=== PATIENT | male | born 1960 | race Caucasian/White ===

== ENCOUNTER 2017-04-02 10:58 | Emergency (ER) | payer MEDICARE, OTHER ==
[~2017-04-02] VITALS: Ht 185.4 cm; Wt 79.4 kg
[~2017-04-02 10:58] MED LIST: ABAT250V; ACID REDUCER 1150 MG PO; ACYC800 PO; ALBU3IS INH; ALBU90OI6 INH; ALPR1; ALPRAZOLAM; ASPI81EC; ASPIRIN; Allergy Medicat25 MG PO; BENADRYL25 MG PO; BENICAR; Benadryl A12.5 MG/5 PO; CALACE667G PO; CALCA500CH PO; CANNABIS; CARV25 PO; CARV6.25 PO; CEPH500 PO; CHLO10 PO; CHLO5 PO; CHOL10002 PO; CIPR250 PO; CIPR500; CIPR500 PO; CLON.2 PO; CLON.3 PO; CLON.5 PO; CRANBERRY TAB PO; CYCL10; CYCL10 PO; Calcium Acetat667 MG PO; DEXL60CA3 PO; DIAZ10 PO; DIAZ5 PO; DIPH12.5EL PO; DIPH50 PO; DOC250 PO; DOCU100 PO; DOXE0.5 PO; Dilaudid 2 mg Ta2 MG PO; FAMO20 PO; FENT25TP TOP; FOLGARD TABLET1 EACH PO; FURO40 PO; GABA600 PO; HYDMOR2 PO; HYDMOR4 PO; IBUHYD PO; ISOMON30 PO; LAVAP17G PO; LIDO5TP TOP; LISI20 PO; LISINOPRIL; LOSA25 PO; LOSA50 PO; LOSARTAN POTASS25 MG PO; METO50ER PO; MIRT15 PO; MORP15ER; MORP15ER PO; MORP30 PO; MORP30ER PO; NITR.4SL SL; Neurontin 100100 MG PO; OLME20; OLME20 PO; OMEP10ER PO; OMEP20ER; OMEP20ER PO; OMEP40CA12 PO; ONDA4 PO; ONDA4ODT MM; OXYC10ER PO; OXYC10TA19 PO; OXYC15ER PO; OXYC1TAB11 PO; OXYC5; OXYC5 PO; OXYCODONE; PANT40; PARI1 PO; POTCHL10ER; POTCHL10ER PO; PROM25 PO; PROTONIX; Papaya Enzyme1 EAC1 PO; Papaya1 EACH PO; Prilosec Otc20 MG PO; RANI150 PO; RENAGEL PO; RENAL VITAMIN0.8 MG PO; ROXICODONE5 MG PO; RXHYDMOR2 PO; Rena-Vite Tabl0.8 MG PO; Renvela800 MG PO; SAW PALMETTO EXTRACT PO; SENN187 PO; SEVEC800; SEVEC800 PO; SULTRIDS PO; Saw Palmetto500 MG PO; Saw Palmetto80 MG PO; Stool Softener240 MG PO; TRAV.004OP BOTHEYES; Toprol Xl50 MG PO; Travatan Z5 ML OP; VALS80 PO; VELPHORO500 MG PO; VELTASSA8.4 GM PO; VITAMIN D 3 PO; [UNRECOGNIZED DRUG - OTHER] PO; [UNRECOGNIZED DRUG - OTHER] PO; [UNRECOGNIZED DRUG - REMARK]; [UNRECOGNIZED DRUG - REMARK]
[2017-04-02 11:34] LABS: BASOPHILS ABSOLUTE AUTO 0.02 K/mm3 (0.00-0.23); BASOPHILS PERCENT AUTO 0 % (0-2); EOSINOPHILS ABSOLUTE AUTO 0.23 K/mm3 (0.00-0.68); EOSINOPHILS PERCENT AUTO 4 % (0-6); Hematocrit 36.8 % (37.0-53.0); Hemoglobin 11.5 g/dL (13.5-17.5); IMMATURE GRAN ABSOLUTE AUTO 0.01 K/mm3 (0.00-0.10); IMMATURE GRAN PERCENT AUTO 0 % (0-1); LYMPHOCYTES ABSOLUTE AUTO 0.98 K/mm3 (0.84-5.20); LYMPHOCYTES PERCENT AUTO 19 % (21-46); MONOCYTES ABSOLUTE AUTO 0.51 K/mm3 (0.16-1.47); MONOCYTES PERCENT AUTO 10 % (4-13); Mean Corpuscular HGB 28.6 pg (26.0-34.0); Mean Corpuscular HGB Conc 31.3 g/dL (31.5-36.5); Mean Corpuscular Volume 92 fL (80-100); Mean Platelet Volume 9.8 fL (9.1-12.4); NEUTROPHILS ABSOLUTE AUTO 3.51 K/mm3 (1.96-9.15); NEUTROPHILS PERCENT AUTO 67 % (41-73); Platelet Count 113 K/mm3 (150-400); RDW Coefficient Variation 15.9 % (11.7-14.2); RDW Standard Deviation 54.6 fL (35.1-46.3); Red Blood Cell Count 4.02 M/mm3 (4.30-5.90); White Blood Cell Count 5.26 K/mm3 (4.00-11.30)
[2017-04-02 11:49] LABS: International Normalized Ratio 1.11; Prothrombin Time Results 11.6 Sec (9.7-11.5)
[2017-04-02 11:54] LABS: Troponin I <0.015 ng/mL (0.000-0.040)
[2017-04-02 12:18] LABS: Alanine Aminotransfer (ALT/SGP 12 U/L (12-78); Albumin, Blood 3.5 g/dL (3.4-5.0); Albumin/Globulin Ratio 0.9 (0.8-1.8); Alk Phos 86 U/L (50-136); Anion Gap 9 mmol/L (6-16); Aspartate Aminotrans (AST/SGOT <3 U/L (12-37); Bilirubin, Total 0.4 mg/dL (0.1-1.0); Blood Urea Nitrogen 75 mg/dL (8-24); Bun/Creatinine Ratio 6.9 (12.0-20.0); CO2, Blood 36 mmol/L (21-32); Calcium, Blood 8.8 mg/dL (8.5-10.1); Chloride, Blood 92 mmol/L (98-108); Globulin, Blood 3.9 g/dL (2.2-4.0); Glomerular Filtration Rate 5 (60-); Glucose, Blood 114 mg/dL (70-99); Potassium, Blood 4.5 mmol/L (3.5-5.5); Sodium, Blood 137 mmol/L (136-145); Total Protein, Blood 7.4 g/dL (6.4-8.2)
[2017-04-02] MEDS ORDERED: CLON.1 PO (15:00)
[2017-04-02] MEDS ORDERED: CORLANOR5 MG PO (15:01)
[2017-04-02] MEDS ORDERED: ENTRESTO 97 MG1 EACH PO (15:02)
[2017-04-02] MEDS ORDERED: KETO10 PO (16:29)
== END 2017-04-02 16:45 | disposition home or self-care (01) ==
LOC: ER 10:58
PROVIDERS: Emergency Medicine
DX: I31.9 Disease of pericardium, unspecified (principal); I50.9 Heart failure, unspecified; N18.9 Chronic kidney disease, unspecified; F03.90 Unspecified dementia, unspecified severity, without behavioral disturbance, psychotic disturbance, mood disturbance, and anxiety; Z99.2 Dependence on renal dialysis; Z88.0 Allergy status to penicillin; Z91.09 Other allergy status, other than to drugs and biological substances; Z88.8 Allergy status to other drugs, medicaments and biological substances; Z79.899 Other long term (current) drug therapy
CPT/HCPCS: 36415; 71250; 80053; 84484; 85025; 85610; 93005; 93010; 96374; 99284; J1885

== ENCOUNTER 2018-05-07 05:35 | Observation (INO) | payer MEDICARE, OTHER ==
[~2018-05-07] VITALS: Ht 182.9 cm; Wt 83.9 kg
[~2018-05-07 05:35] MED LIST changes: +CLON.1 PO; +CORLANOR5 MG PO; +ENTRESTO 97 MG1 EACH PO; +KETO10 PO
[2018-05-07 06:30] LABS: Calcium, Ionized (POC) 1.03 mmol/L (1.10-1.46); Chloride (POC) 97 mmol/L (98-108); Creatinine (POC) 12.2 mg/dL (0.8-1.3); Glucose (ISTAT POC) 93 mg/dL (70-99); Hemoglobin (POC) 9.2 g/dL (13.5-17.5); Potassium (POC) 5.8 mmol/L (3.5-5.5); Sodium (POC) 138 mmol/L (135-148); Total CO2 (POC) 31 mmol/L (21-32)
--- NOTE | 2018-05-07 09:34 | NUR ---
COMPUTER/NETWORK ISSUES LED TO [employer] WORKER BEING UNABLE TO DOCUMENT. I/O DIALYSIS AMOUNT ENTERED FOR FOOTWEAR FACTORY WORKERDIDI.
== END 2018-05-07 13:30 | disposition home or self-care (01) ==
LOC: ER 05:35 → MEDS 05:36
PROVIDERS: Emergency Medicine; ADMIT Internal Medicine
DX: I13.2 Hypertensive heart and chronic kidney disease with heart failure and with stage 5 chronic kidney disease, or end stage renal disease (principal); N18.6 End stage renal disease; D63.1 Anemia in chronic kidney disease; E87.5 Hyperkalemia; G89.29 Other chronic pain; Z79.899 Other long term (current) drug therapy; Z88.8 Allergy status to other drugs, medicaments and biological substances; Z99.2 Dependence on renal dialysis; Z87.891 Personal history of nicotine dependence; Z88.0 Allergy status to penicillin
CPT/HCPCS: 36415; 80047; 85014; 93005; 93010; 99284-25; G0257; J1644

== ENCOUNTER 2018-06-04 02:32 | Inpatient (IN) | payer MEDICARE, OTHER ==
[~2018-06-04] VITALS: Ht 154.9 cm; Wt 91.2 kg
[~2018-06-04 02:32] MED LIST changes: -CLON.1 PO; +CLONIDINE HCL0.1 MG PO; -DOC250 PO
[2018-06-04 04:47] LABS: BASOPHILS ABSOLUTE AUTO 0.01 K/mm3 (0.00-0.23); BASOPHILS PERCENT AUTO 0 % (0-2); EOSINOPHILS ABSOLUTE AUTO 0.17 K/mm3 (0.00-0.68); EOSINOPHILS PERCENT AUTO 4 % (0-6); Hematocrit 24.5 % (37.0-53.0); Hemoglobin 7.5 g/dL (13.5-17.5); IMMATURE GRAN ABSOLUTE AUTO 0.01 K/mm3 (0.00-0.10); IMMATURE GRAN PERCENT AUTO 0 % (0-1); LYMPHOCYTES ABSOLUTE AUTO 0.89 K/mm3 (0.84-5.20); LYMPHOCYTES PERCENT AUTO 18 % (21-46); MONOCYTES ABSOLUTE AUTO 0.26 K/mm3 (0.16-1.47); MONOCYTES PERCENT AUTO 5 % (4-13); Mean Corpuscular HGB 29.6 pg (26.0-34.0); Mean Corpuscular HGB Conc 30.6 g/dL (31.5-36.5); Mean Corpuscular Volume 97 fL (80-100); Mean Platelet Volume 9.7 fL (9.1-12.4); NEUTROPHILS ABSOLUTE AUTO 3.55 K/mm3 (1.96-9.15); NEUTROPHILS PERCENT AUTO 73 % (41-73); Platelet Count 102 K/mm3 (150-400); RDW Coefficient Variation 17.2 % (11.7-14.2); RDW Standard Deviation 60.5 fL (35.1-46.3); Red Blood Cell Count 2.53 M/mm3 (4.30-5.90); White Blood Cell Count 4.89 K/mm3 (4.00-11.30)
[2018-06-04 05:08] LABS: Troponin I <0.015 ng/mL (0.000-0.040)
[2018-06-04 05:10] LABS: Alanine Aminotransfer (ALT/SGP 14 U/L (12-78); Albumin, Blood 3.5 g/dL (3.4-5.0); Alk Phos 58 U/L (50-136); Anion Gap 9 mmol/L (6-16); Aspartate Aminotrans (AST/SGOT <3 U/L (12-37); Bilirubin, Total 0.7 mg/dL (0.1-1.0); Blood Urea Nitrogen 82 mg/dL (8-24); Bun/Creatinine Ratio 6.8 (12.0-20.0); CO2, Blood 33 mmol/L (21-32); Calcium, Blood 8.8 mg/dL (8.5-10.1); Chloride, Blood 94 mmol/L (98-108); Globulin, Blood 3.4 g/dL (2.2-4.0); Glomerular Filtration Rate 5 (60-); Glucose, Blood 89 mg/dL (70-99); Potassium, Blood 5.8 mmol/L (3.5-5.5); Sodium, Blood 136 mmol/L (136-145); Total Protein, Blood 6.9 g/dL (6.4-8.2)
[2018-06-04] MEDS ORDERED: PROM25 PO (06:08)
[2018-06-04] MEDS ORDERED: ISOSORBIDE DINI PO (06:09)
[2018-06-04] MEDS ORDERED: Ropinirole HCl0.5 MG PO (12:36)
[2018-06-04] MEDS ORDERED: SEVE800 PO (12:45)
[2018-06-04] MEDS ORDERED: Calcium Acetat667 MG PO (12:47)
[2018-06-04] MEDS ORDERED: HYDHCL25 PO (14:32)
[2018-06-04] MEDS ORDERED: DOC250 PO (14:35)
[2018-06-04] MEDS ORDERED: LOKELMA10 GM PO (14:35)
--- NOTE | 2018-06-04 18:46 | NUR ---
PT ADMITTED TO ROOM 305 FROM ED APPROX 1630- ORIENTED TO ROOM SET UP AND CALL LIGHT AND SAFETY. PT A/O, AMBULATED STEADY SBA FROM GOURNEY TO BED, NO SOB, ON 3L O2- RESP EVEN UNLABORED. DIM BREATH SOUNDS IN BASES. STATES SINCE 2 UNITS OF BLOOD WITH DIALYSIS, HIS SOB HAS RESOLVED. STATES HE HAS CHRONIC CHEST PRESURE, AND THAT IS THERE CURRENTLY LINGERING ENTIRE CHEST 2/10 PRESURE WHICH IS HIS NORM. STATES HE CAN TELL IF ITS "CARDIAC" AND KNOWS WHEN HE SHOULD TAKE NITRO. RN CALLED CARDIAC CONSULT CRUZITO ADAMS LAST REMODELER REPAIRER 06/05 TO COME EVAL PT. HISTORY COMPLETED AND DR SAVAGE NOTIFIED OF NEED FOR PAIN MED AND BINDERS NEEDED BEFORE MEALS.
[2018-06-04] MEDS ORDERED: BENADRYL25 MG PO (19:33)
--- NOTE | 2018-06-05 03:18 | NUR ---
PT REFUSED DOSE OF ARANESP TONIGHT. EDUCATED PT ON IMPORTANCE AND PURPOSE OF MEDICATION. AT BEDSIDE TRIES TO CONVINCE AND EDUCATE PT WELL. PT STATES, "I WILL BE TALKING TO DR CARMONA ABOUT THAT ONE."
[2018-06-05 05:13] LABS: Hematocrit 25.7 % (37.0-53.0)
[2018-06-05 05:40] LABS: Magnesium, Blood 2.8 mg/dL (1.6-2.4)
[2018-06-05 05:50] LABS: Albumin, Blood 3.1 g/dL (3.4-5.0); Anion Gap 8 mmol/L (6-16); Blood Urea Nitrogen 62 mg/dL (8-24); Bun/Creatinine Ratio 6.2 (12.0-20.0); CO2, Blood 33 mmol/L (21-32); Calcium, Blood 8.3 mg/dL (8.5-10.1); Chloride, Blood 93 mmol/L (98-108); Creatinine, Blood 9.99 mg/dL (0.60-1.20); Glomerular Filtration Rate 6 (60-); Glucose, Blood 72 mg/dL (70-99); Phosphorus, Blood 5.2 mg/dL (2.5-4.9); Potassium, Blood 4.9 mmol/L (3.5-5.5); Sodium, Blood 134 mmol/L (136-145); Vancomycin, Random 15.8 ug/mL
--- NOTE | 2018-06-05 06:31 | NUR ---
SHIFT SUMMARY: PT IS A&O, INDEPENDENT IN RM c AT BEDSIDE. ON 3L VIA NC; LS EXP WHEEZE. BOUNDING HS. SWELLING /DISTENTION TO ABD; PT REPORTS CYST TO LIVER; PAINFUL UPON PALPATION. PT C/O OF PRURITUS BUT REFUSES BENADRYL. VALIUM ADMINISTERED @ BEDTIME FOR ANXIETY. NO PAIN MEDS GIVEN TO PT THIS SHIFT, REPORTS SATISFACTION FROM DILAUDID RECIEVED ON PRIOR SHIFT. PT REFUSES DOSE OF ARANESP TONIGHT REGARDLESS OF EDUCATION, STATES, "I WILL BE SPEAKING TO DR CARMONA ABOUT THIS ONE." FISTULA TO EM. MRSA NOSE SWAB SENT TO LAB; AWAITING RESULTS. WILL CONT TO MONITOR AND PROVIDE CARE UNTIL PRESUMED BY ONCOMING RN.
--- NOTE | 2018-06-05 19:38 | NUR ---
SUMM- PT A/O X3, INDEPENDANT IN ROOM. DIALYSIS TODAY FROM [id number]. TOLERATED WELL, DENIES MANY ILL EFFECTS. NO ITCHING. MEDICATED FOR BACK PAIN X2 TODAY WITH REPORTED RELEIF. TOLERATING FOOD AND FLUIDS, FOLLOWS HIS RENAL DIET TO THE BEST HE CAN/COMPLIANT. DECLINED DINNER THIS MADISON. IN TO VISIT [facility] TODAY, WORKS IN THE HOSP. INVOLVED IN CARE. PT ABLE TO NAP A FEW TIMES TODAY FOR HOUR AT A TIME. VSS, BREATHING EVEN AND UNLABORED, STATED DYSPNEA WITH ACTIVITY WHEN O2 TAKEN OFF. REPORTED TO NOC RN.
[2018-06-06 05:07] LABS: Hematocrit 30.7 % (37.0-53.0); Hemoglobin 9.7 g/dL (13.5-17.5)
[2018-06-06 05:40] LABS: Magnesium, Blood 2.7 mg/dL (1.6-2.4)
[2018-06-06 06:11] LABS: Albumin, Blood 3.1 g/dL (3.4-5.0); Anion Gap 10 mmol/L (6-16); Blood Urea Nitrogen 60 mg/dL (8-24); Bun/Creatinine Ratio 6.5 (12.0-20.0); CO2, Blood 31 mmol/L (21-32); Calcium, Blood 8.7 mg/dL (8.5-10.1); Chloride, Blood 96 mmol/L (98-108); Creatinine, Blood 9.27 mg/dL (0.60-1.20); Glomerular Filtration Rate 6 (60-); Glucose, Blood 84 mg/dL (70-99); Phosphorus, Blood 5.6 mg/dL (2.5-4.9); Sodium, Blood 137 mmol/L (136-145)
--- NOTE | 2018-06-06 06:24 | NUR ---
SHIFT SUMMARY: NO ACUTE CHANGES TONIGHT. CRITICAL HIGH CREATININE OF 9.27 THIS AM; PT HAD DIALYSIS LAST 06/05. CREATININE TRENDING DOWN. CONT TO BE ON 3L VIA NC, LS EXP WHEEZE. VALIUM AND DILAUDID ADMINISTERED 1X TONIGHT AT BEDTIME PER PT REQUEST. PT C/O OF PRURITUS BUT DECLINES NEED FOR BENADRYL. AT BEDSIDE ASSISTING c CARE. WILL CONT TO MONITOR AND PROVIDE CARE UNTIL PRESUMED BY ONCOMING RN.
[2018-06-06 13:16] LABS: Vancomycin, Random 24.6 ug/mL
--- NOTE | 2018-06-06 19:31 | NUR ---
SHIFT SUMMARY AT BEDSIDE AT BEGINNING AND END OF SHIFT. PT UP AND INDEPENDENT IN ROOM ON AND OFF TODAY. ZITHROMAX GIVEN SLOWLY FOR ARM COMFORT THIS MORNING. REPORTED INCREASED NAUSEA MED INFUSED AND BECAME VERY DROWSY WITH APPROX 40ML LEFT TO INFUSE. STATED HE HAD A VERY VIVID AND DISTURBING DREAM AND FELT ALL THE SYMPTOMS WERE RELATED TO MED. REQUESTING IT TO BE STOPPED AT THAT POINT WITH THERE FOR SHORT TIME WELL. WITHIN AN HOUR PT REPORTED FEELING BETTER. ANN MARIE ORDERED AND DISCUSSED WITH IT PT. STATED HE WASN'T GOING TO GIVE A SAMPLE BECAUSE HE DIDN'T THINK HE HAD BLOOD IN HIS STOOL AND HE DIDN'T THINK HE HAS PNEUMONIA EITHER. HOPES TO GO HOME TOMORROW.
[2018-06-07 05:17] LABS: Hematocrit 28.4 % (37.0-53.0)
--- NOTE | 2018-06-07 06:27 | NUR ---
SHIFT SUMMARY PT A/O INDEPENDENT IN ROOM. IN ROOM T/O NOC. USING 3L O2 NC AT NOC AND PRN. TOOK A SHOWER AT ABOUT 2100. C/O PAIN X2 AND MEDICATED PER EMAR. HE SAID HE WAS ABLE TO GET A LITTLE BIT OF SLEEP. SAID HE WILL REFUSE TO GIVE A STOOL SAMPLE. CALL LIGHT IN REACH
[2018-06-07 06:37] LABS: Albumin, Blood 3.1 g/dL (3.4-5.0); Anion Gap 12 mmol/L (6-16); Blood Urea Nitrogen 87 mg/dL (8-24); Bun/Creatinine Ratio 7.2 (12.0-20.0); CO2, Blood 29 mmol/L (21-32); Calcium, Blood 8.8 mg/dL (8.5-10.1); Chloride, Blood 95 mmol/L (98-108); Glomerular Filtration Rate 5 (60-); Glucose, Blood 85 mg/dL (70-99); Phosphorus, Blood 5.7 mg/dL (2.5-4.9); Potassium, Blood 5.1 mmol/L (3.5-5.5); Sodium, Blood 136 mmol/L (136-145)
[2018-06-07 13:13] LABS: Stool Occult Blood Guaiac 1 Pos (Neg)
--- NOTE | 2018-06-07 18:15 | NUR ---
SHIFT SUMMARY INDEPENDENT IN ROOM TODAY. AT BEDSIDE THIS MORNING AND THIS EVENING. [facility] OBTAINED THIS MORNING AND SENT IN. REQUESTING PAIN MEDS AND THEN SOMETHING FOR ITCH AND FELL ASLEEP AFTER VISTERIL GIVEN. NO DIALYSIS TODAY BUT PLANS FOR TOMORROW.
[2018-06-08 04:26] LABS: Hematocrit 26.8 % (37.0-53.0); Hemoglobin 8.5 g/dL (13.5-17.5)
[2018-06-08 04:48] LABS: Magnesium, Blood 3.2 mg/dL (1.6-2.4)
[2018-06-08 05:07] LABS: Albumin, Blood 3.2 g/dL (3.4-5.0); Anion Gap 12 mmol/L (6-16); Blood Urea Nitrogen 109 mg/dL (8-24); Bun/Creatinine Ratio 7.4 (12.0-20.0); CO2, Blood 27 mmol/L (21-32); Calcium, Blood 8.4 mg/dL (8.5-10.1); Chloride, Blood 95 mmol/L (98-108); Glomerular Filtration Rate 4 (60-); Glucose, Blood 86 mg/dL (70-99); Phosphorus, Blood 6.5 mg/dL (2.5-4.9); Sodium, Blood 134 mmol/L (136-145)
--- NOTE | 2018-06-08 06:13 | NUR ---
SHIFT SUMMARY PT A/O. C/O NAUSEA X2 AND MEDICATED PER EMAR. INDEPENDENT TO BA. IN ROOM T/O NOC. HE SLEPT ON AND OFF T/O NOC. WORE 3L O2 NC. CALL LIGHT IN REACH.
--- NOTE | 2018-06-08 08:40 | NUR ---
PT REFUSING HIS AM MEDS THAT GO WITH FOOD, KULDEEP MATHEW, HE DID NOT EAT ANY BREAKFAST. AM BP MEDS HELD FOR DIALYSIS.
--- NOTE | 2018-06-08 17:12 | NUR ---
PT HAD DIALYSIS THIS MORNING AND TOLERATED WELL, STILL C/O OF ITCHING AND HE WAS MEDICATED PER EMAR. NO ACUTE CHANGES NOTED THIS SHIFT, WILL CONTINUE TO MONITOR AND REPORT TO ONCOMING WILL
[2018-06-09 05:29] LABS: Hematocrit 30.1 % (37.0-53.0); Hemoglobin 9.6 g/dL (13.5-17.5)
[2018-06-09 06:04] LABS: Magnesium, Blood 2.9 mg/dL (1.6-2.4)
[2018-06-09 06:21] LABS: Albumin, Blood 3.1 g/dL (3.4-5.0); Anion Gap 10 mmol/L (6-16); Blood Urea Nitrogen 81 mg/dL (8-24); Bun/Creatinine Ratio 6.9 (12.0-20.0); CO2, Blood 33 mmol/L (21-32); Calcium, Blood 8.6 mg/dL (8.5-10.1); Chloride, Blood 94 mmol/L (98-108); Glomerular Filtration Rate 5 (60-); Glucose, Blood 87 mg/dL (70-99); Potassium, Blood 5.2 mmol/L (3.5-5.5); Sodium, Blood 137 mmol/L (136-145)
--- NOTE | 2018-06-09 06:45 | NUR ---
SHIFT SUMMARY: PT IS ALERT AND ORIENTED. PT IS CALM AND COOPERATIVE WITH CARE. PT CALLS APPROPRIATELY. PT'S IN THE ROOM OVERNIGHT. PT REPORTS ABD PAIN, MEDICATING PER EMAR. PT IS INDEPENDENT. PT DENIES NAUSEA, VOMITING, AND SOB. PT SLEPT MUCH OF THE SHIFT. NO ACUTE CHANGES OR COMPLICATIONS OVERNIGHT. WILL REPORT TO DAY NURSE.
--- NOTE | 2018-06-09 14:59 | NUR ---
SUMMARY PT IS A/O X4, PLEASANT AFFECT. STATE CHR PAIN HOWEVER MINIMAL/TOLERABLE @ THIS TIME, HAS REQUESTED NO PRN'S FOR PAIN. HE HAD ABRUPT NAUSEA AFTER LUNCH TODAY, NO EMESIS, PRN ZOFRAN GIVEN FOR RELIEF. HX NEPHRECTOMY, DIALYSIS PT, FISTULA L ARM. GFR 5, DR CARMONA MANAGING, ORDER NO DIALYSIS TODAY. HE SPOKE WITH DR CARMONA R/T PREP FOR COLONOSCOPY. DR CARMONA STATE OK FOR PROCEDURE. DR JARQUIN NOTIFIED, PT WILL START CL DIET IN AM, SCOPE ON MONDAY/DR JARQUIN. PT IS IND TO BR, +BM THIS AM, STATE NO BLOOD IN STOOL "NORMAL" BM. H&H 9.4/30.1
--- NOTE | 2018-06-10 04:37 | NUR ---
SHIFT SUMMARY: PT IS ALERT AND ORIENTED. PT IS CALM AND COOPERATIVE WITH CARE. PT CALLS APPROPRIATELY. PT IS INDEPENDENT. PT'S IN THE ROOM OVERNIGHT. PT REPORTS ABD PAIN, MEDICATING PER EMAR. PT REPORTED NAUSEA, GAVE PRN ZOFRAN. PT DENIES VOMITING AND SOB. PT SLEPT MUCH OF THE NIGHT WHEN NOT DISTURBED. NO ACUTE CHANGES OR COMPLICATIONS THIS SHIFT. BED IN LOW POSITION, CALL LIGHT WITHIN REACH. WILL REPORT TO DAY NURSE.
--- NOTE | 2018-06-10 16:38 | NUR ---
SUMMARY PT IS A/O X4, PLEASANT/COOPERATIVE, SOMEWHAT FATIGUED TODAY. HGB LOW @ 8.8, DR CARMONA & EARLY INTERVENTION SPECIALIST DECIDE TO HOLD DIALYSIS W PRBC UNTIL TOMORROW MORNING AFTER DISCUSSION W PT/. CLEAR LIQUID DIET STARTED THIS AM IN PREP FOR COLONOSCOPY TUES/ORDER. PT HAS DECLINED PHOS BINDERS WHILE ON CL DIET. HE WENT OUTSIDE FOR A WALK WITH HIS TODAY. BP ELEVATED THIS AFTERNOON 191/101, PT/ STATE THIS IS NOT UNUSUAL FOR HIM, STATE WILL HAVE BP MEDS @ BEDTIME. WILL MX & RECHECK.
[2018-06-11 00:47] LABS: Albumin, Blood 3.1 g/dL (3.4-5.0); Anion Gap 10 mmol/L (6-16); Blood Urea Nitrogen 126 mg/dL (8-24); Bun/Creatinine Ratio 8.1 (12.0-20.0); CO2, Blood 30 mmol/L (21-32); Calcium, Blood 8.4 mg/dL (8.5-10.1); Chloride, Blood 95 mmol/L (98-108); Glomerular Filtration Rate 3 (60-); Glucose, Blood 94 mg/dL (70-99); Phosphorus, Blood 5.3 mg/dL (2.5-4.9); Potassium, Blood 5.6 mmol/L (3.5-5.5); Sodium, Blood 135 mmol/L (136-145)
[2018-06-11 04:42] LABS: Hematocrit 26.4 % (37.0-53.0); Hemoglobin 8.6 g/dL (13.5-17.5)
--- NOTE | 2018-06-11 04:56 | NUR ---
SHIFT SUMMARY: PT IS ALERT AND ORIENTED. PT IS CALM AND COOPERATIVE WITH CARE. PT CALLS APPROPRIATELY. PT IS INDEPENDENT IN THE ROOM. PT REPORTS JOINT PAIN AND HEADACHE, MEDICATING PER EMAR. PT REPORTS SOB, SATS REMAIN > 90% ON 3 L O2. PT REPORTS NAUSEA, GAVE PRN ZOFRAN AND REGLAN. PT DENIES VOMITING. PT TO HAVE DIALYSIS TODAY, CREATININE LEVEL REMAINS CRITICALLY HIGH. BED IN LOW POSITION, CALL LIGHT WITHIN REACH. WILL REPORT TO DAY NURSE.
[2018-06-11 06:03] LABS: Albumin, Blood 3.3 g/dL (3.4-5.0); Anion Gap 10 mmol/L (6-16); Blood Urea Nitrogen 125 mg/dL (8-24); Bun/Creatinine Ratio 7.8 (12.0-20.0); CO2, Blood 30 mmol/L (21-32); Calcium, Blood 8.4 mg/dL (8.5-10.1); Chloride, Blood 94 mmol/L (98-108); Glomerular Filtration Rate 3 (60-); Glucose, Blood 87 mg/dL (70-99); Phosphorus, Blood 5.3 mg/dL (2.5-4.9); Potassium, Blood 5.9 mmol/L (3.5-5.5); Sodium, Blood 134 mmol/L (136-145)
--- NOTE | 2018-06-11 14:30 | NUR ---
NOTIFIED DR. AVALOS PT REFUSED TO TAKE AM CARDIAC MEDS UNTIL AFTER DIALYSIS. NOTIFIED DR. AVALOS PT'S BP 170/88 AND PT RECIEVED HIS AM CARDIAC MEDS JUST OVER AN HOUR AGO. NOTIFIED DR. AVALOS PT DOES NOT HAVE ANY PRN MEDICATION ORDERED TO MANAGE HIGH BP. DR. AVALOS SAID TO RECHECK BP IN ONE HOUR. NO NEW ORDERS AT THIS TIME.
--- NOTE | 2018-06-11 17:36 | NUR ---
SHIFT SUMMARY- PT C/O HEADACHE AND NAUSEA THIS AM. MEDS GIVEN PER EMAR. PT HAD DIALYSIS THIS AM. PT C/O ALL OVER ITCHING. PT REPORTS HE GETS ITCHY WITH DIALYSIS. MEDS GIVEN PER EMAR. PT TO BE NPO AFTER MIDNIGHT FOR COLONOSCOPY TOMMORROW. PT TO START GOLYTELY THIS PM. PT REPORTS MILD SOB. RESP E/U. 91% ON 3L O2 NC. INDEPENDENT IN THE ROOM. NO OTHER SIGNIFICANT CHANGES THIS SHIFT.
--- NOTE | 2018-06-11 18:20 | NUR ---
DR. AVALOS NOTIFIED OF PT'S BP OF 176/98 THIS PM. NOTIFIED PT REPORTS HIS BP NORMALLY RUNS THIS HIGH. PT HAS CARDIAC PO MEDS THIS PM AT 2100. NO NEW ORDERS AT THIS TIME.
--- NOTE | 2018-06-12 00:23 | NUR ---
06/11/18 2100 PT STATES HE HAS CHRONIC HYPERTENSION EVEN WITH MEDS. CONFIRMS.
[2018-06-12 05:11] LABS: Hemoglobin 9.4 g/dL (13.5-17.5)
[2018-06-12 06:09] LABS: Magnesium, Blood 2.5 mg/dL (1.6-2.4)
[2018-06-12 06:38] LABS: Albumin, Blood 3.1 g/dL (3.4-5.0); Anion Gap 8 mmol/L (6-16); Blood Urea Nitrogen 75 mg/dL (8-24); Bun/Creatinine Ratio 6.6 (12.0-20.0); CO2, Blood 34 mmol/L (21-32); Calcium, Blood 8.3 mg/dL (8.5-10.1); Chloride, Blood 94 mmol/L (98-108); Glomerular Filtration Rate 5 (60-); Glucose, Blood 80 mg/dL (70-99); Phosphorus, Blood 5.3 mg/dL (2.5-4.9); Potassium, Blood 4.8 mmol/L (3.5-5.5); Sodium, Blood 136 mmol/L (136-145)
--- NOTE | 2018-06-12 07:30 | NUR ---
06/12/18 0630 AWAKE AND TAKING GOLYTLY AND C/O NAUSEA. SEE MAR FOR MED GIVEN. VITALS BETTER THIS AM. AT BEDSIDE AND STAYED WITH HIM ALL NIGHT. NPO OTHERWISE FOR PROCEDURE LATER TODAY.
--- NOTE | 2018-06-12 13:00 | NUR ---
PT TRANSPORTED VIA STRETCHER TO DAY SURGERY FOR COLONOSCOPY WITH SPOUSE AND RN AND IN NO DISTRESS.
--- NOTE | 2018-06-12 13:25 | NUR ---
History, Chart, Medications and Allergies reviewed before start of procedure. Patient confirms NPO status and agrees with scheduled surgery.
--- NOTE | 2018-06-12 13:59 | NUR ---
06/12/18 Bella9 Cordell Bronson Patient to ENDO 1History, Chart, Medications and Allergies reviewed before start of procedure.MONITOR INTACT WITH CONTINUOUS PULSE OXIMETRY AND INTERMITTENT BP.O2 VIA N/C INTACT THROUGHOUT SEDATION/PROCEDURE.See Anesthesia record
--- NOTE | 2018-06-12 15:40 | NUR ---
RECEIVED PATIENT FROM COLONOSCOPY. AWAKE ALERT AND IN NO ACUTE DISTRESS.
--- NOTE | 2018-06-12 18:19 | NUR ---
SHIFT SUMMARY OX3, COLONOSCOPY TODAY WITH CLIPS PLACED SEE PICTURES AND REPORT. RENAL DIET. INDEPENDENT IN ROOM. CHRONIC PAIN. LEFT ARM FISTULA. CALM, COOPERATIVE. PLAN FOR ANGIOGRAM EITHER IN HOSPITAL OR OUTPATIENT. POWERGLIDE PATENT.
[2018-06-13 07:03] LABS: Hematocrit 26.6 % (37.0-53.0); Hemoglobin 8.7 g/dL (13.5-17.5)
--- NOTE | 2018-06-13 07:15 | NUR ---
06/13/18 0650 AWAKENED FOR LAB DRAWS. STATES HE WAS ABLE TO SLEEP LATE THIS AM. HEART MONITOR STABLE AT SR IN THE 60'S. NO C/O CHEST PAIN AT THIS TIME. MEDICATED SEVERAL TIMES FOR ABDOMINAL PAIN AND NAUSEA. PT HAD BEEN TAKING NTG 0.4 MG SL FOR CHEST DISCOMFORT WITHOUT NOTIFYING RN. CALLED EARLIER ABOUT EPISODE OF CHEST DISCOMFORT AT LEVEL "4". HX OF CHRONIC CHEST PAIN.
[2018-06-13 07:30] LABS: Albumin, Blood 3.1 g/dL (3.4-5.0); Anion Gap 11 mmol/L (6-16); Blood Urea Nitrogen 85 mg/dL (8-24); Bun/Creatinine Ratio 6.4 (12.0-20.0); CO2, Blood 32 mmol/L (21-32); Calcium, Blood 8.7 mg/dL (8.5-10.1); Chloride, Blood 93 mmol/L (98-108); Glomerular Filtration Rate 4 (60-); Glucose, Blood 81 mg/dL (70-99); Phosphorus, Blood 6.5 mg/dL (2.5-4.9); Potassium, Blood 5.2 mmol/L (3.5-5.5); Sodium, Blood 136 mmol/L (136-145)
[2018-06-13 07:32] LABS: Magnesium, Blood 2.5 mg/dL (1.6-2.4)
--- NOTE | 2018-06-13 09:11 | NUR ---
PT TRANSPORTED TO DIALYSIS VIA W/C
--- NOTE | 2018-06-13 11:19 | NUR ---
SPOKE WITH DR. MARTINS; AT HER REQUEST I PASSED THE CONSULT NOTIFICATION ON TO DR. HDZ ON 06/13/18 @5931.
--- NOTE | 2018-06-13 16:17 | NUR ---
Echocardiogram completed.
--- NOTE | 2018-06-13 19:09 | NUR ---
SHIFT SUMMARY PATIENT HAD DIALYSIS THIS MORNING. ACCOMPANYING HIM, SPENDING THE NIGHT AND VISTING ON HER LUNCH BREAK. HE COMPLAINED OF A SEVERE HEADACHE THIS EVENING THAT CAUSED NAUSEA-HAD SOME RELIEF WITH DILAUDID AND TYLENOL FOR PAIN. ZOFRAN PRN AVAILABLE FOR NAUSEA TX. HE HAD ITCHING FOLLOWING DIALYSIS WHICH WAS DIFFICULT TO RELIEVE--EXPLAINS THE ITCHING DIFFERENT THAN THAT OF INCREASED PHOSPHATE. WAS EATING DINNER AT END OF SHIFT AND IS PREPARED TO BE NPO AFTER MIDNIGHT FOR ANGIO IN AM.
--- NOTE | 2018-06-14 03:45 | NUR ---
SHIFT SUMMARY: PT IS ALERT AND ORIENTED. PT IS CALM AND COOEPRATIVE WITH CARE. PT CALLS APPROPRIATELY. PT IS INDEPENDENT IN THE ROOM. PT'S IN THE ROOM OVERNIGHT. PT REPORTS LOW BACK PAIN AND HEADACHE, MEDICATING PER EMAR. PT REPORTS NAUSEA, MEDICATING PER EMAR. PT REPORTS SOB UPON EXERTION, O2 @ 2 L/MIN KEEPING SATS > 90%. PT SLEPT MUCH OF THE NIGHT WHEN NOT DISTURBED. PT NPO AFTER MIDNIGHT ORDERED. WILL REPORT TO DAY NURSE.
[2018-06-14 05:27] LABS: Hematocrit 29.1 % (37.0-53.0); Hemoglobin 9.4 g/dL (13.5-17.5)
[2018-06-14 06:42] LABS: Albumin, Blood 3.2 g/dL (3.4-5.0); Anion Gap 8 mmol/L (6-16); Blood Urea Nitrogen 59 mg/dL (8-24); Bun/Creatinine Ratio 5.8 (12.0-20.0); CO2, Blood 34 mmol/L (21-32); Calcium, Blood 8.6 mg/dL (8.5-10.1); Chloride, Blood 95 mmol/L (98-108); Glomerular Filtration Rate 6 (60-); Glucose, Blood 87 mg/dL (70-99); Phosphorus, Blood 5.2 mg/dL (2.5-4.9); Potassium, Blood 4.6 mmol/L (3.5-5.5); Sodium, Blood 137 mmol/L (136-145)
[2018-06-14 06:45] LABS: Magnesium, Blood 2.4 mg/dL (1.6-2.4)
--- NOTE | 2018-06-14 09:48 | NUR ---
NURSE CALLED [facility] AT 0715 TO FIND OUT WHEN PT'S ANGIOGRAM WAS SCHEDULED. THEY DID NOT HAVE A TIME AT THAT POINT. AT 0925 NURSE CALLED AGAIN AND WAS TOLD THAT PROCEDURE WAS AT ABOUT 1300 PENDING OTHER PROCEDURES GO SCHEDULED. PT NOTIFED OF TIMES. HE STATED FRUSTRATION OVER "NOT KNOWING WHAT'S GOING ON" NURSE APOLOGIZED AND TOLD PATIENT THAT SHE WILL DO BETTER TO IMPROVE COMMINICATION
--- NOTE | 2018-06-14 14:44 | NUR ---
REPORT CALLED TO SOLITARIO GOLDSMITH RN WHO WILL ASSUME CARE AT THIS TIME
--- NOTE | 2018-06-14 16:44 | NUR ---
pt arrived to pcu [facility] bed from [facility], dialysis nurse in room setting him up for H.D. he said he is doing ok. tr band to right wrist, site is clear with some old oozing, right femoral access, site is soft no sign of bleeding. call light in reach, dialysis nurse in room.
--- NOTE | 2018-06-14 18:16 | NUR ---
PT RECIEVING DIALYSIS, WAS MEDICATED FOR PAIN, AND N/V, WAITING ON A DINNER TRAY, THEN WILL GIVE BINDERS. DOING OK. CALL LIGHT IN REACH.
[2018-06-14 22:24] LABS: Hematocrit 32.2 % (37.0-53.0); Hemoglobin 10.6 g/dL (13.5-17.5)
[2018-06-15 04:05] LABS: Hematocrit 32.3 % (37.0-53.0); Hemoglobin 10.4 g/dL (13.5-17.5)
[2018-06-15 04:25] LABS: Magnesium, Blood 2.3 mg/dL (1.6-2.4)
[2018-06-15 04:36] LABS: Albumin, Blood 3.4 g/dL (3.4-5.0); Anion Gap 8 mmol/L (6-16); Blood Urea Nitrogen 47 mg/dL (8-24); Bun/Creatinine Ratio 5.5 (12.0-20.0); CO2, Blood 34 mmol/L (21-32); Calcium, Blood 8.7 mg/dL (8.5-10.1); Chloride, Blood 93 mmol/L (98-108); Creatinine, Blood 8.53 mg/dL (0.60-1.20); Glomerular Filtration Rate 7 (60-); Glucose, Blood 170 mg/dL (70-99); Phosphorus, Blood 5.8 mg/dL (2.5-4.9); Potassium, Blood 4.3 mmol/L (3.5-5.5); Sodium, Blood 135 mmol/L (136-145)
--- NOTE | 2018-06-15 05:39 | NUR ---
SHIFT SUMMARY PATIENT ALERT AND ORIENTED X 3 THROUGHOUT SHIFT. HE WAS IN LOTS OF PAIN, GREATER THAN 10/10 AT SHIFT ONSET. HE WAS PROVIDED ORDERED MEDICAITON AND THEN DOCTOR WAS CALLED TO ESTABLISH A ONE TIME DOSE OF PAIN MEDS FOR BREAKTHROUGH. HE STATED THAT HIS PAIN WAS BACK TO EVEN AND TOLERABLE. HE DENIED ANY FURTHER ISSUES WITH PAIN CONTROL. PT TR BAND WAS REMOVED EARLIER IN SHIFT AND THERE HAVE BEEN NO SIGNS OF BLEEDING AT EITHER WRIST OR GROIN SITE. PT DENIED ANY COMPLAINTS OF PAIN AT EITHER SITE FOLLOWING TR BAND REMOVAL. PT WAS ABLE TO AMBULATE IN THE ROOM INDPENDENTLY AND DID MAKE A WALK AROUND THE UNIT HALLS. NO ISSUES WITH LIGHT HEADEDNESS, DIZZINESS OR SHORTNESS OF BREATH. PT DENIED ANY UNMET NEEDS AND WAS PLEASANT AND COOPERATIVE WITH ALL VITALS AND ASSESSMENTS. PT HAS HIS AT THE BEDSIDE, BED IN THE LOWEST POSITION, 2X SIDE RAILS IN PLACE AND CALL LIGHT CLOSE AT HAND. HE DEMONSTRATED APPRORPIATE USE OF THIS AND WAS ABLE TO EFFECTIVELY MAKE NEEDS KNOWN. HE REMAINS INDEPENDENT IN THE ROOM. PT BLOOD PRESSURE HAS BEEN HIGH T/O SHIFT. DOCTOR IS AWARE AND STATES THAT THIS IS ACTUALLY BETTER THAN NORMAL FOR HIM. HE WAS SYMPTOMATIC WITH PRESSURES. PT WAS RECIEVING DIALYSIS AT SHIFT ONSET AND HE TOLERATED THIS WELL. HE WILL CONTINUE TO BE MONITORED UNTIL HANDOFF TO DAYSHIFT RN.
[2018-06-15] MEDS ORDERED: DOCU100 PO (12:17)
--- NOTE | 2018-06-15 12:20 | NUR ---
PT RETURNED TO ROOM AFTER DIALYSIS, HE IS AMBULATORY INDEP.
[2018-06-15] MEDS ORDERED: ISODIN20 PO (12:22)
[2018-06-15] MEDS ORDERED: ASPI81CH PO (12:32)
[2018-06-15] MEDS ORDERED: CLON.3 PO (14:24)
--- NOTE | 2018-06-15 18:09 | NUR ---
END OF SHIFT SUMMARY PT HAS BEEN CALM AND COOPERATIVE WITH CARE THE ENTIREIRTY OF SHIFT. PT'S BP MEDICATIONS AND A FEW SPECIFIED MEDICATIONS HELD FOR DIALYSIS AND GIVEN POST DIALYSIS. PT TO DIALYSIS @0900 AND RETURNED AT AAROUND 1230. PT STATES BEING TIRED BUT STATES FEELING BASELINE AFTER DIALYSIS. PT MEDICATED WITH ZOFRAM TWICE THIS SHIFT FOR NAUSEA. PT'S BP CONTINUED TO STAY NEAR 200 SYSTOLIC, PT STATED BEING BASELINE. DR AVALOS NOTIFIED AND ALSO NOTIFIED THAT BP MEDICATIONS WERE HELD UNTIL AFTER DIALYSIS DUE TO DIALYZING AFFECT ON MEDS. CLONIDINE ORDER CHANGED BY . PT'S SYSTOLIC 170. PT RESTED FOR MAJORITY OF SHIFT WAITING FOR TO GET OFF WORK TO BE DC'D. DC INSTRUCTIONS TO PT AND SPOUSE, BOTH STATED UNDERSTANDING WHAT WAS BEING TAUGHT INCLUDING, MEDICATION CHANGES, FOLLOW UP APPOINTMENTS, ETC. PT AND SPOUSE WERE DC'D @1800. ALL BELONGINGS TAKEN BY PATIENT/SPOUSE.
== END 2018-06-15 18:10 | disposition home or self-care (01) | DRG 286 ==
LOC: ER 02:32 → ERHOLD 08:29 → MEDS 08:29 → PCU 06-14 14:18
PROVIDERS: Emergency Medicine; Internal Medicine Nephrology; Nurse Practitioner Acute Care; Student in an Organized Health Care Education/Training Program; ADMIT Internal Medicine
PROC: 30233N1 Transfusion of Nonautologous Red Blood Cells into Peripheral Vein, Percutaneous Approach (ICD-10-PCS; principal; 2018-06-05)
PROC: 5A1D70Z Performance of Urinary Filtration, Intermittent, Less than 6 Hours Per Day (ICD-10-PCS; 2018-06-05)
PROC: 0DBM8ZX Excision of Descending Colon, Via Natural or Artificial Opening Endoscopic, Diagnostic (ICD-10-PCS; 2018-06-12)
PROC: 0DBH8ZX Excision of Cecum, Via Natural or Artificial Opening Endoscopic, Diagnostic (ICD-10-PCS; 2018-06-12)
PROC: 0DBK8ZX Excision of Ascending Colon, Via Natural or Artificial Opening Endoscopic, Diagnostic (ICD-10-PCS; 2018-06-12 14:00)
PROC: B2111ZZ Fluoroscopy of Multiple Coronary Arteries using Low Osmolar Contrast (ICD-10-PCS; 2018-06-14)
PROC: 4A023N7 Measurement of Cardiac Sampling and Pressure, Left Heart, Percutaneous Approach (ICD-10-PCS; 2018-06-14)
DX: I13.2 Hypertensive heart and chronic kidney disease with heart failure and with stage 5 chronic kidney disease, or end stage renal disease (principal); J96.21 Acute and chronic respiratory failure with hypoxia; I50.43 Acute on chronic combined systolic (congestive) and diastolic (congestive) heart failure; J18.9 Pneumonia, unspecified organism; N18.6 End stage renal disease; Q61.3 Polycystic kidney, unspecified; E87.1 Hypo-osmolality and hyponatremia; Z99.81 Dependence on supplemental oxygen; I42.0 Dilated cardiomyopathy; E87.5 Hyperkalemia; H40.9 Unspecified glaucoma; M19.90 Unspecified osteoarthritis, unspecified site; M81.0 Age-related osteoporosis without current pathological fracture; Z90.5 Acquired absence of kidney; Z90.89 Acquired absence of other organs; Z87.891 Personal history of nicotine dependence; Z79.891 Long term (current) use of opiate analgesic; Z99.2 Dependence on renal dialysis; E21.3 Hyperparathyroidism, unspecified; Z86.39 Personal history of other endocrine, nutritional and metabolic disease; E86.9 Volume depletion, unspecified; D63.1 Anemia in chronic kidney disease; E83.41 Hypermagnesemia; E87.70 Fluid overload, unspecified; G89.4 Chronic pain syndrome; E83.39 Other disorders of phosphorus metabolism; K63.5 Polyp of colon; I27.20 Pulmonary hypertension, unspecified
CPT/HCPCS: 36415; 36430; 71046; 80053; 80069; 80202; 82272; 82947; 83735; 83880; 84132; 84145; 84484; 85014; 85018; 85025; 86850; 86900; 86901; 86923; 88305; 93005; 93010; 93306; 93456; 93460; 99152; 99153; 99285-25; A9270-GY; C1751; C1769; C1894; J0456; J0881; J1170; J1200; J1644; J1720; J2250; J2405; J2704; J2765; J3010; J3370; J7030; J7040; J7050; J7120; P9016; Q0163; Q9967

== ENCOUNTER 2018-08-20 06:11 | Observation (INO) | payer MEDICARE, OTHER ==
[~2018-08-20] VITALS: Ht 185.4 cm; Wt 86.3 kg
[~2018-08-20 06:11] MED LIST changes: +ASPI81CH PO; -CARV25 PO; +DOC250 PO; -ENTRESTO 97 MG1 EACH PO; +ISOSORBIDE DINI PO; -NITR.4SL SL; -Prilosec Otc20 MG PO; +Ropinirole HCl0.5 MG PO; +SEVE800 PO
[2018-08-20 08:24] LABS: BASOPHILS ABSOLUTE AUTO 0.01 K/mm3 (0.00-0.23); BASOPHILS PERCENT AUTO 0 % (0-2); EOSINOPHILS ABSOLUTE AUTO 0.13 K/mm3 (0.00-0.68); EOSINOPHILS PERCENT AUTO 3 % (0-6); Hematocrit 27.4 % (37.0-53.0); Hemoglobin 8.6 g/dL (13.5-17.5); IMMATURE GRAN ABSOLUTE AUTO 0.01 K/mm3 (0.00-0.10); IMMATURE GRAN PERCENT AUTO 0 % (0-1); LYMPHOCYTES ABSOLUTE AUTO 0.67 K/mm3 (0.84-5.20); LYMPHOCYTES PERCENT AUTO 15 % (21-46); MONOCYTES ABSOLUTE AUTO 0.24 K/mm3 (0.16-1.47); MONOCYTES PERCENT AUTO 5 % (4-13); Mean Corpuscular HGB 31.3 pg (26.0-34.0); Mean Corpuscular HGB Conc 31.4 g/dL (31.5-36.5); Mean Corpuscular Volume 100 fL (80-100); NEUTROPHILS ABSOLUTE AUTO 3.48 K/mm3 (1.96-9.15); NEUTROPHILS PERCENT AUTO 77 % (41-73); Platelet Count 81 K/mm3 (150-400); RDW Coefficient Variation 15.2 % (11.7-14.2); RDW Standard Deviation 54.9 fL (35.1-46.3); Red Blood Cell Count 2.75 M/mm3 (4.30-5.90); White Blood Cell Count 4.54 K/mm3 (4.00-11.30)
[2018-08-20 08:45] LABS: Troponin I <0.015 ng/mL (0.000-0.040)
[2018-08-20 08:53] LABS: Alanine Aminotransfer (ALT/SGP 19 U/L (12-78); Albumin, Blood 3.6 g/dL (3.4-5.0); Alk Phos 61 U/L (50-136); Anion Gap 10 mmol/L (6-16); Aspartate Aminotrans (AST/SGOT 10 U/L (12-37); Bilirubin, Total 0.7 mg/dL (0.1-1.0); Blood Urea Nitrogen 85 mg/dL (8-24); Bun/Creatinine Ratio 6.6 (12.0-20.0); CO2, Blood 34 mmol/L (21-32); Calcium, Blood 8.7 mg/dL (8.5-10.1); Chloride, Blood 96 mmol/L (98-108); Globulin, Blood 3.5 g/dL (2.2-4.0); Glomerular Filtration Rate 4 (60-); Glucose, Blood 92 mg/dL (70-99); Potassium, Blood 5.4 mmol/L (3.5-5.5); Sodium, Blood 140 mmol/L (136-145); Total Protein, Blood 7.1 g/dL (6.4-8.2)
--- NOTE | 2018-08-20 11:50 | NUR ---
HEMODIALYSIS ORDERED FOR [facility] PATIENT PEND ADMIT TO FLOOR.
[2018-08-20] MEDS ORDERED: Prilosec Otc20 MG PO (13:41)
[2018-08-20] MEDS ORDERED: Colace100 MG PO (13:41)
[2018-08-20] MEDS ORDERED: GAVILAX17 GM PO (13:43)
[2018-08-20] MEDS ORDERED: Renvela800 MG PO (13:44)
[2018-08-20] MEDS ORDERED: Calcium Acetat667 MG PO (13:44)
[2018-08-20] MEDS ORDERED: Ropinirole HCl0.5 MG PO (13:46)
[2018-08-20] MEDS ORDERED: RENAL VITAMIN0.8 MG PO (13:47)
[2018-08-20] MEDS ORDERED: NITR.4SL SL (13:48)
[2018-08-20] MEDS ORDERED: BENADRYL25 MG PO (13:48)
[2018-08-20] MEDS ORDERED: Neurontin 100100 MG PO (13:51)
[2018-08-20] MEDS ORDERED: CLON.2 PO (13:52)
[2018-08-20] MEDS ORDERED: CARV25 PO (13:53)
[2018-08-20] MEDS ORDERED: Dilaudid 2 mg Ta2 MG PO (13:54)
[2018-08-20] MEDS ORDERED: ENTRESTO 97 MG1 EACH PO (13:54)
[2018-08-20] MEDS ORDERED: ONDA4 PO (13:54)
[2018-08-20] MEDS ORDERED: DIAZ10 PO (13:54)
[2018-08-20] MEDS ORDERED: HYDHCL25 PO (13:55)
[2018-08-20] MEDS ORDERED: Isosorbide Dini30 MG PO (13:56)
[2018-08-20] MEDS ORDERED: LOKELMA10 GM PO (13:56)
--- NOTE | 2018-08-20 15:34 | NUR ---
TREATMENT PROVIDED IN ER DUE TO PROJECTED LENGTHY WAIT FOR PCU ROOM. PATIENT CURRENTLY FULL ADMIT STATUS.
--- NOTE | 2018-08-20 18:48 | NUR ---
RECEIVED REPORT AND ASSUMED CARE OF PATIENT. PLEASANT AFFECT AND KIND DEMEANOR. PT AND ABLE TO PROVIDE HISTORY AND MEDICATION LIST FOR ADMISSION. PT C/O PAIN IN HIS RT ARM AND UPPER RIGHT ABDOMEN. WILL MEDICATE PER EMAR AND PREPARE TO GIVE REPORT TO NOC RN. BED LOCKED AND LOW, HOB ELEVATED, CALL LIGHT WITHIN EASY REACH.
[2018-08-21 01:55] LABS: Adenovirus Not Detected (NOT DETECT); Bordetella pertussis Not Detected (NOT DETECT); Chlamydophila pneumoniae Not Detected (NOT DETECT); Coronavirus 229E Not Detected (NOT DETECT); Coronavirus HKU1 Not Detected (NOT DETECT); Coronavirus NL63 Not Detected (NOT DETECT); Coronavirus OC43 Not Detected (NOT DETECT); Human Metapneumovirus Not Detected (NOT DETECT); Human Rhinovirus/Enterovirus Not Detected (NOT DETECT); Influenza A Not Detected (NOT DETECT); Influenza A/2009-H1 Not Detected (NOT DETECT); Influenza A/H1 Not Detected (NOT DETECT); Influenza A/H3 Not Detected (NOT DETECT); Influenza B Not Detected (NOT DETECT); Mycoplasma pneumoniae Not Detected (NOT DETECT); Parainfluenza Virus 1 Not Detected (NOT DETECT); Parainfluenza Virus 2 Not Detected (NOT DETECT); Parainfluenza Virus 3 Not Detected (NOT DETECT); Parainfluenza Virus 4 Not Detected (NOT DETECT); Respiratory Syncytial Virus Not Detected (NOT DETECT)
[2018-08-21 04:50] LABS: BASOPHILS ABSOLUTE AUTO 0.01 K/mm3 (0.00-0.23); BASOPHILS PERCENT AUTO 0 % (0-2); EOSINOPHILS ABSOLUTE AUTO 0.11 K/mm3 (0.00-0.68); EOSINOPHILS PERCENT AUTO 3 % (0-6); Hematocrit 23.8 % (37.0-53.0); Hemoglobin 7.4 g/dL (13.5-17.5); IMMATURE GRAN ABSOLUTE AUTO 0.01 K/mm3 (0.00-0.10); IMMATURE GRAN PERCENT AUTO 0 % (0-1); LYMPHOCYTES ABSOLUTE AUTO 0.57 K/mm3 (0.84-5.20); LYMPHOCYTES PERCENT AUTO 17 % (21-46); MONOCYTES ABSOLUTE AUTO 0.27 K/mm3 (0.16-1.47); MONOCYTES PERCENT AUTO 8 % (4-13); Mean Corpuscular HGB 30.6 pg (26.0-34.0); Mean Corpuscular HGB Conc 31.1 g/dL (31.5-36.5); Mean Corpuscular Volume 98 fL (80-100); Mean Platelet Volume 10.1 fL (9.1-12.4); NEUTROPHILS ABSOLUTE AUTO 2.49 K/mm3 (1.96-9.15); NEUTROPHILS PERCENT AUTO 72 % (41-73); Platelet Count 73 K/mm3 (150-400); RDW Coefficient Variation 15.1 % (11.7-14.2); RDW Standard Deviation 54.7 fL (35.1-46.3); Red Blood Cell Count 2.42 M/mm3 (4.30-5.90); White Blood Cell Count 3.46 K/mm3 (4.00-11.30)
[2018-08-21 05:23] LABS: Magnesium, Blood 2.7 mg/dL (1.6-2.4)
--- NOTE | 2018-08-21 05:56 | NUR ---
HGB OF 7.4: DR CARMONA AWARE OF HGB LEVELS THIS AM AND HAS ORDERED 2 UNITS OF PRBC'S WITH DIALYSIS TODAY.
[2018-08-21 06:08] LABS: Albumin, Blood 3.1 g/dL (3.4-5.0); Anion Gap 7 mmol/L (6-16); Blood Urea Nitrogen 70 mg/dL (8-24); Bun/Creatinine Ratio 6.7 (12.0-20.0); CO2, Blood 35 mmol/L (21-32); Calcium, Blood 8.6 mg/dL (8.5-10.1); Chloride, Blood 99 mmol/L (98-108); Glomerular Filtration Rate 5 (60-); Glucose, Blood 80 mg/dL (70-99); Phosphorus, Blood 4.9 mg/dL (2.5-4.9); Potassium, Blood 5.3 mmol/L (3.5-5.5); Sodium, Blood 141 mmol/L (136-145)
--- NOTE | 2018-08-21 07:32 | NUR ---
BLOOD TRANSFUSION WITH DIALYSIS CLEARIFIED WITH DR CARMONA THAT 2 UNITS OR PRBC'S ARE TO BE GIVEN TODAY DURING DIALYSIS.
--- NOTE | 2018-08-21 07:37 | NUR ---
SHIFT SUMMARY PATIENT PLEASENT AND COOPERATIVE THROUGHOUT THE NIGHT. PATIENT APPEARED TO SLEEP WELL THROUGHOUT MOST OF THE NIGHT WITHOUT FURTHER COMPLAINTS OF PAIN. PATIENT'S STAYED THE NIGHT A THE BEDSIDE. PATIENT ON 3L O2 VIA N/C WHICH IS BASELINE PER PATIENT REPORT. VITAL SIGNS CHARTED. REPORT GIVEN TO ONCOMING RN.
--- NOTE | 2018-08-21 08:44 | NUR ---
The pt states he is going to dialysis this morning at 0900. Ambulatory in the room, up to go to the bathroom all the while carrying on conversation. States that his breathing is much better today. He is presently now wearing oxygen while doing this activity. On his baseline oxygen delivery for nighttime.
--- NOTE | 2018-08-21 15:27 | NUR ---
Spoke with Dr. Ny at this time regarding CT results. Impression read to him over the phone. He states that the pt will be discharged today, and that the pt needs to follow up with Gastroenterology as soon as possible as an outpatient.
--- NOTE | 2018-08-21 16:09 | NUR ---
Met with patient and this morning in dialysis. They want information on updating POLST. He is unsure at this time. Reviewed options and Advance directives and POA for financials and review of prognosis if he survived CPR. states having more subtle signs of decline again. Pt is anxious about increased abdominal bloating. His mother had the same disease and lived to 58. He is 58 and is stressing over future.
--- NOTE | 2018-08-21 16:23 | NUR ---
Discharge recommendations were explained to the patient that he is to follow up with director of agriculture to determine source of bleeding, since per Dr. Ny the pt had a positive guaic, and that the most recent colonoscopy was less than optimal due to the prep not being thoroughly completed. However, at this time when I explained this to the pt, he flat out refused to follow up with gastroenterology. He states that he does not have any visible blood in his stool, and "I don't care if I had the worst colon cancer, I'm not going to go and see any director of agriculture". I explained that despite having no visible blood in the stool, the positive guaic shows the presence of non visible blood, but the pt states, "Well, everyone has that." I was unable to convince him of the importance of follow up due to his drop in Hgb and Hct. He chalked this up to the amount of blood which was drawn for lab work yesterday.
[2018-08-21] MEDS ORDERED: LEVFLO500 PO (16:43)
--- NOTE | 2018-08-21 17:41 | NUR ---
Discharge instructions reviewed with the patient, including prescription for Levaquin, which he states he is willing to take for the possible lung infection shown in the CT scan. He is also planning on going to his dialysis patient tomorrow morning, as well as an appointment with Dr. Laws on August 31. He is not willing to do any follow up with gastroenterology, and he expresses much frustration with problems which he has had with prior admissions as well as feeling like he is getting blamed for a subobtimal colonoscopy in which he did all the prep, he states, as instructed.
--- NOTE | 2018-08-21 17:52 | NUR ---
late entry: 163 the pt declined his medications, as he is being discharged, and states that he will take them when he gets home.
== END 2018-08-21 18:01 | disposition home or self-care (01) ==
LOC: ER 06:11 → PCU 06:12 → ERHOLD 06:12 → PCU 06:13 → ERHOLD 10:29 → ER 10:29 → PCU 10:29 → ERHOLD 17:55 → PCU 08-21 18:01
PROVIDERS: Emergency Medicine; ADMIT Family Medicine
DX: I13.2 Hypertensive heart and chronic kidney disease with heart failure and with stage 5 chronic kidney disease, or end stage renal disease (principal); I50.41 Acute combined systolic (congestive) and diastolic (congestive) heart failure; N18.6 End stage renal disease; D63.1 Anemia in chronic kidney disease; J18.9 Pneumonia, unspecified organism; R18.8 Other ascites; I16.0 Hypertensive urgency; D69.6 Thrombocytopenia, unspecified; Q61.3 Polycystic kidney, unspecified; Q44.6 Cystic disease of liver; G89.29 Other chronic pain; I42.9 Cardiomyopathy, unspecified; K21.9 Gastro-esophageal reflux disease without esophagitis; E87.5 Hyperkalemia; Z88.0 Allergy status to penicillin; Z88.8 Allergy status to other drugs, medicaments and biological substances; Z91.041 Radiographic dye allergy status; Z79.899 Other long term (current) drug therapy; Z79.82 Long term (current) use of aspirin; Z87.891 Personal history of nicotine dependence; Z99.2 Dependence on renal dialysis
CPT/HCPCS: 36415; 36430; 71046; 74176; 80048; 80053; 80069; 83605; 83735; 83880; 84145; 84484; 85025; 86850; 86900; 86901; 86923; 87040; 87486; 87581; 87633; 87798; 93005; 93010; 96372; 99285-25; A9270-GY; G0257; G0378; J0881; J1644; J2405; P9016

== ENCOUNTER 2018-09-26 03:36 | Observation (INO) | payer MEDICARE, OTHER ==
[~2018-09-26] VITALS: Ht 185.4 cm; Wt 85.3 kg
[~2018-09-26 03:36] MED LIST changes: +CARV25 PO; +Colace100 MG PO; +ENTRESTO 97 MG1 EACH PO; +GAVILAX17 GM PO; +HYDHCL25 PO; +Isosorbide Dini30 MG PO; +LEVFLO500 PO; +LOKELMA10 GM PO; +NITR.4SL SL; +Prilosec Otc20 MG PO
[2018-09-26] MEDS ORDERED: Cyproheptadine H4 MG PO (04:02)
[2018-09-26 04:26] LABS: BASOPHILS ABSOLUTE AUTO 0.01 K/mm3 (0.00-0.23); BASOPHILS PERCENT AUTO 0 % (0-2); EOSINOPHILS ABSOLUTE AUTO 0.06 K/mm3 (0.00-0.68); EOSINOPHILS PERCENT AUTO 1 % (0-6); Hematocrit 34.6 % (37.0-53.0); Hemoglobin 10.8 g/dL (13.5-17.5); IMMATURE GRAN ABSOLUTE AUTO 0.02 K/mm3 (0.00-0.10); IMMATURE GRAN PERCENT AUTO 0 % (0-1); LYMPHOCYTES ABSOLUTE AUTO 0.52 K/mm3 (0.84-5.20); LYMPHOCYTES PERCENT AUTO 9 % (21-46); MONOCYTES ABSOLUTE AUTO 0.54 K/mm3 (0.16-1.47); MONOCYTES PERCENT AUTO 10 % (4-13); Mean Corpuscular HGB 30.9 pg (26.0-34.0); Mean Corpuscular HGB Conc 31.2 g/dL (31.5-36.5); Mean Corpuscular Volume 99 fL (80-100); Mean Platelet Volume 10.4 fL (9.1-12.4); NEUTROPHILS ABSOLUTE AUTO 4.37 K/mm3 (1.96-9.15); NEUTROPHILS PERCENT AUTO 79 % (41-73); Platelet Count 77 K/mm3 (150-400); RDW Coefficient Variation 14.4 % (11.7-14.2); RDW Standard Deviation 51.9 fL (35.1-46.3); White Blood Cell Count 5.52 K/mm3 (4.00-11.30)
[2018-09-26 04:46] LABS: Troponin I <0.015 ng/mL (0.000-0.040)
[2018-09-26 04:56] LABS: Alanine Aminotransfer (ALT/SGP 49 U/L (12-78); Albumin/Globulin Ratio 1.1 (0.8-1.8); Alk Phos 116 U/L (50-136); Anion Gap 8 mmol/L (6-16); Aspartate Aminotrans (AST/SGOT 27 U/L (12-37); Bilirubin, Total 0.5 mg/dL (0.1-1.0); Blood Urea Nitrogen 66 mg/dL (8-24); Bun/Creatinine Ratio 6.2 (12.0-20.0); CO2, Blood 33 mmol/L (21-32); Calcium, Blood 9.1 mg/dL (8.5-10.1); Chloride, Blood 96 mmol/L (98-108); Globulin, Blood 3.6 g/dL (2.2-4.0); Glomerular Filtration Rate 5 (60-); Glucose, Blood 100 mg/dL (70-99); Potassium, Blood 6.2 mmol/L (3.5-5.5); Sodium, Blood 137 mmol/L (136-145); Total Protein, Blood 7.6 g/dL (6.4-8.2)
--- NOTE | 2018-09-26 09:36 | NUR ---
ARRIVAL PT ARRIVED TO UNIT APPROX. 0850 VIA GURNERY FROM ED. PT ABLE TO AMBUALTE FROM GURNERY TO BED AND TOELRATED WELL. PT SAT AT BEDSIDE. ORIENTED TO ROOM, UNIT, AND POLICIES. COMPLETED ADMISSION PROCESS. PT REPORTS SLIGHT CHEST PAIN BUT REPROTS IT HAS IMPORVED FROM THIS MORNING. PT VITALS SIGNS STABLE, ALTHOGUTH PT BLOOD PRESSURE ELEVATED. SPOKE TO PT ABOUT THIS. PT DECLINED TAKING ANYTHING FOR THIS AT THIS TIME. PT REPORTS THIS IS NORMAL FOR HIS BLOOD PRESSURE TO BE LIKE THIS BEFORE DIALYSIS. PT SCHEDULED FOR DIALYSIS AT 0930. PT STATES THAT IF BLOOD PRESSURE STILL ELEVATED AFTER DYALISIS HE WILL TAKE SOMETHING FOR IT AT THIS TIME. DISCUSSED MORNING MEDICATIONS WITH PATIENT AND PATIENT REPORTS THAT HE DOES NOT TAKE THESE UNTIL AFTER DIALYSIS. AT BEDSIDE. PT TAKEN TO DIALYSIS VIA WHEELCHAIR AT APRX. 0930. WILL AWAIT RETURN OF PT.
--- NOTE | 2018-09-26 12:46 | NUR ---
DIALYSIS PT C/O FREEZING AND TREMBLING ABOUT 30 MIN AFTER HE GOT ON THE TX. T98.6 SEVERAL HEATED BLANKETS PUT ON HIM. WITHOUT IMPROVEMENT. PT REQUESTED OFF AND TX EC'ED ABOUT 14 MIN BEFORE TX OVER.
--- NOTE | 2018-09-26 13:09 | NUR ---
NOTE PT ARRIVED BACK TO UNIT APPROX. 1245 FROM DIALYSIS. PT WAS ESCORTED BACK TO UNIT BY PEER STAFF MEMBER VIA WHEELCHAIR. PT ARRIVED BACK TO UNIT AND REMAINS A&OX4. PT REPROTS FEELING COLD AT THE TIME AND TREMBLING. PT REPORTS THAT THIS IS NORMAL FOR HIM TO SHAKE DURING AND/OR AFTER DIALYSIS. HE ALSO REPROTS THAT HIS ARMS FEEL NUMB AT THIS TIME AND STATES THAT THIS IS SOMETHING THAT OCCURS REGULARLY WELL. SPOKE WITH PT IF THERE WAS ANYTHING THAT COULD BE DONE AT THIS TIME. PROVIDIED PT WITH A WARM BLANKET. GAVE MEDICAITONS PER EMAR. PT REPROTS INCREASED PAIN AT THIS TIME AND PRN PAIN MEDICAITON GIVEN WELL. BLOOD PRESSURE WAS DIFFICULT TO GET DUE TO PT TREMBLING. ASSISTED PT TO BED. PROVIDED PT WITH LUNCH TRY. PT VITAL SIGNS STABLE ALTHOUGH PT BLOOD PRESSURE ELEVATED AND WHICH MEDICATION WERE GIVEN FOR. WILL RECHECK BLOOD PRESSURE. BED IN LOW POSITION, CALL LIGHT IN REACH AND PT DENIES ANY NEEDS AT THIS TIME. WILL CONTINUE TO MONITOR.
--- NOTE | 2018-09-26 15:54 | NUR ---
NOTE HAD NOT RECIEVED FOLLOW UP LABS FROM PHYSICIAN YET. CONTACTED PHYSICIAN TO CLARIFY THIS. PHYSICAN TO PUT IN ORDERS.
[2018-09-26 17:10] LABS: Bun/Creatinine Ratio 5.5 (12.0-20.0); Calcium, Blood 9.5 mg/dL (8.5-10.1); Creatinine, Blood 8.18 mg/dL (0.60-1.20)
--- NOTE | 2018-09-26 19:48 | NUR ---
SHIFT SUMMARY PT PLEASANT, COOPERATIVE AND USES CALL LIGHT APPRORIATELY. PT REMAINS A&OX4. ALTHOUGH PT ESSESIVELY SLEEPY AT TIMES BUT REMAINED ARROUSABLE. PT REPORTS THAT HE ALWAYS FEELS "WIPED OUT" AFTER DIALYSIS. AFTER GIVING PT HIS MEDICATIONS PER EMAR PT REPORTS HE HAS HAD NO MORE TREMORS AND THE SHAKING HAS GONE AWAY. PT ABLE TO EAT SOME LUNCH AND REPORTS HE WILL ATTEMPT TO HAVE SOME DINNER WELL. PT BLOOD PRESSURE CONTINUED TO COME DOWN WITH USE OF MEDICATIONS PER EMAR. ASSESSMENT FINDINGS REMAIN UNCHANGED FROM ARRIVAL TO UNIT. RECIEVED ORDERS FROM PHYSICIAN AFTER RECIEVING CRITICAL LAB VALUES. MEDICATIONS GIVEN PER EMAR. VARIFIED THAT THERE ARE FOLLOW UP LABS ORDERS TO RECHECK POTASSIUM LEVELS. LABS ORDERED FOR 21:00, 09/26/18. PT IN ROOM INTERMITENTLY. PT IN BED AT THIS TIME ATTEMPTING TO EAT SOME DINNER. BED IN LOW POSITION, CALL LIGHT IN REACH AND PT DENIES ANY NEEDS AT THIS TIME. WILL CONTINUE TO MONITOR UNTIL HANDOFF TO NIGHTSHIFT RN.
[2018-09-26 21:45] LABS: Bun/Creatinine Ratio 5.7 (12.0-20.0); Calcium, Blood 8.8 mg/dL (8.5-10.1); Creatinine, Blood 9.09 mg/dL (0.60-1.20); Potassium, Blood 5.9 mmol/L (3.5-5.5)
--- NOTE | 2018-09-26 22:00 | NUR ---
REPORT TAKEN FROM LUISITO RN. THIS RN TO TAKE OVER CARE OF PT. PT SLEEPING IN ROOM SOUNDLY AT THIS TIME. AT BEDAIDE. PT EASILY AROUSABLE. ANSWERS QUESTIONS APPROPRIATELY. AOX4. RESP EVEN UNLBAORED ON 2L 02 VIA NC. PT REPORTS FEELING VERY "WIPED OUT" AFTER DIALYSIS TODAY, BUT OTHERWISE NO COMPLAINTS. PT REPORTS "JUST READY FOR BED AND TO SLEEP". PT AT BEDSIDE REPORTS NO OTHER NEEDS FOR HER OR PT. CALL LIGHT WITHIN REACH. WILL CONT TO MONITOR.
[2018-09-27 03:57] LABS: BASOPHILS ABSOLUTE AUTO 0.01 K/mm3 (0.00-0.23); BASOPHILS PERCENT AUTO 0 % (0-2); EOSINOPHILS ABSOLUTE AUTO 0.04 K/mm3 (0.00-0.68); EOSINOPHILS PERCENT AUTO 1 % (0-6); Hematocrit 29.1 % (37.0-53.0); Hemoglobin 9.1 g/dL (13.5-17.5); IMMATURE GRAN ABSOLUTE AUTO 0.01 K/mm3 (0.00-0.10); IMMATURE GRAN PERCENT AUTO 0 % (0-1); LYMPHOCYTES ABSOLUTE AUTO 0.64 K/mm3 (0.84-5.20); LYMPHOCYTES PERCENT AUTO 11 % (21-46); MONOCYTES ABSOLUTE AUTO 0.66 K/mm3 (0.16-1.47); MONOCYTES PERCENT AUTO 12 % (4-13); Mean Corpuscular HGB 30.7 pg (26.0-34.0); Mean Corpuscular HGB Conc 31.3 g/dL (31.5-36.5); Mean Corpuscular Volume 98 fL (80-100); Mean Platelet Volume 10.5 fL (9.1-12.4); NEUTROPHILS ABSOLUTE AUTO 4.38 K/mm3 (1.96-9.15); NEUTROPHILS PERCENT AUTO 76 % (41-73); Platelet Count 60 K/mm3 (150-400); RDW Coefficient Variation 14.1 % (11.7-14.2); RDW Standard Deviation 50.5 fL (35.1-46.3); Red Blood Cell Count 2.96 M/mm3 (4.30-5.90); White Blood Cell Count 5.74 K/mm3 (4.00-11.30)
[2018-09-27 04:27] LABS: Albumin, Blood 3.2 g/dL (3.4-5.0); Anion Gap 6 mmol/L (6-16); Blood Urea Nitrogen 60 mg/dL (8-24); CO2, Blood 36 mmol/L (21-32); Calcium, Blood 8.8 mg/dL (8.5-10.1); Chloride, Blood 92 mmol/L (98-108); Creatinine, Blood 9.96 mg/dL (0.60-1.20); Glomerular Filtration Rate 6 (60-); Glucose, Blood 90 mg/dL (70-99); Phosphorus, Blood 4.8 mg/dL (2.5-4.9); Potassium, Blood 6.2 mmol/L (3.5-5.5); Sodium, Blood 134 mmol/L (136-145)
--- NOTE | 2018-09-27 05:57 | NUR ---
SHIFT SUMMARY PT SLEEPING IN ROOM COMFORTABLY AT THIS TIME. PT HAD NO ACUTE CHANGES IN STATUS T/O NIGHT. AM LABS WERE DRAWN AND PT CREAT AND POTASSIUM CAME BACK CRITICAL HIGH. DR CARMONA WAS CALLED AND PT IS TO HAVE DIALYSIS THIS AM. PERSONAL SERVICE REPRESENTATIVE CALLED. PT REPORTS FEELING VERY TIRED, AND "RUN DOWN", PT HAS BEEN LETHARGIC, BUT WAKES EASILY TO VERBAL STIMULI. PT SPOUSE AT BESIDE. CALL LIGHT IN REACH.
--- NOTE | 2018-09-27 10:16 | NUR ---
PT OFF FLOOR TO DIALYSIS. REPORT TO SHRUTHI SOLIS ON MED FLOOR. PT TO GO TO [id number] AFTER DIALYSIS.
[2018-09-27 15:35] LABS: Bun/Creatinine Ratio 5.9 (12.0-20.0); Calcium, Blood 9.2 mg/dL (8.5-10.1); Creatinine, Blood 7.92 mg/dL (0.60-1.20)
--- NOTE | 2018-09-27 17:57 | NUR ---
SHIFT SUMMARY ELO ARRIVED THIS AFTERNOON FROM PCU, HE DENIES PAIN AND IS INDEPENDENT IN THE ROOM. TELE SHOWED NSR. PT HAD HD THIS MORNING. PLEASANT, COOPERATIVE WITH CARE. POTASSIUM DOWN TO 5.0. ANURIC. TOOK MEDS PRESCRIBED. CALL LIGHT IN REACH, [facility]
[2018-09-28 04:59] LABS: Hematocrit 29.2 % (37.0-53.0); Hemoglobin 9.1 g/dL (13.5-17.5)
--- NOTE | 2018-09-28 05:08 | NUR ---
SHIFT SUMMARY: 58 Y/O MALE RESTED COMFORTABLY ALL SHIFT, PTS SPENT NIGHT ON EXTRA BED IN ROOM, CHEERFUL, DENIES MUSCLE CRAMPS, PAIN OR NAUSEA, HOPING FOR DISCHARGE HOME TODAY, WENT OUTSIDE TO SMOKE X 3 THIS SHIFT WITH AT SIDE, BED LOW POSITION, CALL LIGHT AT SIDE, TELEMETRY REFLECTS NSR.
[2018-09-28 05:20] LABS: Magnesium, Blood 2.7 mg/dL (1.6-2.4)
[2018-09-28 05:26] LABS: Albumin, Blood 3.2 g/dL (3.4-5.0); Anion Gap 11 mmol/L (6-16); Blood Urea Nitrogen 68 mg/dL (8-24); Bun/Creatinine Ratio 6.9 (12.0-20.0); CO2, Blood 35 mmol/L (21-32); Calcium, Blood 9.1 mg/dL (8.5-10.1); Chloride, Blood 90 mmol/L (98-108); Creatinine, Blood 9.86 mg/dL (0.60-1.20); Glomerular Filtration Rate 6 (60-); Glucose, Blood 120 mg/dL (70-99); Phosphorus, Blood 5.5 mg/dL (2.5-4.9); Potassium, Blood 5.3 mmol/L (3.5-5.5); Sodium, Blood 136 mmol/L (136-145)
--- NOTE | 2018-09-28 06:28 | NUR ---
DR CARMONA AT BEDSIDE
--- NOTE | 2018-09-28 07:50 | NUR ---
CYNTHIA CARMONA REQUEST SCROTAL U/S, R/T SWELLING
--- NOTE | 2018-09-28 11:32 | NUR ---
PT PLEASANT COOP IN ROOM. PT STATES SOME PAIN IN BACK. NOT NEED MEDS YET. BUT WILL WAIT UNTIL DIALYSIS. SCROTAL EDEMA/SWELLING, NON PITTING. DR CARMONA JUST ORDERED U/S. H/R REG, NO MURMER NOTED. PER TELE. NSR AT 67. LUNGS CLEAR, REWP EASY,UNLABORED. ON R.A. GOES OUT TO SMOKE/WALK. DENIES SOB. BT X4 LAST BM 3 DAYS. NORM PER PT. NO VOIDS. DOUBLE NEPHRECTOMY. ON DIALYSIS. FISTULA LEFT ARM. BED IN LOW POSITION,C ALL LITE IN REACH, CALLS APPROP. AGAIN WALKS OUT TO SMOKE AND WALK. INDEPENDANT.
--- NOTE | 2018-09-28 18:07 | NUR ---
DISCHARGE REVIEWED WITH PT PT VERBALIZED UINDERSTANDING OF MEDS AND INSTRUCTIONS. IV PULLED INTACT. AT BEDSIDE. PT WALKED TO DOOR. TELE REMOVED.
== END 2018-09-28 18:07 | disposition home or self-care (01) ==
LOC: ER 03:36 → PCU 03:37 → MEDS 09-27 11:30 → ENPENDDIS 09-28 08:28 → MEDS 09-28 18:07
PROVIDERS: Emergency Medicine; Internal Medicine; Internal Medicine Nephrology; ADMIT Hospitalist
DX: R07.9 Chest pain, unspecified (principal); E87.5 Hyperkalemia; E87.70 Fluid overload, unspecified; I13.2 Hypertensive heart and chronic kidney disease with heart failure and with stage 5 chronic kidney disease, or end stage renal disease; I50.22 Chronic systolic (congestive) heart failure; I50.30 Unspecified diastolic (congestive) heart failure; N18.6 End stage renal disease; D63.1 Anemia in chronic kidney disease; F17.210 Nicotine dependence, cigarettes, uncomplicated; Z99.2 Dependence on renal dialysis; Z88.8 Allergy status to other drugs, medicaments and biological substances; Z91.041 Radiographic dye allergy status; Z88.5 Allergy status to narcotic agent; Z88.0 Allergy status to penicillin; Z79.899 Other long term (current) drug therapy
CPT/HCPCS: 36415; 71046; 76870; 80048; 80053; 80069; 83735; 83880; 84484; 85014; 85018; 85025; 93005; 93010; 93990; 96372; 96374; 96375; 99285-25; A9270-GY; G0257; G0378; J0610; J0881; J1170; J1644; J1815; J2270; J2405; J7799

== ENCOUNTER 2018-10-01 13:49 | Inpatient (IN) | payer MEDICARE, OTHER ==
[~2018-10-01] VITALS: Ht 172.7 cm; Wt 82.0 kg
[~2018-10-01 13:49] MED LIST changes: +Cyproheptadine H4 MG PO
[2018-10-01 14:40] LABS: BASOPHILS ABSOLUTE AUTO 0.01 K/mm3 (0.00-0.23); BASOPHILS PERCENT AUTO 0 % (0-2); EOSINOPHILS ABSOLUTE AUTO 0.09 K/mm3 (0.00-0.68); EOSINOPHILS PERCENT AUTO 2 % (0-6); Hematocrit 29.5 % (37.0-53.0); Hemoglobin 9.5 g/dL (13.5-17.5); IMMATURE GRAN ABSOLUTE AUTO 0.01 K/mm3 (0.00-0.10); IMMATURE GRAN PERCENT AUTO 0 % (0-1); LYMPHOCYTES ABSOLUTE AUTO 0.56 K/mm3 (0.84-5.20); LYMPHOCYTES PERCENT AUTO 14 % (21-46); MONOCYTES ABSOLUTE AUTO 0.45 K/mm3 (0.16-1.47); MONOCYTES PERCENT AUTO 11 % (4-13); Mean Corpuscular HGB 30.6 pg (26.0-34.0); Mean Corpuscular HGB Conc 32.2 g/dL (31.5-36.5); Mean Platelet Volume 10.4 fL (9.1-12.4); NEUTROPHILS ABSOLUTE AUTO 2.96 K/mm3 (1.96-9.15); NEUTROPHILS PERCENT AUTO 73 % (41-73); Platelet Count 76 K/mm3 (150-400); RDW Coefficient Variation 13.4 % (11.7-14.2); RDW Standard Deviation 46.9 fL (35.1-46.3); White Blood Cell Count 4.08 K/mm3 (4.00-11.30)
[2018-10-01 14:46] LABS: Mean Corpuscular Volume 95 fL (80-100)
[2018-10-01 15:16] LABS: Alanine Aminotransfer (ALT/SGP 32 U/L (12-78); Albumin, Blood 3.1 g/dL (3.4-5.0); Albumin/Globulin Ratio 0.8 (0.8-1.8); Alk Phos 122 U/L (50-136); Anion Gap 6 mmol/L (6-16); Aspartate Aminotrans (AST/SGOT 11 U/L (12-37); Bilirubin, Total 0.4 mg/dL (0.1-1.0); Blood Urea Nitrogen 41 mg/dL (8-24); Bun/Creatinine Ratio 6.1 (12.0-20.0); CO2, Blood 35 mmol/L (21-32); Calcium, Blood 8.8 mg/dL (8.5-10.1); Chloride, Blood 94 mmol/L (98-108); Creatinine, Blood 6.68 mg/dL (0.60-1.20); Globulin, Blood 3.7 g/dL (2.2-4.0); Glomerular Filtration Rate 9 (60-); Glucose, Blood 126 mg/dL (70-99); Potassium, Blood 4.3 mmol/L (3.5-5.5); Sodium, Blood 135 mmol/L (136-145); Total Protein, Blood 6.8 g/dL (6.4-8.2); Troponin I <0.015 ng/mL (0.000-0.040)
[2018-10-01 16:25] LABS: International Normalized Ratio 1.08; Prothrombin Time Results 11.4 Sec (9.7-11.5)
[2018-10-01] MEDS ORDERED: LOKELMA10 GM PO (17:22)
[2018-10-01 18:45] LABS: Magnesium, Blood 2.5 mg/dL (1.6-2.4); Phosphorus, Blood 3.5 mg/dL (2.5-4.9)
[2018-10-01 19:18] LABS: Triglycerides 84 mg/dL (30-160)
[2018-10-01] MEDS ORDERED: Catapres0.2 MG PO ×2 (20:58→21:00)
--- NOTE | 2018-10-02 05:02 | NUR ---
SHIFT SUMMARY- PT. ARRIVED FROM ED VIA STRETCHER. DX'S OF PANCREATITIS. A&O, INDEP. PT. ON DIALYSIS. DIALYSIS DONE YESTERDAY. SCHEDULED MEDS AND PAIN MED GIVEN PER EMAR. TOLERATED WELL. PT. NPO, IV FLUIDS RUNNING. PLAN FOR LIVER AND GALLBLADDER US IN AM. AT BEDSIDE. CALL LIGHT WITHIN REACH AND SIDE RAILS UP X2. WILL CONT TO MONITOR.
[2018-10-02 05:03] LABS: BASOPHILS ABSOLUTE AUTO 0.01 K/mm3 (0.00-0.23); BASOPHILS PERCENT AUTO 0 % (0-2); EOSINOPHILS ABSOLUTE AUTO 0.11 K/mm3 (0.00-0.68); EOSINOPHILS PERCENT AUTO 4 % (0-6); Hematocrit 29.5 % (37.0-53.0); Hemoglobin 9.2 g/dL (13.5-17.5); IMMATURE GRAN ABSOLUTE AUTO 0.01 K/mm3 (0.00-0.10); IMMATURE GRAN PERCENT AUTO 0 % (0-1); LYMPHOCYTES ABSOLUTE AUTO 0.73 K/mm3 (0.84-5.20); LYMPHOCYTES PERCENT AUTO 23 % (21-46); MONOCYTES ABSOLUTE AUTO 0.46 K/mm3 (0.16-1.47); MONOCYTES PERCENT AUTO 15 % (4-13); Mean Corpuscular HGB 30.2 pg (26.0-34.0); Mean Corpuscular HGB Conc 31.2 g/dL (31.5-36.5); Mean Corpuscular Volume 97 fL (80-100); Mean Platelet Volume 11.5 fL (9.1-12.4); NEUTROPHILS ABSOLUTE AUTO 1.83 K/mm3 (1.96-9.15); NEUTROPHILS PERCENT AUTO 58 % (41-73); Platelet Count 69 K/mm3 (150-400); RDW Coefficient Variation 13.4 % (11.7-14.2); Red Blood Cell Count 3.05 M/mm3 (4.30-5.90); White Blood Cell Count 3.15 K/mm3 (4.00-11.30)
[2018-10-02 05:18] LABS: Magnesium, Blood 2.6 mg/dL (1.6-2.4); Very Low Density Lipoprot Chol 15 mg/dL (6-32)
[2018-10-02 05:27] LABS: Alanine Aminotransfer (ALT/SGP 29 U/L (12-78); Albumin, Blood 3.1 g/dL (3.4-5.0); Albumin/Globulin Ratio 0.9 (0.8-1.8); Alk Phos 110 U/L (50-136); Anion Gap 5 mmol/L (6-16); Aspartate Aminotrans (AST/SGOT 7 U/L (12-37); Bilirubin, Total 0.5 mg/dL (0.1-1.0); Blood Urea Nitrogen 52 mg/dL (8-24); CHOL/HDL RATIO 2.3; CO2, Blood 36 mmol/L (21-32); Calcium, Blood 8.9 mg/dL (8.5-10.1); Chloride, Blood 96 mmol/L (98-108); Cholesterol 108 mg/dL (50-200); Globulin, Blood 3.4 g/dL (2.2-4.0); Glucose, Blood 85 mg/dL (70-99); HDL Cholesterol 47 mg/dL (>39); Low Density Lipoprotein Chol 46 mg/dL (0-110); Sodium, Blood 137 mmol/L (136-145); Total Protein, Blood 6.5 g/dL (6.4-8.2); Triglycerides 76 mg/dL (30-160)
[2018-10-02 05:41] LABS: Bun/Creatinine Ratio 5.9 (12.0-20.0); Creatinine, Blood 8.82 mg/dL (0.60-1.20); Glomerular Filtration Rate 7 (60-)
--- NOTE | 2018-10-02 18:29 | NUR ---
SHIFT SUMMARY FULL CODE. INDEPENDENT. BILATERAL NEPHRECTOMY. LAST DIALYSIS 10/01/18. POLYCYSTIC DISEASE WITH STABLE HEPATIC HEMMORHAGE TO FOLLOWED OUTPATIENT. CLINAMIX RUNNING @50ML/HR. TOLERATING REGULAR DIET WELL. 1 DOSE OF DILAUDID GIVEN TODAY. AV FISTULA EM. PLEASANT, CALM. SPOUSE WORKS DOWNSTAIRS IN SCHEDULING.
--- NOTE | 2018-10-03 04:42 | NUR ---
SHIFT SUMMARY- NO ACUTE CHANGES OVERNIGHT. PT. SLEPT WELL T/O THE NIGHT. WENT OUTSIDE 1X EARLIER IN THE EVENING, ACCOMPANIED BY . PAIN WELL MANAGED WITH CURRENT PAIN MEDICATION. CLINIMIX RUNNING AT 5OML/HR. PT. IS ANTICIPATING DIALYSIS TODAY. SPOUSE REMAINS AT BEDSIDE. CALL LIGHT WITHIN REACH AND SIDE RAILS UP X2. WILL CONT TO MONITOR.
[2018-10-03 04:56] LABS: BASOPHILS ABSOLUTE AUTO 0.01 K/mm3 (0.00-0.23); BASOPHILS PERCENT AUTO 0 % (0-2); EOSINOPHILS ABSOLUTE AUTO 0.11 K/mm3 (0.00-0.68); EOSINOPHILS PERCENT AUTO 3 % (0-6); Hematocrit 28.4 % (37.0-53.0); Hemoglobin 8.9 g/dL (13.5-17.5); IMMATURE GRAN ABSOLUTE AUTO 0.01 K/mm3 (0.00-0.10); IMMATURE GRAN PERCENT AUTO 0 % (0-1); LYMPHOCYTES ABSOLUTE AUTO 0.66 K/mm3 (0.84-5.20); LYMPHOCYTES PERCENT AUTO 19 % (21-46); MONOCYTES ABSOLUTE AUTO 0.41 K/mm3 (0.16-1.47); MONOCYTES PERCENT AUTO 12 % (4-13); Mean Corpuscular HGB 30.5 pg (26.0-34.0); Mean Corpuscular HGB Conc 31.3 g/dL (31.5-36.5); Mean Corpuscular Volume 97 fL (80-100); Mean Platelet Volume 10.8 fL (9.1-12.4); NEUTROPHILS ABSOLUTE AUTO 2.33 K/mm3 (1.96-9.15); NEUTROPHILS PERCENT AUTO 66 % (41-73); Platelet Count 73 K/mm3 (150-400); RDW Coefficient Variation 13.3 % (11.7-14.2); RDW Standard Deviation 47.2 fL (35.1-46.3); Red Blood Cell Count 2.92 M/mm3 (4.30-5.90); White Blood Cell Count 3.53 K/mm3 (4.00-11.30)
[2018-10-03 05:37] LABS: Magnesium, Blood 2.9 mg/dL (1.6-2.4)
[2018-10-03 06:13] LABS: Albumin, Blood 2.9 g/dL (3.4-5.0); Albumin/Globulin Ratio 0.9 (0.8-1.8); Bilirubin, Total 0.4 mg/dL (0.1-1.0); Bun/Creatinine Ratio 6.3 (12.0-20.0); Calcium, Blood 8.5 mg/dL (8.5-10.1); Creatinine, Blood 11.5 mg/dL (0.60-1.20); Globulin, Blood 3.3 g/dL (2.2-4.0); Potassium, Blood 5.6 mmol/L (3.5-5.5); Total Protein, Blood 6.2 g/dL (6.4-8.2)
--- NOTE | 2018-10-03 17:49 | NUR ---
DISCHARGE NOTE DISCHARGED AMBULATORY POV WITH SPOUSE. PT AND SPOUSE VERBALIZED UNDERSTANDING OF KEEPING MD APPTS AND TAKING MEDICATIONS PRESCRIBED AND RESUMING DIALYSIS SCHEDULE. IV DISCONTINUED INTACT. ALL BELONGINGS SENT WITH PT AT TIME OF DISCHARGE.
== END 2018-10-03 17:40 | disposition home or self-care (01) | DRG 438 ==
LOC: ER 13:49 → MEDS 18:02 → ENPENDDIS 10-03 10:50 → MEDS 10-03 17:40
PROVIDERS: Emergency Medicine; Internal Medicine Nephrology; Nurse Practitioner Acute Care; ADMIT Family Medicine
PROC: 5A1D70Z Performance of Urinary Filtration, Intermittent, Less than 6 Hours Per Day (ICD-10-PCS; principal; 2018-10-02)
DX: K85.90 Acute pancreatitis without necrosis or infection, unspecified (principal); N18.6 End stage renal disease; N25.81 Secondary hyperparathyroidism of renal origin; Q44.6 Cystic disease of liver; I50.42 Chronic combined systolic (congestive) and diastolic (congestive) heart failure; E87.1 Hypo-osmolality and hyponatremia; Z99.2 Dependence on renal dialysis; D63.1 Anemia in chronic kidney disease; G89.4 Chronic pain syndrome; M81.0 Age-related osteoporosis without current pathological fracture; D69.6 Thrombocytopenia, unspecified; E88.9 Metabolic disorder, unspecified; E86.9 Volume depletion, unspecified; E83.41 Hypermagnesemia; I15.0 Renovascular hypertension
CPT/HCPCS: 36415; 36430; 71046; 74176; 76705; 80053; 80061; 83690; 83735; 83880; 84100; 84478; 84484; 85025; 85610; 86850; 86900; 86901; 86923; 93005; 93010; 93975; 94762; 96374; 96375; 96376; 99285-25; A9270-GY; J1170; J2405; J7030; J7131; P9016

== ENCOUNTER → 2018-10-10 | Outpatient (CLI) | payer MEDICARE, OTHER ==
[~2018-10-10] MED LIST changes: +Catapres0.2 MG PO
[2018-10-10 08:20] LABS: Albumin, Blood 3.3 g/dL (3.4-5.0); Albumin/Globulin Ratio 0.9 (0.8-1.8); Bilirubin, Direct 0.2 mg/dL (0.0-0.3); Bilirubin, Indirect 0.3 mg/dL (0.1-0.7); Bilirubin, Total 0.5 mg/dL (0.1-1.0); Globulin, Blood 3.7 g/dL (2.2-4.0)
== END | disposition home or self-care (01) ==
LOC: LAB 07:39 → LAB SHORT 07:39
PROVIDERS: Internal Medicine Nephrology
DX: R10.9 Unspecified abdominal pain (principal)
CPT/HCPCS: 36415; 80076; 82150; 83690

== ENCOUNTER 2018-10-26 10:56 | Emergency (ER) | payer MEDICARE, OTHER ==
[~2018-10-26] VITALS: Ht 185.4 cm; Wt 80.7 kg
[2018-10-26 12:36] LABS: BASOPHILS ABSOLUTE AUTO 0.01 K/mm3 (0.00-0.23); BASOPHILS PERCENT AUTO 0 % (0-2); EOSINOPHILS ABSOLUTE AUTO 0.05 K/mm3 (0.00-0.68); EOSINOPHILS PERCENT AUTO 1 % (0-6); Hematocrit 38.7 % (37.0-53.0); Hemoglobin 12.3 g/dL (13.5-17.5); IMMATURE GRAN ABSOLUTE AUTO 0.01 K/mm3 (0.00-0.10); IMMATURE GRAN PERCENT AUTO 0 % (0-1); LYMPHOCYTES ABSOLUTE AUTO 0.64 K/mm3 (0.84-5.20); LYMPHOCYTES PERCENT AUTO 16 % (21-46); MONOCYTES ABSOLUTE AUTO 0.43 K/mm3 (0.16-1.47); MONOCYTES PERCENT AUTO 11 % (4-13); Mean Corpuscular HGB 29.8 pg (26.0-34.0); Mean Corpuscular HGB Conc 31.8 g/dL (31.5-36.5); Mean Corpuscular Volume 94 fL (80-100); Mean Platelet Volume 10.3 fL (9.1-12.4); NEUTROPHILS PERCENT AUTO 71 % (41-73); Platelet Count 73 K/mm3 (150-400); RDW Coefficient Variation 14.5 % (11.7-14.2); RDW Standard Deviation 49.7 fL (35.1-46.3); Red Blood Cell Count 4.13 M/mm3 (4.30-5.90); White Blood Cell Count 3.94 K/mm3 (4.00-11.30)
[2018-10-26 12:46] LABS: Albumin, Blood 3.5 g/dL (3.4-5.0); Albumin/Globulin Ratio 0.9 (0.8-1.8); Bilirubin, Total 0.6 mg/dL (0.1-1.0); Bun/Creatinine Ratio 6.6 (12.0-20.0); Calcium, Blood 8.9 mg/dL (8.5-10.1); Creatinine, Blood 6.37 mg/dL (0.60-1.20); Globulin, Blood 3.8 g/dL (2.2-4.0); Potassium, Blood 4.6 mmol/L (3.5-5.5); Total Protein, Blood 7.3 g/dL (6.4-8.2)
[2018-10-26] MEDS ORDERED: PROM25 PO (13:43)
== END 2018-10-26 14:00 | disposition home or self-care (01) ==
LOC: ER 10:56
PROVIDERS: Physician Assistant
DX: K85.90 Acute pancreatitis without necrosis or infection, unspecified (principal); M19.90 Unspecified osteoarthritis, unspecified site; E21.3 Hyperparathyroidism, unspecified; M81.0 Age-related osteoporosis without current pathological fracture; I10 Essential (primary) hypertension; F17.210 Nicotine dependence, cigarettes, uncomplicated; Z90.5 Acquired absence of kidney; Z88.8 Allergy status to other drugs, medicaments and biological substances; Z88.0 Allergy status to penicillin; Z91.048 Other nonmedicinal substance allergy status; Z88.5 Allergy status to narcotic agent; Z79.899 Other long term (current) drug therapy
CPT/HCPCS: 36415; 80053; 80076; 82150; 83690; 85025; 93005; 93010; 96361; 96374; 96375; 99284-25; J1170; J2405; J7030

== ENCOUNTER → 2020-07-27 | Outpatient (CLI) | payer MEDICARE, OTHER ==
[~2020-07-27] MED LIST changes: +CIPRO250 MG PO; +Cleocin HCl150 MG PO
== END | disposition home or self-care (01) ==
LOC: LAB SHORT 12:23 → LAB 12:23
DX: D48.5 Neoplasm of uncertain behavior of skin (principal)
CPT/HCPCS: 88304

== ENCOUNTER 2021-03-11 09:06 | Emergency (ER) | payer MEDICARE, OTHER ==
[~2021-03-11] VITALS: Ht 185.4 cm; Wt 90.7 kg
[~2021-03-11 09:06] MED LIST changes: +LIDO700A20 TOP
[2021-03-11 10:16] LABS: BASOPHILS ABSOLUTE AUTO 0.02 K/mm3 (0.00-0.23); BASOPHILS PERCENT AUTO 0 % (0-2); EOSINOPHILS ABSOLUTE AUTO 0.09 K/mm3 (0.00-0.68); EOSINOPHILS PERCENT AUTO 2 % (0-6); Hematocrit 29.2 % (37.0-53.0); Hemoglobin 9.1 g/dL (13.5-17.5); IMMATURE GRAN ABSOLUTE AUTO 0.01 K/mm3 (0.00-0.10); IMMATURE GRAN PERCENT AUTO 0 % (0-1); LYMPHOCYTES ABSOLUTE AUTO 0.65 K/mm3 (0.84-5.20); LYMPHOCYTES PERCENT AUTO 13 % (21-46); MONOCYTES ABSOLUTE AUTO 0.53 K/mm3 (0.16-1.47); MONOCYTES PERCENT AUTO 10 % (4-13); Mean Corpuscular HGB 31.4 pg (26.0-34.0); Mean Corpuscular HGB Conc 31.2 g/dL (31.5-36.5); Mean Corpuscular Volume 101 fL (80-100); Mean Platelet Volume 9.4 fL (9.1-12.4); NEUTROPHILS PERCENT AUTO 75 % (41-73); Platelet Count 95 K/mm3 (150-400); RDW Coefficient Variation 13.8 % (11.7-14.2); RDW Standard Deviation 50.1 fL (35.1-46.3)
[2021-03-11 10:54] LABS: Albumin, Blood 3.1 g/dL (3.4-5.0); Albumin/Globulin Ratio 0.9 (0.8-1.8); Bilirubin, Total 0.4 mg/dL (0.1-1.0); Bun/Creatinine Ratio 4.6 (12.0-20.0); Calcium, Blood 8.9 mg/dL (8.5-10.1); Creatinine, Blood 9.14 mg/dL (0.60-1.20); Globulin, Blood 3.4 g/dL (2.2-4.0); Potassium, Blood 5.3 mmol/L (3.5-5.5); Total Protein, Blood 6.5 g/dL (6.4-8.2)
== END 2021-03-11 11:29 | disposition home or self-care (01) ==
LOC: ER 09:06
PROVIDERS: Emergency Medicine
DX: R10.12 Left upper quadrant pain (principal); I13.0 Hypertensive heart and chronic kidney disease with heart failure and stage 1 through stage 4 chronic kidney disease, or unspecified chronic kidney disease; N18.9 Chronic kidney disease, unspecified; I50.9 Heart failure, unspecified; Z99.2 Dependence on renal dialysis; F17.210 Nicotine dependence, cigarettes, uncomplicated; Z88.0 Allergy status to penicillin; Z88.5 Allergy status to narcotic agent; Z88.8 Allergy status to other drugs, medicaments and biological substances; Z79.899 Other long term (current) drug therapy
CPT/HCPCS: 80053; 83690; 85025; 99284

== ENCOUNTER → 2021-05-11 | Outpatient (CLI) | payer MEDICARE, OTHER | END | disposition home or self-care (01) | LOC: LAB SHORT 12:13 | DX: D48.5 Neoplasm of uncertain behavior of skin (principal) | CPT/HCPCS: 88305; 88312 ==

== ENCOUNTER 2021-08-27 05:45 | Emergency (ER) | payer MEDICARE, OTHER ==
[~2021-08-27] VITALS: Ht 185.4 cm; Wt 90.7 kg
[~2021-08-27 05:45] MED LIST changes: +CINA30 PO; +DOXE10 PO
[2021-08-27 06:18] LABS: BASOPHILS ABSOLUTE AUTO 0.02 K/mm3 (0.00-0.23); BASOPHILS PERCENT AUTO 0 % (0-2); EOSINOPHILS ABSOLUTE AUTO 0.16 K/mm3 (0.00-0.68); EOSINOPHILS PERCENT AUTO 3 % (0-6); Hematocrit 34.2 % (37.0-53.0); IMMATURE GRAN ABSOLUTE AUTO 0.02 K/mm3 (0.00-0.10); IMMATURE GRAN PERCENT AUTO 0 % (0-1); LYMPHOCYTES ABSOLUTE AUTO 0.96 K/mm3 (0.84-5.20); LYMPHOCYTES PERCENT AUTO 19 % (21-46); MONOCYTES ABSOLUTE AUTO 0.46 K/mm3 (0.16-1.47); MONOCYTES PERCENT AUTO 9 % (4-13); Mean Corpuscular HGB 32.5 pg (26.0-34.0); Mean Corpuscular HGB Conc 32.2 g/dL (31.5-36.5); Mean Corpuscular Volume 101 fL (80-100); Mean Platelet Volume 10.2 fL (9.1-12.4); NEUTROPHILS ABSOLUTE AUTO 3.41 K/mm3 (1.96-9.15); NEUTROPHILS PERCENT AUTO 68 % (41-73); Platelet Count 102 K/mm3 (150-400); RDW Coefficient Variation 13.6 % (11.7-14.2); RDW Standard Deviation 50.4 fL (35.1-46.3); Red Blood Cell Count 3.38 M/mm3 (4.30-5.90); White Blood Cell Count 5.03 K/mm3 (4.00-11.30)
[2021-08-27 06:41] LABS: Albumin, Blood 3.4 g/dL (3.4-5.0); Albumin/Globulin Ratio 1.1 (0.8-1.8); Bilirubin, Total 0.6 mg/dL (0.1-1.0); Bun/Creatinine Ratio 5.9 (12.0-20.0); Calcium, Blood 8.6 mg/dL (8.5-10.1); Creatinine, Blood 12.3 mg/dL (0.60-1.20); Globulin, Blood 3.2 g/dL (2.2-4.0); Potassium, Blood 5.7 mmol/L (3.5-5.5); Total Protein, Blood 6.6 g/dL (6.4-8.2)
== END 2021-08-27 09:51 | disposition home or self-care (01) ==
LOC: ER 05:45
PROVIDERS: Emergency Medicine
DX: R07.2 Precordial pain (principal); R11.0 Nausea; I13.2 Hypertensive heart and chronic kidney disease with heart failure and with stage 5 chronic kidney disease, or end stage renal disease; I50.40 Unspecified combined systolic (congestive) and diastolic (congestive) heart failure; N18.6 End stage renal disease; F17.210 Nicotine dependence, cigarettes, uncomplicated; Z99.81 Dependence on supplemental oxygen; Z99.2 Dependence on renal dialysis; Z79.899 Other long term (current) drug therapy
CPT/HCPCS: 36415; 71046; 80053; 83690; 84484; 85025; 93005; 93010; 96374; 99285-25; A9270; J2405

== ENCOUNTER 2021-12-23 07:45 | Day surgery (SDC) | payer MEDICARE, OTHER ==
[~2021-12-23] VITALS: Ht 185.4 cm; Wt 86.8 kg
[~2021-12-23 07:45] MED LIST changes: -Colace100 MG PO; +MIDODRINE HCL PO; +NEPHROVITE PO; -Prilosec Otc20 MG PO; +ROPI.25 PO
[2021-12-23] MEDS ORDERED: Rena-Vite Tabl0.8 MG PO (09:05)
[2021-12-23] MEDS ORDERED: AURYXIA210 MG PO (09:05)
[2021-12-23] MEDS ORDERED: Cyproheptadine H4 MG PO (09:06)
[2021-12-23] MEDS ORDERED: NITROGLYCERIN0.4 M3 SL (09:07)
[2021-12-23] MEDS ORDERED: LOKELMA10 GM PO (09:09)
--- NOTE | 2021-12-23 09:21 | NUR ---
Ambulatory in Day Surgery. Patient confirms NPO status and agrees with scheduled surgery. Pre-Op teaching done. Pt verbalizes understanding. Patient States Post-Procedure ride home has been arranged.
--- NOTE | 2021-12-23 10:16 | NUR ---
Discharge instructions reviewed with patient. Patient verbalizes understanding. Copy given to patient to take home. Discharged via wheelchair to private car for ride home.
--- NOTE | 2021-12-23 10:17 | NUR ---
12/23/21 1017 Vinayak Adame LATE ENTRY FOR 929. History, Chart, Medications and Allergies reviewed before start of procedure.MONITOR INTACT WITH CONTINUOUS PULSE OXIMETRY AND INTERMITTENT BP. 3-LEAD EKG REVIEWED WITH PHYSICIAN PRIOR TO START OF PROCEDURE. O2 VIA N/C INTACT THROUGHOUT SEDATION/PROCEDURE. Bite Block Placed. 2% LIDOCAINE SPRAYED TO BACK OF THROAT PER DR MCLAUGHLIN'S ORDERS.
== END 2021-12-23 10:19 | disposition home or self-care (01) ==
LOC: ORSCMMR 07:45 → ORD 09:30 → ORSCMMR 10:19
PROVIDERS: Internal Medicine Gastroenterology
PROC: 0DB48ZX Excision of Esophagogastric Junction, Via Natural or Artificial Opening Endoscopic, Diagnostic (ICD-10-PCS; principal; 2021-12-23 09:30)
PROC: 0DB98ZX Excision of Duodenum, Via Natural or Artificial Opening Endoscopic, Diagnostic (ICD-10-PCS; principal; 2021-12-23 09:30)
PROC: 0DB68ZX Excision of Stomach, Via Natural or Artificial Opening Endoscopic, Diagnostic (ICD-10-PCS; principal; 2021-12-23 09:30)
DX: K21.00 Gastro-esophageal reflux disease with esophagitis, without bleeding (principal); K76.6 Portal hypertension; K31.89 Other diseases of stomach and duodenum; I86.4 Gastric varices; Q61.3 Polycystic kidney, unspecified; N18.6 End stage renal disease; E11.9 Type 2 diabetes mellitus without complications; Z99.2 Dependence on renal dialysis; Q44.6 Cystic disease of liver; G25.81 Restless legs syndrome; I50.9 Heart failure, unspecified; Z79.899 Other long term (current) drug therapy
CPT/HCPCS: 84132; 88305; 88342; A9270; J2001; J2405; J2704; J7030

== ENCOUNTER 2021-12-26 20:00 | Emergency (ER) | payer MEDICARE, OTHER ==
[~2021-12-26] VITALS: Ht 182.9 cm; Wt 86.2 kg
[~2021-12-26 20:00] MED LIST changes: +AURYXIA210 MG PO; +NITROGLYCERIN0.4 M3 SL
[2021-12-26 21:30] LABS: BASOPHILS ABSOLUTE AUTO 0.01 K/mm3 (0.00-0.23); BASOPHILS PERCENT AUTO 0 % (0-2); EOSINOPHILS ABSOLUTE AUTO 0.05 K/mm3 (0.00-0.68); EOSINOPHILS PERCENT AUTO 1 % (0-6); Hematocrit 31.9 % (37.0-53.0); Hemoglobin 10.7 g/dL (13.5-17.5); IMMATURE GRAN ABSOLUTE AUTO 0.02 K/mm3 (0.00-0.10); IMMATURE GRAN PERCENT AUTO 0 % (0-1); LYMPHOCYTES ABSOLUTE AUTO 0.77 K/mm3 (0.84-5.20); LYMPHOCYTES PERCENT AUTO 15 % (21-46); MONOCYTES ABSOLUTE AUTO 0.41 K/mm3 (0.16-1.47); MONOCYTES PERCENT AUTO 8 % (4-13); Mean Corpuscular HGB 32.7 pg (26.0-34.0); Mean Corpuscular HGB Conc 33.5 g/dL (31.5-36.5); Mean Corpuscular Volume 98 fL (80-100); NEUTROPHILS PERCENT AUTO 76 % (41-73); Platelet Count 98 K/mm3 (150-400); RDW Coefficient Variation 13.7 % (11.7-14.2); RDW Standard Deviation 49.1 fL (35.1-46.3); Red Blood Cell Count 3.27 M/mm3 (4.30-5.90); White Blood Cell Count 5.16 K/mm3 (4.00-11.30)
[2021-12-26 22:18] LABS: Albumin, Blood 3.3 g/dL (3.4-5.0); Albumin/Globulin Ratio 0.9 (0.8-1.8); Bilirubin, Total 0.5 mg/dL (0.1-1.0); Bun/Creatinine Ratio 5.4 (12.0-20.0); Calcium, Blood 8.9 mg/dL (8.5-10.1); Creatinine, Blood 13.5 mg/dL (0.60-1.20); Globulin, Blood 3.7 g/dL (2.2-4.0); Potassium, Blood 5.1 mmol/L (3.5-5.5)
== END 2021-12-26 23:40 | disposition home or self-care (01) ==
LOC: ER 20:00
PROVIDERS: Physician Assistant
DX: K92.2 Gastrointestinal hemorrhage, unspecified (principal); I13.0 Hypertensive heart and chronic kidney disease with heart failure and stage 1 through stage 4 chronic kidney disease, or unspecified chronic kidney disease; N18.9 Chronic kidney disease, unspecified; I50.9 Heart failure, unspecified; F17.200 Nicotine dependence, unspecified, uncomplicated; Z79.899 Other long term (current) drug therapy; Z88.5 Allergy status to narcotic agent; Z88.0 Allergy status to penicillin; Z88.8 Allergy status to other drugs, medicaments and biological substances; Z99.2 Dependence on renal dialysis
CPT/HCPCS: 36415; 74176; 80053; 85025; 86850; 86900; 86901; 93005; 93010; 99284-25; J7030

== ENCOUNTER 2022-06-01 11:33 | Inpatient (IN) | payer MEDICARE, OTHER ==
[~2022-06-01] VITALS: Ht 182.9 cm; Wt 90.7 kg
[~2022-06-01 11:33] MED LIST changes: +CLIN150 PO; -GAVILAX17 GM PO; +MIRALAX17 GM PO; -ROPI.25 PO; +ROPI1 PO
[2022-06-01 12:54] LABS: BASOPHILS ABSOLUTE AUTO 0.02 K/mm3 (0.00-0.23); BASOPHILS PERCENT AUTO 0 % (0-2); EOSINOPHILS ABSOLUTE AUTO 0.07 K/mm3 (0.00-0.68); EOSINOPHILS PERCENT AUTO 1 % (0-6); Hematocrit 29.2 % (37.0-53.0); Hemoglobin 9.4 g/dL (13.5-17.5); IMMATURE GRAN ABSOLUTE AUTO 0.06 K/mm3 (0.00-0.10); IMMATURE GRAN PERCENT AUTO 1 % (0-1); LYMPHOCYTES PERCENT AUTO 15 % (21-46); MONOCYTES ABSOLUTE AUTO 0.58 K/mm3 (0.16-1.47); MONOCYTES PERCENT AUTO 11 % (4-13); Mean Corpuscular HGB 31.4 pg (26.0-34.0); Mean Corpuscular HGB Conc 32.2 g/dL (31.5-36.5); Mean Corpuscular Volume 98 fL (80-100); Mean Platelet Volume 9.6 fL (9.1-12.4); NEUTROPHILS ABSOLUTE AUTO 3.97 K/mm3 (1.96-9.15); NEUTROPHILS PERCENT AUTO 72 % (41-73); Platelet Count 220 K/mm3 (150-400); RDW Coefficient Variation 13.3 % (11.7-14.2); RDW Standard Deviation 47.3 fL (35.1-46.3); Red Blood Cell Count 2.99 M/mm3 (4.30-5.90)
[2022-06-01 12:58] LABS: Albumin, Blood 2.9 g/dL (3.4-5.0); Albumin/Globulin Ratio 0.6 (0.8-1.8); Bilirubin, Total 0.3 mg/dL (0.1-1.0); Bun/Creatinine Ratio 5.5 (12.0-20.0); Calcium, Blood 10.1 mg/dL (8.5-10.1); Creatinine, Blood 6.42 mg/dL (0.60-1.20); Globulin, Blood 5.1 g/dL (2.2-4.0); Potassium, Blood 3.9 mmol/L (3.5-5.5)
[2022-06-01] MEDS ORDERED: LOPE2C PO (13:48)
[2022-06-01] MEDS ORDERED: [UNRECOGNIZED DRUG - OTHER] PO (18:33)
--- NOTE | 2022-06-01 19:19 | NUR ---
SHIFT SUMMARY PTN ER ADMIT AT 1845. REPORT RECEIVED FROM HOLLY. PRESENT WELL WITH UP-TO-DATE MED LIST AND HX. ON 2L NC FOR COMFORT OR SLEEPING. CONSULT FOR PALLIATIVE. HEMODIALYSIS 3 TIMES A WEEK, LAST TREATMENT TODAY. PTN NOT TOLERATING ENTIRE TREATMENT CURRENTLY, TIRING EASILY. FISTULA L UPPER ARM. QUICK ADMIT DONE. CONTINUE TO MONITOR.
--- NOTE | 2022-06-01 22:32 | NUR ---
PT BP WAS 82/53 AFTER 500ML OF NS. PT ASYMPTOMATIC AND GIVEN [address] CARMONA NOTIFIED AND INSTRUCTED TO CONTINUE RUNNING NS @ 75 AND MONITOR PT.
--- NOTE | 2022-06-02 03:33 | NUR ---
SHIFT SUMMARY NOC ED ADMIT AT SHIFT CHANGE WITH HYPOTENSIVE/HEMODIALYSISPT A/O X4 BUT LETHARGIC DUE TO HEMODIALYSIS YESTERDAY. DR CARMONA ORDERED 500ML NS BOLUS FOR LOW BP AND BP WAS CHECKED AFTER BOLUS AND FOUND TO BE 82/53. 10MG MIDODRINE WAS ADMINISTERED AND DR CARMONA NOTIFIED, HE GAVE INSTRUCTIONS TO KEEP 1L NS RUNNING @ 75 MLS/HR AND TO MONITOR PT AND INFORM HIM IF PT IS SYMPTOMATIC. PT BP CHECKED AFTER AN HOUR OF RX AND INCREASED TO 88/67 WILL CONTINUE TO MONITOR. PT HAS NO URINE OUTPUT DUE TO BILATERAL NEPHRECTOMY PERFORMED IN 2013. PT HAS DIALYSIS 3 DAYS A WEEK BUT HAS NOT BEEN ABLE TO COMPLETE A FULL SESSION IN 5 WEEKS. PT HAS BEEN FATIGUED THE PAST 5 WEEKS AND HAS HAD A POOR APPETITE AND REPORTED SANDWICH PT ATE UPON ARRIVAL WAS FIRST FULL MEAL EATEN IN A COUPLE WEEKS. PT IS CURRENTLY RESTING WITH BED IN LOWEST POSITION, AND CALL LIGHT WITHIN REACH.
[2022-06-02 05:29] LABS: Hematocrit 25.1 % (37.0-53.0); Hemoglobin 8.1 g/dL (13.5-17.5); Mean Corpuscular HGB 31.3 pg (26.0-34.0); Mean Corpuscular HGB Conc 32.3 g/dL (31.5-36.5); Mean Corpuscular Volume 97 fL (80-100); Mean Platelet Volume 9.2 fL (9.1-12.4); Platelet Count 196 K/mm3 (150-400); RDW Coefficient Variation 13.2 % (11.7-14.2); Red Blood Cell Count 2.59 M/mm3 (4.30-5.90); White Blood Cell Count 4.85 K/mm3 (4.00-11.30)
[2022-06-02 06:11] LABS: Magnesium, Blood 2.9 mg/dL (1.6-2.4)
[2022-06-02 06:17] LABS: Albumin, Blood 2.5 g/dL (3.4-5.0); Anion Gap 7 mmol/L (6-16); Blood Urea Nitrogen 52 mg/dL (8-24); Bun/Creatinine Ratio 6.3 (12.0-20.0); CO2, Blood 35 mmol/L (21-32); Calcium, Blood 10.2 mg/dL (8.5-10.1); Chloride, Blood 90 mmol/L (98-108); Creatinine, Blood 8.29 mg/dL (0.60-1.20); Glomerular Filtration Rate 7 (60-); Glucose, Blood 107 mg/dL (70-99); Phosphorus, Blood 7.9 mg/dL (2.5-4.9); Potassium, Blood 4.6 mmol/L (3.5-5.5); Sodium, Blood 132 mmol/L (136-145)
--- NOTE | 2022-06-02 15:59 | NUR ---
STUDENT PRACTICAL NURSE SHIFT SUMMARY PATIENT IN BED MOST OF SHIFT. PATIENT REPORTS HEADACHE, GIVEN MEDS PER EMAR. CALM AND COMPLIANT. PATIENT DID NOT HAVE DIALYSIS TODAY. BED IN LOWEST POSITION AND LOCKED. CALL LIGHT IN REACH.
--- NOTE | 2022-06-02 16:52 | NUR ---
NURSE NOTE THIS RN AGREES WITH STUDENT NURSE DOCUMENTATION AND SHIFT SUMMARY
[2022-06-03 05:30] LABS: Hematocrit 24.7 % (37.0-53.0); Hemoglobin 8.2 g/dL (13.5-17.5)
[2022-06-03 06:40] LABS: Albumin, Blood 2.4 g/dL (3.4-5.0); Anion Gap 9 mmol/L (6-16); Blood Urea Nitrogen 72 mg/dL (8-24); Bun/Creatinine Ratio 6.9 (12.0-20.0); CO2, Blood 32 mmol/L (21-32); Calcium, Blood 9.5 mg/dL (8.5-10.1); Chloride, Blood 89 mmol/L (98-108); Glomerular Filtration Rate 5 (60-); Glucose, Blood 111 mg/dL (70-99); Phosphorus, Blood 7.9 mg/dL (2.5-4.9); Potassium, Blood 4.9 mmol/L (3.5-5.5); Sodium, Blood 130 mmol/L (136-145)
--- NOTE | 2022-06-03 08:30 | NUR ---
DR JOHN IN ROOM. OKAY GIVE MIDODRINE WITH 127/79 BP. WILL BE GETTING DIALYSIS TODAY. ALSO OKAY OKAY PULL IV IS CAUSING SHOULDER PAIN. DR EXPECTING PT HOME AFTER DIALYSIS TODAY
--- NOTE | 2022-06-03 16:34 | NUR ---
PT QUITE PLEASANT TODAY. DID EXPRESS CONCERNS ABOUT NOT RECEIVING CLINDAMYCIN HOME DOSE. PT DISCUSSED THIS WITH DR JOHN WHEN I WAS IN ROOM. DR GAINES WILL ADDRESS. PT PRESENTLY RECEIVING DIALYSIS THIS AFT. NO NEW CONCERNS NOTED. B/P APPEAR STABLE AT DIALYSIS. BED IN LOW POSITION, CALL LITE IN REACH, CALLS APPRP
--- NOTE | 2022-06-03 18:33 | NUR ---
PT BACK FROM DIALYSIS RECENTLY, HE STATES OFTEN GETS CHEST PRESSURE. THIS HE HAS AT THIS TIME. OFTEN GETS LOW BP AFTER DIALYSIS ALSO. CHECKED. 120/[address] MAKI. NO NEW ORDERS.
--- NOTE | 2022-06-03 22:19 | NUR ---
NURSE NOTE--CODE STATUS CHANGE AT SHIFT CHANGE/REPORT PT REPORTED HE HAS POLST AND WANTS TO BE A DNR. MARCI GOLDSMITH RN GIVING REPORT AND AT BEDSIDE. CALL TO AUTOMATION MACHINE OPERATOR/DR WILDER. NEW ORDER FOR DNR. PURPLE BRACELET PLACED ON LEFT WRIST. PT VERIFIED AGAIN THAT HIS REQUEST TO BE DNR.
--- NOTE | 2022-06-04 06:05 | NUR ---
SEXUAL ASSAULT COUNSELLOR SUMMARY NO ACUTE EVENTS. PT A/OX4. PLEASANT AND COOPERATIVE. CODE STATUS CHANGE TO DNR--SEE NOTE. WRIST BAND PLACED. PT SLEPT T/O MOST OF THE NIGHT. REQ TYLENOL APROX 0400 FOR BACK PAIN. PT REPORTS PAIN FROM LYING IN BED. AM BLOOD PRESSURE 98/64. PT ABLE TO MAKE NEEDS KNOWN. CALL LIGHT ACCESSIBLE.
[2022-06-04 06:12] LABS: Hematocrit 25.5 % (37.0-53.0); Hemoglobin 8.4 g/dL (13.5-17.5)
[2022-06-04 07:00] LABS: Magnesium, Blood 2.9 mg/dL (1.6-2.4)
[2022-06-04 07:09] LABS: Albumin, Blood 2.5 g/dL (3.4-5.0); Anion Gap 9 mmol/L (6-16); Blood Urea Nitrogen 52 mg/dL (8-24); Bun/Creatinine Ratio 6.2 (12.0-20.0); CO2, Blood 35 mmol/L (21-32); Calcium, Blood 9.6 mg/dL (8.5-10.1); Chloride, Blood 88 mmol/L (98-108); Creatinine, Blood 8.39 mg/dL (0.60-1.20); Glomerular Filtration Rate 7 (60-); Glucose, Blood 109 mg/dL (70-99); Potassium, Blood 4.6 mmol/L (3.5-5.5); Sodium, Blood 132 mmol/L (136-145)
--- NOTE | 2022-06-04 09:44 | NUR ---
DIALYSIS DR CARMONA WANTS PT TO RECIEVE A DIALYSIS TX IF HE IS TO BE DISCHARGED TODAY. WHICH HER IS. PT IS AGREEABLE TO THIS.
[2022-06-04] MEDS ORDERED: FLUDROCORTISON0.1 M1 PO (11:14)
--- NOTE | 2022-06-04 14:28 | NUR ---
DC- PT FELT "EMPTY AND WEAK" WHEN WALKING TO THE BATHROOM AFTER GETING DRESSED FOR DC. VITALS TAKEN. NO CONCERNS NOTED. MD MAKI INFORMED. NO CONCERNS NOTED, THIS IS "PT'S NEW BASELINE." PT/ INFORMED AND AGREEABLE TO DC. PT BROUGHT DOWN FOR DC IN WC WITH . ALL BELONGINGS WITH PT.
== END 2022-06-04 13:48 | disposition home or self-care (01) | DRG 312 ==
LOC: ER 11:33 → MEDS 11:34
PROVIDERS: Emergency Medicine; Internal Medicine Nephrology; Student in an Organized Health Care Education/Training Program; ADMIT Internal Medicine
PROC: 5A1D70Z Performance of Urinary Filtration, Intermittent, Less than 6 Hours Per Day (ICD-10-PCS; principal; 2022-06-02)
DX: I95.3 Hypotension of hemodialysis (principal); N18.6 End stage renal disease; I50.22 Chronic systolic (congestive) heart failure; Q44.6 Cystic disease of liver; I13.2 Hypertensive heart and chronic kidney disease with heart failure and with stage 5 chronic kidney disease, or end stage renal disease; Q61.2 Polycystic kidney, adult type; E87.1 Hypo-osmolality and hyponatremia; I42.0 Dilated cardiomyopathy; D63.1 Anemia in chronic kidney disease; J32.9 Chronic sinusitis, unspecified; E87.8 Other disorders of electrolyte and fluid balance, not elsewhere classified; M19.90 Unspecified osteoarthritis, unspecified site; E21.3 Hyperparathyroidism, unspecified; M81.0 Age-related osteoporosis without current pathological fracture; F17.210 Nicotine dependence, cigarettes, uncomplicated; I48.91 Unspecified atrial fibrillation; E87.70 Fluid overload, unspecified; E86.9 Volume depletion, unspecified; J44.9 Chronic obstructive pulmonary disease, unspecified; E03.9 Hypothyroidism, unspecified; Z99.2 Dependence on renal dialysis; Z88.5 Allergy status to narcotic agent; Z88.0 Allergy status to penicillin; Z95.828 Presence of other vascular implants and grafts; Z99.81 Dependence on supplemental oxygen; Z88.8 Allergy status to other drugs, medicaments and biological substances; Z91.041 Radiographic dye allergy status; Z91.15 Patient's noncompliance with renal dialysis; Z98.890 Other specified postprocedural states; Z90.5 Acquired absence of kidney; Z79.899 Other long term (current) drug therapy; Z79.2 Long term (current) use of antibiotics; Z87.19 Personal history of other diseases of the digestive system
CPT/HCPCS: 36415; 71046; 80053; 80069; 82140; 82533; 83605; 83735; 83880; 84443; 84484; 85014; 85018; 85025; 85027; 87040; 93005; 93010; 93306; 94760; 96361; 96374; 99285-25; A9270; G0378; J0881; J2405; J7030; J7040

== ENCOUNTER 2023-03-02 06:21 | Inpatient (IN) | payer MEDICARE, OTHER ==
[~2023-03-02] VITALS: Ht 182.9 cm; Wt 85.5 kg
[~2023-03-02 06:21] MED LIST changes: +DECADRON6 M1 PO; +FLUDROCORTISON0.1 M1 PO; +LOPE2C PO; +ONDA4ODT PO; +RENVELA800 MG PO; +[UNRECOGNIZED DRUG - OTHER] PO
[2023-03-02 08:37] LABS: BASOPHILS ABSOLUTE AUTO 0.02 K/mm3 (0.00-0.23); BASOPHILS PERCENT AUTO 0 % (0-2); EOSINOPHILS ABSOLUTE AUTO 0.08 K/mm3 (0.00-0.68); EOSINOPHILS PERCENT AUTO 1 % (0-6); Hematocrit 38.6 % (37.0-53.0); Hemoglobin 12.3 g/dL (13.5-17.5); IMMATURE GRAN ABSOLUTE AUTO 0.02 K/mm3 (0.00-0.10); IMMATURE GRAN PERCENT AUTO 0 % (0-1); LYMPHOCYTES ABSOLUTE AUTO 0.74 K/mm3 (0.84-5.20); LYMPHOCYTES PERCENT AUTO 12 % (21-46); MONOCYTES ABSOLUTE AUTO 0.65 K/mm3 (0.16-1.47); MONOCYTES PERCENT AUTO 10 % (4-13); Mean Corpuscular HGB 30.4 pg (26.0-34.0); Mean Corpuscular HGB Conc 31.9 g/dL (31.5-36.5); Mean Corpuscular Volume 96 fL (80-100); Mean Platelet Volume 10.3 fL (9.1-12.4); NEUTROPHILS PERCENT AUTO 76 % (41-73); Platelet Count 87 K/mm3 (150-400); RDW Coefficient Variation 13.7 % (11.7-14.2); RDW Standard Deviation 48.6 fL (35.1-46.3); Red Blood Cell Count 4.04 M/mm3 (4.30-5.90); White Blood Cell Count 6.31 K/mm3 (4.00-11.30)
[2023-03-02 09:14] LABS: Albumin, Blood 3.5 g/dL (3.4-5.0); Albumin/Globulin Ratio 0.9 (0.8-1.8); Bilirubin, Total 0.5 mg/dL (0.1-1.0); Bun/Creatinine Ratio 4.4 (12.0-20.0); Calcium, Blood 9.1 mg/dL (8.5-10.1); Creatinine, Blood 9.23 mg/dL (0.60-1.20); Globulin, Blood 3.8 g/dL (2.2-4.0); Potassium, Blood 5.5 mmol/L (3.5-5.5); Total Protein, Blood 7.3 g/dL (6.4-8.2)
--- NOTE | 2023-03-02 12:32 | NUR ---
REPORT RECIEVED FROM ER NURSE AT 9935.
[2023-03-02 13:01] VITALS: BP 144/92
--- NOTE | 2023-03-02 14:33 | NUR ---
PT ARRIVED TO MED FLOOR AT 1257. PT A/OX4 AND COOPERATIVE. PT STATED KNOWS MOST OF HIS MEDICAL HISTORY. PT ON RA AT TIME OF ARRIVAL BUT STATED THAT HE USES 2-3L NC PRN. PT AMBULATORY. PT HAS FISTULA OF LEFT ARM. PT STATED THAT HE RECIEVES DIALYSIS M/W/F.PT REPORTS SOME PAIN TO HIS NOSE, NOSE IS REDDENED.
[2023-03-02] MEDS ORDERED: FLUDROCORTISON0.1 M2 PO (15:39)
[2023-03-02] MEDS ORDERED: LOKELMA10 GM PO ×2 (17:47→17:48)
--- NOTE | 2023-03-02 17:51 | NUR ---
SHIFT SUMMARY PT A/O X4 SINCE ARRIVAL TO UNIT. PT ABLE TO EXPRESS NEEDS AND CALLS APPROPIATE. PT VSS THROUGHOUT SHIFT WITH O2 SATS IN THE 90'S ON RA. NO REPORT OF CHEST PAIN/PRESSURE. NO REPORT OF SOB SINCE ARRIVAL TO UNIT. PT GEROSSLY INDEPEMNDENT AND TOOK IULTIPLE WALKS AROUND WITHIN HOSPITAL, TOLERATED WELL. PT REPORTED PAIN TO NOSE, TREATED PER EMAR. NO ACUTE EVENTS SINCE ARRIVING TO FLOOR.
[2023-03-02 20:10] VITALS: BP 164/97
[2023-03-02] MEDS ORDERED: CINA30 PO (20:32)
[2023-03-03] VITALS (20 sets, daily range): BP systolic 122–172; BP diastolic 77–96
[2023-03-03 05:27] LABS: BASOPHILS ABSOLUTE AUTO 0.02 K/mm3 (0.00-0.23); BASOPHILS PERCENT AUTO 0 % (0-2); EOSINOPHILS ABSOLUTE AUTO 0.14 K/mm3 (0.00-0.68); EOSINOPHILS PERCENT AUTO 2 % (0-6); Hematocrit 38.4 % (37.0-53.0); Hemoglobin 11.9 g/dL (13.5-17.5); IMMATURE GRAN ABSOLUTE AUTO 0.02 K/mm3 (0.00-0.10); IMMATURE GRAN PERCENT AUTO 0 % (0-1); LYMPHOCYTES ABSOLUTE AUTO 0.96 K/mm3 (0.84-5.20); LYMPHOCYTES PERCENT AUTO 12 % (21-46); MONOCYTES ABSOLUTE AUTO 0.75 K/mm3 (0.16-1.47); MONOCYTES PERCENT AUTO 10 % (4-13); Mean Corpuscular HGB 29.8 pg (26.0-34.0); Mean Corpuscular Volume 96 fL (80-100); Mean Platelet Volume 9.8 fL (9.1-12.4); NEUTROPHILS ABSOLUTE AUTO 5.92 K/mm3 (1.96-9.15); NEUTROPHILS PERCENT AUTO 76 % (41-73); Platelet Count 94 K/mm3 (150-400); RDW Coefficient Variation 13.7 % (11.7-14.2); RDW Standard Deviation 48.9 fL (35.1-46.3); Red Blood Cell Count 3.99 M/mm3 (4.30-5.90); White Blood Cell Count 7.81 K/mm3 (4.00-11.30)
[2023-03-03 06:11] LABS: Albumin, Blood 3.3 g/dL (3.4-5.0); Anion Gap 8 mmol/L (6-16); Blood Urea Nitrogen 55 mg/dL (8-24); Bun/Creatinine Ratio 4.9 (12.0-20.0); CO2, Blood 37 mmol/L (21-32); Calcium, Blood 9.5 mg/dL (8.5-10.1); Chloride, Blood 90 mmol/L (98-108); Glomerular Filtration Rate 5 (60-); Glucose, Blood 109 mg/dL (70-99); Phosphorus, Blood 7.3 mg/dL (2.5-4.9); Potassium, Blood 5.1 mmol/L (3.5-5.5); Sodium, Blood 135 mmol/L (136-145)
--- NOTE | 2023-03-03 18:05 | NUR ---
SHIFT SUMMARY: PATIENT A/OX4, PLEASANT AND COOPERATIVE c CARE. PATIENT HAD HD THIS AM AND HAD 3500 MLS NET FLUID REMOVED. PATIENT REPORTS PAIN TO NOSE/FACE/HEADACHE, MEDICATED c DILAUDID c GOOD EFFECT. PATIENT PLACED ON CONTACT ISOLATION FOR MRSA POSITIVE IN NARES. PATIENT RECEIVED ONE DOSE OF IV ABX VANCOMYCIN AND ZOSYN. PATIENT ZOSYN IV ABX CHANGED TO CEFAZOLIN AT 1800 DOSE. PATIENT DENIES CP/PRESSURE, SOB, N/V AND DIZZINESS THIS SHIFT. VITAL SIGNS REVIEWED. CALL LIGHT IN REACH.
[2023-03-04] VITALS (14 sets, daily range): BP systolic 118–194; BP diastolic 70–105
--- NOTE | 2023-03-04 03:59 | NUR ---
1900: ASSUMED CARE OF PT, BEDSIDE REPORT RECEIVED FROM DAY SHIFT RN. PT IS FOUND TO BE LAYING IN BED ON HIS BACK WITH HOB ELEVATED. A/O X4 BREATHING IS EVEN AND UNLABORED ON ROOM AIR. NO ACUTE DISTSRESS AT THIS TIME. DURING THIS SHIFT PT IS MEDICATED PER ORDERS, PRN MEDICATIONS PROVIDED FOR PAIN, NAUSEA, AND ANXIETY, SEE EMR. VSS ARE STABLE THROUGHOUT SHIFT. PT HAS DIFFICULTY SLEEPING, WALKING AND STRETCHING IN THE ROOM. SEE EMR FOR COMPLETE ROS. NEEDS MET AND SAFETY PRECAUTIONS TAKEN.
[2023-03-04 10:08] LABS: Hematocrit 34.8 % (37.0-53.0); Hemoglobin 11.1 g/dL (13.5-17.5)
[2023-03-04 10:09] LABS: Magnesium, Blood 2.7 mg/dL (1.6-2.4)
[2023-03-04 10:16] LABS: Anion Gap 7 mmol/L (6-16); Blood Urea Nitrogen 46 mg/dL (8-24); Bun/Creatinine Ratio 4.4 (12.0-20.0); CO2, Blood 32 mmol/L (21-32); Calcium, Blood 8.7 mg/dL (8.5-10.1); Chloride, Blood 97 mmol/L (98-108); Glomerular Filtration Rate 5 (60-); Glucose, Blood 146 mg/dL (70-99); Phosphorus, Blood 6.2 mg/dL (2.5-4.9); Potassium, Blood 5.2 mmol/L (3.5-5.5); Sodium, Blood 136 mmol/L (136-145); Vancomycin, Random 27.3 ug/mL
--- NOTE | 2023-03-04 18:29 | NUR ---
SHIFT SUMMARY: PATIENT A/OX4, PLEASANT AND COOPERATIVE c CARE. CELLULITIS TO NOSE, PER PATIENT "I HAVE SOME DRAINAIGE TO MY L SIDE OF NOSE AND I FEEL LIKE THE REDNESS HAS SPREAD TO MY LEFT FACE AND NECK." DR. JOHN NOTIFIED c PATIENT CONCERNED. PATIENT REPORTS PAIN 5-9/10 TO HEAD/NOSE/FACE/NECK, MEDICATED c PRN PAIN MEDS c GOOD EFFECT. PATIENT HAD HD THIS AM, 2000 MLS NET FLUID REMOVED. FISTULA TO L BICEP COVERED c BAND AID, THRILL AND BRUIT PRESENT. PATIENT RECEIVED IV ABX AND SCHEDULED MEDS PER EMAR. VITAL SIGNS REVIEWED. PIV TO RAC SALINE LOCKED. CALL LIGHT IN REACH.
--- NOTE | 2023-03-04 19:19 | NUR ---
pt is well known to this bid writer. pj light after care to [facility] his care on dialysis. He has had many complications.
[2023-03-05] VITALS (21 sets, daily range): BP systolic 87–133; BP diastolic 65–110
--- NOTE | 2023-03-05 04:03 | NUR ---
1900: ASSUMED CARE OF PT, REPORT RECEIVED FROM DAY SHIFT RN. PT IS A/O, IND IN THE ROOM, NO ACUTE DISTRESS DURING THE SHIFT. PAIN CONTROL IS IMPROVED WITH ADDITION OF TRAMADOL. PT REPORTS HE IS ABLE TO SLEEP MORE THIS EVENING. STATES THAT HE FEELS THE INFECTION IS NO LONGER SPREADING. REDNESS AND SWELLING APEARS TO BE REDUCED IN THE LAST 24HRS. SAFETY MEASURES TAKEN DURING THE SHIFT, CALL LIGHT AND BEDSIDE TABLE WITHIN REACH, BED IN THE LOWEST POSITION. NEEDS MET THROUGHOUT SHIFT.
[2023-03-05 06:02] LABS: Hematocrit 34.5 % (37.0-53.0); Hemoglobin 11.1 g/dL (13.5-17.5)
[2023-03-05 06:43] LABS: Albumin, Blood 2.9 g/dL (3.4-5.0); Anion Gap 6 mmol/L (6-16); Blood Urea Nitrogen 60 mg/dL (8-24); Bun/Creatinine Ratio 5.1 (12.0-20.0); CO2, Blood 32 mmol/L (21-32); Calcium, Blood 8.9 mg/dL (8.5-10.1); Chloride, Blood 95 mmol/L (98-108); Glomerular Filtration Rate 4 (60-); Glucose, Blood 105 mg/dL (70-99); Phosphorus, Blood 5.9 mg/dL (2.5-4.9); Potassium, Blood 5.3 mmol/L (3.5-5.5); Sodium, Blood 133 mmol/L (136-145); Vancomycin, Random 25.2 ug/mL
[2023-03-05 07:35] LABS: BASOPHILS ABSOLUTE AUTO 0.02 K/mm3 (0.00-0.23); BASOPHILS PERCENT AUTO 0 % (0-2); EOSINOPHILS ABSOLUTE AUTO 0.17 K/mm3 (0.00-0.68); EOSINOPHILS PERCENT AUTO 3 % (0-6); Hematocrit 34.7 % (37.0-53.0); IMMATURE GRAN ABSOLUTE AUTO 0.01 K/mm3 (0.00-0.10); IMMATURE GRAN PERCENT AUTO 0 % (0-1); LYMPHOCYTES ABSOLUTE AUTO 0.59 K/mm3 (0.84-5.20); LYMPHOCYTES PERCENT AUTO 10 % (21-46); MONOCYTES ABSOLUTE AUTO 0.61 K/mm3 (0.16-1.47); MONOCYTES PERCENT AUTO 10 % (4-13); Mean Corpuscular HGB 30.2 pg (26.0-34.0); Mean Corpuscular HGB Conc 31.7 g/dL (31.5-36.5); Mean Corpuscular Volume 95 fL (80-100); NEUTROPHILS ABSOLUTE AUTO 4.55 K/mm3 (1.96-9.15); NEUTROPHILS PERCENT AUTO 76 % (41-73); Platelet Count 109 K/mm3 (150-400); RDW Coefficient Variation 13.8 % (11.7-14.2); RDW Standard Deviation 48.6 fL (35.1-46.3); Red Blood Cell Count 3.64 M/mm3 (4.30-5.90); White Blood Cell Count 5.95 K/mm3 (4.00-11.30)
--- NOTE | 2023-03-05 16:01 | NUR ---
SHIFT SUMMARY: PATIENT A/OX4. CALM, PLEASANT AND COOPERATIVE c CARE. PATIENT REPORTS CELLULITIS TO NOSE AND FACE HAS IMPROVED AND NO DRAINAIGE TO L NOSE TODAY. PAIN TO NOSE/FACE/HEAD, CONTROLLED c EMAR PRN PAIN MEDS. PATIENT HAD HD TODAY 3000 NET FLUID REMOVED. PATIENT REFUSED SOME OF HIS SCHEDULED MEDS-SEE EMAR FOR DETAILS. PATIENT INDEPENDENT IN ROOM AND REPORTS MULTIPLE BM TODAY. PATIENT HAS NO COMPLAINTS OR DENIES NEW CONCERN THIS SHIFT. PIV TO R FOREARM SALINE LOCKED. CALL LIGHT IN REACH.
--- NOTE | 2023-03-05 20:06 | NUR ---
2000: PT WITH HYPOTENSTION ON VITALS MONITOR MACHINE. IS IS A/O, DROWSY. REPORTS THIS EXPECTED POST DIALYSIS TODAY. DENIES DIZZINESS. MANUAL BP CHECK COMPLETED WITH IMPROVED READING. SEE EMR. WILL CONTINUE TO MONITOR.
--- NOTE | 2023-03-06 04:40 | NUR ---
1900: ASSUMED CARE OF PT, BEDSIDE REPORT RECEIVED FROM DAY SHIFT. PT IS FOUND TO BE LAYING IN BED WITH EYES CLOSED. A/O, TALKING WITH STAFF AND HIS WHO IS AT THE BEDSIDE. STATES THAT "DIALYSIS WIPED ME OUT TODAY ALWAYS." PT IS HYPOTENSIVE, MEDICATIONS PROVIDED ORDERED. PT SHOWS IMPROVEMENT IN BP. REPORTS PAIN UNDER CONTROL UNTIL MID MORNING, SEE EMR. SLEP MOST OF THE NIGHT. NO ACUTE DISRESS. NEEDS MET THROUGHOUT THE SHIFT. SAFETY MEASURES TAKEN. POSSIBLE DISCHARGE TODAY. PT REPORTS HE IS FEELING UNEASY ABOUT GOING HOME R/T BEING AROUND TOO MANY FAMILY MEMBERS.
[2023-03-06 05:06] VITALS: BP 99/70
[2023-03-06 05:25] LABS: BASOPHILS ABSOLUTE AUTO 0.02 K/mm3 (0.00-0.23); BASOPHILS PERCENT AUTO 0 % (0-2); EOSINOPHILS ABSOLUTE AUTO 0.27 K/mm3 (0.00-0.68); EOSINOPHILS PERCENT AUTO 5 % (0-6); Hematocrit 33.4 % (37.0-53.0); Hemoglobin 10.5 g/dL (13.5-17.5); IMMATURE GRAN ABSOLUTE AUTO 0.02 K/mm3 (0.00-0.10); IMMATURE GRAN PERCENT AUTO 0 % (0-1); LYMPHOCYTES ABSOLUTE AUTO 0.81 K/mm3 (0.84-5.20); LYMPHOCYTES PERCENT AUTO 15 % (21-46); MONOCYTES ABSOLUTE AUTO 0.78 K/mm3 (0.16-1.47); MONOCYTES PERCENT AUTO 14 % (4-13); Mean Corpuscular HGB 29.6 pg (26.0-34.0); Mean Corpuscular HGB Conc 31.4 g/dL (31.5-36.5); Mean Corpuscular Volume 94 fL (80-100); Mean Platelet Volume 9.8 fL (9.1-12.4); NEUTROPHILS ABSOLUTE AUTO 3.57 K/mm3 (1.96-9.15); NEUTROPHILS PERCENT AUTO 65 % (41-73); Platelet Count 121 K/mm3 (150-400); RDW Coefficient Variation 13.8 % (11.7-14.2); RDW Standard Deviation 47.7 fL (35.1-46.3); Red Blood Cell Count 3.55 M/mm3 (4.30-5.90); White Blood Cell Count 5.47 K/mm3 (4.00-11.30)
[2023-03-06 05:55] LABS: Magnesium, Blood 2.7 mg/dL (1.6-2.4)
[2023-03-06 06:19] LABS: Alanine Aminotransfer (ALT/SGP <6 U/L (12-78); Albumin, Blood 2.8 g/dL (3.4-5.0); Albumin/Globulin Ratio 0.7 (0.8-1.8); Alk Phos 78 U/L (50-136); Anion Gap 7 mmol/L (6-16); Aspartate Aminotrans (AST/SGOT 13 U/L (12-37); Bilirubin, Total 0.6 mg/dL (0.1-1.0); Blood Urea Nitrogen 50 mg/dL (8-24); Bun/Creatinine Ratio 5.3 (12.0-20.0); CO2, Blood 33 mmol/L (21-32); Calcium, Blood 8.7 mg/dL (8.5-10.1); Chloride, Blood 95 mmol/L (98-108); Creatinine, Blood 9.41 mg/dL (0.60-1.20); Glomerular Filtration Rate 6 (60-); Glucose, Blood 94 mg/dL (70-99); Phosphorus, Blood 5.2 mg/dL (2.5-4.9); Potassium, Blood 5.5 mmol/L (3.5-5.5); Sodium, Blood 135 mmol/L (136-145); Total Protein, Blood 6.8 g/dL (6.4-8.2); Vancomycin, Random 18.9 ug/mL
[2023-03-06 07:33] VITALS: BP 120/80
[2023-03-06 10:06] LABS: ANCA IFA PATTERN None Detected (None Detected); ANCA IFA TITER <1:20 (<1:20)
[2023-03-06 13:14] VITALS: BP 108/70
[2023-03-06] MEDS ORDERED: VISBIOME 112.51 EACH PO (15:21)
[2023-03-06] MEDS ORDERED: HYDMOR2 PO (15:22)
[2023-03-06] MEDS ORDERED: CEPH500 PO (15:23)
[2023-03-06] MEDS ORDERED: NEPHRO VITAMIN0.8 MG PO (15:25)
[2023-03-06 15:36] VITALS: BP 122/82
--- NOTE | 2023-03-06 17:06 | NUR ---
DC HOME. WRITTEN & VERBAL DC INSTRUCTIONS GIVEN TO PT WITH PRESENT, BOTH VERBALIZED GOOD UNDERSTANDING. ALL QUESTIONS & CONCERNS ADDRESSED. HARD COPY SCRIPT FOR PAIN MEDS GIVEN TO PT, COPY MADE & ON CHART. ORDERED VANCOMYCIN IV TO BE ARRANGED AT [facility]. [facility] IS CLOSED TODAY (), [facility] RN (FARNAZ BANG) WILL ARRANGE WITH [facility] ON 03/07. PIV DC'D WITH CATH TIP INTACT, NO REDNESS OR SWELLING NOTED. NEW MED SCRIPTS FAXED TO [facility] PER PT REQUEST. PT AMBULATED SELF OUT TO PV WITH PER HIS REQUEST WITH ALL PERSONAL BELONGINGS ACCOMPANIED BY .
== END 2023-03-06 17:04 | disposition home or self-care (01) | DRG 602 ==
LOC: ER 06:21 → MEDS 06:22 → ENPENDDIS 03-06 13:55 → MEDS 03-06 17:04
PROVIDERS: Emergency Medicine; Internal Medicine Nephrology; Student in an Organized Health Care Education/Training Program; ADMIT Hospitalist
DX: L03.211 Cellulitis of face (principal); N18.6 End stage renal disease; I12.0 Hypertensive chronic kidney disease with stage 5 chronic kidney disease or end stage renal disease; Q61.2 Polycystic kidney, adult type; N25.81 Secondary hyperparathyroidism of renal origin; E87.1 Hypo-osmolality and hyponatremia; Z66 Do not resuscitate; D63.1 Anemia in chronic kidney disease; M81.0 Age-related osteoporosis without current pathological fracture; E21.3 Hyperparathyroidism, unspecified; E86.9 Volume depletion, unspecified; E87.5 Hyperkalemia; E87.70 Fluid overload, unspecified; Z98.890 Other specified postprocedural states; Z87.891 Personal history of nicotine dependence; Z90.5 Acquired absence of kidney; Z88.8 Allergy status to other drugs, medicaments and biological substances; Z88.0 Allergy status to penicillin; Z88.5 Allergy status to narcotic agent; Z91.041 Radiographic dye allergy status; Z79.899 Other long term (current) drug therapy
CPT/HCPCS: 36415; 70486; 70490; 80053; 80069; 80202; 83735; 84100; 85014; 85018; 85025; 86037; 87040; 87147; 96365; 96366; 96375; 96376; 99284-25; A9270; G0378; J0690; J1170; J2405; J2543; J3370; J7050

== ENCOUNTER 2023-03-25 17:28 | Emergency (ER) | payer MEDICARE, OTHER ==
[~2023-03-25] VITALS: Ht 182.9 cm; Wt 83.9 kg
[~2023-03-25 17:28] MED LIST changes: +FLUDROCORTISON0.1 M2 PO; +NEPHRO VITAMIN0.8 MG PO; +VISBIOME 112.51 EACH PO
[2023-03-25 17:37] VITALS: BP 136/86
== END 2023-03-25 20:30 | disposition home or self-care (01) ==
LOC: ER 17:28
DX: S61.213A Laceration without foreign body of left middle finger without damage to nail, initial encounter (principal); W27.0XXA Contact with workbench tool, initial encounter; Z88.8 Allergy status to other drugs, medicaments and biological substances; Z88.0 Allergy status to penicillin; Z88.5 Allergy status to narcotic agent; Z79.899 Other long term (current) drug therapy; N18.9 Chronic kidney disease, unspecified; I50.9 Heart failure, unspecified; M19.90 Unspecified osteoarthritis, unspecified site; I13.0 Hypertensive heart and chronic kidney disease with heart failure and stage 1 through stage 4 chronic kidney disease, or unspecified chronic kidney disease
CPT/HCPCS: 12001; 73140; 99283-25

== ENCOUNTER 2023-07-11 06:21 | Day surgery (SDC) | payer MEDICARE, OTHER ==
[~2023-07-11] VITALS: Ht 182.9 cm; Wt 87.8 kg
[2023-07-11] VITALS (12 sets, daily range): BP systolic 144–158; BP diastolic 78–109
[~2023-07-11 06:21] MED LIST changes: +CALCIUM ACETAT667 MG PO; +ENTRESTO 24 MG1 EAC3 PO; +MIDODRINE HCL10 M1 PO
[2023-07-11] MEDS ORDERED: NS 1,000 ML IV ONE ×2 (07:21→09:24)
[2023-07-11] MEDS ORDERED: Heparin Sodium 1000 Units/ML 10ML MDV ONE (07:21)
[2023-07-11] MEDS ORDERED: FentaNYL Citrate 50 MCG/ML 2 ML Injection ONE (09:01)
[2023-07-11] MEDS ORDERED: Ondansetron HCl 2 MG / ML 2ML Vial ONE (09:01)
[2023-07-11] MEDS ORDERED: Lidocaine HCl 2% 20 ML MDV ONE (09:02)
[2023-07-11] MEDS ORDERED: DiphenhydrAMINE HCl 50 MG/ML 1ML Vial ONE (09:34)
[2023-07-11] MEDS ORDERED: Hydrocortisone Sod Succinate 100 MG Vial ONE (09:34)
--- NOTE | 2023-07-11 10:38 | NUR ---
PATIENT ARRIVED BACK TO RECOVERY ROOM WITH AIRWAY IN PLACE. ANESTHESIA REMVOED AIRWAY, VSS ON RA. PATIENT DROWSY BUT AROUSABLE. L ARM FISTULA THRILL PRESENT FELT. SITE C/D/I SOFT/NONTENDER, NO EVIDENCE OF BLEEDING
--- NOTE | 2023-07-11 11:11 | NUR ---
PATIENT SITTING UPRIGHT IN BED, CONVERSING APPROPRIATELY. PATIENT COMPLAINING OF SOME TENDERNESS IN L ARM. PATIENT TOLERATING PO INTAKE WELL. VSS ON RA
--- NOTE | 2023-07-11 11:39 | NUR ---
PATIENT SITTING UPRIGHT IN BED, CONVERSING APPROPRIATELY. TOLERATING PO INTAKE WELL. L ARM FISTULA BRUIT PRESENT, SITE C/D/I SOFT/NONTENDER. DISCHARGE INSTRUCTIONS REVIEWED WITH PATIENT. VSS ON RA
--- NOTE | 2023-07-11 12:05 | NUR ---
PT DRESSING SELF WITHOUT DIFF. VSS. NADN. L FISTULA SITE REMAINS STABLE. PT IV DC'D. CATH INTACT. PRESSURE DSG APPLIED. NO BLEEDING NOTED. PT WILL BE DC'D TO HOME VIA S/O BY ETHAN
[2023-07-11] MEDS ORDERED: Propofol 10mg/ml 20 ml Vial (Procedural) IV ONE (16:45)
== END 2023-07-11 12:20 | disposition home or self-care (01) ==
LOC: MHTC 06:21
DX: N18.6 End stage renal disease (principal); T82.858S Stenosis of other vascular prosthetic devices, implants and grafts, sequela; I13.2 Hypertensive heart and chronic kidney disease with heart failure and with stage 5 chronic kidney disease, or end stage renal disease; I50.42 Chronic combined systolic (congestive) and diastolic (congestive) heart failure; I42.9 Cardiomyopathy, unspecified; F32.9 Major depressive disorder, single episode, unspecified; M81.0 Age-related osteoporosis without current pathological fracture; Z87.891 Personal history of nicotine dependence; Z79.899 Other long term (current) drug therapy; Z88.8 Allergy status to other drugs, medicaments and biological substances; Z88.5 Allergy status to narcotic agent; Z88.0 Allergy status to penicillin
CPT/HCPCS: 36902; 76937; C1725; C1769; C1887; C1894; J1200; J1644; J1720; J2405; J2704; J3010; J7030; Q9967

== ENCOUNTER 2023-09-01 16:11 | Inpatient (IN) | payer MEDICARE, OTHER ==
[~2023-09-01] VITALS: Ht 182.9 cm; Wt 89.4 kg
[2023-09-01 16:54] LABS: BASOPHILS ABSOLUTE AUTO 0.01 K/mm3 (0.00-0.23); BASOPHILS PERCENT AUTO 0 % (0-2); EOSINOPHILS ABSOLUTE AUTO 0.03 K/mm3 (0.00-0.68); EOSINOPHILS PERCENT AUTO 1 % (0-6); Hematocrit 32.8 % (37.0-53.0); Hemoglobin 10.3 g/dL (13.5-17.5); IMMATURE GRAN ABSOLUTE AUTO 0.01 K/mm3 (0.00-0.10); IMMATURE GRAN PERCENT AUTO 0 % (0-1); LYMPHOCYTES ABSOLUTE AUTO 0.48 K/mm3 (0.84-5.20); LYMPHOCYTES PERCENT AUTO 12 % (21-46); MONOCYTES ABSOLUTE AUTO 0.37 K/mm3 (0.16-1.47); MONOCYTES PERCENT AUTO 9 % (4-13); Mean Corpuscular HGB 30.7 pg (26.0-34.0); Mean Corpuscular HGB Conc 31.4 g/dL (31.5-36.5); Mean Corpuscular Volume 98 fL (80-100); Mean Platelet Volume 9.9 fL (9.1-12.4); NEUTROPHILS ABSOLUTE AUTO 3.22 K/mm3 (1.96-9.15); NEUTROPHILS PERCENT AUTO 78 % (41-73); Platelet Count 79 K/mm3 (150-400); RDW Coefficient Variation 13.6 % (11.7-14.2); RDW Standard Deviation 48.8 fL (35.1-46.3); Red Blood Cell Count 3.35 M/mm3 (4.30-5.90); White Blood Cell Count 4.12 K/mm3 (4.00-11.30)
[2023-09-01 17:25] LABS: Magnesium, Blood 2.5 mg/dL (1.6-2.4)
[2023-09-01 17:33] LABS: Albumin, Blood 3.7 g/dL (3.4-5.0); Albumin/Globulin Ratio 1.2 (0.8-1.8); Bilirubin, Total 0.6 mg/dL (0.1-1.0); Bun/Creatinine Ratio 5.2 (12.0-20.0); Calcium, Blood 8.9 mg/dL (8.5-10.1); Creatinine, Blood 11.8 mg/dL (0.60-1.20); Globulin, Blood 3.2 g/dL (2.2-4.0); Potassium, Blood 5.2 mmol/L (3.5-5.5); Total Protein, Blood 6.9 g/dL (6.4-8.2)
[2023-09-01] MEDS ORDERED: HYDROmorphone HCl/Pf 1MG SYR IV PRN (20:15)
[2023-09-01] MEDS ORDERED: Ondansetron HCl 2 MG / ML 2ML Vial IV PRN (20:15)
[2023-09-01] MEDS ORDERED: CefTRIAXone Sodium 1,000 MG in NS 100 ML IV ONE (21:35)
[2023-09-01] MEDS ORDERED: Azithromycin 500 MG in NS 250 ML IV ONE (21:35)
[2023-09-01 21:41] LABS: Influenza A, PCR NEGATIVE (NEGATIVE); Influenza B, PCR NEGATIVE (NEGATIVE); Resp Syncytial Virus, PCR NEGATIVE (NEGATIVE)
[2023-09-01 22:01] LABS: SARS-Cov-2 (COVID-19) PCR, MMC POSITIVE (NEGATIVE)
[2023-09-01] MEDS ORDERED: METOPROLOL SUCC25 MG PO (22:32)
[2023-09-01] MEDS ORDERED: CINA30 PO (22:34)
[2023-09-01] MEDS ORDERED: NS 1,000 ML IV ONE (22:50)
[2023-09-02] VITALS (18 sets, daily range): BP systolic 102–145; BP diastolic 59–99
[2023-09-02] MEDS ORDERED: Acetaminophen 325 MG TABLET PO PRN (01:45)
[2023-09-02] MEDS ORDERED: Dexamethasone Sod Phos 10 MG/ML 1ML VIAL IV SCH (02:00)
[2023-09-02] MEDS ORDERED: Remdesivir (EUA) 200 MG in NS 250 ML IV ONE (02:20)
[2023-09-02 05:10] LABS: BASOPHILS ABSOLUTE AUTO 0.02 K/mm3 (0.00-0.23); BASOPHILS PERCENT AUTO 1 % (0-2); EOSINOPHILS ABSOLUTE AUTO 0.02 K/mm3 (0.00-0.68); EOSINOPHILS PERCENT AUTO 1 % (0-6); Hematocrit 27.7 % (37.0-53.0); Hemoglobin 8.9 g/dL (13.5-17.5); IMMATURE GRAN ABSOLUTE AUTO 0.01 K/mm3 (0.00-0.10); IMMATURE GRAN PERCENT AUTO 0 % (0-1); LYMPHOCYTES ABSOLUTE AUTO 0.41 K/mm3 (0.84-5.20); LYMPHOCYTES PERCENT AUTO 11 % (21-46); MONOCYTES ABSOLUTE AUTO 0.28 K/mm3 (0.16-1.47); MONOCYTES PERCENT AUTO 8 % (4-13); Mean Corpuscular HGB 31.2 pg (26.0-34.0); Mean Corpuscular HGB Conc 32.1 g/dL (31.5-36.5); Mean Corpuscular Volume 97 fL (80-100); Mean Platelet Volume 9.9 fL (9.1-12.4); NEUTROPHILS ABSOLUTE AUTO 2.97 K/mm3 (1.96-9.15); NEUTROPHILS PERCENT AUTO 80 % (41-73); Platelet Count 72 K/mm3 (150-400); RDW Coefficient Variation 13.8 % (11.7-14.2); RDW Standard Deviation 49.7 fL (35.1-46.3); Red Blood Cell Count 2.85 M/mm3 (4.30-5.90); White Blood Cell Count 3.71 K/mm3 (4.00-11.30)
--- NOTE | 2023-09-02 05:35 | NUR ---
SHIFT SUMMARY: PATIENT ARRIVED ON FLOOR ANTHROPOMETRIST. PATIENT ON 1-2L O2 PRN BY NC. COVID PRECAUTIONS MAINTAINED. GENERALIZED COMPLAINTS OF PAIN ON DIFFERENT BODY PARTS: ACETAMINOPHEN GIVEN. PATIENT REQUESTED GABAPENTIN AND MISC HOME MEDICATION FOR RESTLESS LEGS, HEIDI KUMAR PROMISED TO LOOK OVER IT. REMDESIVIR STARTED. PATIENT SLEPT POORLY.
[2023-09-02 05:41] LABS: Magnesium, Blood 2.7 mg/dL (1.6-2.4)
[2023-09-02 06:05] LABS: BASOPHILS PERCENT MAN 0 % (0-2); EOSINOPHILS PERCENT MAN 0 % (0-6); LYMPHOCYTES ABSOLUTE MAN 0.25 K/mm3 (0.84-5.20); LYMPHOCYTES PERCENT MAN 7 % (21-46); MONOCYTES ABSOLUTE MAN 0.07 K/mm3 (0.16-1.47); MONOCYTES PERCENT MAN 2 % (4-13); NEUTROPHILS ABSOLUTE MAN 3.37 K/mm3 (1.96-9.15); SEG NEUTROPHILS PERCENT MAN 91 % (41-73); TOTAL CELLS COUNTED 100
[2023-09-02 06:08] LABS: Alanine Aminotransfer (ALT/SGP 9 U/L (12-78); Albumin, Blood 3.1 g/dL (3.4-5.0); Albumin/Globulin Ratio 1.1 (0.8-1.8); Alk Phos 51 U/L (50-136); Anion Gap 12 mmol/L (3-11); Aspartate Aminotrans (AST/SGOT 3 U/L (12-37); Bilirubin, Total 0.5 mg/dL (0.1-1.0); Blood Urea Nitrogen 70 mg/dL (8-24); Bun/Creatinine Ratio 5.7 (12.0-20.0); CO2, Blood 32 mmol/L (21-32); Calcium, Blood 8.4 mg/dL (8.5-10.1); Chloride, Blood 98 mmol/L (98-108); Globulin, Blood 2.8 g/dL (2.2-4.0); Glomerular Filtration Rate 4 (60-); Glucose, Blood 109 mg/dL (70-99); Phosphorus, Blood 6.8 mg/dL (2.5-4.9); Sodium, Blood 136 mmol/L (136-145); Total Protein, Blood 5.9 g/dL (6.4-8.2)
[2023-09-02] MEDS ORDERED: rOPINIRole HCl 1 MG Tab PO PRN (06:10)
[2023-09-02] MEDS ORDERED: Gabapentin 100 MG Cap PO PRN (06:10)
[2023-09-02] MEDS ORDERED: Vitamin B Cmplx/Vit C/Folic Ac 1 Tab PO SCH (06:35)
[2023-09-02] MEDS ORDERED: Sevelamer Carbonate 800 MG Tab PO SCH (08:30)
[2023-09-02] MEDS ORDERED: Calcium Acetate 667 MG Gel Cap PO SCH (08:30)
[2023-09-02] MEDS ORDERED: Sodium Zirconium Cyclosilicate 10 GM Packet PO SCH ×2 (09:00)
[2023-09-02] MEDS ORDERED: Omeprazole 20 MG CapCR PO SCH (09:00)
[2023-09-02] MEDS ORDERED: Metoprolol Succinate 25 MG TABCR PO SCH (09:00)
[2023-09-02] MEDS ORDERED: Diazepam 5 MG Tab PO PRN (10:05)
[2023-09-02] MEDS ORDERED: Cinacalcet HCL 30 MG Tab PO SCH (16:00)
[2023-09-02] MEDS ORDERED: Darbepoetin Alfa In Albumn Sol 40 MCG/0.4 ML SC SCH (16:00)
[2023-09-02] MEDS ORDERED: Polyethylene Glycol 3350 17 gm PO SCH (18:00)
--- NOTE | 2023-09-02 18:18 | NUR ---
SHIFT SUMMARY PT AOX4, INDEPENDENT IN THE ROOM. AT THE BS T/O THE SHIFT. DIALYSIS TODAY, REMOVED 3.5 LITERS. NO C/O P/V/D, MEDICATED FOR NAUSEA IN DIALYSIS. VALIUM PROVIDED PER THE PT'S REGIMENT. NO EVENTS PER TELE. CALL LIGHT WITHIN REACH, BED LOCKED AND IN THE LOWEST POSITION. WILL REPORT TO ONCOMING NURSE.
[2023-09-02] MEDS ORDERED: Azithromycin 500 MG in NS 250 ML IV SCH (21:00)
[2023-09-02] MEDS ORDERED: CefTRIAXone Sodium 1,000 MG in NS 100 ML IV SCH (21:00)
[2023-09-02] MEDS ORDERED: NS 250 ML IV PRN (21:40)
[2023-09-03] VITALS (16 sets, daily range): BP systolic 121–153; BP diastolic 61–86
--- NOTE | 2023-09-03 03:07 | NUR ---
PT.IS REQUESTING FROM PHYSICAL THERAPY COORDINATOR HOSPITALIST OR : BEFORE EACH DIALYSIS: PT.REPORTS THAT HE TAKES: ROPINIROLE, VALIUM AND GABAPENTIN BEFORE EACH DIALYSIS. PT. IS REQUESTING THESE THREE RX'S TO BE BID. PT IS ALSO REQUESTING DILAUDID IV DURING THE HOSPITAL STAY FOR BACK PAIN 09/19WORST.
[2023-09-03] MEDS ORDERED: HYDROmorphone HCl/Pf 1MG SYR IV ONE (04:05)
--- NOTE | 2023-09-03 04:30 | NUR ---
SHIFT SUMMARY PT. IS ON ENHANCED PRECAUTIONS D/T DX OF COVID. PT.IS A&O X4, BY THE BEDSIDE DURING HS. C/O 7/10WORST BACK PAIN, TYLENON NOT EFFECTIVE PER PT. REPORT. PT. REQUESTED VALIUM 10MG BID PRN, AND ROPINIROLE BID/CHANGES ON THE EMAR/HOSPITAL STAY: PT. REPORTS TAKES GABAPENTIN, VALIUM AND ROPINIROLE BEFORE DIALYSIS AND AT BEDTIME, AND DIULADID PRN IV DURING THE HOSPITAL STAYS. NEW ORDERS RECEIVED VIA TELEPHONE FROM ONCALL HOSPITALIST DURING THIS SHIFT. TELE:NORMAL SINUS RHYTHM@62,LS DIMINISHED, NO COUGH NOTED, NO FEVER DURING PER SHIFT ASSESSMENT. NO ACUTE EVENTS/DISTRESS NOTED/REPORTED T/O THIS SHIFT. BED AT THE LOWEST POSITION, CALL LIGHT IN REACH. WILL HANDOFF TO THE INCOMING SHIFT NURSE.
[2023-09-03 04:39] LABS: Hematocrit 27.8 % (37.0-53.0); Hemoglobin 9.3 g/dL (13.5-17.5)
--- NOTE | 2023-09-03 04:39 | NUR ---
NEW ORDERS RECEIVED FROM THE [facility] HOSPITALIST OVER TELEPHONE: VALIUM 10MG PO BID, ROPINIROLE 1MG BID, AND ONETIME ORDER DILAUDID IV 1MG NOW.
[2023-09-03 05:08] LABS: Magnesium, Blood 2.8 mg/dL (1.6-2.4)
[2023-09-03 05:15] LABS: Albumin, Blood 2.9 g/dL (3.4-5.0); Anion Gap 11 mmol/L (3-11); Blood Urea Nitrogen 56 mg/dL (8-24); Bun/Creatinine Ratio 5.8 (12.0-20.0); CO2, Blood 35 mmol/L (21-32); Calcium, Blood 9.3 mg/dL (8.5-10.1); Chloride, Blood 96 mmol/L (98-108); Creatinine, Blood 9.69 mg/dL (0.60-1.20); Glomerular Filtration Rate 6 (60-); Glucose, Blood 119 mg/dL (70-99); Phosphorus, Blood 7.2 mg/dL (2.5-4.9); Potassium, Blood 4.4 mmol/L (3.5-5.5); Sodium, Blood 138 mmol/L (136-145)
--- NOTE | 2023-09-03 06:09 | NUR ---
CRITICAL LAB VALUE CALLED 0530; CRE 9.69
--- NOTE | 2023-09-03 06:43 | NUR ---
PT. WOULD LIKE THE 0600 SCHEDULED MEDICATION: FOLIC ACID/VITAMIN B COMPLEX- AFTER HIS DIALYSIS. PT REPORTED DIALUDID 1MG IV EFFECTIVE FOR REDUCING HIS BACK PAIN. ZOFRAN 8MG ADMINISTERED PER PT. REQUEST. LUNG SOUNDS CLEAR, PT. DENIES COUGH,
[2023-09-03] MEDS ORDERED: rOPINIRole HCl 1 MG Tab PO PRN (07:27)
[2023-09-03] MEDS ORDERED: Diazepam 5 MG Tab PO PRN (07:27)
[2023-09-03] MEDS ORDERED: Ondansetron HCl 2 MG / ML 2ML Vial IV PRN (07:40)
[2023-09-03] MEDS ORDERED: Remdesivir (EUA) 100 MG in NS 250 ML IV SCH (12:00)
--- NOTE | 2023-09-03 16:37 | NUR ---
SHIFT SUMMARY PT AOX4, INDEPENDENT IN THE ROOM. CALLS AND MAKES HIS NEEDS KNOWN. DIALYSIS TODAY, 3L REMOVED. PT VERY TIRED POST DIALYSIS, SLEEPING MOST OF THE AFTERNOON. MEDICATED FOR BACK PAIN PER THE EMAR. NO ACUTE ISSUES THIS SHIFT. NO EVENTS PER TELE. CALL LIGHT WITHIN REACH, BED LOCKED AND IN THE LOWEST POSITION. WILL REPORT TO ONCOMING NURSE.
--- NOTE | 2023-09-03 21:20 | NUR ---
ASSUMPTION OF CARE: THIS RN ASSUMED CARE OF PT AT APPROX 1900. PT ALERT, ORIENTED X4. LAYING DOWN IN BED. DENIES PAIN/SOB/CHEST PRESSURE. VSS, ON 3L O2 VIA NC. SEE SHIFT ASSESSMENT FOR FURTHER DETAILS. CALL LIGHT IN REACH.
[2023-09-03] MEDS ORDERED: Promethazine HCl 25 MG Tab PO PRN (22:40)
[2023-09-04] VITALS (15 sets, daily range): BP systolic 123–146; BP diastolic 72–83
--- NOTE | 2023-09-04 04:03 | NUR ---
END OF SHIFT NOTE: NO ACUTE EVENTS OVERNIGHT. PT A/OX4, ABLE TO CALL APPROPRIATELY & COMMUNICATE NEEDS W/ STAFF. VSS. HR NSR ON TELE. BP STABLE, DENIES CHEST PAIN/PRESSURE. SPO2 >90% ON 3L VIA NC. C/O N/V THIS SHIFT, MEDICATED W/ ZOFRAN W/O RELIEF. CALL TO HOSPITALIST, ORDERS RECEIVED TO START PHENERGAN THIS IS PT'S HOME MEDICATION. PT REPORTS FEELING PROFOUNDLY WEAK, BUT REMAINS ABLE TO REPOSITION SELF INDEPENDENTLY IN BED. DECLINES BED BATH THIS SHIFT. TOLERATING PO INTAKE WELL. RESTING IN BED AT THIS TIME. CALL LIGHT IN REACH, WILL CONTINUE TO MONITOR UNTIL REPORT TO ONCOMING DAY SHIFT RN.
[2023-09-04 05:07] LABS: Hemoglobin 9.3 g/dL (13.5-17.5)
[2023-09-04 05:49] LABS: Magnesium, Blood 2.9 mg/dL (1.6-2.4)
[2023-09-04 06:25] LABS: Albumin, Blood 3.1 g/dL (3.4-5.0); Anion Gap 13 mmol/L (3-11); Blood Urea Nitrogen 59 mg/dL (8-24); CO2, Blood 31 mmol/L (21-32); Calcium, Blood 9.5 mg/dL (8.5-10.1); Chloride, Blood 97 mmol/L (98-108); Glucose, Blood 110 mg/dL (70-99); Phosphorus, Blood 6.4 mg/dL (2.5-4.9); Potassium, Blood 5.7 mmol/L (3.5-5.5); Sodium, Blood 135 mmol/L (136-145)
[2023-09-04 06:27] LABS: Bun/Creatinine Ratio 6.1 (12.0-20.0); Creatinine, Blood 9.62 mg/dL (0.60-1.20); Glomerular Filtration Rate 6 (60-)
--- NOTE | 2023-09-04 18:07 | NUR ---
SHIFT SUMMARY AOX4, INDEPENDENT IN THE ROOM. DIALYSIS TODAY, REMOVED 3 LITERS. MEDICATED FOR PAIN PER THE EMAR. ON 3L PRN, HE USES THAT AT HOME. PLAN IS FOR HIM TO DISCHARGE TOMORROW. CALL LIGHT WITHIN REACH, BED LOCKED AND IN THE LOWEST POSITION. WILL REPORT TO ONCOMING NURSE.
[2023-09-05] VITALS (13 sets, daily range): BP systolic 128–167; BP diastolic 60–89
[2023-09-05 04:45] LABS: Hematocrit 27.8 % (37.0-53.0); Hemoglobin 9.2 g/dL (13.5-17.5)
[2023-09-05 05:37] LABS: Albumin, Blood 3.1 g/dL (3.4-5.0); Anion Gap 11 mmol/L (3-11); Blood Urea Nitrogen 63 mg/dL (8-24); Bun/Creatinine Ratio 6.6 (12.0-20.0); CO2, Blood 32 mmol/L (21-32); Calcium, Blood 8.9 mg/dL (8.5-10.1); Chloride, Blood 98 mmol/L (98-108); Glomerular Filtration Rate 6 (60-); Glucose, Blood 110 mg/dL (70-99); Phosphorus, Blood 5.9 mg/dL (2.5-4.9); Potassium, Blood 5.2 mmol/L (3.5-5.5); Sodium, Blood 136 mmol/L (136-145); Vancomycin, Random <0.8 ug/mL
[2023-09-05] MEDS ORDERED: dexAMETHasone 4 MG TAB PO SCH (09:00)
[2023-09-05] MEDS ORDERED: DECADRON6 M1 PO (11:50)
--- NOTE | 2023-09-05 14:30 | NUR ---
SHIFT/DISCHARGE SUMMARY: PATIENT A/OX4, CALM, PLEASANT AND COOPERATIVE c CARE. PATIENT REFUSED MULTIPLE AM SCHEDULED MEDS (SEE EMAR) D/T DIALYSIS. PATIENT ALSO REFUSED SCHEDULED NOON REMDESIVIR, PER PATIENT, "I DON'T WANT IT, THAT MEDICATION IT HURTS MY IV SITE, REALLY BAD YESTERDAY. I'M GOING HOME ANYWAY." EDUCATE PATIENT THE RISK AND BENIFITS OF HAVING IV ABX TX. PATIENT VERBALIZED UNDERSTANDING, BUT STILL REFUSING. PATIENT DIALYZED c 2500 MLS NET FLUIDS REMOVED. PATIENT TOLERATING PO INTAKE WELL, VIAT SIGNS REVIEWED. PIV TO RAC DC'D BY RAHEL. PATIENT DISCHARGE HOME. DISCHARGE INSTRUCTIONS PACKET GIVEN TO PATIENT. EDUCATE PATIENT REGARDING ADMITTING DX'S, S/S, TX, NEW PRESCRIBED MEDS, F/U c PCP AND NEPHROLOGY. PATIENT VERBALIZED UNDERSTANDING AND NO FURTHER QUESTIONS. RX WAS FAXED TO PATIENT PREFERRED PHARMACY-[facility]. ALL PATIENT PERSONAL BELONGINGS WERE SENT HOME c THE PATIENT. PATIENT LEFT THE ROOM AT 1323 AND WAS TRANSPORTED VIA WHEELCHAIR BY RAHEL TO PATIENT ENTRANCE.
== END 2023-09-05 13:23 | disposition home or self-care (01) | DRG 177 ==
LOC: ER 16:11 → MEDS 16:12 → ER 16:12 → MEDS 16:12 → ENPENDDIS 09-05 11:09 → MEDS 09-05 13:23
PROVIDERS: Emergency Medicine; Internal Medicine Nephrology; Physician Assistant; ADMIT Internal Medicine
PROC: 5A1D70Z Performance of Urinary Filtration, Intermittent, Less than 6 Hours Per Day (ICD-10-PCS; principal; 2023-09-02)
PROC: XW033E5 Introduction of Remdesivir Anti-infective into Peripheral Vein, Percutaneous Approach, New Technology Group 5 (ICD-10-PCS; 2023-09-02)
PROC: 3E0DX3Z Introduction of Anti-inflammatory into Mouth and Pharynx, External Approach (ICD-10-PCS; 2023-09-02)
DX: U07.1 COVID-19 (principal); J12.82 Pneumonia due to coronavirus disease 2019; N18.6 End stage renal disease; N25.81 Secondary hyperparathyroidism of renal origin; I13.2 Hypertensive heart and chronic kidney disease with heart failure and with stage 5 chronic kidney disease, or end stage renal disease; I50.32 Chronic diastolic (congestive) heart failure; E87.5 Hyperkalemia; E83.41 Hypermagnesemia; M19.90 Unspecified osteoarthritis, unspecified site; D69.6 Thrombocytopenia, unspecified; E83.39 Other disorders of phosphorus metabolism; D63.1 Anemia in chronic kidney disease; M81.0 Age-related osteoporosis without current pathological fracture; Z90.5 Acquired absence of kidney; Z98.890 Other specified postprocedural states; Z79.2 Long term (current) use of antibiotics; Z79.891 Long term (current) use of opiate analgesic; Z88.0 Allergy status to penicillin; Z88.5 Allergy status to narcotic agent; Z88.8 Allergy status to other drugs, medicaments and biological substances; Z91.041 Radiographic dye allergy status; Z99.2 Dependence on renal dialysis; Z87.19 Personal history of other diseases of the digestive system
CPT/HCPCS: 0241U; 36415; 71046; 80053; 80069; 80202; 83605; 83735; 83880; 84100; 84484; 85014; 85018; 85025; 93005; 93010; 93990; 94760; 96365; 96375; 96376; 99285-25; A9270; G0378; J0248; J0456; J0696; J0881; J1100; J1170; J2405; J7050

== ENCOUNTER 2023-11-13 14:41 | Emergency (ER) | payer MEDICARE, OTHER ==
[~2023-11-13] VITALS: Ht 182.9 cm; Wt 88.5 kg
[~2023-11-13 14:41] MED LIST changes: +METOPROLOL SUCC25 MG PO
[2023-11-13 15:27] LABS: BASOPHILS ABSOLUTE AUTO 0.02 K/mm3 (0.00-0.23); BASOPHILS PERCENT AUTO 0 % (0-2); EOSINOPHILS ABSOLUTE AUTO 0.08 K/mm3 (0.00-0.68); EOSINOPHILS PERCENT AUTO 1 % (0-6); Hematocrit 32.3 % (37.0-53.0); Hemoglobin 10.2 g/dL (13.5-17.5); IMMATURE GRAN ABSOLUTE AUTO 0.02 K/mm3 (0.00-0.10); IMMATURE GRAN PERCENT AUTO 0 % (0-1); LYMPHOCYTES ABSOLUTE AUTO 0.77 K/mm3 (0.84-5.20); LYMPHOCYTES PERCENT AUTO 12 % (21-46); MONOCYTES ABSOLUTE AUTO 0.42 K/mm3 (0.16-1.47); MONOCYTES PERCENT AUTO 7 % (4-13); Mean Corpuscular HGB 30.4 pg (26.0-34.0); Mean Corpuscular HGB Conc 31.6 g/dL (31.5-36.5); Mean Corpuscular Volume 96 fL (80-100); Mean Platelet Volume 9.3 fL (9.1-12.4); NEUTROPHILS ABSOLUTE AUTO 4.99 K/mm3 (1.96-9.15); NEUTROPHILS PERCENT AUTO 79 % (41-73); Platelet Count 109 K/mm3 (150-400); RDW Coefficient Variation 14.6 % (11.7-14.2); RDW Standard Deviation 51.4 fL (35.1-46.3); Red Blood Cell Count 3.36 M/mm3 (4.30-5.90)
[2023-11-13] MEDS ORDERED: DiphenhydrAMINE HCl 50 MG/ML 1ML Vial IV ONE (15:30)
[2023-11-13 15:44] VITALS: BP 134/104
[2023-11-13] MEDS ORDERED: HYDROmorphone HCl/Pf 1MG SYR IV ONE (15:50)
[2023-11-13 15:54] LABS: Albumin, Blood 3.9 g/dL (3.4-5.0); Albumin/Globulin Ratio 1.3 (0.8-1.8); Bilirubin, Total 0.8 mg/dL (0.1-1.0); Bun/Creatinine Ratio 4.9 (12.0-20.0); Calcium, Blood 9.2 mg/dL (8.5-10.1); Creatinine, Blood 10.9 mg/dL (0.60-1.20); Globulin, Blood 3.1 g/dL (2.2-4.0); Potassium, Blood 5.4 mmol/L (3.5-5.5)
[2023-11-13] MEDS ORDERED: HYDMOR2 PO (16:31)
[2023-11-13] MEDS ORDERED: ROPI1 PO (17:31)
[2023-11-13] MEDS ORDERED: IPRAT-ALBUT 0.5-3 ML (17:32)
== END 2023-11-13 16:44 | disposition home or self-care (01) ==
LOC: ER 14:41
PROVIDERS: Physician Assistant
DX: S11.93XA Puncture wound without foreign body of unspecified part of neck, initial encounter (principal); W29.8XXA Contact with other powered hand tools and household machinery, initial encounter; I13.2 Hypertensive heart and chronic kidney disease with heart failure and with stage 5 chronic kidney disease, or end stage renal disease; I50.9 Heart failure, unspecified; N18.6 End stage renal disease; M81.0 Age-related osteoporosis without current pathological fracture; E21.3 Hyperparathyroidism, unspecified; Z99.2 Dependence on renal dialysis; Z86.16 Personal history of COVID-19; Z87.891 Personal history of nicotine dependence; Z88.8 Allergy status to other drugs, medicaments and biological substances; Z88.5 Allergy status to narcotic agent; Z88.0 Allergy status to penicillin; Z91.041 Radiographic dye allergy status; Z88.3 Allergy status to other anti-infective agents; Z79.899 Other long term (current) drug therapy; Z90.5 Acquired absence of kidney
CPT/HCPCS: 70491; 80053; 83735; 85025; 86850; 86900; 86901; 96374; 96375; 99284-25; J1170; J1200; Q9967

== ENCOUNTER 2023-11-24 13:45 | Inpatient (IN) | payer MEDICARE, OTHER ==
[~2023-11-24] VITALS: Ht 182.9 cm; Wt 82.6 kg
[~2023-11-24 13:45] MED LIST changes: +IPRAT-ALBUT 0.5-3 ML
[2023-11-24 15:46] LABS: BASOPHILS ABSOLUTE AUTO 0.01 K/mm3 (0.00-0.23); BASOPHILS PERCENT AUTO 0 % (0-2); EOSINOPHILS ABSOLUTE AUTO 0.02 K/mm3 (0.00-0.68); EOSINOPHILS PERCENT AUTO 0 % (0-6); IMMATURE GRAN ABSOLUTE AUTO 0.02 K/mm3 (0.00-0.10); IMMATURE GRAN PERCENT AUTO 0 % (0-1); LYMPHOCYTES ABSOLUTE AUTO 0.52 K/mm3 (0.84-5.20); LYMPHOCYTES PERCENT AUTO 8 % (21-46); MONOCYTES ABSOLUTE AUTO 0.66 K/mm3 (0.16-1.47); MONOCYTES PERCENT AUTO 10 % (4-13); Mean Corpuscular HGB 30.3 pg (26.0-34.0); Mean Corpuscular HGB Conc 31.3 g/dL (31.5-36.5); Mean Corpuscular Volume 97 fL (80-100); Mean Platelet Volume 10.2 fL (9.1-12.4); NEUTROPHILS ABSOLUTE AUTO 5.42 K/mm3 (1.96-9.15); NEUTROPHILS PERCENT AUTO 82 % (41-73); Platelet Count 76 K/mm3 (150-400); RDW Coefficient Variation 14.2 % (11.7-14.2); RDW Standard Deviation 51.2 fL (35.1-46.3); White Blood Cell Count 6.65 K/mm3 (4.00-11.30)
[2023-11-24 15:56] LABS: Influenza A, PCR NEGATIVE (NEGATIVE); Influenza B, PCR NEGATIVE (NEGATIVE); Resp Syncytial Virus, PCR NEGATIVE (NEGATIVE); SARS-Cov-2 (COVID-19) PCR, MMC NEGATIVE (NEGATIVE)
[2023-11-24 16:14] LABS: Albumin, Blood 3.6 g/dL (3.4-5.0); Albumin/Globulin Ratio 1.2 (0.8-1.8); Bun/Creatinine Ratio 5.2 (12.0-20.0); Calcium, Blood 9.2 mg/dL (8.5-10.1); Creatinine, Blood 10.4 mg/dL (0.60-1.20); Globulin, Blood 3.1 g/dL (2.2-4.0); Potassium, Blood 5.5 mmol/L (3.5-5.5); Total Protein, Blood 6.7 g/dL (6.4-8.2)
[2023-11-24] MEDS ORDERED: HYDROmorphone HCl/Pf 1MG SYR IV ONE (19:45)
[2023-11-24] MEDS ORDERED: NS 1,000 ML IV SCH (19:50)
[2023-11-24] MEDS ORDERED: Ondansetron HCl 2 MG / ML 2ML Vial IV PRN (19:50)
[2023-11-24] MEDS ORDERED: Acetaminophen 325 MG TABLET PO PRN (19:50)
[2023-11-24] MEDS ORDERED: CefTRIAXone Sodium 1,000 MG in NS 100 ML IV SCH (20:00)
[2023-11-24] MEDS ORDERED: Vancomycin HCL 1,500 MG in NS 250 ML IV ONE (20:05)
[2023-11-24] MEDS ORDERED: NS 1,000 ML IV ONE (20:14)
[2023-11-24 21:10] VITALS: BP 164/84
[2023-11-24] MEDS ORDERED: LOKELMA10 GM PO (21:27)
[2023-11-24] MEDS ORDERED: Sodium Zirconium Cyclosilicate 10 GM Packet PO ONE (22:20)
[2023-11-24] MEDS ORDERED: HyDROXyzine HCl 25 MG Tab PO PRN (22:30)
[2023-11-24] MEDS ORDERED: HYDROmorphone HCl 2 MG Tab PO PRN (22:35)
[2023-11-24] MEDS ORDERED: Sevelamer Carbonate 800 MG Tab PO SCH (22:35)
[2023-11-24] MEDS ORDERED: Gabapentin 100 MG Cap PO PRN (22:35)
[2023-11-24] MEDS ORDERED: rOPINIRole HCl 1 MG Tab PO PRN (22:35)
[2023-11-24] MEDS ORDERED: Cinacalcet HCL 30 MG Tab PO SCH (22:35)
--- NOTE | 2023-11-24 22:58 | NUR ---
ER ADMISSION- Patient arrived from ER at 2054, VSS on 2LNC- wears home O2 at baseline for COPD. C/O 09/19 lower back pain. NSR on telemetry. EM AV fistula present for dialysis + bruit/thrill. Dr. Caban with nephrology paged- patient to dialyze in the AM since he is an ESRD patient on HD and missed his session today. (normally goes MWF). Home medication list updated, patient eating a late dinner- renal diet. at bedside informed this RN that patient has an active POLST on file and the patient wants to be a DNR. call center consultant MD notified. Dr. Cheung at bedside, cancelled UA since patient is anuric due to bilateral nephrectomy. Also DC'd blood culture from dialysis port order as patient only has an AV fistula. No other needs at this time. Unknown infectious source, being worked up with empiric antibiotics.
[2023-11-25] VITALS (23 sets, daily range): BP systolic 103–164; BP diastolic 57–111
--- NOTE | 2023-11-25 00:43 | NUR ---
New medication orders- home medications resumed by at 2235, pending verification by pharmacy at this time. Patient originally requesting his phoslo and renvela with his late meal he ate, now refusing due to eating too long ago. Requesting his PO dilaudid and PRN requip for RLS so he can sleep. Pharmacy faxed over list of new medication orders requesting verification so this RN can administer medications being requested by the patient.
[2023-11-25] MEDS ORDERED: Nitroglycerin 0.4 MG SUBL SL PRN (01:00)
[2023-11-25 03:59] LABS: BASOPHILS ABSOLUTE AUTO 0.01 K/mm3 (0.00-0.23); BASOPHILS PERCENT AUTO 0 % (0-2); EOSINOPHILS ABSOLUTE AUTO 0.03 K/mm3 (0.00-0.68); EOSINOPHILS PERCENT AUTO 1 % (0-6); Hematocrit 31.4 % (37.0-53.0); Hemoglobin 9.7 g/dL (13.5-17.5); IMMATURE GRAN ABSOLUTE AUTO 0.03 K/mm3 (0.00-0.10); IMMATURE GRAN PERCENT AUTO 1 % (0-1); LYMPHOCYTES ABSOLUTE AUTO 0.42 K/mm3 (0.84-5.20); LYMPHOCYTES PERCENT AUTO 8 % (21-46); MONOCYTES ABSOLUTE AUTO 0.58 K/mm3 (0.16-1.47); MONOCYTES PERCENT AUTO 11 % (4-13); Mean Corpuscular HGB 30.1 pg (26.0-34.0); Mean Corpuscular HGB Conc 30.9 g/dL (31.5-36.5); Mean Corpuscular Volume 98 fL (80-100); Mean Platelet Volume 9.4 fL (9.1-12.4); NEUTROPHILS ABSOLUTE AUTO 4.33 K/mm3 (1.96-9.15); NEUTROPHILS PERCENT AUTO 80 % (41-73); Platelet Count 66 K/mm3 (150-400); RDW Coefficient Variation 14.4 % (11.7-14.2); RDW Standard Deviation 51.8 fL (35.1-46.3); Red Blood Cell Count 3.22 M/mm3 (4.30-5.90)
[2023-11-25 05:42] LABS: Alanine Aminotransfer (ALT/SGP 16 U/L (12-78); Albumin, Blood 3.2 g/dL (3.4-5.0); Alk Phos 47 U/L (50-136); Anion Gap 18 mmol/L (3-11); Aspartate Aminotrans (AST/SGOT 9 U/L (12-37); Bilirubin, Total 0.9 mg/dL (0.1-1.0); Blood Urea Nitrogen 62 mg/dL (8-24); CO2, Blood 30 mmol/L (21-32); Chloride, Blood 95 mmol/L (98-108); Globulin, Blood 3.3 g/dL (2.2-4.0); Glucose, Blood 111 mg/dL (70-99); Phosphorus, Blood 4.4 mg/dL (2.5-4.9); Sodium, Blood 138 mmol/L (136-145); Total Protein, Blood 6.5 g/dL (6.4-8.2); Vancomycin, Random 24.6 ug/mL
--- NOTE | 2023-11-25 05:44 | NUR ---
SHIFT SUMMARY- Patient slept comfortably tonight, on 2LNC at HS which is his baseline, VSS- BP labile but dialysis planned this AM, hold BP meds. A&Ox4, occasionally forgetful that meds were already administered to him. Anuric, getting OOB with SBA. Tylenol given x 2 on nights for continued elevated temp. L arm fistula aneurysm present- per patient he is getting this resolved outpatient and it is still functional during his dialysis sessions. No other concerns at this time. NSR on tele.
[2023-11-25 05:47] LABS: Bun/Creatinine Ratio 5.4 (12.0-20.0); Glomerular Filtration Rate 5 (60-)
[2023-11-25] MEDS ORDERED: Vitamin B Cmplx/Vit C/Folic Ac 1 Tab PO SCH (06:00)
[2023-11-25] MEDS ORDERED: Calcium Acetate 667 MG Gel Cap PO SCH ×2 (08:30)
[2023-11-25] MEDS ORDERED: Sevelamer Carbonate 800 MG Tab PO SCH (08:30)
[2023-11-25] MEDS ORDERED: Omeprazole 20 MG CapCR PO SCH (09:00)
[2023-11-25] MEDS ORDERED: Metoprolol Succinate 25 MG TABCR PO SCH ×2 (09:00→18:00)
[2023-11-25] MEDS ORDERED: Docusate Sodium 250 MG Cap PO SCH (09:00)
[2023-11-25] MEDS ORDERED: Sodium Zirconium Cyclosilicate 10 GM Packet PO SCH (09:00)
--- NOTE | 2023-11-25 10:38 | NUR ---
AM NOTE: PATIENT ALERT AND ORIENTED THIS AM. PERRLA, WEARING GLASSES. COMPLAINS OF OVERALL BODY ACHES "DOWN TO MY BONES". TEMP READING 99.2 THIS AM. SKIN HOT TO TOUCH. PATIENT MOVING ALL EXTREMITIES AND ABLE TO REPOSITION SELF IN BED. SBA FOR TRANSFERS. DIALYSIS THIS AM. PROVIDER ROUNDING BY DR. CARMONA AND DR. QUICK THIS RN AT BEDSIDE. TELE SHOWING SR WITH HR 70-80'S. DENIES CHEST PAIN/PRESSURE/PALPITATIONS. SBP 130'S. HR 70S-80S. ON 2L NASAL CANNULA SATING MID 90'S. PATIENT STATES HE WEARS 2L AT BASELINE AT NIGHT AND INTERMIT THROUGHOUT DAY. LUNGS SOUNDS DIMINISHED. DENIES COUGH. EVEN AND UNLABORED RESPIRATIONS. BOWEL TONES PRESENT. STATES HE HAS CHRONIC CONSTIPATION AND TAKES MULTIPLE STOOL SOFTNERS PER DAY. BILATERAL NEPHRECTOMY, DOES NOTE CREATE URINE. LEFT ARM FISTULA. PATIENT STATES HE NORMALLY DOES NOT EAT BREAKFAST OR LUNCH. SKIN OVERALL C/D/I WITH SOME SCATTERED BRUISING. PATIENT REQUESTING DILAUDID, REQUIP AND GABAPENTIN PRIOR TO DIALYSIS. IN DIALYSIS AT THIS TIME.
--- NOTE | 2023-11-25 11:49 | NUR ---
LAB PLACED CALL TO THIS RN TO REPORT BLOOD CULTURES. THIS RN PLACED CALL TO DR. QUICK TO REPORT BOTH BLOOD CULTURES GROWING GRAM NEGATIVE RODS. NO NEW ORDERS. PATIENT REMAINS IN DIALYSIS AT THIS TIME.
--- NOTE | 2023-11-25 12:17 | NUR ---
PATIENT BACK FROM DIALYSIS. AT BEDSIDE. PATIENT VERY SLEEPY. STATES THIS IS NORMAL BASELINE FOR PATIENT POST DIALYSIS. ORAL TEMP READING 98.4. VITAL SIGNS STABLE. SLEEPING AT THIS TIME WITH 2L NASAL CANNULA. WAKES TO ANSWER QUESTIONS. NO CHANGES TO TELE RHYTHM. REPORTS PATIENT COMPLAINING OF RECENT LLQ PAIN WHICH PATIENTS DESCRIBES "MUSCLE TEAR/HERNIA" TYPE PAIN THAT IS INTERMIT. REPORTS PATIENT HAS UPCOMING ABDOMINAL ULTRASOUND ORDERED FOR THE . ALSO REPORTS PATIENT HAD RECENT MRI OF NECK LAST WEEK DUE TO BULDGED DISC. DR. QUICK CALLED AND UPDATED ON LLQ INTERMIT PAIN, UPCOMING ABDOMINAL US, RECENT MRI OF NECK AND ASKED IF METORPOLOL DOSE COULD BE SWITCHED TO 1800 PER PATIENTS REGULAR SCHEDULE. ORDERS TO CHANGE METOPROLOL TIMES TO 1800. ORDER IN PLACE.
[2023-11-25] MEDS ORDERED: Darbepoetin Alfa In Albumn Sol 40 MCG/0.4 ML SC SCH (16:00)
[2023-11-25] MEDS ORDERED: Polyethylene Glycol 3350 17 gm PO SCH (18:00)
--- NOTE | 2023-11-25 18:21 | NUR ---
SHIFT SUMMARY: NO ACUTE CHANGES. TMAX THIS SHIFT 101.4 REDUCED WITH TYLENOL. PATIENT TOLERATING DINNER THIS EVENING. INTERMIT NAUSEA RELIEVED WITH IV ZOFRAN. IV ABX INFUSING AT THIS TIME. ABDOMINAL CT RESULTS PENDING. CALL LIGHT IN REACH.
--- NOTE | 2023-11-25 20:19 | NUR ---
CALL PLACED TO DR. ELLIS REGARDING PT NAUSEA AND REQUESTED TIMING ADJUSTMETN TO GIVE ZOFRAN MORE FREQUENTLY. NEW ORDERS PLACED.
[2023-11-25] MEDS ORDERED: Ondansetron HCl 2 MG / ML 2ML Vial IV PRN (20:20)
--- NOTE | 2023-11-25 20:40 | NUR ---
PT MEDICATED FOR PAIN, NAUSEA, AND FEVER. SEE MAR.
--- NOTE | 2023-11-25 22:22 | NUR ---
PT REPORTS INTERMITTENT RESOLUTION OF NAUSEA AND HEADACHE. PT HEADACHE IS CONTINUING AT THIS TIME AND PT IS PHOTOPHOBIC. MILD NAUSEA PERSISTS. PT TEMPERATURE HAS NOT DECREASED WITH TYLENOL. COOL WASH CLOTH APPLIED TO FOREHEAD AT THIS TIME TO PROVIDE SOME COMFORT FOR PT.
--- NOTE | 2023-11-25 22:39 | NUR ---
DR. ELLIS CALLED REGARDING PT FEVER AND ELEVATED BLOOD PRESSURE. DR. ELILS TO COME EVALUATE PT.
--- NOTE | 2023-11-25 23:12 | NUR ---
DR. ELLIS AT BEDSIDE EVALUATING PT.
[2023-11-26] VITALS (20 sets, daily range): BP systolic 126–179; BP diastolic 55–93
[2023-11-26 04:28] LABS: BASOPHILS ABSOLUTE AUTO 0.02 K/mm3 (0.00-0.23); BASOPHILS PERCENT AUTO 0 % (0-2); EOSINOPHILS ABSOLUTE AUTO 0.06 K/mm3 (0.00-0.68); EOSINOPHILS PERCENT AUTO 1 % (0-6); Hematocrit 28.3 % (37.0-53.0); IMMATURE GRAN ABSOLUTE AUTO 0.08 K/mm3 (0.00-0.10); IMMATURE GRAN PERCENT AUTO 1 % (0-1); LYMPHOCYTES ABSOLUTE AUTO 0.54 K/mm3 (0.84-5.20); LYMPHOCYTES PERCENT AUTO 9 % (21-46); MONOCYTES ABSOLUTE AUTO 0.65 K/mm3 (0.16-1.47); MONOCYTES PERCENT AUTO 11 % (4-13); Mean Corpuscular HGB Conc 31.8 g/dL (31.5-36.5); Mean Corpuscular Volume 98 fL (80-100); Mean Platelet Volume 10.9 fL (9.1-12.4); NEUTROPHILS ABSOLUTE AUTO 4.67 K/mm3 (1.96-9.15); NEUTROPHILS PERCENT AUTO 78 % (41-73); Platelet Count 56 K/mm3 (150-400); RDW Coefficient Variation 14.3 % (11.7-14.2); RDW Standard Deviation 51.1 fL (35.1-46.3); White Blood Cell Count 6.02 K/mm3 (4.00-11.30)
[2023-11-26 04:49] LABS: Albumin, Blood 2.9 g/dL (3.4-5.0); Anion Gap 16 mmol/L (3-11); Blood Urea Nitrogen 51 mg/dL (8-24); Bun/Creatinine Ratio 5.4 (12.0-20.0); CO2, Blood 28 mmol/L (21-32); Calcium, Blood 9.2 mg/dL (8.5-10.1); Chloride, Blood 96 mmol/L (98-108); Creatinine, Blood 9.51 mg/dL (0.60-1.20); Glomerular Filtration Rate 6 (60-); Glucose, Blood 98 mg/dL (70-99); Phosphorus, Blood 5.8 mg/dL (2.5-4.9); Potassium, Blood 5.3 mmol/L (3.5-5.5); Sodium, Blood 135 mmol/L (136-145); Vancomycin, Random 14.8 ug/mL
--- NOTE | 2023-11-26 06:50 | NUR ---
PT HAD MULTIPLE EPISODES OF NAUSEA AND ELEVATED TEMPERATURE. PT WAS MEDICATED FOR THESE. PT DID C/O OF HEADACHE AND MEDICATED FOR THAT. PT CONTINUED TO HAVE INCREASED HEADACHE WITH PHOTOPHOBIA AND NAUSEA. DR. ELLIS CAME TO EVALUATE THE PT. HEADACHE AND PHOTOPHOBIA HAVE LESSENED AND ALMOST RESOLVED AT THIS TIME. PT INITIALLY AOX4 BUT MENTALLY FOGGY AND THAT HAS CLEARED TOWARD THE END OF THIS SHIFT. TEMPERATURES REMAINED ELEVATED WITH TYLENOL. PT DID C/O RESTLESS LEGS AND WAS MEDICATED FOR THAT WELL. NO EPISODES OF VOMITING WITH NAUSEA AND NAUSEA IS LESSENED WELL TOWARD END OF SHIFT. PT BLOOD PRESSURE IMPROVED.
[2023-11-26] MEDS ORDERED: Cefepime HCl 1,000 MG in NS 100 ML IV SCH (09:00)
--- NOTE | 2023-11-26 09:03 | NUR ---
PATIENT TO DIALYSIS AT THIS TIME.
--- NOTE | 2023-11-26 09:15 | NUR ---
AM NOTE: UPON AM ASSESSMENT PATIENT VERY SLEEPY AND GROGGY. WAKES TO NAME, OPENS EYES AND ABLE TO ANSWER ALL ORIENTING QUESTIONS. VOICE SOFT WISPER. MOVING ALL EXTREMITIES. COMPLAINS OF BACK PAIN, MEDICATED PER EMAR. PATIENT RELATES BACK PAIN TO BED AND LAYING ALL NIGHT. THIS RN OFFERED REPOSITIONING, PT REFUSED. TELE CONTINUES TO SHOW SR WITH HR 70-80'S. DENIES CHEST PAIN/PRESSURE/PALPITATIONS. PPP. LEFT ARM FISTULA. IV FLUSHED AND SALINE LOCKED. PPP. ON 2L NASAL CANNULA SATING MID 90'S. UPON PATIENT TAKING 2L OUT OF NOSE PATIENT DESATS TO 86-88%. LUNGS SOUNDING CLEAR AND DIM. NO COUGH NOTED. EVEN AND UNLABORED RESPIRATIONS. BOWEL TONES PRESENT. PATIENT REFUSING BREAKFAST BUT REQUESTING COFFEE. LARGE FIRM MASS FELT MIDLINE ABDOMIN, PATIENT STATES THIS IS HIS "LIVER CYSTS". DENIES ABDOMINAL PAIN. COMPLAINS OF NAUSEA. MEDICATED PER EMAR. NO EMISIS AT THIS TIME. TEMP READING 100.00
--- NOTE | 2023-11-26 12:11 | NUR ---
BACK FROM DIALYSIS AT THIS TIME. VITAL SIGNS STABLE. TEMP READING 99.1. AT BEDSIDE. PATIENT GROGGY/SLEEPY POST DIALYSIS. SCD'S IN PLACE. IV ABX INFUSING. CALL LIGHT IN REACH.
[2023-11-26] MEDS ORDERED: Vancomycin HCL 1,000 MG in NS 250 ML IV ONE (13:00)
--- NOTE | 2023-11-26 13:06 | NUR ---
DR. CARMONA TO BEDSIDE. PLAN FOR ECHO TO RULE OUT VEGETATION AND ORDERS FOR 1GRAM OF VANCOMYCIN NOW. THIS RN PLACED CALL TO PHARMACY. VANCO ORDERS IN PLACE. AT BEDSIDE FOR PROVIDER ROUNDING. TEMP READING 99.6
--- NOTE | 2023-11-26 18:03 | NUR ---
SHIFT SUMMARY: PATIENT HAS BEEN SLEEPING ON AND OFF POST DIALYSIS. TEMP RANGING FROM 98-101. MOST RECENT TEMP READING 101.1 ORALLY. PATIENT NOT DUE FOR TYLENOL AT THAT TIME. CALL PLACED TO DR. PORTILLO TO DISCUSS TEMP, ORDERS TO GIVE TYLENOL DOSE EARLY. TYLENOL GIVEN. PATIENT ATTEMPTED ONE BITE OF DINNER AND DENIES. INTERMIT NAUSEA. MEDICATED PER EMAR WITH ZOFRAN. ASKING TO CALL . THIS RN ASSISTED PATIENT IN CALLING , NO ANSWER, MESSAGE LEFT WITH PATIENT PERMISSION. TELE CONTINUES TO SHOW SR WITH HR 70-90'S. DENIES CHEST PAIN. COMPLAINS OF INTERMIT BACK PAIN, NECK PAIN AND OVERALL BODY ACHES. TURNING FROM SIDE TO SIDE IN BED WITH ASSISTANCE. REMAINS ON 2L NASAL CANNULA SATING UPPER 90'S. TAKING SMALL SIPS OF WATER AND COFFEE. FAN GOING, COOL WASH CLOTH ON HEAD. PATIENT LAYING ON RIGHT SIDE AT THIS TIME. CALL LIGHT IN REACH.
[2023-11-27] VITALS (7 sets, daily range): BP systolic 119–150; BP diastolic 60–93
[2023-11-27 04:24] LABS: BASOPHILS ABSOLUTE AUTO 0.01 K/mm3 (0.00-0.23); BASOPHILS PERCENT AUTO 0 % (0-2); EOSINOPHILS ABSOLUTE AUTO 0.02 K/mm3 (0.00-0.68); EOSINOPHILS PERCENT AUTO 0 % (0-6); Hemoglobin 8.5 g/dL (13.5-17.5); IMMATURE GRAN ABSOLUTE AUTO 0.02 K/mm3 (0.00-0.10); IMMATURE GRAN PERCENT AUTO 0 % (0-1); LYMPHOCYTES PERCENT AUTO 7 % (21-46); MONOCYTES ABSOLUTE AUTO 0.67 K/mm3 (0.16-1.47); MONOCYTES PERCENT AUTO 11 % (4-13); Mean Corpuscular HGB 30.4 pg (26.0-34.0); Mean Corpuscular HGB Conc 31.5 g/dL (31.5-36.5); Mean Corpuscular Volume 96 fL (80-100); Mean Platelet Volume 10.6 fL (9.1-12.4); NEUTROPHILS ABSOLUTE AUTO 5.07 K/mm3 (1.96-9.15); NEUTROPHILS PERCENT AUTO 82 % (41-73); Platelet Count 62 K/mm3 (150-400); RDW Coefficient Variation 13.7 % (11.7-14.2); RDW Standard Deviation 48.5 fL (35.1-46.3); White Blood Cell Count 6.19 K/mm3 (4.00-11.30)
[2023-11-27 04:48] LABS: Magnesium, Blood 2.4 mg/dL (1.6-2.4)
[2023-11-27 04:52] LABS: Albumin, Blood 2.7 g/dL (3.4-5.0); Anion Gap 14 mmol/L (3-11); Blood Urea Nitrogen 44 mg/dL (8-24); Bun/Creatinine Ratio 5.2 (12.0-20.0); CO2, Blood 29 mmol/L (21-32); Chloride, Blood 96 mmol/L (98-108); Creatinine, Blood 8.48 mg/dL (0.60-1.20); Glomerular Filtration Rate 7 (60-); Glucose, Blood 103 mg/dL (70-99); Potassium, Blood 4.8 mmol/L (3.5-5.5); Sodium, Blood 134 mmol/L (136-145)
--- NOTE | 2023-11-27 06:55 | NUR ---
PT CONTINUES WITH FEVERS AND LABILE TEMPERATURES THIS SHIFT. OTHER VITAL SIGNS REMAINED WNL UNLESS PT WAS OFF OF O2 THEN PT DID DESAT FAIRLY QUICKLY. PT WAS ABLE TO AMBULATE TO BR (APPROXIMATELY 10FT) FOR A BM WHILE ON O2. PT HAD WALKER AND 1 ASSIST. PT CONTINUES TO HAVE GENERALIZED PAIN AND NAUSEA AND WAS MEDICATED FOR BOTH WELL FEVERS. PT DENIES ATTEMPTS FOR BED BATH AND ORAL CARE THIS SHIFT. WILL CONTINUE TO ATTEMPT TO PERFORM THESE ON PT. IF PT CONTINUES TO DECLINE, ONCOMING SHIFT TO BE INFORMED AND SPOUSAL SUPPORT WILL BE RECRUITED TO PERSUADE PT. PT CONTINUES ON 2L O2 AND MAINTAINS GOOD SPO2 SAT. PT MENTATION IS AOX3-4 BUT REMAINS FOGGY WITH DIRECTIONS. MENTATION DOES APPEAR TO IMPROVE AT TIME BUT IS LABILE WELL. PT DID HAVE A 13 SEC RUN OF TACHYCARDIA, UPON ASSESSMENT PT WAS ASYMPTOMATIC.
[2023-11-27] MEDS ORDERED: CefTRIAXone Sodium 2,000 MG in NS 100 ML IV SCH (09:00)
--- NOTE | 2023-11-27 09:53 | NUR ---
AM NOTE: PATIENT GETTING BED BATH UPON SHIFT START. UP IN CHAIR FOR BREAKFAST AND ALERT AND ORIENTED X3-4 WITH SOME FOGGINESS SURROUNDING DETAILS. ORAL TEMP 99.1. IV ABX INFUSED. TELE SHOWING SR. ON 2L NASAL CANNULA. LARGE BOWEL MOVEMENT THIS AM. DR. CARMONA, ARIC MAKI AND LINDSEY TO BEDSIDE THIS AM. PLAN FOR ECHO TODAY. NO DIALYSIS THIS AM. TOLERATING DIET. IN BED AT THIS TIME RESTING. CALL LIGHT IN REACH. DENIES NEEDS.
--- NOTE | 2023-11-27 14:46 | NUR ---
PATIENT TEMP READING 99.6. PATIENT FEELING SYMPTOMATIC WITH ELEVATED TEMP AND HAVING SOME BACK PAIN. THIS RN MEDICATED PER EMAR WITH TYLENOL. AT BEDSIDE, UPDATE PROVIDED BY THIS RN. COOL WASHCLOTH TO FACE WELL FAN. SEE CHARTED VITALS. NAUSEOUS WITH LUNCH, MEDICATED PER EMAR WITH ZOFRAN.
[2023-11-27] MEDS ORDERED: Mag Hydrox/AL Hydrox/Simeth 30 ML UDC PO PRN (17:20)
--- NOTE | 2023-11-27 18:10 | NUR ---
NO ACUTE CHANGES. PATIENT MOST RECENT TEMP 98.6. PATIENT STATES HE IS FEELING MUCH BETTER. ABLE TO EAT DINNER THIS EVENING AND SIT ON EDGE OF BED. TELE REMAINS SR. WEARING 2L NASAL CANNULA. COMPLAINED OF HEART BURN THIS EVENING. ORDERS FOR MAALOX IN PLACE AND ADMINISTERED. PATIENT DENIES NEEDS. CALL LIGHT IN REACH.
[2023-11-28] VITALS (18 sets, daily range): BP systolic 133–1149; BP diastolic 56–91
--- NOTE | 2023-11-28 00:15 | NUR ---
PT MEDICATED FOR HEADACHE AND RESTLESS LEGS. PT REPORTS IMPROVEMENT ON BOTH AFTER MEDICATION, SEE MAR.
--- NOTE | 2023-11-28 05:48 | NUR ---
PT C/O NAUSEA AND /10 HEADACHE. PT MEDICATED FOR NAUSEA AND HEADACHE. PT THEN REPOSITIONED HIMSELF AND PAIN INCREASED TO ALL OVER BODY 11/20. PT REQUESTED HYDROMORPHONE AND WAS MEDICATED WITH HYDROMORPHONE WELL.
--- NOTE | 2023-11-28 06:39 | NUR ---
PT CONTINUES TO C/O NAUSEA/GENERALIZED PAIN/HEADACHE. PT HAS BEEN MEDICATED FOR THESE MULTIPLE TIMES THROUGHOUT THE SHIFT. PT TEMPERATURE IS NOT FLUCTUATING MUCH AND MAX TEMP IS NOT ELEVATED PREVIOUS. PT WAS NORMOTHERMIC FOR ONE INCIDENCE DURING THE SHIFT. PT IS REQUESTING POWER GLIDE FOR BLOOD DRAWS IF PT IS TO REMAIN HERE LONGER AND IS CURRENTLY REFUSING PERIPHERAL DRAWS. PT HAS REQUIRED AN INCREASE IN O2 FROM 2LNC TO 4LNC AT THIS TIME TO MAINTAIN SATS GREATER THAN 90%.
[2023-11-28 09:55] LABS: BASOPHILS PERCENT AUTO 0 % (0-2); EOSINOPHILS ABSOLUTE AUTO 0.07 K/mm3 (0.00-0.68); EOSINOPHILS PERCENT AUTO 2 % (0-6); Hematocrit 23.3 % (37.0-53.0); Hemoglobin 7.5 g/dL (13.5-17.5); IMMATURE GRAN ABSOLUTE AUTO 0.01 K/mm3 (0.00-0.10); IMMATURE GRAN PERCENT AUTO 0 % (0-1); LYMPHOCYTES ABSOLUTE AUTO 0.42 K/mm3 (0.84-5.20); LYMPHOCYTES PERCENT AUTO 10 % (21-46); MONOCYTES ABSOLUTE AUTO 0.43 K/mm3 (0.16-1.47); MONOCYTES PERCENT AUTO 10 % (4-13); Mean Corpuscular HGB 30.4 pg (26.0-34.0); Mean Corpuscular HGB Conc 32.2 g/dL (31.5-36.5); Mean Corpuscular Volume 94 fL (80-100); Mean Platelet Volume 10.8 fL (9.1-12.4); NEUTROPHILS ABSOLUTE AUTO 3.46 K/mm3 (1.96-9.15); NEUTROPHILS PERCENT AUTO 79 % (41-73); Platelet Count 78 K/mm3 (150-400); RDW Coefficient Variation 13.7 % (11.7-14.2); RDW Standard Deviation 47.3 fL (35.1-46.3); Red Blood Cell Count 2.47 M/mm3 (4.30-5.90); White Blood Cell Count 4.39 K/mm3 (4.00-11.30)
[2023-11-28 10:14] LABS: Magnesium, Blood 2.7 mg/dL (1.6-2.4)
[2023-11-28 10:50] LABS: Bun/Creatinine Ratio 5.9 (12.0-20.0); Calcium, Blood 8.5 mg/dL (8.5-10.1); Phosphorus, Blood 6.3 mg/dL (2.5-4.9); Potassium, Blood 4.9 mmol/L (3.5-5.5)
[2023-11-28 12:43] LABS: HEPATITIS B SURFACE ANTIGEN Negative (Negative)
--- NOTE | 2023-11-28 14:47 | NUR ---
ASSUMED CARE OF PT AT 0700 THIS AM. PT DECLINED TO EAT BREAKFAST THIS AM. LONNIE AND MONTRELL HELD AT THIS TIME. PT AT DIALYSIS FROM APROX 0910 TO 1210, PAULETTE, PIG IRON LOADER, STATES 3.5L OF FLUID REMOVED AND PT TOLERATED HD WELL. PT RETURNED TO PCU06. DECLINED TO EAT LUNCH, STATING "I JUST FEEL PUNKY." IV TO R AC FLUSHED, PT REPORTS PAIN. IV REMOVED, CATHETER INTACT. POWERGLIDE PLACED TO ASHLEY PER PT REQUEST, + BLOOD RETURN, FLUSHED WITH 20ML NS. ABX GIVEN PER ORDERS. PT MEDICATED PER EMAR. PT APPEARS TO BE RESTING COMFORTABLY IN BED AT THIS TIME, EYES CLOSED AND RESPIRATION UNLABORED. CALL LIGHT IN REACH, BED IN LOWEST, LOCKED POSITION. WILL CONTINUE TO MONITOR.
--- NOTE | 2023-11-28 18:13 | NUR ---
NO ACUTE CHANGES SINCE LAST NOTE. PT OOB WITH PHYSICAL THERAPY TO RECLINER CHAIR FOR DINNER. PT IS ON BASELINE 3L 02 VIA NC. PT'S AT BEDSIDE AT THIS TIME ASSISTING HIM WITH DINNER. CALL LIGHT IN REACH, CHAIR LOCKED. WILL CONTINUE TO MONITOR AND GIVE REPORT TO NOC SHIFT RN.
[2023-11-29] VITALS (15 sets, daily range): BP systolic 113–155; BP diastolic 60–90
[2023-11-29 03:31] LABS: BASOPHILS ABSOLUTE AUTO 0.02 K/mm3 (0.00-0.23); BASOPHILS PERCENT AUTO 0 % (0-2); EOSINOPHILS ABSOLUTE AUTO 0.08 K/mm3 (0.00-0.68); EOSINOPHILS PERCENT AUTO 2 % (0-6); Hematocrit 25.3 % (37.0-53.0); IMMATURE GRAN ABSOLUTE AUTO 0.02 K/mm3 (0.00-0.10); IMMATURE GRAN PERCENT AUTO 0 % (0-1); LYMPHOCYTES ABSOLUTE AUTO 0.46 K/mm3 (0.84-5.20); LYMPHOCYTES PERCENT AUTO 10 % (21-46); MONOCYTES ABSOLUTE AUTO 0.61 K/mm3 (0.16-1.47); MONOCYTES PERCENT AUTO 13 % (4-13); Mean Corpuscular HGB 30.2 pg (26.0-34.0); Mean Corpuscular HGB Conc 31.6 g/dL (31.5-36.5); Mean Corpuscular Volume 96 fL (80-100); Mean Platelet Volume 10.3 fL (9.1-12.4); NEUTROPHILS ABSOLUTE AUTO 3.61 K/mm3 (1.96-9.15); NEUTROPHILS PERCENT AUTO 75 % (41-73); Platelet Count 95 K/mm3 (150-400); RDW Coefficient Variation 13.8 % (11.7-14.2); RDW Standard Deviation 48.7 fL (35.1-46.3); Red Blood Cell Count 2.65 M/mm3 (4.30-5.90)
[2023-11-29 04:06] LABS: Albumin, Blood 2.5 g/dL (3.4-5.0); Albumin/Globulin Ratio 0.6 (0.8-1.8); Bilirubin, Direct 0.2 mg/dL (0.0-0.3); Bilirubin, Indirect 0.3 mg/dL (0.1-0.7); Bilirubin, Total 0.5 mg/dL (0.1-1.0); Calcium, Blood 9.3 mg/dL (8.5-10.1); Globulin, Blood 3.9 g/dL (2.2-4.0); Magnesium, Blood 2.9 mg/dL (1.6-2.4); Phosphorus, Blood 4.9 mg/dL (2.5-4.9); Potassium, Blood 4.6 mmol/L (3.5-5.5); Total Protein, Blood 6.4 g/dL (6.4-8.2)
[2023-11-29 04:19] LABS: Bun/Creatinine Ratio 5.8 (12.0-20.0); Creatinine, Blood 9.1 mg/dL (0.60-1.20)
--- NOTE | 2023-11-29 06:09 | NUR ---
Shift Summary- Jaden had a good night. No updates other than he spiked a temp of 100.9F at 2345. He was given 650mg of PO tylenol, and upon re-check at 0102 his temp came down to 98.4F. Both of these temps were taken orally. No elevated temps noted the remainder of the shift- he rested comfortably after being medicated for his restless leg syndrome.
--- NOTE | 2023-11-29 13:52 | NUR ---
Mckean of care: Pt A&O, flat affect, cooperative with care. He repostions independently. He denies any pain at this time. Skin intact, no breakdown noted. Fistula of the EM for diaylisis access, bruit and thrill present. Afebrile. NSR, SBP ranging from 140-150's, he denies any cp/pressure, numb/tingling. O2 sat high 90's on RA, he denies SOB. L/s clear t/o. Bt+, he is unable to void due to bilateral nephrostomy. PG ASHLEY s/l. Temp remains in the low 99's, treating with tylenol per EMAR. He has genralized weakness related to fever/infection, ambulating with front wheeled walker, SBA. At start of shift pt up in the shower, and chair, used fww and 1 staff assist. Currently resting in bed, with c/o increased nerve pain, meds adminstered as ordered. Seen by care team, new doctors ordered recived. Plan for HD this afternoon. Call light in reach, monitor for changes.
--- NOTE | 2023-11-29 17:13 | NUR ---
Shift Summary: No significant changes noted t/o shift. Remained afebrile. Seen by PMD, new doctor order for am labs. HD completed in room, pt tolerated well. Denies any current needs, will encourgae OOB for dinner. Call light in reach, will report to NOC nurse.
[2023-11-30 03:30] VITALS: BP 131/74
[2023-11-30 04:16] LABS: Hematocrit 25.8 % (37.0-53.0); Hemoglobin 8.1 g/dL (13.5-17.5); Mean Corpuscular HGB Conc 31.4 g/dL (31.5-36.5); Mean Corpuscular Volume 96 fL (80-100); Mean Platelet Volume 10.2 fL (9.1-12.4); Platelet Count 104 K/mm3 (150-400); RDW Coefficient Variation 13.4 % (11.7-14.2); RDW Standard Deviation 47.5 fL (35.1-46.3); White Blood Cell Count 4.77 K/mm3 (4.00-11.30)
[2023-11-30 04:40] LABS: Magnesium, Blood 2.8 mg/dL (1.6-2.4)
[2023-11-30 04:43] LABS: BAND PERCENT MAN 3 % (0-8); BASOPHILS PERCENT MAN 0 % (0-2); EOSINOPHILS ABSOLUTE MAN 0.04 K/mm3 (0.00-0.68); EOSINOPHILS PERCENT MAN 1 % (0-6); LYMPHOCYTES % ATYPICAL MANUAL 1 % (0-0); LYMPHOCYTES ABSOLUTE MAN 0.71 K/mm3 (0.84-5.20); LYMPHOCYTES PERCENT MAN 14 % (21-46); MONOCYTES ABSOLUTE MAN 0.47 K/mm3 (0.16-1.47); MONOCYTES PERCENT MAN 10 % (4-13); NEUTROPHILS ABSOLUTE MAN 3.52 K/mm3 (1.96-9.15); SEG NEUTROPHILS PERCENT MAN 71 % (41-73); TOTAL CELLS COUNTED 100
[2023-11-30 05:06] LABS: Albumin, Blood 2.5 g/dL (3.4-5.0); Albumin/Globulin Ratio 0.7 (0.8-1.8); Bilirubin, Total 0.4 mg/dL (0.1-1.0); Calcium, Blood 9.3 mg/dL (8.5-10.1); Creatinine, Blood 8.39 mg/dL (0.60-1.20); Globulin, Blood 3.8 g/dL (2.2-4.0); Phosphorus, Blood 4.4 mg/dL (2.5-4.9); Potassium, Blood 4.3 mmol/L (3.5-5.5); Total Protein, Blood 6.3 g/dL (6.4-8.2)
--- NOTE | 2023-11-30 06:14 | NUR ---
Shift Summary- Jaden had no fevers throughout the shift. Remained on 3L throughout the night which is baseline for him. Used gabapentin and Requip for his restless legs, and also requested the dilauded x1. Anjum foreman struggled to give blood return with morning labs- but after a dressing change and a few manipulation tricks by another RN- BR was re-established. No other issues throughout the night. Will continue to monitor.
[2023-11-30 07:56] VITALS: BP 145/71
--- NOTE | 2023-11-30 08:20 | NUR ---
Pt states that he doesn't want to use ride benefits because of watching others have to wait for hours to be picked up from dialysis. States that he would like to go home, but he doesn't think he is up to driving himself to dialysis, which is what he usually does. I asked if he was interested in using a taxi service or Uber, etc. He wasn't sure, but said that he only lives 11 miles away from dialysis and has walked it before. Pt states his would be able to give him a ride home today, after 5 pm when she gets off of work. He doesn't think she could provide him a ride to dailysis tomorrow, though, and states he has no family nor friends who could help either.
--- NOTE | 2023-11-30 08:43 | NUR ---
states over the phone that the pt was told by Dr. Caban that he cannot be released home until the blood culture final result comes back negative.
[2023-11-30 12:15] VITALS: BP 147/79
[2023-11-30] MEDS ORDERED: CEFTRIAXONE2 G1 IV (14:04)
--- NOTE | 2023-11-30 15:25 | NUR ---
Pt c/o nausea after working with therapist and walking around the room. also is having pain in his left arm fistula area, states chronic due to its large size. Given tylenol and zofran for the discomfort.
== END 2023-11-30 17:45 | disposition home or self-care (01) | DRG 871 ==
LOC: ER 13:45 → ERHOLD 13:46 → PCU 19:46
PROVIDERS: Family Medicine Adult Medicine; Internal Medicine Nephrology; Student in an Organized Health Care Education/Training Program; ADMIT Internal Medicine
DX: A41.81 Sepsis due to Enterococcus (principal); N18.6 End stage renal disease; I13.2 Hypertensive heart and chronic kidney disease with heart failure and with stage 5 chronic kidney disease, or end stage renal disease; I50.32 Chronic diastolic (congestive) heart failure; Q61.3 Polycystic kidney, unspecified; E87.1 Hypo-osmolality and hyponatremia; J96.10 Chronic respiratory failure, unspecified whether with hypoxia or hypercapnia; E87.20 Acidosis, unspecified; M19.90 Unspecified osteoarthritis, unspecified site; D69.59 Other secondary thrombocytopenia; D63.1 Anemia in chronic kidney disease; Z66 Do not resuscitate; E87.6 Hypokalemia; E83.39 Other disorders of phosphorus metabolism; E05.90 Thyrotoxicosis, unspecified without thyrotoxic crisis or storm; M81.0 Age-related osteoporosis without current pathological fracture; E87.5 Hyperkalemia; Z98.890 Other specified postprocedural states; Z87.891 Personal history of nicotine dependence; Z99.2 Dependence on renal dialysis; Z88.0 Allergy status to penicillin; Z88.8 Allergy status to other drugs, medicaments and biological substances; Z79.899 Other long term (current) drug therapy
CPT/HCPCS: 0241U; 36415; 71046; 72141; 74176; 80048; 80053; 80069; 80202; 82248; 83605; 83735; 84100; 84145; 85025; 87040; 87077; 87186; 87340; 93306; 94760; 94762; 97116; 97162; 97530; 99284-25; A9270; G0378; J0692; J0696; J0881; J1170; J2405; J3370; J7030; J7050

== ENCOUNTER 2023-12-07 02:39 | Day surgery (SDC) | payer MEDICARE, OTHER ==
[~2023-12-07 02:39] MED LIST changes: +CEFTRIAXONE2 G1 IV
[2023-12-07] MEDS ORDERED: NS 250 ML IV SCH (07:15)
[2023-12-07 08:36] VITALS: BP 154/88
[2023-12-07 08:55] VITALS: BP 158/92
[2023-12-07 09:54] VITALS: BP 155/94
[2023-12-07 10:23] VITALS: BP 146/82
== END 2023-12-07 10:27 | disposition home or self-care (01) ==
LOC: ATC 02:39
DX: D64.9 Anemia, unspecified (principal); N18.6 End stage renal disease; Z88.0 Allergy status to penicillin; Z88.5 Allergy status to narcotic agent; Z88.8 Allergy status to other drugs, medicaments and biological substances; Z79.899 Other long term (current) drug therapy
CPT/HCPCS: 36415; 36430; 86850; 86900; 86901; 86923; J7050; P9016

== ENCOUNTER 2023-12-11 09:21 | Day surgery (SDC) | payer MEDICARE, OTHER ==
[2023-12-11] VITALS (7 sets, daily range): BP systolic 136–154; BP diastolic 77–93
[~2023-12-11 09:21] MED LIST changes: -IPRAT-ALBUT 0.5-3 ML; +IPRAT-ALBUT 0.5-3 ML INH
[2023-12-11] MEDS ORDERED: NS 250 ML IV SCH (09:30)
== END 2023-12-11 17:51 | disposition home or self-care (01) ==
LOC: ATC 09:21
DX: D64.9 Anemia, unspecified (principal); N18.6 End stage renal disease; Z79.899 Other long term (current) drug therapy; Z88.8 Allergy status to other drugs, medicaments and biological substances; Z88.5 Allergy status to narcotic agent
CPT/HCPCS: 36415; 36430; 86850; 86900; 86901; 86923; J7050; P9016

== ENCOUNTER 2023-12-11 23:17 | Observation (INO) | payer MEDICARE, OTHER ==
[~2023-12-11] VITALS: Ht 182.9 cm; Wt 83.3 kg
[2023-12-12] VITALS (17 sets, daily range): BP systolic 106–135; BP diastolic 53–76
[2023-12-12 00:38] LABS: BASOPHILS ABSOLUTE AUTO 0.05 K/mm3 (0.00-0.23); BASOPHILS PERCENT AUTO 0 % (0-2); EOSINOPHILS ABSOLUTE AUTO 0.11 K/mm3 (0.00-0.68); EOSINOPHILS PERCENT AUTO 1 % (0-6); Hematocrit 35.4 % (37.0-53.0); Hemoglobin 11.6 g/dL (13.5-17.5); IMMATURE GRAN ABSOLUTE AUTO 0.06 K/mm3 (0.00-0.10); IMMATURE GRAN PERCENT AUTO 1 % (0-1); LYMPHOCYTES ABSOLUTE AUTO 1.39 K/mm3 (0.84-5.20); LYMPHOCYTES PERCENT AUTO 12 % (21-46); MONOCYTES ABSOLUTE AUTO 0.42 K/mm3 (0.16-1.47); MONOCYTES PERCENT AUTO 4 % (4-13); Mean Corpuscular HGB 30.9 pg (26.0-34.0); Mean Corpuscular HGB Conc 32.8 g/dL (31.5-36.5); Mean Corpuscular Volume 94 fL (80-100); Mean Platelet Volume 10.2 fL (9.1-12.4); NEUTROPHILS PERCENT AUTO 83 % (41-73); Platelet Count 183 K/mm3 (150-400); RDW Coefficient Variation 15.9 % (11.7-14.2); Red Blood Cell Count 3.76 M/mm3 (4.30-5.90); White Blood Cell Count 11.83 K/mm3 (4.00-11.30)
[2023-12-12 01:02] LABS: Albumin, Blood 3.2 g/dL (3.4-5.0); Albumin/Globulin Ratio 0.8 (0.8-1.8); Bilirubin, Total 0.7 mg/dL (0.1-1.0); Bun/Creatinine Ratio 5.8 (12.0-20.0); Calcium, Blood 9.7 mg/dL (8.5-10.1); Creatinine, Blood 10.3 mg/dL (0.60-1.20); Globulin, Blood 4.1 g/dL (2.2-4.0); Potassium, Blood 5.7 mmol/L (3.5-5.5); Total Protein, Blood 7.3 g/dL (6.4-8.2)
[2023-12-12] MEDS ORDERED: CefTRIAXone Sodium 2,000 MG in NS 100 ML IV ONE (02:00)
[2023-12-12] MEDS ORDERED: Acetaminophen 500 MG Tab PO ONE (02:25)
[2023-12-12] MEDS ORDERED: Ondansetron HCl 2 MG / ML 2ML Vial IV ONE (02:25)
[2023-12-12] MEDS ORDERED: FLU VACC TS2024-25(6MOS UP)/PF 45 MCG/0.5 ML SYRINGE IM ONE (04:20)
[2023-12-12] MEDS ORDERED: Magnesium Hydroxide Conc 10 ML UDC PO PRN (04:20)
[2023-12-12] MEDS ORDERED: Bisacodyl 10 MG Supp PR PRN (04:25)
[2023-12-12] MEDS ORDERED: Acetaminophen 325 MG TABLET PO PRN (04:25)
[2023-12-12] MEDS ORDERED: rOPINIRole HCl 1 MG Tab PO ONE (04:55)
[2023-12-12] MEDS ORDERED: Diazepam 5 MG / ML 2ML SYR IV ONE (05:20)
[2023-12-12 05:37] LABS: BASOPHILS ABSOLUTE AUTO 0.03 K/mm3 (0.00-0.23); BASOPHILS PERCENT AUTO 0 % (0-2); EOSINOPHILS ABSOLUTE AUTO 0.09 K/mm3 (0.00-0.68); EOSINOPHILS PERCENT AUTO 1 % (0-6); Hematocrit 28.8 % (37.0-53.0); Hemoglobin 9.3 g/dL (13.5-17.5); IMMATURE GRAN ABSOLUTE AUTO 0.06 K/mm3 (0.00-0.10); IMMATURE GRAN PERCENT AUTO 1 % (0-1); LYMPHOCYTES ABSOLUTE AUTO 0.73 K/mm3 (0.84-5.20); LYMPHOCYTES PERCENT AUTO 6 % (21-46); MONOCYTES ABSOLUTE AUTO 0.47 K/mm3 (0.16-1.47); MONOCYTES PERCENT AUTO 4 % (4-13); Mean Corpuscular HGB 30.5 pg (26.0-34.0); Mean Corpuscular HGB Conc 32.3 g/dL (31.5-36.5); Mean Corpuscular Volume 94 fL (80-100); Mean Platelet Volume 8.7 fL (9.1-12.4); NEUTROPHILS ABSOLUTE AUTO 11.15 K/mm3 (1.96-9.15); NEUTROPHILS PERCENT AUTO 89 % (41-73); Platelet Count 119 K/mm3 (150-400); RDW Coefficient Variation 15.9 % (11.7-14.2); RDW Standard Deviation 54.3 fL (35.1-46.3); Red Blood Cell Count 3.05 M/mm3 (4.30-5.90); White Blood Cell Count 12.53 K/mm3 (4.00-11.30)
[2023-12-12] MEDS ORDERED: rOPINIRole HCl 1 MG Tab PO PRN (05:40)
[2023-12-12] MEDS ORDERED: Polyethylene Glycol 3350 17 gm PO PRN (05:40)
[2023-12-12] MEDS ORDERED: Diazepam 10 MG Tab PO PRN (05:40)
[2023-12-12] MEDS ORDERED: HyDROXyzine HCl 25 MG Tab PO PRN (05:45)
[2023-12-12] MEDS ORDERED: Gabapentin 100 MG Cap PO PRN (05:45)
[2023-12-12] MEDS ORDERED: Ipratropium/Albuterol SulF 2.5-0.5MG/3 ML Amp INH PRN (05:45)
[2023-12-12] MEDS ORDERED: Sevelamer Carbonate 800 MG Tab PO PRN (06:05)
[2023-12-12] MEDS ORDERED: Calcium Acetate 667 MG Gel Cap PO PRN (06:10)
[2023-12-12] MEDS ORDERED: Nitroglycerin 0.4 MG SUBL SL PRN (06:10)
[2023-12-12] MEDS ORDERED: Ondansetron 4 MG SoluTab MM PRN (06:15)
[2023-12-12] MEDS ORDERED: Sevelamer Carbonate 800 MG Tab PO SCH (07:30)
[2023-12-12 07:46] LABS: Albumin, Blood 2.8 g/dL (3.4-5.0); Anion Gap 16 mmol/L (3-11); Blood Urea Nitrogen 68 mg/dL (8-24); Bun/Creatinine Ratio 6.1 (12.0-20.0); CO2, Blood 30 mmol/L (21-32); Calcium, Blood 9.1 mg/dL (8.5-10.1); Chloride, Blood 104 mmol/L (98-108); Glomerular Filtration Rate 5 (60-); Glucose, Blood 107 mg/dL (70-99); Phosphorus, Blood 6.2 mg/dL (2.5-4.9); Potassium, Blood 5.8 mmol/L (3.5-5.5); Sodium, Blood 144 mmol/L (136-145)
[2023-12-12] MEDS ORDERED: Calcium Acetate 667 MG Gel Cap PO SCH (08:30)
[2023-12-12] MEDS ORDERED: Lactobacil 2-S.Thermo-Bifido 1 1 Cap PO SCH (09:00)
[2023-12-12] MEDS ORDERED: Docusate Sodium 100 MG Cap PO SCH ×2 (09:00)
[2023-12-12] MEDS ORDERED: Omeprazole 20 MG CapCR PO SCH (09:00)
[2023-12-12] MEDS ORDERED: Sodium Zirconium Cyclosilicate 10 GM Packet PO SCH (09:00)
[2023-12-12] MEDS ORDERED: Sennosides 8.6 MG Tab PO SCH (09:00)
[2023-12-12] MEDS ORDERED: Metoprolol Succinate 25 MG TABCR PO SCH (12:00)
[2023-12-12] MEDS ORDERED: Darbepoetin Alfa In Albumn Sol 40 MCG/0.4 ML SC SCH (16:00)
[2023-12-12] MEDS ORDERED: Cinacalcet HCL 30 MG Tab PO SCH (18:00)
--- NOTE | 2023-12-12 18:00 | NUR ---
PATIENT D/C'D TO HOME WITH . DC INCSTRUCTIONS AND EDUCATION DISCUSSED WITH PATIENT AND COPY PROVIDED. NO NEW MEDICATIONS. PATIENT DENIES ANY FURTHER QUESTIONS OR CONCERNS.
[2023-12-13] MEDS ORDERED: Vitamin B Cmplx/Vit C/Folic Ac 1 Tab PO SCH (06:00)
== END 2023-12-12 17:43 | disposition home or self-care (01) ==
LOC: ER 23:17 → MEDS 23:18 → ERHOLD 23:18 → MEDS 23:19 → ER 12-12 04:18 → MEDS 12-12 04:18 → ERHOLD 12-12 04:18 → MEDS 12-12 04:18 → ERHOLD 12-12 08:22 → MEDS 12-12 17:43
PROVIDERS: Emergency Medicine; Family Medicine; ADMIT Internal Medicine
DX: J96.21 Acute and chronic respiratory failure with hypoxia (principal); J81.1 Chronic pulmonary edema; E87.6 Hypokalemia; I13.2 Hypertensive heart and chronic kidney disease with heart failure and with stage 5 chronic kidney disease, or end stage renal disease; N18.6 End stage renal disease; I50.42 Chronic combined systolic (congestive) and diastolic (congestive) heart failure; D63.1 Anemia in chronic kidney disease; E21.3 Hyperparathyroidism, unspecified; J44.9 Chronic obstructive pulmonary disease, unspecified; Z66 Do not resuscitate; Z87.891 Personal history of nicotine dependence; Z88.0 Allergy status to penicillin; Z88.8 Allergy status to other drugs, medicaments and biological substances; Z88.5 Allergy status to narcotic agent; Z79.899 Other long term (current) drug therapy
CPT/HCPCS: 36415; 36430; 71046; 80053; 80069; 83605; 83735; 83880; 84145; 84484; 85025; 86850; 86900; 86901; 86923; 87040; 93005; 93010; 96365; 96372; 96375; 99285-25; A9270; G0257; G0378; J0696; J0881; J2405; J3360; J7050; P9016

== ENCOUNTER 2023-12-16 16:54 | Emergency (ER) | payer MEDICARE, OTHER ==
[~2023-12-16] VITALS: Ht 182.9 cm; Wt 81.7 kg
[2023-12-16] MEDS ORDERED: FentaNYL Citrate 50 MCG/ML 2 ML Injection ONE (17:25)
[2023-12-16] MEDS ORDERED: HYDROmorphone HCl/Pf 1MG SYR IV ONE (18:15)
[2023-12-16 18:16] LABS: BASOPHILS ABSOLUTE AUTO 0.03 K/mm3 (0.00-0.23); BASOPHILS PERCENT AUTO 0 % (0-2); EOSINOPHILS ABSOLUTE AUTO 0.12 K/mm3 (0.00-0.68); EOSINOPHILS PERCENT AUTO 2 % (0-6); Hematocrit 31.4 % (37.0-53.0); Hemoglobin 9.9 g/dL (13.5-17.5); IMMATURE GRAN ABSOLUTE AUTO 0.06 K/mm3 (0.00-0.10); IMMATURE GRAN PERCENT AUTO 1 % (0-1); LYMPHOCYTES ABSOLUTE AUTO 1.36 K/mm3 (0.84-5.20); LYMPHOCYTES PERCENT AUTO 19 % (21-46); MONOCYTES ABSOLUTE AUTO 0.55 K/mm3 (0.16-1.47); MONOCYTES PERCENT AUTO 8 % (4-13); Mean Corpuscular HGB 30.3 pg (26.0-34.0); Mean Corpuscular HGB Conc 31.5 g/dL (31.5-36.5); Mean Corpuscular Volume 96 fL (80-100); Mean Platelet Volume 9.8 fL (9.1-12.4); NEUTROPHILS ABSOLUTE AUTO 5.18 K/mm3 (1.96-9.15); NEUTROPHILS PERCENT AUTO 71 % (41-73); Platelet Count 128 K/mm3 (150-400); RDW Coefficient Variation 14.3 % (11.7-14.2); RDW Standard Deviation 49.1 fL (35.1-46.3); Red Blood Cell Count 3.27 M/mm3 (4.30-5.90)
[2023-12-16 18:28] LABS: Alanine Aminotransfer (ALT/SGP 21 U/L (12-78); Albumin, Blood 3.2 g/dL (3.4-5.0); Alk Phos 68 U/L (50-136); Anion Gap 14 mmol/L (3-11); Aspartate Aminotrans (AST/SGOT 27 U/L (12-37); Bilirubin, Total 0.6 mg/dL (0.1-1.0); Blood Urea Nitrogen 45 mg/dL (8-24); Bun/Creatinine Ratio 6.1 (12.0-20.0); CO2, Blood 33 mmol/L (21-32); Calcium, Blood 9.4 mg/dL (8.5-10.1); Chloride, Blood 99 mmol/L (98-108); Creatinine, Blood 7.34 mg/dL (0.60-1.20); Ethanol (Alcohol), Blood, Med <3 mg/dL; Globulin, Blood 3.3 g/dL (2.2-4.0); Glomerular Filtration Rate 8 (60-); Glucose, Blood 152 mg/dL (70-99); Potassium, Blood 4.5 mmol/L (3.5-5.5); Sodium, Blood 141 mmol/L (136-145); Total Protein, Blood 6.5 g/dL (6.4-8.2)
[2023-12-16 18:30] LABS: International Normalized Ratio 1.07; Prothrombin Time Results 11.4 Sec (9.7-11.5)
[2023-12-16] MEDS ORDERED: HYDROmorphone HCl/Pf 1MG SYR IV PRN (19:00)
[2023-12-16] MEDS ORDERED: Ondansetron HCl 2 MG / ML 2ML Vial IV ONE (20:40)
[2023-12-16] MEDS ORDERED: Lactated Ringer's 1,000 ML IV SCH (20:50)
[2023-12-16] MEDS ORDERED: Ipratropium Bromide INH 0.02% 0.5 mg/2.5ML Vial INH SCH (21:00)
[2023-12-16] MEDS ORDERED: Albuterol 2.5 MG/3 ML VIAL INH SCH (21:00)
[2023-12-16] MEDS ORDERED: LORazepam 2 MG/ML 1ML Injection ONE (23:10)
[2023-12-16] MEDS ORDERED: Midazolam HCl 1MG / ML 2ML Vial IV ONE (23:15)
[2023-12-17] MEDS ORDERED: HYDROmorphone HCl/Pf 1MG SYR IV ONE ×3 (01:05→05:25)
[2023-12-17 05:05] VITALS: BP 161/98
== END 2023-12-17 05:40 | disposition short-term general hospital (02) ==
LOC: ER 16:54
PROVIDERS: Student in an Organized Health Care Education/Training Program
DX: S22.42XA Multiple fractures of ribs, left side, initial encounter for closed fracture (principal); S27.321A Contusion of lung, unilateral, initial encounter; S22.22XA Fracture of body of sternum, initial encounter for closed fracture; S22.011A Stable burst fracture of first thoracic vertebra, initial encounter for closed fracture; S22.021A Stable burst fracture of second thoracic vertebra, initial encounter for closed fracture; S22.041A Stable burst fracture of fourth thoracic vertebra, initial encounter for closed fracture; S22.051A Stable burst fracture of T5-T6 vertebra, initial encounter for closed fracture; I13.2 Hypertensive heart and chronic kidney disease with heart failure and with stage 5 chronic kidney disease, or end stage renal disease; N18.6 End stage renal disease; I50.9 Heart failure, unspecified; M81.0 Age-related osteoporosis without current pathological fracture; E21.3 Hyperparathyroidism, unspecified; J44.9 Chronic obstructive pulmonary disease, unspecified; W12.XXXA Fall on and from scaffolding, initial encounter; Z88.8 Allergy status to other drugs, medicaments and biological substances; Z88.5 Allergy status to narcotic agent; Z88.0 Allergy status to penicillin; Z91.041 Radiographic dye allergy status; Z88.3 Allergy status to other anti-infective agents; Z99.2 Dependence on renal dialysis; Z90.5 Acquired absence of kidney; Z79.899 Other long term (current) drug therapy; Z87.891 Personal history of nicotine dependence
CPT/HCPCS: 70450; 71045; 71250; 72125; 74176; 80053; 80320; 83690; 84484; 85025; 85610; 86850; 86900; 86901; 93005; 93010; 94644; 94664; 96374; 96375; 96376; 99285-25; J1170; J1171; J2060; J2250; J2405; J3010; J7120

== ENCOUNTER 2023-12-30 16:38 | Inpatient (IN) | payer MEDICARE, OTHER ==
[~2023-12-30] VITALS: Ht 182.9 cm; Wt 79.2 kg
[2023-12-30 17:06] LABS: BASOPHILS PERCENT AUTO 0 % (0-2); EOSINOPHILS ABSOLUTE AUTO 0.02 K/mm3 (0.00-0.68); EOSINOPHILS PERCENT AUTO 0 % (0-6); Hematocrit 20.1 % (37.0-53.0); Hemoglobin 6.4 g/dL (13.5-17.5); IMMATURE GRAN ABSOLUTE AUTO 0.04 K/mm3 (0.00-0.10); IMMATURE GRAN PERCENT AUTO 1 % (0-1); LYMPHOCYTES PERCENT AUTO 6 % (21-46); MONOCYTES ABSOLUTE AUTO 0.78 K/mm3 (0.16-1.47); MONOCYTES PERCENT AUTO 10 % (4-13); Mean Corpuscular HGB 29.6 pg (26.0-34.0); Mean Corpuscular HGB Conc 31.8 g/dL (31.5-36.5); Mean Corpuscular Volume 93 fL (80-100); Mean Platelet Volume 9.6 fL (9.1-12.4); NEUTROPHILS ABSOLUTE AUTO 6.45 K/mm3 (1.96-9.15); NEUTROPHILS PERCENT AUTO 83 % (41-73); Platelet Count 118 K/mm3 (150-400); RDW Coefficient Variation 14.3 % (11.7-14.2); RDW Standard Deviation 48.1 fL (35.1-46.3); Red Blood Cell Count 2.16 M/mm3 (4.30-5.90); White Blood Cell Count 7.79 K/mm3 (4.00-11.30)
[2023-12-30 17:20] LABS: Albumin, Blood 2.6 g/dL (3.4-5.0); Albumin/Globulin Ratio 0.7 (0.8-1.8); Bun/Creatinine Ratio 8.2 (12.0-20.0); Calcium, Blood 9.4 mg/dL (8.5-10.1); Creatinine, Blood 7.93 mg/dL (0.60-1.20); Globulin, Blood 3.8 g/dL (2.2-4.0); Potassium, Blood 4.5 mmol/L (3.5-5.5); Total Protein, Blood 6.4 g/dL (6.4-8.2)
[2023-12-30] MEDS ORDERED: Lactated Ringer's 500 ML IV ONE (17:30)
[2023-12-30 17:43] LABS: Influenza A, PCR NEGATIVE (NEGATIVE); Influenza B, PCR NEGATIVE (NEGATIVE); Resp Syncytial Virus, PCR NEGATIVE (NEGATIVE); SARS-Cov-2 (COVID-19) PCR, MMC NEGATIVE (NEGATIVE)
[2023-12-30] MEDS ORDERED: NS 1,000 ML IV SCH (17:55)
[2023-12-30] MEDS ORDERED: Cefepime HCl 1,000 MG in NS 100 ML IV ONE (18:00)
[2023-12-30] MEDS ORDERED: Vancomycin HCL 1,000 MG in NS 250 ML IV ONE (18:15)
[2023-12-30] MEDS ORDERED: HYDROmorphone HCl/Pf 1MG SYR IV ONE (22:00)
[2023-12-30] MEDS ORDERED: Midodrine 5 MG Tab PO ONE (22:00)
[2023-12-30] MEDS ORDERED: FLU VACC TS2024-25(6MOS UP)/PF 45 MCG/0.5 ML SYRINGE IM SCH (23:10)
[2023-12-31] VITALS (22 sets, daily range): BP systolic 78–190; BP diastolic 56–153
[2023-12-31] MEDS ORDERED: Darbepoetin Alfa In Albumn Sol 40 MCG/0.4 ML SC ONE (01:50)
[2023-12-31] MEDS ORDERED: Ipratropium/Albuterol SulF 2.5-0.5MG/3 ML Amp INH PRN (03:00)
[2023-12-31 03:10] LABS: Base Excess Venous 7.4 mmol/L; Bicarbonate Venous 30.7 mmol/L (24.0-30.0); PCO2 Venous 34.7 mmHg (38-42); pH Blood Venous 7.54 (7.34-7.37)
[2023-12-31] MEDS ORDERED: LIDO700A20 TOP (03:22)
[2023-12-31] MEDS ORDERED: CARBLEV25 SL (03:35)
[2023-12-31] MEDS ORDERED: Cyclobenzaprine5 MG PO (03:37)
[2023-12-31] MEDS ORDERED: DIAZ10 PO (03:38)
[2023-12-31] MEDS ORDERED: BISA10S PR (03:41)
[2023-12-31] MEDS ORDERED: HYDMOR2 PO (03:42)
[2023-12-31 03:43] LABS: Hematocrit 24.8 % (37.0-53.0)
[2023-12-31] MEDS ORDERED: SENN187 PO (03:46)
[2023-12-31] MEDS ORDERED: ACET500 PO (03:47)
[2023-12-31 04:05] LABS: Magnesium, Blood 2.9 mg/dL (1.6-2.4)
[2023-12-31 04:29] LABS: Albumin, Blood 2.6 g/dL (3.4-5.0); Anion Gap 11 mmol/L (3-11); Blood Urea Nitrogen 69 mg/dL (8-24); Bun/Creatinine Ratio 7.8 (12.0-20.0); CO2, Blood 32 mmol/L (21-32); Chloride, Blood 99 mmol/L (98-108); Creatinine, Blood 8.84 mg/dL (0.60-1.20); Glomerular Filtration Rate 6 (60-); Glucose, Blood 88 mg/dL (70-99); Phosphorus, Blood 5.3 mg/dL (2.5-4.9); Potassium, Blood 4.8 mmol/L (3.5-5.5); Sodium, Blood 137 mmol/L (136-145); Vancomycin, Random 17.6 ug/mL
--- NOTE | 2023-12-31 05:50 | NUR ---
T/F AND SUMMARY: REPORT RECEIVED FROM CRABBER AND PT T/F TO PCU 4 AT 0045. HE'S A/OX2-3 BUT IS VERY DROWSY AND QUICKLY FALLS ASLEEP DURING STAFF INTERACTIONS. BED ALARM ON FOR RECENT AMS, POSSIBLE IMPULSIVITY AND INCREASED WEAKNESS. HE REPORTS USING WALKER AT [facility] BUT WAS INDEPENDENT PRIOR TO FALLING FROM ROOF AND ENDURING BROKEN STERNUM + RIBS A FEW WEEKS AGO. ACUTE ON CHRONIC PAIN NOTED BUT NO PRN PAIN MEDS WERE REQUIRED SINCE ARRIVAL TO UNIT. PT OBSERVED TO MILDLY TWITCH AT TIMES BUT HE CONTRIBUTES THIS TO RESTLESS LEGS AND ELECTROLYTE IMBALANCE. DIALYSIS RECEIVED 12/29/23 AND EM AV FISTULA PRESENT W/THRILLS AND BRUITS INTACT. HE REPORTS ANURIA AND HAS HX OF BILAT NEPHRECTOMY. CRITICAL PH 7.54 AND CREAT 8.84, MADE AWARE AND NO NEW ORDERS RECEIVED. CONSULTING AND WILL LIKELY HAVE DIALYSIS TODAY. ARANESP COMMENCED AND 1 UNIT PRBC'S WAS RECEIVED IN ER, HGB/HCT NOW IMPROVED TO 8.0/24.8. PT ALSO HAD IV ABX FOR POSSIBLE PNM AND TYLENOL FOR FEVER PRIOR TO T/F. NO ACUTE CHANGES, VSS/AFEBRILE. WCTM AND REPORT TO DAY RN.
[2023-12-31] MEDS ORDERED: Dronabinol 2.5 MG Cap PO SCH (07:30)
[2023-12-31] MEDS ORDERED: Acetaminophen 325 MG TABLET PO PRN (08:40)
[2023-12-31] MEDS ORDERED: Calcium Acetate 667 MG Gel Cap PO SCH (08:51)
[2023-12-31] MEDS ORDERED: Midodrine 5 MG Tab PO SCH (09:00)
--- NOTE | 2023-12-31 09:14 | NUR ---
PHYSICIAN COMMUNICATION *LATE ENTRY* DR RODGERS & DR CARMONA ROUNDED ON PT WITHIN MIN OF EACH OTHER, DR RODGERS ORDERED PO TYLENOL PRN FOR FEVER, OKAYED DIET ORDER & CHANGED PT TO MEDICAL STATUS W/TELE. DR CARMONA ORDERED DIALYSIS, 1U PRBC W/DIALYSIS & PHOS LO W/MEALS.
--- NOTE | 2023-12-31 09:16 | NUR ---
PERSONAL BURNER MACHINE OPERATOR COMMUNICATION PTS PERSONAL BURNER MACHINE OPERATOR CAME IN TO VISIT PT & INFORMED THIS NURSE PT SEEMS "MORE CONFUSED & SLURRING WORDS MORE THEN USUAL." STATED THIS MENTATION WAS NOT PTS BASELINE. BURNER MACHINE OPERATOR ASKED "DO YOU REMEMBER THERAPY ON MONDAY?" PT STATED "YEAH WHEN I WAS IN [facility]." PT INTERMITTANTLY CONFUSED ABOUT PLACE & SITUATION. BURNER MACHINE OPERATOR STATES PT IS NORMALLY MORE AWARE & NOT SLOW TO RESPOND TO QUESTIONS.
[2023-12-31] MEDS ORDERED: HYDROcodone 5-APAP 325 TAB PO PRN (12:25)
[2023-12-31] MEDS ORDERED: Vancomycin HCL 750 MG in NS 250 ML IV ONE (13:00)
--- NOTE | 2023-12-31 14:42 | NUR ---
UPDATE CHECKED VS & TEMP 101, BP ELEVATED, HR 120'S PT SHIVERING & REPORTING 10/10 PAIN. MEDICATED W/PO TYLENOL & NORCO. TEMP DECREASED TO 99.6 ORAL. HR STILL ELEVATED TO 120'S. GAVE REPORT TO CHRIS Hoffman RN ON MEDICAL, PT TRANSFER TO RM 327 @1430.
[2023-12-31] MEDS ORDERED: HYDROmorphone HCl/Pf 1MG SYR IV PRN (15:00)
--- NOTE | 2023-12-31 15:00 | NUR ---
SHIFT SUMMARY PT TRANSFERED FROM PCU 4 TO ROOM 327 THIS SHIFT. PT IS ALERT TO SELF ONLY AND NOTED TO HAVE CONFUSION. PT NOTED TO BE AT BEDSIDE. PT STATED THAT PT NO LONGER PRODUCES URINE D/T HE HAD HIS KIDNEYS REMOVED AROUND 10YRS AGO. BED ALARM ON D/T AMS. PT ABLE TO FOLLOW COMMANDS FOR THIS NURSE.
[2023-12-31] MEDS ORDERED: NS 250 ML IV PRN (17:40)
[2023-12-31] MEDS ORDERED: Cefepime HCl 1,000 MG in NS 100 ML IV SCH (18:00)
[2024-01-01] VITALS (19 sets, daily range): BP systolic 73–146; BP diastolic 31–88
--- NOTE | 2024-01-01 05:07 | NUR ---
shift summary 63 yr m admitted on 12/30/23. dnr/dni. no acute changes this shift. pt appears to have slept for most of this shift. he requested pain meds @ 0400 due to rib and back pain. he asked where he was and was told he was in the hospital. he then replied "am i at [facility] [place]". he also asked for his . repositioning is painful for him but he is cooperative and stated he was comfortable afterward. bed in low position and call light in reach.
[2024-01-01 05:57] LABS: Hematocrit 27.9 % (37.0-53.0); Hemoglobin 8.9 g/dL (13.5-17.5)
[2024-01-01 06:15] LABS: Albumin, Blood 2.5 g/dL (3.4-5.0); Anion Gap 15 mmol/L (3-11); Blood Urea Nitrogen 70 mg/dL (8-24); Bun/Creatinine Ratio 8.8 (12.0-20.0); CO2, Blood 30 mmol/L (21-32); Calcium, Blood 9.5 mg/dL (8.5-10.1); Chloride, Blood 97 mmol/L (98-108); Creatinine, Blood 7.92 mg/dL (0.60-1.20); Glomerular Filtration Rate 7 (60-); Glucose, Blood 108 mg/dL (70-99); Magnesium, Blood 2.9 mg/dL (1.6-2.4); Potassium, Blood 4.7 mmol/L (3.5-5.5); Sodium, Blood 137 mmol/L (136-145); Vancomycin, Random 20.1 ug/mL
[2024-01-01] MEDS ORDERED: HYDROcodone 5-APAP 325 TAB PO PRN (07:30)
--- NOTE | 2024-01-01 18:07 | NUR ---
SHIFT SUMMARY PT CONT LEVEL OF CARE. PT NOTED TO BE MORE A&O AT THE BEGINING OF THE SHIFT. PT WAS A&O TO SELF, PLACE, AND MONTH. PT WAS NOTED TO BE MORE IMPULSIVE AND TRYING TO AMBULATE. PT THEN WENT DOWN TO DIALYSIS AND WHEN HE CAME BACK NOTED TO BE VERY DROWZY AND CONFUSED WAS ONLY ABLE TO TELL ME HIS NAME. PT WAS NOTED TO HULLUCINATE. STATED THERE WAS A BUG ON HIS ARM AND WAS PICKING AT SKIN AND TRYING TO RIP IV OUT PT WAS ABLE TO BE REDIRECTED. PT HAS BEEN AT BEDSIDE MOST OF THIS SHIFT.
--- NOTE | 2024-01-02 06:13 | NUR ---
SHIFT SUMMARY: RESUMED CARE FOR THIS PT @ 0115. PT SLEPT MUCH OF THE MORNING. PT REPORTED PAIN ON ONE OCCASION, MEDICATED PER EMAR. BED IN LOW POSITION, CALL LIGHT WITHIN REACH. WILL CONTINUE TO MONITOR.
[2024-01-02 06:15] VITALS: BP 115/74
[2024-01-02 07:29] VITALS: BP 108/70
[2024-01-02 09:06] LABS: Hematocrit 30.6 % (37.0-53.0); Hemoglobin 9.6 g/dL (13.5-17.5)
[2024-01-02 09:20] LABS: Albumin, Blood 2.8 g/dL (3.4-5.0); Anion Gap 12 mmol/L (3-11); Blood Urea Nitrogen 63 mg/dL (8-24); Bun/Creatinine Ratio 9.3 (12.0-20.0); CO2, Blood 31 mmol/L (21-32); Calcium, Blood 10.6 mg/dL (8.5-10.1); Chloride, Blood 99 mmol/L (98-108); Glomerular Filtration Rate 9 (60-); Glucose, Blood 103 mg/dL (70-99); Magnesium, Blood 2.8 mg/dL (1.6-2.4); Phosphorus, Blood 4.2 mg/dL (2.5-4.9); Potassium, Blood 3.7 mmol/L (3.5-5.5); Sodium, Blood 138 mmol/L (136-145); Vancomycin, Random 17.7 ug/mL
[2024-01-02] MEDS ORDERED: HyDROXyzine HCl 25 MG Tab PO PRN (10:10)
[2024-01-02] MEDS ORDERED: Diazepam 10 MG Tab PO PRN (11:55)
[2024-01-02] MEDS ORDERED: Vancomycin HCL 750 MG in NS 250 ML IV SCH (12:00)
--- NOTE | 2024-01-02 12:29 | NUR ---
"Spiritual Care Visit | Pt. request Pt. is awake and sitting in a chair when he welcomes my visit. Pt. is pleasant. A life review is facilitated. 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 Pt. began to display evidence of somnolence, so this melter supervisor open hearth furnace chose to about the life review. The Pt. verbalized a welcome for prayer. Prayed with Pt. Pt. reached out his hand to thank this melter supervisor open hearth furnace. Will remain available to the Pt. and familiy."
[2024-01-02 15:47] VITALS: BP 91/63
--- NOTE | 2024-01-02 17:08 | NUR ---
SUMMARY PT RESTING QUIETLY IN BED, WAS CONFUSED FIRST THING THIS MORNING AND CLEARED UP THE DAY WORE ON, PT'S SPOUSE HAS BEEN IN TO VISIT, SHE ALSO STATED HE IS MORE CONFUSED THAN HIS BASELINE, PT WALKED IN THE ROOM WITH THE COMPRESSOR OPERATOR, WORKED WITH SPEECH THERAPY AND GOT HIS DIET ADVANCED, WORKED WITH PT/OT, THEY ARE RECOMMENDING SNF, PT HAD AN MRI IN THE AFTERNOON, PENDING RESULTS, PT MED PER EMAR FOR PAIN, NO DIALYSIS TODAY, WILL CONT TO MONITOR
[2024-01-02 20:24] VITALS: BP 104/71
--- NOTE | 2024-01-02 23:31 | NUR ---
HOSPITALIST CONTACTED. HOSPITALIST JAC CONTACTED AND NOTIFIED OF SMALL BLISTER TO LEFT BLISTER THAT HAS SCRATCHED BLISTER OPEN. MEPILEX IN PLACE.
[2024-01-03] VITALS (15 sets, daily range): BP systolic 75–152; BP diastolic 36–96
--- NOTE | 2024-01-03 05:29 | NUR ---
SHIFT SUMMARY. PATIENT IS A&OX3 WITH CONFUSION. PATIENT GETTING UP TO THE BATHROOM WHEN HE NEEDS TO HAVE A BM-PATIENT ATTEMPTED X2 TONIGHT WITH NO SUCCESS. PATIENT IS PLEASANTLY CONFUSED AND COOPERATIVE WITH CARE. PATIENTS IV'S LEAKING AND PULLED, NEW IV PLACED. PATIENT HAS TELE ON WITH LEADS IN PLACE WITH NO NOTED EVENTS. PATIENT IS A 1P ASSIST W/FWW. PATIETN C/O PAIN X1-MEDICATED PER EMAR/ORDERS. PATIENTS AT BEDSIDE T/O NIGHT, WILL RETURN AFTER WORK TODAY. BED IS LOCKED IN THE LOWEST POSITION [facility] CALL LIGHT IN REACH. CARE IS ONGOING.
[2024-01-03] MEDS ORDERED: HYDROmorphone HCl 2 MG Tab PO PRN (07:40)
[2024-01-03] MEDS ORDERED: DiphenhydrAMINE HCL/Zinc Acet Cream TOP PRN (07:40)
[2024-01-03 08:13] LABS: Hematocrit 26.9 % (37.0-53.0); Hemoglobin 8.5 g/dL (13.5-17.5)
[2024-01-03] MEDS ORDERED: Docusate Sodium 100 MG Cap PO SCH (09:00)
[2024-01-03 09:03] LABS: Albumin, Blood 2.4 g/dL (3.4-5.0); Anion Gap 13 mmol/L (3-11); Blood Urea Nitrogen 80 mg/dL (8-24); Bun/Creatinine Ratio 9.4 (12.0-20.0); CO2, Blood 31 mmol/L (21-32); Calcium, Blood 10.1 mg/dL (8.5-10.1); Chloride, Blood 96 mmol/L (98-108); Glomerular Filtration Rate 7 (60-); Glucose, Blood 93 mg/dL (70-99); Phosphorus, Blood 4.1 mg/dL (2.5-4.9); Sodium, Blood 136 mmol/L (136-145); Vancomycin, Random 25.7 ug/mL
[2024-01-03] MEDS ORDERED: Albumin (Human) 25gm/100ml 100 ML IV SCH (09:45)
--- NOTE | 2024-01-03 19:14 | NUR ---
END OF SHIFT SUMMARY: A&Ox3-4. PLEASANT AND COOPERATIVE WITH CARE. CALLS APPROPRIATELY AND IS ABLE TO ADVOCATE NEEDS EFFECTIVELY. 1BA c FWW. OLIGURIA SECONDARY TO HD. MEDS WHOLE WITH FLUIDS. TELE SINUS c PVCs AND BBB IN 90s. BED IN LOWEST POSITION. CALL LIGHT WITHIN REACH. ALL NEEDS MET. REPORT TO ONCOMING NURSE.
--- NOTE | 2024-01-04 00:01 | NUR ---
PATIENTS REPORTS THAT BENADRY CAUSES A REVERSE REACTIONS AND INCREASES PATIENTS ITCHING WELL HE DEVELOPES HIVES.
[2024-01-04] MEDS ORDERED: HyDROXyzine HCl 25 MG Tab PO PRN (00:20)
[2024-01-04] MEDS ORDERED: HYDROcodone 5-APAP 325 TAB PO PRN (00:20)
[2024-01-04 03:33] VITALS: BP 121/72
[2024-01-04 05:43] LABS: Hematocrit 29.1 % (37.0-53.0); Hemoglobin 8.9 g/dL (13.5-17.5)
[2024-01-04 06:11] LABS: Albumin, Blood 2.9 g/dL (3.4-5.0); Anion Gap 12 mmol/L (3-11); Blood Urea Nitrogen 62 mg/dL (8-24); Bun/Creatinine Ratio 9.2 (12.0-20.0); CO2, Blood 31 mmol/L (21-32); Calcium, Blood 10.9 mg/dL (8.5-10.1); Chloride, Blood 100 mmol/L (98-108); Creatinine, Blood 6.75 mg/dL (0.60-1.20); Glomerular Filtration Rate 9 (60-); Glucose, Blood 95 mg/dL (70-99); Magnesium, Blood 3.1 mg/dL (1.6-2.4); Phosphorus, Blood 3.6 mg/dL (2.5-4.9); Potassium, Blood 3.8 mmol/L (3.5-5.5); Sodium, Blood 139 mmol/L (136-145); Vancomycin, Random 21.2 ug/mL
[2024-01-04 07:22] VITALS: BP 117/93
--- NOTE | 2024-01-04 07:32 | NUR ---
SHIFT SUMMARY. PATIENT IS A&OX3 WITH CONFUSION. PATIENT CALLS AT TIMES. PATIENT HAS BED ALARM ON FOR SAFETY. IN T/O NIGHT. PATIENT EXPERIENCING SEVERE ITCHING-SEE PREVIOUS NOTES. PATIENT C/O PAIN-MEDICATED PER ORDERS. PATIENTS WOULD LIKE PATIENT TO BE RE-EVALUATED BY SPEECH- FEELS THAT PATIENT WOULD DO BETTER WITH A REGULAR DIET CUT INTO SMALL BITES HE HAD TOLD HER HE "DOES NOT LIKE THE FOOD, IT IS LIKE MUSH"-WILL PASS ON TO DAYSHIFT NURSE. PATIENT SLEPT OFF AND ON T/O NIGHT WITH RESPIRATIONS EQUAL AND UNLABORED. BED IS LOCKED IN THE LOWEST POSITION WITH CALL LIGHT IN REACH. REPORT GIVEN TO DAYSHIFT NURSE.
[2024-01-04] MEDS ORDERED: Sevelamer Carbonate 800 MG Tab PO SCH (08:30)
[2024-01-04 12:21] VITALS: BP 112/63
[2024-01-04] MEDS ORDERED: Doxycycline Hyclate 100 MG TAB PO SCH (13:00)
[2024-01-04 15:10] VITALS: BP 125/72
--- NOTE | 2024-01-04 16:09 | NUR ---
CALL FROM [facility] IN [place]: PATIENT HAD POSITIVE BLOOD CULTURE POSITIVE FOR GRAM-POSITIVE BACILLII
[2024-01-04 19:22] VITALS: BP 152/82
--- NOTE | 2024-01-04 19:41 | NUR ---
END OF SHIFT SUMMARY: A&Ox3-4. COOPERATIVE WITH MOST CARE. USES CALL LIGHT, OFTEN ON ACCIDENT . NEEDS SOME COACHING AND REMINDERS TO PARTICIPATE IN CARE. DIFFICULTY ADVOCATING OWN NEEDS OR MAKING CHOICES. MEDICATED FOR STERNAL, RIB AND SHOULDER PAIN WORKED WITH OT/PT. SPEECH THERAPY REEVALUATED AND DETERMINED DYSPHAGIA PRECAUTIONS CAN BE DC d. TELE SINUS c BBB & PVCs TODAY. VERY TIRED NEAR END OF SHIFT, NOT WILLING TO WAKE TO TAKE MEDICATIONS. AT BEDSIDE. PT WITH INTERMITTENTLY POOR MOOD TODAY. REFUSED/SLEPT THROUGH DINNER. BED IN LOWEST POSITION. CALL LIGHT WITHIN REACH. ALL NEEDS MET. REPORT TO ONCOMING NURSE.
[2024-01-05] VITALS (18 sets, daily range): BP systolic 91–129; BP diastolic 56–79
--- NOTE | 2024-01-05 05:00 | NUR ---
SHIFT SUMMARY. PATIENT IS A&OX3 WITH CONFUSION. PATIENT C/O PAIN-MEDICATED PER EMAR. PATIENTS AT BEDSIDE T/O NIGHT. PATIENT HAS TELE ON WITH LEADS IN PLACE-NO CARDIAC EPISODES NOTED THIS SHIFT. PATIENT TOLERATING FOOD. PATIENT MEDICATED FOR ITCHING WITH PRN MEDICATIONS WITH REPORTED IMPROVEMENT TO ITCHING. PATIENTS BED IS LOCKED IN THE LOWEST POSITION WITH CALL LIGHT IN REACH. CARE IS ONGOING.
[2024-01-05 05:47] LABS: Hematocrit 25.2 % (37.0-53.0)
[2024-01-05 06:10] LABS: Magnesium, Blood 2.7 mg/dL (1.6-2.4)
[2024-01-05 06:41] LABS: Albumin, Blood 2.4 g/dL (3.4-5.0); Anion Gap 14 mmol/L (3-11); Blood Urea Nitrogen 77 mg/dL (8-24); CO2, Blood 29 mmol/L (21-32); Calcium, Blood 10.8 mg/dL (8.5-10.1); Chloride, Blood 98 mmol/L (98-108); Creatinine, Blood 8.51 mg/dL (0.60-1.20); Glomerular Filtration Rate 7 (60-); Glucose, Blood 98 mg/dL (70-99); Phosphorus, Blood 4.8 mg/dL (2.5-4.9); Sodium, Blood 137 mmol/L (136-145)
[2024-01-05] MEDS ORDERED: HYDROmorphone HCl 2 MG Tab PO PRN (10:00)
[2024-01-05 11:32] LABS: SARS-Cov-2 (COVID-19) PCR, MMC NEGATIVE (NEGATIVE)
[2024-01-05] MEDS ORDERED: DOXY100 PO (12:45)
[2024-01-05] MEDS ORDERED: DRON2.5 PO (12:46)
[2024-01-05] MEDS ORDERED: MIDO5 PO (12:46)
--- NOTE | 2024-01-05 13:50 | NUR ---
Spiritual Care Visit. Pt. is sitting up on the side of his bed with his untouched lunch tray before him. Pt. displays evidence of lethargy and is very slow with words. Theraputic listening was difficult, but the Pt. responded well tothe offer of prayer. Prayed with Pt. Pt. verbalized gratitude for the spiritual care visit.
--- NOTE | 2024-01-05 16:39 | NUR ---
DISCHARGE SUMMARY: A&Ox3-4. VERY TIRED AND PAINFUL TODAY. NORCO CHANGED TO PO DILAUDID WITH BETTER PAIN CONTROL, THOUGH STILL REPORTED "PAIN MEDS MUST BE FROM [facility]". LUNG SOUNDS WITH SOME BIBASILAR CRACKLES. LBM YESTERDAY. ANURIC SECONDARY TO BILATERAL NEPHRECTOMY AND NO URINE PRODUCTION. HD TODAY c 2500mL FLUID REMOVAL. REFUSED BREAKFAST AND LUNCH, BOTH. MEDS WHOLE WITH FLUIDS. MED REC COMPLETED. ALL BELONGINGS, HARD SCRIPT AND DC PACKET SENT WITH PATIENT TO [facility] VIA MEDICAL TRANSPORT. REPORT GIVEN TO NURSE.
--- NOTE | 2024-01-05 18:01 | NUR ---
CALL FROM [facility] AT [facility] [place]; PATIENT DID NOT GET SENT HOME WITH HARD COPY FOR MARIELIANL. CALL TO DR WILDER; RX WRITTEN AND FAXED TO [facility].
== END 2024-01-05 16:37 | DRG 871 ==
LOC: ER 16:38 → MEDS 22:22 → PCU 22:22 → MEDS 12-31 14:28
PROVIDERS: Emergency Medicine; Family Medicine; Internal Medicine; Internal Medicine Nephrology; Student in an Organized Health Care Education/Training Program; ADMIT Internal Medicine
PROC: 5A1D70Z Performance of Urinary Filtration, Intermittent, Less than 6 Hours Per Day (ICD-10-PCS; principal; 2023-12-30)
PROC: 3E03329 Introduction of Other Anti-infective into Peripheral Vein, Percutaneous Approach (ICD-10-PCS; 2023-12-30)
PROC: 30233N1 Transfusion of Nonautologous Red Blood Cells into Peripheral Vein, Percutaneous Approach (ICD-10-PCS; 2023-12-31)
PROC: 30233J1 Transfusion of Nonautologous Serum Albumin into Peripheral Vein, Percutaneous Approach (ICD-10-PCS; 2024-01-03)
DX: A41.9 Sepsis, unspecified organism (principal); G92.8 Other toxic encephalopathy; J96.21 Acute and chronic respiratory failure with hypoxia; N18.6 End stage renal disease; J18.9 Pneumonia, unspecified organism; Q61.3 Polycystic kidney, unspecified; N25.81 Secondary hyperparathyroidism of renal origin; I13.2 Hypertensive heart and chronic kidney disease with heart failure and with stage 5 chronic kidney disease, or end stage renal disease; D62 Acute posthemorrhagic anemia; I50.22 Chronic systolic (congestive) heart failure; J44.0 Chronic obstructive pulmonary disease with (acute) lower respiratory infection; Z66 Do not resuscitate; D69.6 Thrombocytopenia, unspecified; R65.20 Severe sepsis without septic shock; D63.1 Anemia in chronic kidney disease; M19.072 Primary osteoarthritis, left ankle and foot; E86.0 Dehydration; M19.071 Primary osteoarthritis, right ankle and foot; T50.915A Adverse effect of multiple unspecified drugs, medicaments and biological substances, initial encounter; M81.0 Age-related osteoporosis without current pathological fracture; E83.52 Hypercalcemia; M16.0 Bilateral primary osteoarthritis of hip; M19.012 Primary osteoarthritis, left shoulder; M19.011 Primary osteoarthritis, right shoulder; Z98.890 Other specified postprocedural states; Z99.2 Dependence on renal dialysis; Z90.5 Acquired absence of kidney; Z87.19 Personal history of other diseases of the digestive system; Z91.041 Radiographic dye allergy status; Z88.5 Allergy status to narcotic agent; Z88.0 Allergy status to penicillin; Z88.8 Allergy status to other drugs, medicaments and biological substances; Z91.048 Other nonmedicinal substance allergy status; Z79.899 Other long term (current) drug therapy; Z99.81 Dependence on supplemental oxygen; Z74.01 Bed confinement status; Z87.891 Personal history of nicotine dependence
CPT/HCPCS: 0241U; 36415; 36430; 70551; 71045; 80053; 80069; 80202; 82140; 82803; 83605; 83735; 85014; 85018; 85025; 86850; 86900; 86901; 86923; 87040; 87076; 92526; 92610; 93005; 93010; 93990; 94640; 94664; 94760; 94762; 96365; 96367; 97110; 97116; 97162; 97166; 97530; 97535; 99285-25; A9270; J0692; J0881; J1170; J3370; J7030; J7050; P9016; P9047; Q0167; U0002

== ENCOUNTER → 2024-01-12 | Outpatient (CLI) | payer MEDICARE, OTHER ==
[~2024-01-12] MED LIST changes: +ACET500 PO; +BISA10S PR; +CARBLEV25 SL; +Cyclobenzaprine5 MG PO; +DOXY100 PO; +DRON2.5 PO; +MIDO5 PO
[2024-01-12 17:18] LABS: BASOPHILS ABSOLUTE AUTO 0.04 K/mm3 (0.00-0.23); BASOPHILS PERCENT AUTO 1 % (0-2); EOSINOPHILS ABSOLUTE AUTO 0.15 K/mm3 (0.00-0.68); EOSINOPHILS PERCENT AUTO 2 % (0-6); Hematocrit 26.5 % (37.0-53.0); Hemoglobin 8.4 g/dL (13.5-17.5); IMMATURE GRAN ABSOLUTE AUTO 0.06 K/mm3 (0.00-0.10); IMMATURE GRAN PERCENT AUTO 1 % (0-1); LYMPHOCYTES ABSOLUTE AUTO 0.81 K/mm3 (0.84-5.20); LYMPHOCYTES PERCENT AUTO 10 % (21-46); MONOCYTES ABSOLUTE AUTO 0.53 K/mm3 (0.16-1.47); MONOCYTES PERCENT AUTO 7 % (4-13); Mean Corpuscular HGB Conc 31.7 g/dL (31.5-36.5); Mean Corpuscular Volume 91 fL (80-100); Mean Platelet Volume 10.2 fL (9.1-12.4); NEUTROPHILS ABSOLUTE AUTO 6.42 K/mm3 (1.96-9.15); NEUTROPHILS PERCENT AUTO 80 % (41-73); Platelet Count 165 K/mm3 (150-400); RDW Coefficient Variation 14.4 % (11.7-14.2); RDW Standard Deviation 47.7 fL (35.1-46.3); White Blood Cell Count 8.01 K/mm3 (4.00-11.30)
== END | disposition home or self-care (01) ==
LOC: LAB 17:02 → LAB SHORT 17:02
PROVIDERS: Family Medicine
DX: D64.9 Anemia, unspecified (principal)
CPT/HCPCS: 85025

== ENCOUNTER 2024-01-24 19:05 | Inpatient (IN) | payer MEDICARE, OTHER ==
[~2024-01-24] VITALS: Ht 182.9 cm; Wt 77.5 kg
[2024-01-24 20:04] LABS: BASOPHILS ABSOLUTE AUTO 0.01 K/mm3 (0.00-0.23); BASOPHILS PERCENT AUTO 0 % (0-2); EOSINOPHILS ABSOLUTE AUTO 0.03 K/mm3 (0.00-0.68); EOSINOPHILS PERCENT AUTO 1 % (0-6); Hematocrit 20.6 % (37.0-53.0); Hemoglobin 6.1 g/dL (13.5-17.5); IMMATURE GRAN ABSOLUTE AUTO 0.09 K/mm3 (0.00-0.10); IMMATURE GRAN PERCENT AUTO 1 % (0-1); LYMPHOCYTES ABSOLUTE AUTO 0.62 K/mm3 (0.84-5.20); LYMPHOCYTES PERCENT AUTO 10 % (21-46); MONOCYTES ABSOLUTE AUTO 0.48 K/mm3 (0.16-1.47); MONOCYTES PERCENT AUTO 8 % (4-13); Mean Corpuscular HGB 28.6 pg (26.0-34.0); Mean Corpuscular HGB Conc 29.6 g/dL (31.5-36.5); Mean Corpuscular Volume 97 fL (80-100); Mean Platelet Volume 10.2 fL (9.1-12.4); NEUTROPHILS ABSOLUTE AUTO 5.01 K/mm3 (1.96-9.15); NEUTROPHILS PERCENT AUTO 80 % (41-73); Platelet Count 134 K/mm3 (150-400); RDW Coefficient Variation 15.1 % (11.7-14.2); RDW Standard Deviation 53.9 fL (35.1-46.3); Red Blood Cell Count 2.13 M/mm3 (4.30-5.90); White Blood Cell Count 6.24 K/mm3 (4.00-11.30)
[2024-01-24] MEDS ORDERED: LOKELMA10 GM PO (20:15)
[2024-01-24 20:21] LABS: Albumin, Blood 2.2 g/dL (3.4-5.0); Albumin/Globulin Ratio 0.6 (0.8-1.8); Bilirubin, Total 0.9 mg/dL (0.1-1.0); Bun/Creatinine Ratio 7.9 (12.0-20.0); Calcium, Blood 9.6 mg/dL (8.5-10.1); Creatinine, Blood 4.84 mg/dL (0.60-1.20); Globulin, Blood 3.9 g/dL (2.2-4.0); Magnesium, Blood 2.2 mg/dL (1.6-2.4); Potassium, Blood 4.2 mmol/L (3.5-5.5); Total Protein, Blood 6.1 g/dL (6.4-8.2)
[2024-01-24 20:40] LABS: Influenza A, PCR NEGATIVE (NEGATIVE); Influenza B, PCR NEGATIVE (NEGATIVE); Resp Syncytial Virus, PCR NEGATIVE (NEGATIVE); SARS-Cov-2 (COVID-19) PCR, MMC NEGATIVE (NEGATIVE)
[2024-01-24] MEDS ORDERED: NS 1,000 ML IV ONE (21:16)
[2024-01-24] MEDS ORDERED: NS 50 ML IV SCH (21:20)
[2024-01-24] MEDS ORDERED: NS 1,000 ML IV SCH (21:30)
[2024-01-24] MEDS ORDERED: METOPROLOL SUCC25 MG PO (21:39)
[2024-01-24] MEDS ORDERED: HYDROmorphone HCl/Pf 1MG SYR IV ONE (21:45)
[2024-01-24] MEDS ORDERED: FLU VACC TS2024-25(6MOS UP)/PF 45 MCG/0.5 ML SYRINGE IM SCH (22:30)
[2024-01-24] MEDS ORDERED: Ipratropium/Albuterol SulF 2.5-0.5MG/3 ML Amp INH PRN (23:20)
[2024-01-24 23:35] LABS: Bicarbonate Venous 34.7 mmol/L (24.0-30.0); PCO2 Venous 47.3 mmHg (38-42); pH Blood Venous 7.48 (7.34-7.37)
[2024-01-25] VITALS (19 sets, daily range): BP systolic 100–140; BP diastolic 53–72
[2024-01-25 00:05] LABS: RETICULOCYTE ABSOLUTE 0.0113 M/mm3 (0.0200-0.1100); RETICULOCYTE COUNT PERCENT 0.53 % (0.50-2.50)
[2024-01-25 02:32] LABS: BASOPHILS ABSOLUTE AUTO 0.01 K/mm3 (0.00-0.23); BASOPHILS PERCENT AUTO 0 % (0-2); EOSINOPHILS ABSOLUTE AUTO 0.07 K/mm3 (0.00-0.68); EOSINOPHILS PERCENT AUTO 1 % (0-6); Hemoglobin 7.2 g/dL (13.5-17.5); IMMATURE GRAN ABSOLUTE AUTO 0.04 K/mm3 (0.00-0.10); IMMATURE GRAN PERCENT AUTO 1 % (0-1); LYMPHOCYTES ABSOLUTE AUTO 0.75 K/mm3 (0.84-5.20); LYMPHOCYTES PERCENT AUTO 13 % (21-46); MONOCYTES ABSOLUTE AUTO 0.53 K/mm3 (0.16-1.47); MONOCYTES PERCENT AUTO 9 % (4-13); Mean Corpuscular HGB 29.3 pg (26.0-34.0); Mean Corpuscular Volume 98 fL (80-100); Mean Platelet Volume 9.9 fL (9.1-12.4); NEUTROPHILS ABSOLUTE AUTO 4.62 K/mm3 (1.96-9.15); NEUTROPHILS PERCENT AUTO 77 % (41-73); Platelet Count 131 K/mm3 (150-400); RDW Coefficient Variation 15.1 % (11.7-14.2); RDW Standard Deviation 53.3 fL (35.1-46.3); Red Blood Cell Count 2.46 M/mm3 (4.30-5.90); White Blood Cell Count 6.02 K/mm3 (4.00-11.30)
[2024-01-25 03:27] LABS: Albumin/Globulin Ratio 0.5 (0.8-1.8); Bilirubin, Total 0.8 mg/dL (0.1-1.0); Bun/Creatinine Ratio 8.2 (12.0-20.0); Calcium, Blood 9.6 mg/dL (8.5-10.1); Creatinine, Blood 5.49 mg/dL (0.60-1.20); Globulin, Blood 3.9 g/dL (2.2-4.0); Potassium, Blood 4.9 mmol/L (3.5-5.5); Total Protein, Blood 5.9 g/dL (6.4-8.2)
--- NOTE | 2024-01-25 04:58 | NUR ---
SHIFT SUMMARY AFTER ADMITTED TO ROOM, PATIENT'S [facility] NURSE STAFF/ WENT HOME. HE WAS ASLEEP FOR A LONG TIME. REPEAT HGB 7.2 AFTER 1 UNIT PRBC'S IN ER. WOKE MOMENTAIRLY FOR LAB DRAW DENIED BEING IN PAIN.
[2024-01-25 05:19] LABS: Magnesium, Blood 2.3 mg/dL (1.6-2.4); Phosphorus, Blood 3.9 mg/dL (2.5-4.9)
[2024-01-25] MEDS ORDERED: HYDROmorphone HCl 2 MG Tab PO PRN (06:00)
[2024-01-25] MEDS ORDERED: Albumin (Human) 25gm/100ml 100 ML IV PRN (08:15)
[2024-01-25] MEDS ORDERED: Vitamin B Cmplx/Vit C/Folic Ac 1 Tab PO SCH (09:00)
[2024-01-25] MEDS ORDERED: Midodrine 5 MG Tab PO SCH ×2 (09:00)
--- NOTE | 2024-01-25 09:56 | NUR ---
PATIENT TO DIALYSIS AT 0824, PLEASANT TO CARE. ALERT AND OREINTED X2-3, IN DIALYSIS NOW, 2 UNTIS PRBC TO BE INFUSED WITH DIALYSIS
--- NOTE | 2024-01-25 10:47 | NUR ---
PATIENT BACK FROM DIALYSIS AND IN ROOM, CALL LIGHT WITH IN REACH
[2024-01-25] MEDS ORDERED: Darbepoetin Alfa In Albumn Sol 40 MCG/0.4 ML SC SCH (12:00)
--- NOTE | 2024-01-25 14:11 | NUR ---
PATIENT MAKING NONSENSICAL SENTENCES, EASILY STATING HE IS IN PAIN AND WANTS A PAIN MEDICATION, PATIENT UNABLE TO FOLLOW DIRECTION FOR PT OR ST, BED ALARM ON
--- NOTE | 2024-01-25 18:21 | NUR ---
NO ACUTE CHANGES, MENTALTION STILL ALTERED, NONSENSICAL SPEECH, DIALYSIS TODAY, BED ALARM ON, BED SIDE SWALLOW DONE, MEDICATED FOR PAIN, PATIENT COMMUNICATES PAIN CLEARLY, 3L O2 VIA NC, PATIENT IMPULSIVE TO PULL OXYGEN OFF AND GETTING OOB, VERY UNSTEAD GAIT, CALL LIGHT WITH IN REACH, AT BEDSIDE NOW, WILL RELAY TO PM RN
[2024-01-25] MEDS ORDERED: Polyethylene Glycol 3350 17 gm PO SCH (22:30)
[2024-01-25] MEDS ORDERED: Gabapentin 100 MG Cap PO PRN (22:30)
[2024-01-25] MEDS ORDERED: Diazepam 5 MG Tab PO PRN (22:35)
[2024-01-25] MEDS ORDERED: Docusate Sodium 100 MG Cap PO PRN (22:35)
[2024-01-25] MEDS ORDERED: Acetaminophen 500 MG Tab PO PRN (23:25)
[2024-01-25] MEDS ORDERED: Nitroglycerin 0.4 MG SUBL SL PRN (23:30)
[2024-01-25] MEDS ORDERED: Ondansetron 4 MG SoluTab MM PRN (23:35)
[2024-01-26 01:17] VITALS: BP 134/68
[2024-01-26 02:51] VITALS: BP 116/69
--- NOTE | 2024-01-26 05:40 | NUR ---
SHIFT SUMMARY PT ALERT TO SELF. NON SENSICAL SPEACH. PT HAS DIFFICULTY FOLLOWING DIRECTIONS AND IS NOT REDIRECTABLE. HOWEVER PT HAS OCCASIONAL MOMMENTS WHEN HE CAN EXPRESS NEEDS OR APPEARS TO UNDERSTAND DIRECTIONS. MEDICATED FOR PAIN USING THE FLACC SCALE D/T PT BEING UNABLE TO EXPRESS PAIN NEEDS. PT ATTMEPTED OOB SEVERAL TIMES AND ADDITIONAL STAFF WAS NEEDED TO ASSIST PT BACK TO BED. PT STATED "BATHROOM" SEVERAL TIMES AND WAS RESTLESS UNTIL HE WAS HELPED TO BSC, HOWEVER PT DID NOT VOID OR HAVE A BM. REMAINS OF 3L OF OXYGEN BUT PT PULLED OF TUBING SEVERAL TIMES T/O NIGHT. PT HAD 101.2 TEMPERATURE DURING THE NIGHT. MEDICATED WITH TYLENOL AND TEMP CAME DOWN TO 98.8. PT A-FLUTTER ON TELE BUT CONVERTED TO NSR AT 0249. BED ALARM ON T/O NIGHT. BED IN LOWEST POSITION AND CALL LIGHT IN REACH.
[2024-01-26 06:04] LABS: BASOPHILS ABSOLUTE AUTO 0.02 K/mm3 (0.00-0.23); BASOPHILS PERCENT AUTO 0 % (0-2); EOSINOPHILS ABSOLUTE AUTO 0.04 K/mm3 (0.00-0.68); EOSINOPHILS PERCENT AUTO 1 % (0-6); Hemoglobin 9.4 g/dL (13.5-17.5); IMMATURE GRAN ABSOLUTE AUTO 0.08 K/mm3 (0.00-0.10); IMMATURE GRAN PERCENT AUTO 1 % (0-1); LYMPHOCYTES ABSOLUTE AUTO 0.29 K/mm3 (0.84-5.20); LYMPHOCYTES PERCENT AUTO 4 % (21-46); MONOCYTES ABSOLUTE AUTO 0.16 K/mm3 (0.16-1.47); MONOCYTES PERCENT AUTO 2 % (4-13); Mean Corpuscular HGB 28.7 pg (26.0-34.0); Mean Corpuscular HGB Conc 31.3 g/dL (31.5-36.5); NEUTROPHILS ABSOLUTE AUTO 6.78 K/mm3 (1.96-9.15); NEUTROPHILS PERCENT AUTO 92 % (41-73); Platelet Count 134 K/mm3 (150-400); RDW Coefficient Variation 17.1 % (11.7-14.2); RDW Standard Deviation 57.5 fL (35.1-46.3); RETICULOCYTE ABSOLUTE 0.0262 M/mm3 (0.0200-0.1100); Red Blood Cell Count 3.28 M/mm3 (4.30-5.90); White Blood Cell Count 7.37 K/mm3 (4.00-11.30)
[2024-01-26 06:13] LABS: Mean Corpuscular Volume 92 fL (80-100)
[2024-01-26 06:44] LABS: Albumin, Blood 2.1 g/dL (3.4-5.0); Albumin/Globulin Ratio 0.6 (0.8-1.8); Bun/Creatinine Ratio 7.8 (12.0-20.0); Calcium, Blood 9.5 mg/dL (8.5-10.1); Creatinine, Blood 5.28 mg/dL (0.60-1.20); Globulin, Blood 3.7 g/dL (2.2-4.0); Magnesium, Blood 1.9 mg/dL (1.6-2.4); Phosphorus, Blood 2.5 mg/dL (2.5-4.9); Potassium, Blood 3.6 mmol/L (3.5-5.5); Total Protein, Blood 5.8 g/dL (6.4-8.2)
[2024-01-26 07:39] VITALS: BP 108/67
[2024-01-26] MEDS ORDERED: Sevelamer Carbonate 800 MG Tab PO SCH (08:30)
[2024-01-26] MEDS ORDERED: Calcium Acetate 667 MG Gel Cap PO SCH (08:30)
[2024-01-26] MEDS ORDERED: rOPINIRole HCl 1 MG Tab PO SCH (09:00)
[2024-01-26] MEDS ORDERED: CefTRIAXone Sodium 1,000 MG in NS 100 ML IV SCH (09:00)
[2024-01-26] MEDS ORDERED: Omeprazole 20 MG CapCR PO SCH (09:00)
[2024-01-26] MEDS ORDERED: Sodium Zirconium Cyclosilicate 10 GM Packet PO SCH (09:00)
[2024-01-26] MEDS ORDERED: Metoprolol Succinate 25 MG TABCR PO SCH (09:00)
[2024-01-26] MEDS ORDERED: NS 250 ML IV PRN (09:30)
[2024-01-26 14:24] VITALS: BP 110/67
[2024-01-26] MEDS ORDERED: CefTRIAXone Sodium 1,000 MG in NS 100 ML IV ONE (14:40)
[2024-01-26] MEDS ORDERED: Cinacalcet HCL 30 MG Tab PO SCH (16:00)
--- NOTE | 2024-01-26 17:18 | NUR ---
SHIFT SUMMARY PATIENT A/OX1, IMPULSIVE, CONFUSED, DOES NOT FOLLOW DIRECTION OR USE CALL LIGHT FOR ASSISTANCE. NONSENSICAL SPEECH AT TIMES. PRN DILAUDID ADMINISTERED X1 THIS SHIFT. NO BOWEL MOVEMENT DOCUMENTED SINCE ADMISSION, PRN ADMINISTERED AND PATIENT WITH MULTIPLE ATTEMPTS TO BEDSIDE COMMODE WITH ONLY ONE SMALL HARD BM. TELEMETRY DISCONTINUED THIS EVENING. BLOOD CULTURES OBTAINED AND IV ABX STARTED TODAY. ABDOMINAL ULTRASOUND OBTAINED THIS EVENING. PATIENT WITH MINIMAL APPETITE AND REFUSING BREAKFAST AND LUNCH. REPORT GIVEN TO KEMAR SOLIS PRIOR TO PATIENT TRANSFER TO [place] [id number], NO OTHER CONCERNS AT THIS TIME.
--- NOTE | 2024-01-26 17:29 | NUR ---
CALLED PATIENT'S , ULISSES, TO INFORM HER OF PATIENT'S TRANSFER TO ROOM 346 AND UPDATE HER ON PATIENT STATUS. ULISSES STATES WILL BE COMING IN THIS EVENING.
[2024-01-26 19:18] VITALS: BP 115/67
[2024-01-26] MEDS ORDERED: Ondansetron HCl 2 MG / ML 2ML Vial IV ONE (19:20)
[2024-01-26] MEDS ORDERED: Ondansetron HCl 2 MG / ML 2ML Vial IV PRN (19:25)
[2024-01-26] MEDS ORDERED: LORazepam 2 MG/ML 1ML Injection IM PRN (23:15)
[2024-01-26] MEDS ORDERED: LORazepam 2 MG/ML 1ML Injection IV PRN ×3 (23:15→23:20)
[2024-01-26] MEDS ORDERED: ChlordiazePOXIDE 25 MG Cap PO PRN ×2 (23:20)
[2024-01-27] VITALS (18 sets, daily range): BP systolic 103–143; BP diastolic 64–98
--- NOTE | 2024-01-27 05:31 | NUR ---
SHIFT SUMMARY NOC PT A/O X SELF. PT HIGHLY CONFUSED. VSS. AT BEGINNING OF SHIFT PT HAD MULTIPLE EPISODES OF EMESIS, AND GIVEN ZOFRAN. WHEN ASKED ABOUT ALCOHOL USE, PT STATED "PT DOES NOT TOUCH ANY ALCOHOL". A COUPLE HOURS INTO SHIFT PT BED ALARM TRIGGERED AND WHEN ASKED WHAT THEY NEEDED PT STATED "I NEED TO GO DOWN THE ROAD AND BUY SOME BEER", AND REPEATED THIS FOR 15 MINUTES. MILD TREMORS IN BUE NOTED, WITH ANXIETY AND CONFUSION. HOSPITALIST NOTIFIED THAT PT POSSIBLY MIGHT BE A DRINKER AND IS GOING THROUGH WITHDRAWAL. CIWA PROTOCOL INITIATED, FIRST CIWA SCORE 11, SECOND CIWA 10 PT GIVEN LIBRIUM 25 MG AND ATIVAN 1MG. PT HAD 2 BM DURING SHIFT FIRST WAS HARD GABINO, AND SECOND BIGGER ROUND SHAPE, BUT SOFTER. PT CURRENTLY RESTING WITH BED ALARM ON, BED IN LOWEST POSITION, AND CALL LIGHT WITHIN REACH.
[2024-01-27 06:05] LABS: BASOPHILS ABSOLUTE AUTO 0.02 K/mm3 (0.00-0.23); BASOPHILS PERCENT AUTO 0 % (0-2); EOSINOPHILS ABSOLUTE AUTO 0.08 K/mm3 (0.00-0.68); EOSINOPHILS PERCENT AUTO 1 % (0-6); Hematocrit 33.3 % (37.0-53.0); Hemoglobin 10.4 g/dL (13.5-17.5); IMMATURE GRAN ABSOLUTE AUTO 0.05 K/mm3 (0.00-0.10); IMMATURE GRAN PERCENT AUTO 1 % (0-1); LYMPHOCYTES ABSOLUTE AUTO 0.67 K/mm3 (0.84-5.20); LYMPHOCYTES PERCENT AUTO 9 % (21-46); MONOCYTES ABSOLUTE AUTO 0.58 K/mm3 (0.16-1.47); MONOCYTES PERCENT AUTO 8 % (4-13); Mean Corpuscular HGB 28.3 pg (26.0-34.0); Mean Corpuscular HGB Conc 31.2 g/dL (31.5-36.5); Mean Corpuscular Volume 91 fL (80-100); Mean Platelet Volume 10.2 fL (9.1-12.4); NEUTROPHILS ABSOLUTE AUTO 6.25 K/mm3 (1.96-9.15); NEUTROPHILS PERCENT AUTO 82 % (41-73); Platelet Count 142 K/mm3 (150-400); RDW Coefficient Variation 16.5 % (11.7-14.2); RDW Standard Deviation 55.6 fL (35.1-46.3); Red Blood Cell Count 3.68 M/mm3 (4.30-5.90); White Blood Cell Count 7.65 K/mm3 (4.00-11.30)
[2024-01-27 06:31] LABS: Albumin, Blood 2.1 g/dL (3.4-5.0); Albumin/Globulin Ratio 0.6 (0.8-1.8); Bilirubin, Total 0.8 mg/dL (0.1-1.0); Bun/Creatinine Ratio 8.6 (12.0-20.0); Calcium, Blood 10.5 mg/dL (8.5-10.1); Creatinine, Blood 6.41 mg/dL (0.60-1.20); Globulin, Blood 3.7 g/dL (2.2-4.0); Magnesium, Blood 2.2 mg/dL (1.6-2.4); Phosphorus, Blood 4.1 mg/dL (2.5-4.9); Potassium, Blood 4.2 mmol/L (3.5-5.5); Total Protein, Blood 5.8 g/dL (6.4-8.2)
[2024-01-27] MEDS ORDERED: CefTRIAXone Sodium 2,000 MG in NS 100 ML IV SCH (09:00)
[2024-01-27] MEDS ORDERED: Cefepime HCl 1,000 MG in NS 100 ML IV SCH (09:00)
[2024-01-27] MEDS ORDERED: HYDROmorphone HCl/Pf 1MG SYR IV PRN (10:15)
--- NOTE | 2024-01-27 12:22 | NUR ---
NOTE: THIS NURSE HELD THE PT'S AM MEDICATIONS UNTIL POST DIALYSIS, THE PROVIDER AGREED. ONCE THE PT RETURNED FROM DIALYSIS, HE WAS VERY LETHARGIC AND NOT FOLLOWING DIRECTIONS. SPEECH THERAPY ATTEMPTED TO WORK WITH HIM BUT HE WAS NOT ABLE TO PARTICIPATE, SEE THEIR NOTE. DR. JOHN NOTIFIED AND HE SAID OKAY TO HOLD MEDICATIONS UNTIL PT IS MORE ALERT.
[2024-01-27 13:21] LABS: International Normalized Ratio 1.4; Prothrombin Time Results 14.6 Sec (9.7-11.5)
[2024-01-27] MEDS ORDERED: Lactated Ringer's 500 ML IV SCH (16:20)
[2024-01-27] MEDS ORDERED: Carvedilol 6.25 MG Tab PO SCH (17:00)
--- NOTE | 2024-01-27 17:20 | NUR ---
SHIFT SUMMARY PT AO TO SELF, BR AT THIS TIME. PT HAD DIFFICULTLY FOLLOWING DIRECTIONS DURING MOST OF THE SHIFT, VERY LETHARGIC AND NOT ANSWERING QUESTIONS APPROPRIATELY. THIS EVENING HE WAS ABLE TO TAKE HIS PILLS AND REQUEST THE BED PAIN. MEPALEX APPLIED TO COCCYX ALONG WITH BARRIER CREAM. PT REPOSITIONED THROUGHOUT THE SHIFT. DIALYSIS COMPLETED TODAY. MEDICATED FOR PAIN PER THE EMAR. PT AWARE OF THE LETHARGY, REQUESTS STAFF TO HOLD BENZOS AT THIS TIME. CALL LIGHT WITHIN REACH, BED LOCKED AND IN THE LOWEST POSITION. WILL REPORT TO ONCOMING NURSE.
[2024-01-28 03:06] VITALS: BP 122/70
--- NOTE | 2024-01-28 04:32 | NUR ---
SHIFT SUMMARY NOC PT A/O TO SELF. VERY CONFUSED AND LETHARGIC. BP STABLE. BEDTIME MEDS HELD DUE TO HIGH ASPIRATION RISK DUE TO LETHARGY. PT HAS 1:[address] FOR SAFETY. PT HAD INCONTINENT HARD BM. PT ON 3L/NC SPO2 >92%. PT STILL REPEATING WHAT HAS BEEN ASKED MULTIPLE TIMES. PT HAS UNCOLLECTED URINE SAMPLE. PT CURRENTLY RESTING WITH BED IN LOWEST POSITION, AND CALL LIGHT WITHIN REACH.
[2024-01-28 06:39] LABS: BASOPHILS ABSOLUTE AUTO 0.01 K/mm3 (0.00-0.23); BASOPHILS PERCENT AUTO 0 % (0-2); EOSINOPHILS ABSOLUTE AUTO 0.08 K/mm3 (0.00-0.68); EOSINOPHILS PERCENT AUTO 1 % (0-6); Hematocrit 29.5 % (37.0-53.0); Hemoglobin 9.4 g/dL (13.5-17.5); IMMATURE GRAN ABSOLUTE AUTO 0.06 K/mm3 (0.00-0.10); IMMATURE GRAN PERCENT AUTO 1 % (0-1); LYMPHOCYTES ABSOLUTE AUTO 0.59 K/mm3 (0.84-5.20); LYMPHOCYTES PERCENT AUTO 7 % (21-46); MONOCYTES ABSOLUTE AUTO 0.67 K/mm3 (0.16-1.47); MONOCYTES PERCENT AUTO 8 % (4-13); Mean Corpuscular HGB 28.7 pg (26.0-34.0); Mean Corpuscular HGB Conc 31.9 g/dL (31.5-36.5); Mean Corpuscular Volume 90 fL (80-100); Mean Platelet Volume 9.4 fL (9.1-12.4); NEUTROPHILS ABSOLUTE AUTO 7.51 K/mm3 (1.96-9.15); NEUTROPHILS PERCENT AUTO 84 % (41-73); Platelet Count 149 K/mm3 (150-400); RDW Coefficient Variation 16.1 % (11.7-14.2); RDW Standard Deviation 53.5 fL (35.1-46.3); Red Blood Cell Count 3.27 M/mm3 (4.30-5.90); White Blood Cell Count 8.92 K/mm3 (4.00-11.30)
[2024-01-28 07:08] LABS: Albumin/Globulin Ratio 0.5 (0.8-1.8); Bun/Creatinine Ratio 8.5 (12.0-20.0); Creatinine, Blood 5.32 mg/dL (0.60-1.20); Globulin, Blood 3.8 g/dL (2.2-4.0); Potassium, Blood 3.9 mmol/L (3.5-5.5); Total Protein, Blood 5.8 g/dL (6.4-8.2)
[2024-01-28 07:12] VITALS: BP 126/74
[2024-01-28] MEDS ORDERED: HYDROmorphone HCl/Pf 1MG SYR IV PRN (07:55)
[2024-01-28] MEDS ORDERED: Metoprolol Succinate 25 MG TABCR PO SCH (09:00)
[2024-01-28] MEDS ORDERED: Docusate Sodium 100 MG Cap PO SCH (09:00)
[2024-01-28 15:26] VITALS: BP 120/83
--- NOTE | 2024-01-28 19:12 | NUR ---
SHIFT SUMMARY PT SLEEPING MOST OF THE MORNING. WOKE UP AFTER BREAKFAST AND ATTEMPTED TO GIVE PO MEDS. WAS ABLE TO TAKE MAJORITY 2 AT A TIME WITH WATER. PT TOOK ONE SIP OF LOKELMA AND VOMITED. DISCARDED LOKELMA POTASSIUM IS 3.9. PRN ZOFRAN GIVEN AFTERWARDS AND PT WENT TO SLEEP. PRN DILAUDID GIVEN X1 DUE TO PAIN IN RIBS AND BACK WITH REPORTED RELIEF. PT SAT UP ON EDGE OF BED FOR DINNER AND ATE ABOUT 25% BUT PT REFUSED EVENING MEDICATIONS. WAS CONCERNED ABOUT VOMITING AGAIN. PRN ZOFRAN GIVEN PRIOR TO DINNER AND ATTEMPTED MED PASS. EDUCATION GIVEN ON MEDS BUT PT STILL REFUSED. PT STILL PENDING STOOL OCCULT. PATIENT WAS UP WORKING WITH PHYSICAL THERAPY AND HAD A BM TODAY BUT WAS DISCARED. NOTIFIED SITTER AND AID PENDING STOOL SAMPLE.
[2024-01-28 19:37] VITALS: BP 129/72
[2024-01-29] VITALS (13 sets, daily range): BP systolic 104–133; BP diastolic 57–77
--- NOTE | 2024-01-29 04:33 | NUR ---
SHIFT SUMMARY PATIENT IS ALERT AND ORIENTED TO SELF. PATIENT REMAINS LETHARGIC AND CONFUSED. PATIENT STILL HAS 1:1 SITTER FOR SAFETY. PATIENT HAS HAD COMPLAINTS OF PAIN. MEDICATED PER EMAR. PATIENT HAS HAD NO COMPLAINTS OF SOB, NAUSEA OR VOMITTING THIS SHIFT. VITAL SIGNS REVIEWED. BED IN LOCKED AND LOWEST POSITION. CALL LIGHT IN PLACE. WILL MONITOR UNTIL SHIFT CHANGE.
[2024-01-29 06:10] LABS: Hematocrit 29.1 % (37.0-53.0); Hemoglobin 9.2 g/dL (13.5-17.5)
[2024-01-29 06:43] LABS: Albumin, Blood 1.9 g/dL (3.4-5.0); Anion Gap 13 mmol/L (3-11); Blood Urea Nitrogen 57 mg/dL (8-24); Bun/Creatinine Ratio 8.5 (12.0-20.0); CO2, Blood 29 mmol/L (21-32); Calcium, Blood 9.1 mg/dL (8.5-10.1); Chloride, Blood 98 mmol/L (98-108); Creatinine, Blood 6.67 mg/dL (0.60-1.20); Glomerular Filtration Rate 9 (60-); Glucose, Blood 88 mg/dL (70-99); Magnesium, Blood 2.1 mg/dL (1.6-2.4); Phosphorus, Blood 3.6 mg/dL (2.5-4.9); Potassium, Blood 4.1 mmol/L (3.5-5.5); Sodium, Blood 136 mmol/L (136-145)
[2024-01-29] MEDS ORDERED: CefTRIAXone Sodium 1,000 MG in NS 100 ML IV SCH (10:58)
[2024-01-29] MEDS ORDERED: Cefepime HCl 1,000 MG in NS 100 ML IV SCH (12:00)
--- NOTE | 2024-01-29 17:08 | NUR ---
SHIFT SUMMARY: PT AOX2 TO SELF AND PLACE. WITHDRAWN AND WORD SALAD/ FLIGHT OF IDEAS. NO COMPLAINTS OF PAIN. PT WENT TO DIALYSIS AT 8:30 AND RETURNED WITHOUT ISSUE. ULTRASOUND OF FISTULA PERFORMED. PT WENT TO MRI. MEDICATED PER EMR FOR SOME ANXIETY. NOT EATING AT ALL BUT DRANK AN ENSURE AND TOLERATING PO MEDS WELL. TRANSFERRED TO BSC NEEDED. PT CURRENTLY SLEEPING IN BED, BED IN LOWEST POSITION, AND CALL LIGHT IN REACH. CONTINUING CARE.
--- NOTE | 2024-01-29 17:22 | NUR ---
THIS PHOTOENGRAVING APPRENTICE HAS REVIEWED AND AGEES WITH ALL NOTES AND ASSESSMENTS BY WILL ROSA.
[2024-01-30 03:24] VITALS: BP 130/76
--- NOTE | 2024-01-30 04:01 | NUR ---
SHIFT SUMMARY ADMITTED FOR METABOLIC ENCEPHALOPATHY. DNR CODE. HD PATIENT, DIALYSIS RECEIVED YESTERDAY. FISTULA ON LEFT ARM. DR. CARMONA IS RENAL CONSULT. 3 LPM O2 HERE. 2 LPM @ BASELINE. SOFT BITE DIET. IMPULSIVE, CONFUSED. 1 ASSIST PIVOT TO BSC. BLOOD CULTURES POSITIVE.
[2024-01-30 06:27] LABS: BASOPHILS ABSOLUTE AUTO 0.01 K/mm3 (0.00-0.23); BASOPHILS PERCENT AUTO 0 % (0-2); EOSINOPHILS PERCENT AUTO 1 % (0-6); Hematocrit 29.7 % (37.0-53.0); Hemoglobin 9.3 g/dL (13.5-17.5); IMMATURE GRAN ABSOLUTE AUTO 0.09 K/mm3 (0.00-0.10); IMMATURE GRAN PERCENT AUTO 1 % (0-1); LYMPHOCYTES ABSOLUTE AUTO 0.79 K/mm3 (0.84-5.20); LYMPHOCYTES PERCENT AUTO 9 % (21-46); MONOCYTES ABSOLUTE AUTO 0.79 K/mm3 (0.16-1.47); MONOCYTES PERCENT AUTO 9 % (4-13); Mean Corpuscular HGB 28.3 pg (26.0-34.0); Mean Corpuscular HGB Conc 31.3 g/dL (31.5-36.5); Mean Corpuscular Volume 90 fL (80-100); Mean Platelet Volume 10.2 fL (9.1-12.4); NEUTROPHILS ABSOLUTE AUTO 7.54 K/mm3 (1.96-9.15); NEUTROPHILS PERCENT AUTO 81 % (41-73); Platelet Count 149 K/mm3 (150-400); RDW Coefficient Variation 15.8 % (11.7-14.2); RDW Standard Deviation 52.6 fL (35.1-46.3); Red Blood Cell Count 3.29 M/mm3 (4.30-5.90); White Blood Cell Count 9.32 K/mm3 (4.00-11.30)
[2024-01-30 07:00] LABS: Albumin, Blood 1.9 g/dL (3.4-5.0); Anion Gap 9 mmol/L (3-11); Blood Urea Nitrogen 58 mg/dL (8-24); Bun/Creatinine Ratio 8.8 (12.0-20.0); CO2, Blood 34 mmol/L (21-32); Calcium, Blood 9.3 mg/dL (8.5-10.1); Chloride, Blood 97 mmol/L (98-108); Glomerular Filtration Rate 9 (60-); Glucose, Blood 97 mg/dL (70-99); Magnesium, Blood 2.3 mg/dL (1.6-2.4); Phosphorus, Blood 3.4 mg/dL (2.5-4.9); Sodium, Blood 136 mmol/L (136-145)
[2024-01-30 07:46] VITALS: BP 129/78
[2024-01-30] MEDS ORDERED: CefTRIAXone Sodium 1,000 MG in NS 100 ML IV SCH (11:00)
[2024-01-30 16:42] VITALS: BP 142/76
--- NOTE | 2024-01-30 17:49 | NUR ---
SHIFT SUMMARY: PT AOX3 TO PERSON/ SELF, SITUATION AND PLACE. DOESNT KNOW THE DATE TO WELL AND CAN GET CONFUSED. PLEASANTLY CONFUSED AND ABLE TO ASK FOR ASSISTANCE WITH WHATEVER HE NEEDS. CALLS APPROPRIATELY JUST RANTS OFF AND ON. PT CONCERNED WITH SOME THINGS DOCTOR NOTIFIED. POWER GLIDE INSERTED TO PREVENT TOO MANY BLOOD DRAWS. PT TOLERATED WELL. GOT UP AND WALKED WITH PT AND IS ABLE TO WALK WITH 1 PA AND WALKER TO THE BATHROOM. USED THE RESTROOM AND HAD A LARGE BM. CURRENTLY IN THE RESTROOM. DID NOT EAT MUCH TODAY AT ALL. BED IN LOWEST POSITION, CALL LIGHT IN REACH. CONTNUING CARE.
--- NOTE | 2024-01-30 18:37 | NUR ---
THIS PAINTER BARREL HAS REVIEWED AND AGREES WITH ALL NOTES AND ASSESSMENTS BY WILL ROSA.
[2024-01-30 19:18] VITALS: BP 113/67
[2024-01-31] VITALS (16 sets, daily range): BP systolic 116–159; BP diastolic 61–95
--- NOTE | 2024-01-31 04:36 | NUR ---
SHIFT SUMMARY ADMITTED FOR METABOLIC ENCEPHALOPATHY. ANTIB RX ARE SCHEDULED. HD PATIENT. PLAN IS FOR IMAGING SCAN TO INVESTIGATE LIVER MASS. IMAGING INFORMED THAT PT HAS ALLERGIES TO BENEDRYL AND IODINE. FISTULA IN LEFT ARM. SOFT BITE DIET. 1 ASSIST W/FWW & GB - BRP. NAUSEA ONCE THIS SHIFT. DR. CARMONA IS RENAL CONSULT. POWERGLIDE IN [facility].
[2024-01-31] MEDS ORDERED: DiphenhydrAMINE HCl 50 MG Cap PO ONE ×2 (07:45→15:05)
[2024-01-31 09:56] LABS: Hematocrit 31.3 % (37.0-53.0); Hemoglobin 10.1 g/dL (13.5-17.5)
[2024-01-31 13:35] LABS: Albumin, Blood 2.1 g/dL (3.4-5.0); Anion Gap 11 mmol/L (3-11); Blood Urea Nitrogen 41 mg/dL (8-24); Bun/Creatinine Ratio 7.8 (12.0-20.0); CO2, Blood 34 mmol/L (21-32); Calcium, Blood 8.9 mg/dL (8.5-10.1); Chloride, Blood 94 mmol/L (98-108); Creatinine, Blood 5.24 mg/dL (0.60-1.20); Glomerular Filtration Rate 12 (60-); Glucose, Blood 137 mg/dL (70-99); Magnesium, Blood 2.2 mg/dL (1.6-2.4); Phosphorus, Blood 2.3 mg/dL (2.5-4.9); Potassium, Blood 3.3 mmol/L (3.5-5.5); Sodium, Blood 136 mmol/L (136-145)
--- NOTE | 2024-01-31 16:04 | NUR ---
NOTE: PATIENT LEFT THE ROOM AT 1605 VIA WHEELCHAIR TO IMAGING.
--- NOTE | 2024-01-31 16:29 | NUR ---
PATIENT A/O X 2. PATIENT STILL HAS COME CONFUSION AND WILL ASK IF HE IS AT THE MALL. PATIENT HAD DIALYSIS TODAY AT [address] WITH CONTRAST WAS COMPLETED. PATIENT TO HAVE DIALYSIS TOMORROW DUE TO CONTRAST. PATIENT DENIED LUNCH TODAY AND SOME OF HIS MEDICATIONS. PATIENT HAS BEEN ABLE TO STAND WITH ONE ASSIT. PATIENT ON OXYGEN 3L PER N/C.
[2024-01-31] MEDS ORDERED: Propranolol HCL 20 MG TAB PO SCH (16:30)
[2024-02-01] VITALS (12 sets, daily range): BP systolic 110–146; BP diastolic 61–76
[2024-02-01] MEDS ORDERED: Calcium Carbonate 500 MG Tab Chew PO ONE (03:00)
--- NOTE | 2024-02-01 06:15 | NUR ---
SHIFT SUMMARY PT ALERT AND ORIENTED TIMES 4. PER PT REQUEST VALIUM GIVEN FOR ANXIETY AT 0215 AND DILAUDID AT 0439. PT APPEARED TO SLEEP ON AND OFF THROUGH THE NIGHT. BED IN LOW POSITION, CALL LIGHT WITHIN REACH, RAILS TIMES 2.
[2024-02-01 09:03] LABS: Hematocrit 26.3 % (37.0-53.0); Hemoglobin 8.3 g/dL (13.5-17.5)
[2024-02-01 09:24] LABS: Albumin, Blood 1.9 g/dL (3.4-5.0); Anion Gap 12 mmol/L (3-11); Blood Urea Nitrogen 48 mg/dL (8-24); Bun/Creatinine Ratio 7.5 (12.0-20.0); CO2, Blood 33 mmol/L (21-32); Calcium, Blood 9.6 mg/dL (8.5-10.1); Chloride, Blood 93 mmol/L (98-108); Glomerular Filtration Rate 9 (60-); Glucose, Blood 95 mg/dL (70-99); Magnesium, Blood 2.3 mg/dL (1.6-2.4); Phosphorus, Blood 3.2 mg/dL (2.5-4.9); Potassium, Blood 4.2 mmol/L (3.5-5.5); Sodium, Blood 134 mmol/L (136-145)
[2024-02-01] MEDS ORDERED: ARANESP25 MCG/0.1 SC (13:26)
[2024-02-01] MEDS ORDERED: MIDO5 PO (13:28)
[2024-02-01] MEDS ORDERED: PROP10 PO (13:31)
--- NOTE | 2024-02-01 17:29 | NUR ---
POWER GLIDE TAKEN OUT FOR DISCHARGE. CATH TIP INTACT WITH NO NOTED SIGNS OR SYMTOMS OF REDNESS AND INFECTION. PATIENT TOLERATED PROCEDURE WELL WITH NO COMPLAINTS OF PAIN
== END 2024-02-01 17:28 | disposition home health service (06) | DRG 70 ==
LOC: ER 19:05 → MEDS 19:06 → ENPENDDIS 02-01 11:25 → MEDS 02-01 17:28
PROVIDERS: Family Medicine; Hospitalist; Internal Medicine Nephrology; Student in an Organized Health Care Education/Training Program; ADMIT Internal Medicine
PROC: 5A1D70Z Performance of Urinary Filtration, Intermittent, Less than 6 Hours Per Day (ICD-10-PCS; principal; 2024-01-24)
PROC: 30233N1 Transfusion of Nonautologous Red Blood Cells into Peripheral Vein, Percutaneous Approach (ICD-10-PCS; 2024-01-25)
DX: G93.41 Metabolic encephalopathy (principal); N18.6 End stage renal disease; R57.8 Other shock; K76.6 Portal hypertension; I50.22 Chronic systolic (congestive) heart failure; I13.2 Hypertensive heart and chronic kidney disease with heart failure and with stage 5 chronic kidney disease, or end stage renal disease; N25.81 Secondary hyperparathyroidism of renal origin; R18.8 Other ascites; R78.81 Bacteremia; Z66 Do not resuscitate; Z99.2 Dependence on renal dialysis; D69.6 Thrombocytopenia, unspecified; D63.1 Anemia in chronic kidney disease; I48.0 Paroxysmal atrial fibrillation; M19.90 Unspecified osteoarthritis, unspecified site; M81.0 Age-related osteoporosis without current pathological fracture; R73.9 Hyperglycemia, unspecified; E88.09 Other disorders of plasma-protein metabolism, not elsewhere classified; K21.9 Gastro-esophageal reflux disease without esophagitis; B96.89 Other specified bacterial agents as the cause of diseases classified elsewhere; E87.6 Hypokalemia; E83.39 Other disorders of phosphorus metabolism; J44.9 Chronic obstructive pulmonary disease, unspecified; R29.6 Repeated falls; Z88.5 Allergy status to narcotic agent; Z88.0 Allergy status to penicillin; Z88.8 Allergy status to other drugs, medicaments and biological substances; Z91.041 Radiographic dye allergy status; Z79.899 Other long term (current) drug therapy; Z90.5 Acquired absence of kidney; Z86.16 Personal history of COVID-19; Z87.19 Personal history of other diseases of the digestive system; Z87.891 Personal history of nicotine dependence; Z98.890 Other specified postprocedural states
CPT/HCPCS: 0241U; 36415; 36430; 70450; 71045; 72125; 74170; 74176; 74181; 76705; 76882; 80053; 80069; 82105; 82140; 82803; 83735; 84100; 84443; 85014; 85018; 85025; 85045; 85610; 86850; 86900; 86901; 86923; 87040; 87077; 87186; 92526; 92610; 93005; 93010; 94760; 94762; 96372; 96374; 96376; 97162; 97166; 97530; 97535; 99285-25; A9270; C1751; G0378; J0692; J0696; J0881; J1171; J2060; J2405; J7030; J7050; J7120; P9016; Q9967

== ENCOUNTER 2024-02-11 22:28 | Inpatient (IN) | payer MEDICARE, OTHER ==
[~2024-02-11] VITALS: Ht 182.9 cm; Wt 72.5 kg
[~2024-02-11 22:28] MED LIST changes: +ARANESP25 MCG/0.1 SC; +PROP10 PO
[2024-02-11 23:38] LABS: BASOPHILS ABSOLUTE AUTO 0.03 K/mm3 (0.00-0.23); BASOPHILS PERCENT AUTO 0 % (0-2); EOSINOPHILS ABSOLUTE AUTO 0.04 K/mm3 (0.00-0.68); EOSINOPHILS PERCENT AUTO 0 % (0-6); Hemoglobin 9.9 g/dL (13.5-17.5); IMMATURE GRAN ABSOLUTE AUTO 0.05 K/mm3 (0.00-0.10); IMMATURE GRAN PERCENT AUTO 1 % (0-1); LYMPHOCYTES ABSOLUTE AUTO 0.87 K/mm3 (0.84-5.20); LYMPHOCYTES PERCENT AUTO 9 % (21-46); MONOCYTES ABSOLUTE AUTO 0.54 K/mm3 (0.16-1.47); MONOCYTES PERCENT AUTO 6 % (4-13); Mean Corpuscular HGB 28.1 pg (26.0-34.0); Mean Corpuscular Volume 94 fL (80-100); Mean Platelet Volume 10.9 fL (9.1-12.4); NEUTROPHILS ABSOLUTE AUTO 8.25 K/mm3 (1.96-9.15); NEUTROPHILS PERCENT AUTO 84 % (41-73); Platelet Count 165 K/mm3 (150-400); RDW Coefficient Variation 16.7 % (11.7-14.2); RDW Standard Deviation 56.5 fL (35.1-46.3); Red Blood Cell Count 3.52 M/mm3 (4.30-5.90); White Blood Cell Count 9.78 K/mm3 (4.00-11.30)
[2024-02-12] VITALS (42 sets, daily range): BP systolic 89–210; BP diastolic 33–163
[2024-02-12] LABS: Albumin, Blood 2.6 g/dL (3.4-5.0); Albumin/Globulin Ratio 0.5 (0.8-1.8); Bilirubin, Total 0.9 mg/dL (0.1-1.0); Bun/Creatinine Ratio 7.7 (12.0-20.0); Calcium, Blood 10.6 mg/dL (8.5-10.1); Creatinine, Blood 7.91 mg/dL (0.60-1.20); Globulin, Blood 4.8 g/dL (2.2-4.0); Potassium, Blood 7.1 mmol/L (3.5-5.5); Total Protein, Blood 7.4 g/dL (6.4-8.2)
[2024-02-12] MEDS ORDERED: Insulin Regular 100 Unit/ML 1ML Dose IV ONE (00:25)
[2024-02-12] MEDS ORDERED: Calcium Gluconate 10% 1,000 MG in NS 50 ML IV ONE (00:25)
[2024-02-12] MEDS ORDERED: Dextrose 50% 50 ML Syringe IV ONE (00:25)
[2024-02-12] MEDS ORDERED: Dextrose 50% 50 ML Vial IV ONE (00:35)
[2024-02-12] MEDS ORDERED: FLU VACC TS2024-25(6MOS UP)/PF 45 MCG/0.5 ML SYRINGE IM ONE (00:50)
[2024-02-12] MEDS ORDERED: Diazepam 10 MG Tab PO PRN (00:50)
[2024-02-12] MEDS ORDERED: Acetaminophen 325 MG TABLET PO PRN (00:50)
[2024-02-12] MEDS ORDERED: Midodrine 5 MG Tab PO PRN (00:55)
[2024-02-12] MEDS ORDERED: METO25ER PO (02:30)
--- NOTE | 2024-02-12 04:26 | NUR ---
DR SAUNDERS NOTIFIED OF PT FEVER
[2024-02-12] MEDS ORDERED: CefTRIAXone Sodium 2,000 MG in NS 100 ML IV SCH (04:37)
--- NOTE | 2024-02-12 06:32 | NUR ---
SHIFT SUMMERY PT IS ALERT AND ORIENTED X4, ADMITTED FROM ER AT APPX 0130 THIS AM FOR EMERGENT DIALYSIS. DIALYSIS WAS DONE, 2.5L REMOVED PER CHARGER OPERATOR. PT WAS ALSO TAKEN FOR CT PER MD ORDER. PT IS FEBRILE, MD WAS NOTIFED. BLOOD CULTURES WERE DRAWN AND ANTIBIOTICS STARTED. HE IS TO HAVE DIALYSIS AGAIN THIS MORNING. HE IS ON 2L NC, OXYGEN SAT 98%. ABDOMEN IS FIRM AND DISTENDED, NOT NEW FOR THIS PATIENT. PT IS SR ON THE BLOW UP OPERATOR. BP HAS BEEN WNL.
[2024-02-12 07:10] LABS: BASOPHILS ABSOLUTE AUTO 0.03 K/mm3 (0.00-0.23); BASOPHILS PERCENT AUTO 0 % (0-2); EOSINOPHILS ABSOLUTE AUTO 0.02 K/mm3 (0.00-0.68); EOSINOPHILS PERCENT AUTO 0 % (0-6); Hemoglobin 7.2 g/dL (13.5-17.5); IMMATURE GRAN ABSOLUTE AUTO 0.06 K/mm3 (0.00-0.10); IMMATURE GRAN PERCENT AUTO 1 % (0-1); LYMPHOCYTES ABSOLUTE AUTO 0.65 K/mm3 (0.84-5.20); LYMPHOCYTES PERCENT AUTO 6 % (21-46); MONOCYTES ABSOLUTE AUTO 1.07 K/mm3 (0.16-1.47); MONOCYTES PERCENT AUTO 10 % (4-13); Mean Corpuscular HGB 27.7 pg (26.0-34.0); Mean Corpuscular Volume 92 fL (80-100); Mean Platelet Volume 9.5 fL (9.1-12.4); NEUTROPHILS ABSOLUTE AUTO 8.61 K/mm3 (1.96-9.15); NEUTROPHILS PERCENT AUTO 83 % (41-73); Platelet Count 100 K/mm3 (150-400); RDW Coefficient Variation 16.7 % (11.7-14.2); White Blood Cell Count 10.44 K/mm3 (4.00-11.30)
[2024-02-12 07:12] LABS: Albumin/Globulin Ratio 0.6 (0.8-1.8); Bilirubin, Total 0.8 mg/dL (0.1-1.0); Bun/Creatinine Ratio 6.7 (12.0-20.0); Calcium, Blood 9.3 mg/dL (8.5-10.1); Creatinine, Blood 6.13 mg/dL (0.60-1.20); Globulin, Blood 3.5 g/dL (2.2-4.0); Magnesium, Blood 2.4 mg/dL (1.6-2.4); Phosphorus, Blood 2.4 mg/dL (2.5-4.9); Potassium, Blood 5.3 mmol/L (3.5-5.5); Total Protein, Blood 5.5 g/dL (6.4-8.2)
[2024-02-12] MEDS ORDERED: Sevelamer Carbonate 800 MG Tab PO SCH (08:30)
[2024-02-12] MEDS ORDERED: Sodium Zirconium Cyclosilicate 10 GM Packet PO SCH ×2 (09:00)
[2024-02-12] MEDS ORDERED: Vitamin B Cmplx/Vit C/Folic Ac 1 Tab PO SCH (09:00)
[2024-02-12 10:48] LABS: Automated BF WBC Count 0.219 K/mm3 (0-999)
[2024-02-12 10:50] LABS: Body Fluid WBC Count 219 /mm3 (0-999)
[2024-02-12 11:05] LABS: Albumin, Body Fluid 1.1 g/dL
[2024-02-12 11:17] LABS: Protein, Body Fluid 2.5 g/dL
[2024-02-12 13:05] LABS: Appearance, Body Fluid Clear (Clear); Color, Body Fluid L Yellow (None-Yellow); Total Cell Count, Body Fluid 100
[2024-02-12 13:20] LABS: RBC Count, Body Fluid 59 /mm3 (0-0)
--- NOTE | 2024-02-12 18:19 | NUR ---
DAY SHIFT SUMMARY PT BEGAN THE SHIFT VERY DROWSY BUT HIS MENTATION IMPROVED T/O THE SHIFT BECOMING VERY ALERT THIS AFTERNOON. PT HAD PARACENTESIS W REPORTED 1.7L REMOVED THIS AM, DRESSING ON THAT SITE ON HIS LLQ IS C/D/I. PT HAD SECOND HD TREATMENT THIS SHIFT W REPORTED 2.5L REMOVED. PT'S MONITOR SHOWING SR 80'S-90'S THIS SHIFT. BP WNL AND STABLE. PT AFEBRILE THIS SHIFT. PT ABLE TO AMBULATE TO THE TOILET USING THE FWW AND GAIT BELT. PT ATE PART OF HIS BREAKFAST BUT DID NOT WANT TO EAT HIS LUNCH OR DINNER INSTEAD HE DRANK A NEPHRO SHAKE FOR THOSE MISSED MEALS. PT'S SPOUSE UPDATED ON EVENTS OF THE DAY. PT TO BE TRANSFERED TO PCU. WILL REPORT TO ONCOMING RN.
[2024-02-12] MEDS ORDERED: Ondansetron 4 MG SoluTab MM PRN (20:10)
[2024-02-12] MEDS ORDERED: Ondansetron HCl 2 MG / ML 2ML Vial IV PRN (20:35)
[2024-02-12] MEDS ORDERED: HYDROmorphone HCl 2 MG Tab PO PRN (20:40)
--- NOTE | 2024-02-12 20:59 | NUR ---
ASSUMED CARE PT IS A&O X4; SPO2 >92% ON 2LNC; MAP >65; RATE 90-100'S. DENIES CP AND NAUSEA; COMPLAINS OF NAUSEA AND TREATED PER EMAR. PT ALSO COMPLAINS OF PAIN IN LEFT ARM FISTULA (NORMAL PER PT AND PT'S ); RESIDENT MADE AWARE AND ORDER PUT IN FOR DILAUDID PO (PT TAKES DILAUDID PO PER PT/PT AT CUSTODIAL FOR PAIN). PT COMPLAINS OF GENERAL MALAISE/FEVERISH, BUT OTHERWISE IS RESTING QUIETLY W/ AT BEDSIDE.
[2024-02-13] VITALS (17 sets, daily range): BP systolic 93–141; BP diastolic 56–104
--- NOTE | 2024-02-13 03:30 | NUR ---
UPDATE DR IBRAHIM NOTIFIED OF ENLARGED AREAS IN PT'S FISTULA. HAS REMAINED UNCHANGED T/O SHIFT. NOTED PER PREVIOUS INDUSTRIAL SEWER THAT THIS OCCURED DURING PREVIOUS DIALYSIS, UNKNOWN IF RN NOTIFIED PROVIDER.
[2024-02-13] MEDS ORDERED: Metoclopramide HCl 5MG / ML 2ML Vial IV PRN (04:25)
[2024-02-13 04:56] LABS: BASOPHILS ABSOLUTE AUTO 0.02 K/mm3 (0.00-0.23); BASOPHILS PERCENT AUTO 0 % (0-2); EOSINOPHILS ABSOLUTE AUTO 0.04 K/mm3 (0.00-0.68); EOSINOPHILS PERCENT AUTO 1 % (0-6); Hematocrit 24.8 % (37.0-53.0); Hemoglobin 7.4 g/dL (13.5-17.5); IMMATURE GRAN ABSOLUTE AUTO 0.02 K/mm3 (0.00-0.10); IMMATURE GRAN PERCENT AUTO 0 % (0-1); LYMPHOCYTES ABSOLUTE AUTO 0.82 K/mm3 (0.84-5.20); LYMPHOCYTES PERCENT AUTO 12 % (21-46); MONOCYTES ABSOLUTE AUTO 0.77 K/mm3 (0.16-1.47); MONOCYTES PERCENT AUTO 11 % (4-13); Mean Corpuscular HGB Conc 29.8 g/dL (31.5-36.5); Mean Corpuscular Volume 94 fL (80-100); Mean Platelet Volume 9.7 fL (9.1-12.4); NEUTROPHILS ABSOLUTE AUTO 5.38 K/mm3 (1.96-9.15); NEUTROPHILS PERCENT AUTO 76 % (41-73); Platelet Count 95 K/mm3 (150-400); RDW Coefficient Variation 16.7 % (11.7-14.2); RDW Standard Deviation 58.2 fL (35.1-46.3); Red Blood Cell Count 2.64 M/mm3 (4.30-5.90); White Blood Cell Count 7.05 K/mm3 (4.00-11.30)
--- NOTE | 2024-02-13 05:25 | NUR ---
SHIFT SUMMARY PT REMAINS A&O; VSS AT THIS TIME, HR 100'S. PT DENIES CP; CONTINUES TO C/O GENERAL MALAISE. PAIN MANAGED WELL PER EMAR. NAUSEA INTERMITTENTLY T/O NIGHT, TREATED PER EMAR. NO ACUTE EVENTS OVERNIGHT.
[2024-02-13 05:53] LABS: Albumin, Blood 2.1 g/dL (3.4-5.0); Anion Gap 11 mmol/L (3-11); Blood Urea Nitrogen 37 mg/dL (8-24); Bun/Creatinine Ratio 7.1 (12.0-20.0); CO2, Blood 33 mmol/L (21-32); Calcium, Blood 9.6 mg/dL (8.5-10.1); Chloride, Blood 98 mmol/L (98-108); Creatinine, Blood 5.22 mg/dL (0.60-1.20); Glomerular Filtration Rate 12 (60-); Glucose, Blood 105 mg/dL (70-99); Phosphorus, Blood 3.5 mg/dL (2.5-4.9); Potassium, Blood 4.4 mmol/L (3.5-5.5); Sodium, Blood 138 mmol/L (136-145)
--- NOTE | 2024-02-13 09:53 | NUR ---
update Pt pharmacy, [facility] called and med list requested.
--- NOTE | 2024-02-13 13:12 | NUR ---
PATIENT COMPLAINING OF NAUSEA POST DIALYSIS AND REQUESTING ZOFRAN. CALL PLACED TO DR. SAVAGE TO UPDATE, DR. SAVAGE TO PLACE ZOFRAN ORDERS. NO NEW ORDERS FOR THIS RN TO PLACE.
[2024-02-13] MEDS ORDERED: Ondansetron HCl 2 MG / ML 2ML Vial IV PRN (13:15)
[2024-02-13] MEDS ORDERED: MIDO5 PO (15:40)
[2024-02-13] MEDS ORDERED: PROP10 PO (15:40)
[2024-02-13] MEDS ORDERED: Darbepoetin Alfa In Albumn Sol 40 MCG/0.4 ML SC SCH (16:00)
--- NOTE | 2024-02-13 17:25 | NUR ---
shift summary No acute changes this shift. Pt a&ox3, some intermediate confusion: example, pt states his temperature was 91.1. Pt c/o of fever. Temporal and Oral readings were afebrile this shift. sp02>90% on ra, 1l nc for comfort. Telemetry shows sinus tach, hr 100's. Pt to dialysis today. Per solvent recoverer, removed 2.5L. No bm this shift. Pt c/o of headache, medicated w/ tylenol w/ no success. Medicated w/ diuladid po. Pt c/o of nausea, refused reglan. Call placed to MD Palomino. MD Palomino w/ orders for zofran. Zofran given. Pt c/o again for nausea, not in time frame for zofran. in room, educated pt that he takes reglan at home. Pt ok w/ receiving Reglan this evening. Pt sitting on side of bed, eating dinner that brought in. Call light in reach.
[2024-02-13] MEDS ORDERED: GABA100 PO (19:40)
[2024-02-13] MEDS ORDERED: Gabapentin 100 MG Cap PO PRN (19:55)
[2024-02-13] MEDS ORDERED: Omeprazole 20 MG CapCR PO SCH (21:00)
[2024-02-13] MEDS ORDERED: Gabapentin 100 MG Cap PO SCH (21:00)
[2024-02-14 04:05] VITALS: BP 146/85
--- NOTE | 2024-02-14 04:22 | NUR ---
SHIFT SUMMARY. SHIFT HAS BEEN UNREMARKABLE. PT AOX4, COOPERATIVE WITH CARE, ABLE TO MAKE NEEDS KNOWN. HAS BEEN ABLE TO REST COMFORTABLY THROUGHOUT MOST OF SHIFT. PAIN AND NAUSEA MANAGED PER EMAR PRN. VITALS HAVE REMAINED STABLE. MAINTAINS ADEQUATE SATURATION ON 1 L O2 VIA NC WHICH PER REPORT IS IN PLACE FOR COMFORT. PT ABLE TO REPOSITION SELF INDEPENDENTLY. ANURIC THIS SHIFT THUS FAR, DIALYSIS PT WHO HAS RECEIVED DIALYSIS FOR LAST 3 DAYS PER REPORT. HAS RUN SINUS IN 90s-100s THROUGHOUT SHIFT. BED LOCKED IN LOWEST POSITION. CALL LIGHT LEFT WITHIN REACH. CONTINUING TO MONITOR.
[2024-02-14 04:42] LABS: Hematocrit 25.7 % (37.0-53.0); Hemoglobin 7.9 g/dL (13.5-17.5)
[2024-02-14 04:57] LABS: Albumin, Blood 2.1 g/dL (3.4-5.0); Anion Gap 12 mmol/L (3-11); Blood Urea Nitrogen 38 mg/dL (8-24); Bun/Creatinine Ratio 8.3 (12.0-20.0); CO2, Blood 35 mmol/L (21-32); Calcium, Blood 9.9 mg/dL (8.5-10.1); Chloride, Blood 95 mmol/L (98-108); Creatinine, Blood 4.58 mg/dL (0.60-1.20); Glomerular Filtration Rate 14 (60-); Glucose, Blood 129 mg/dL (70-99); Magnesium, Blood 2.7 mg/dL (1.6-2.4); Potassium, Blood 4.2 mmol/L (3.5-5.5); Sodium, Blood 138 mmol/L (136-145)
[2024-02-14 07:38] VITALS: BP 113/62
[2024-02-14] MEDS ORDERED: Lactobacil 2-S.Thermo-Bifido 1 1 Cap PO SCH (09:00)
[2024-02-14] MEDS ORDERED: Omeprazole 20 MG CapCR PO SCH (09:40)
--- NOTE | 2024-02-14 11:29 | NUR ---
PT ARRIVED TO ROOM AT 1100 AOX4. PT HAS BEEN SETTLED INTO ROOM AND IS DOING WELL. CALL LIGHT WITHIN REACH AND ABLE TO MAKE NEEDS KNOWN. WILL CONTINUE TO MONITOR.
[2024-02-14 16:16] VITALS: BP 121/76
--- NOTE | 2024-02-14 16:37 | NUR ---
TRANFER OF CARE NOTE @ 1055 A&OX4, OBEYS COMMANDS, ABLE TO MAKE NEEDS KNOWN, TRANFERS 1 PERSON WITH FWW. LUNGS SOUND CLEAR T/O, SPO2 GREATER THAN 95% ON 1 L O2 VIA NC/PT STATES THE NC IS FOR COMFORT AND HAS BEEN WEARING IT FOR 10 + YEARS. SINUS TACH, 100'S HR. DENIES CHEST P/P, BP STABLE WITH MAP GREATER THAN 65. PT TOLERATING DIET WELL, REPORTS SOME ABD DISCOMFORT IN ALL 4 QUADRANTS THAT IS TENDER TO TOUCH, DENIES NAUSEA OR FEELINGS OF CONSTIPATION. PT ANURIC. FISTULA THRILL AND BRUIT PRESNET. PT HAS THREE NODULE ON LEFT UPPER BICEP. REPORT GIVEN TO MEDICAL FLOOR NURSE, PT TRANSFERED VIA WHEELCHAIR
--- NOTE | 2024-02-14 18:03 | NUR ---
PT HAS HAD NO ACUTE CHANGES. AOX4 AND COOPERATIVE OF CARE. PT HAS BEEN RESTING COMFORTABLY IN ROOM NO DISTRESS NOTED.
[2024-02-14 19:17] VITALS: BP 126/75
[2024-02-14] MEDS ORDERED: rOPINIRole HCl 1 MG Tab PO PRN (23:20)
[2024-02-14] MEDS ORDERED: Levodopa/Carbidopa 100 / 25 MG Tab PO PRN (23:25)
[2024-02-15] VITALS (16 sets, daily range): BP systolic 106–143; BP diastolic 54–96
--- NOTE | 2024-02-15 05:32 | NUR ---
AAOx4 WITH SOME TROUBLE FINDING WORDS. IS THE PT'S HISTORIAN AND IS A GOOD RESOURCE FOR INFORMATION. SBA WITH AMBULATION, ABLE TO MOVE AROUND/SIT ON EOB INDEPENDENTLY. LONG HX OF DIALYSIS, NO KIDNEYS. PT HAD A HARD TIME SETTLING DOWN FOR SLEEP, RESTLESS LEGS. REC'D ORDER FOR REQUIP, HELPED LEGS RELAX AND SLEPT WELL THROUGHOUT THE NIGHT. PLAN IS FOR DIALYSIS TODAY
[2024-02-15 05:58] LABS: Hematocrit 24.7 % (37.0-53.0); Hemoglobin 7.7 g/dL (13.5-17.5); Mean Corpuscular HGB 28.3 pg (26.0-34.0); Mean Corpuscular HGB Conc 31.2 g/dL (31.5-36.5); Mean Corpuscular Volume 91 fL (80-100); Mean Platelet Volume 9.9 fL (9.1-12.4); Platelet Count 84 K/mm3 (150-400); RDW Coefficient Variation 15.9 % (11.7-14.2); RDW Standard Deviation 52.7 fL (35.1-46.3); Red Blood Cell Count 2.72 M/mm3 (4.30-5.90); White Blood Cell Count 4.91 K/mm3 (4.00-11.30)
[2024-02-15 06:48] LABS: Albumin, Blood 2.1 g/dL (3.4-5.0); Anion Gap 11 mmol/L (3-11); Blood Urea Nitrogen 52 mg/dL (8-24); CO2, Blood 34 mmol/L (21-32); Calcium, Blood 9.8 mg/dL (8.5-10.1); Chloride, Blood 93 mmol/L (98-108); Creatinine, Blood 6.49 mg/dL (0.60-1.20); Glomerular Filtration Rate 9 (60-); Glucose, Blood 89 mg/dL (70-99); Magnesium, Blood 2.9 mg/dL (1.6-2.4); Phosphorus, Blood 4.4 mg/dL (2.5-4.9); Potassium, Blood 4.2 mmol/L (3.5-5.5); Sodium, Blood 134 mmol/L (136-145)
[2024-02-15] MEDS ORDERED: Metoprolol Succinate 25 MG TABCR PO SCH (09:00)
[2024-02-15] MEDS ORDERED: Ciprofloxacin 500 MG Tab PO SCH (12:00)
--- NOTE | 2024-02-15 18:28 | NUR ---
SHIFT SUMMARY PATIENT A/OX4, FORGETFUL, BUT ABLE TO MAKE NEEDS KNOWN. COOPERATIVE WITH STAFF. PATIENT COMPLAINING OF GENERALIZED PAIN, MEDICATED PER MAR. PATIENT HAD DIALYSIS THIS AM, TOLERATED WELL BUT LETHARGIC AFTERWARDS. AT BEDSIDE CURRENTLY. NO OTHER CONCERNS AT THIS TIME.
[2024-02-16 03:08] VITALS: BP 113/58
--- NOTE | 2024-02-16 05:03 | NUR ---
AAOX4. PT SLEPT WELL THROUGHOUT THE NIGHT, NO ANXIETY. HE WAS WORE OUT FROM DYALISIS. PRN MEDICATION GIVEN FOR GENERALIZED PAIN. NO ACUTE EVENTS OVER NIGHT.
[2024-02-16 07:41] VITALS: BP 145/78
[2024-02-16 10:53] LABS: Hematocrit 23.6 % (37.0-53.0); Hemoglobin 7.4 g/dL (13.5-17.5)
[2024-02-16 11:00] LABS: Anion Gap 10 mmol/L (3-11); Blood Urea Nitrogen 47 mg/dL (8-24); Bun/Creatinine Ratio 8.9 (12.0-20.0); CO2, Blood 37 mmol/L (21-32); Calcium, Blood 9.7 mg/dL (8.5-10.1); Chloride, Blood 93 mmol/L (98-108); Glomerular Filtration Rate 12 (60-); Glucose, Blood 115 mg/dL (70-99); Magnesium, Blood 2.8 mg/dL (1.6-2.4); Phosphorus, Blood 3.7 mg/dL (2.5-4.9); Potassium, Blood 3.9 mmol/L (3.5-5.5); Sodium, Blood 136 mmol/L (136-145)
[2024-02-16 15:28] VITALS: BP 95/58
[2024-02-16 19:54] VITALS: BP 138/72
--- NOTE | 2024-02-16 19:58 | NUR ---
SHIFT SUMMARY- PT SPOUSE AGREES HE HAS HAD A "GOOD DAY" TODAY. HE IS ALERT, ORIENTED AND INDEPENDENT IN THE ROOM. PT HAD THE DAY OFF FROM DIALYSIS TODAY. PT IS IN BED, CALL LIGHT IN REACH AT THE TIME OF BEDSIDE REPORT. SPOKE ABOUT PAIN MANAGEMENT IN REPORT AND THE PT DENIED THE NEED FOR PAIN MEDS AT THIS TIME. SPOUSE AT THE BEDSIDE AND IS AWARE OF THE PLAN FOR A NEEDLE POKE BIOPSY OF THE PT LIVER, PLANNED FOR MONDAY. SPOKE TO DR RODGERS AND HE IS ORDERING THE [facility]AG LABS FOR Monday. PT WILL LIKELY HAVE DIALYSIS TOMORROW MORNING.
[2024-02-17] VITALS (15 sets, daily range): BP systolic 90–161; BP diastolic 40–91
[2024-02-17] MEDS ORDERED: Diazepam 5 MG Tab PO PRN (02:55)
[2024-02-17 06:06] LABS: Hematocrit 23.3 % (37.0-53.0); Hemoglobin 7.3 g/dL (13.5-17.5)
[2024-02-17 06:34] LABS: Albumin, Blood 1.9 g/dL (3.4-5.0); Anion Gap 10 mmol/L (3-11); Blood Urea Nitrogen 65 mg/dL (8-24); Bun/Creatinine Ratio 9.9 (12.0-20.0); CO2, Blood 35 mmol/L (21-32); Calcium, Blood 9.4 mg/dL (8.5-10.1); Chloride, Blood 93 mmol/L (98-108); Creatinine, Blood 6.55 mg/dL (0.60-1.20); Glomerular Filtration Rate 9 (60-); Glucose, Blood 107 mg/dL (70-99); Magnesium, Blood 3.1 mg/dL (1.6-2.4); Phosphorus, Blood 4.3 mg/dL (2.5-4.9); Potassium, Blood 4.4 mmol/L (3.5-5.5); Sodium, Blood 134 mmol/L (136-145)
--- NOTE | 2024-02-17 06:45 | NUR ---
SHIFT SUMMARY: Pt is admitted for hyperkalemia and is a DNR. is alert and able to make needs known. ADLs have been IND. Pain has been managed with PRN medication. Did state he had some nausea with no emesis.
--- NOTE | 2024-02-17 20:23 | NUR ---
SHIFT SUMMARY- PT IN BED CALL LIGHT IN REACH NO S&S OF DISTRESS NOTED. BEDSIDE REPORT COMPLETED WITH NIGHT RN, SPOUSE AT THE BEDSIDE AT THE TIME OF REPORT. NEEDLE POKE BIOPSY OF THE LIVER IS PLANNED FOR MONDAY. PT TO BE NPO MONDAY NIGHT AT MIDNIGHT. NIGHT RN AWARE. DIALYSIS COMPLETED TODAY.
[2024-02-18] VITALS (17 sets, daily range): BP systolic 101–151; BP diastolic 57–81
[2024-02-18 05:48] LABS: Hematocrit 22.1 % (37.0-53.0); Hemoglobin 6.8 g/dL (13.5-17.5)
[2024-02-18 06:34] LABS: Anion Gap 10 mmol/L (3-11); Blood Urea Nitrogen 53 mg/dL (8-24); Bun/Creatinine Ratio 9.5 (12.0-20.0); CO2, Blood 36 mmol/L (21-32); Calcium, Blood 9.9 mg/dL (8.5-10.1); Chloride, Blood 94 mmol/L (98-108); Creatinine, Blood 5.56 mg/dL (0.60-1.20); Glomerular Filtration Rate 11 (60-); Glucose, Blood 98 mg/dL (70-99); Magnesium, Blood 2.7 mg/dL (1.6-2.4); Phosphorus, Blood 4.4 mg/dL (2.5-4.9); Potassium, Blood 4.5 mmol/L (3.5-5.5); Sodium, Blood 135 mmol/L (136-145)
--- NOTE | 2024-02-18 19:43 | NUR ---
SHIFT SUMMARY- PT HAD 2 UNITS OF PRBC'S IN DIALYSIS TODAY. PLAN IS FOR THE PT TO HAVE A NEEDLE POKE BIOPSY OF THE LIVER IN THE MORNING. NPO AT MIDNIGHT FOR THIS PROCEDURE. PT IN BED, CALL LIGHT IN REACH NO S&S OF DISTRESS NOTED, MEDICATED FOR PAIN T/O THE DAY SEE EMAR FOR DETAILS.
[2024-02-19 01:43] VITALS: BP 115/63
[2024-02-19 05:59] LABS: Hematocrit 27.1 % (37.0-53.0); Hemoglobin 8.7 g/dL (13.5-17.5); Mean Corpuscular HGB 28.6 pg (26.0-34.0); Mean Corpuscular HGB Conc 32.1 g/dL (31.5-36.5); Mean Corpuscular Volume 89 fL (80-100); Mean Platelet Volume 9.8 fL (9.1-12.4); Platelet Count 119 K/mm3 (150-400); RDW Coefficient Variation 15.9 % (11.7-14.2); RDW Standard Deviation 52.3 fL (35.1-46.3); Red Blood Cell Count 3.04 M/mm3 (4.30-5.90); White Blood Cell Count 4.48 K/mm3 (4.00-11.30)
[2024-02-19 06:14] LABS: Anion Gap 9 mmol/L (3-11); Blood Urea Nitrogen 49 mg/dL (8-24); Bun/Creatinine Ratio 9.8 (12.0-20.0); CO2, Blood 37 mmol/L (21-32); Calcium, Blood 10.2 mg/dL (8.5-10.1); Chloride, Blood 94 mmol/L (98-108); Creatinine, Blood 5.01 mg/dL (0.60-1.20); Glomerular Filtration Rate 12 (60-); Glucose, Blood 97 mg/dL (70-99); Magnesium, Blood 2.7 mg/dL (1.6-2.4); Phosphorus, Blood 4.3 mg/dL (2.5-4.9); Potassium, Blood 4.4 mmol/L (3.5-5.5); Sodium, Blood 136 mmol/L (136-145)
[2024-02-19 06:33] LABS: International Normalized Ratio 1.09; Prothrombin Time Results 11.6 Sec (9.7-11.5)
[2024-02-19 08:34] VITALS: BP 129/68
[2024-02-19 15:24] VITALS: BP 148/90
[2024-02-19] MEDS ORDERED: Glucose Oral Gel 15 GM TUBE PO ONE (15:55)
--- NOTE | 2024-02-19 16:25 | NUR ---
NOTE: PT STARTED TO SHAKE AND C/O "FREEZING". WARM BLANKETS APPLIED, CBG OBTAINED AND IT READ 64. SNACKS PROVIDED. TEMPERATURE 98.[address] RODGERS NOTIFIED AND GLUCOSE GEL ORDER OBTAINED AND ADMINISTERED PER THE EMAR. PT LOOKS MUCH MORE COMFORTABLE NOW AND WILL RECHECK CBG IN 20 MINUTES.
[2024-02-19] MEDS ORDERED: Ondansetron 4 MG SoluTab MM PRN (17:30)
--- NOTE | 2024-02-19 18:03 | NUR ---
SHIFT SUMMARY PT AOX3, FORGETFUL AT TIMES. CALLS AND MAKES HIS NEEDS KNOWN. SEE OTHER NOTE ABOUT HYPOGLYCEMIC EVENT THIS AFTERNOON WHICH HAS SINCE RESOLVED. PT'S CBG IS NOW ABOVE 80. MEDICATED FOR PAIN AND NAUSEA PER THE EMAR, ALSO RLS. PT REPOSITIONS SELF IN BED, SBA TO THE BR. AT THE BS THIS EVENING. LIVER BIOPSY COMPLETED THIS AFTERNOON. POSSIBLE DC TOMORROW. NO DIALYSIS TODAY. CALL LIGHT WITHIN REACH, BED LOCKED AND IN THE LOWEST POSITION. WILL REPORT TO ONCOMING NURSE.
[2024-02-19 19:08] VITALS: BP 124/78
[2024-02-20] VITALS (17 sets, daily range): BP systolic 85–129; BP diastolic 55–73
--- NOTE | 2024-02-20 05:01 | NUR ---
SHIFT SUMMARY. PATIENT IS A&OX3, FORGETFUL AT TIMES. PATIENT CALLS AND MAKES HIS NEEDS KNOWN. PATIENT PROVIDED WITH SNACKS THIS SHIFT. PATIENT IS A SBA TO THE BATHROOM. PATIENT IS PLEASANT AND COOPERATIVE c CARE. PATIENT ASKED ABOUT DIALYSIS TODAY 02/20/24-WILL ASK SET MAKING MACHINE OPERATOR OF SEEN THIS MORNING. PATIENTS EXPRESSED CONCERN AT BEGINNING OF SHIFT FOR PATIENT TO BE DISCHARGED ON 02/20/24 PATIENT HAS HAD SEVERAL HOSPITALIZATIONS AND PER DOCTOR TOLD HER "WE WILL KEEP PATIENT HERE UNTIL WE KNOW WHAT IS CAUSING THE BLOOD INFECTION"-WILL REPORT TO DAYSHIFT WIFES CONCERNS. BED IS LOCKED IN THE LOWEST POSITION c CALL LIGHT IN REACH. CARE IS ONGOING.
[2024-02-20 05:57] LABS: Hematocrit 27.4 % (37.0-53.0); Hemoglobin 8.7 g/dL (13.5-17.5)
[2024-02-20 06:16] LABS: Anion Gap 13 mmol/L (3-11); Blood Urea Nitrogen 70 mg/dL (8-24); Bun/Creatinine Ratio 11.3 (12.0-20.0); CO2, Blood 34 mmol/L (21-32); Chloride, Blood 92 mmol/L (98-108); Creatinine, Blood 6.19 mg/dL (0.60-1.20); Glomerular Filtration Rate 10 (60-); Glucose, Blood 138 mg/dL (70-99); Magnesium, Blood 2.9 mg/dL (1.6-2.4); Phosphorus, Blood 4.6 mg/dL (2.5-4.9); Sodium, Blood 134 mmol/L (136-145)
--- NOTE | 2024-02-20 17:53 | NUR ---
SHIFT SUMMARY PT AOX4, INDEPENDENT WITH THE FWW IN THE ROOM. DIALYSIS COMPLETED TODAY, PT TOLERATED IT WELL. HE SLEPT MOST OF THE AFTERNOON. MEDICATED FOR PAIN AND NAUSEA PER THE EMAR. CALLS AND MAKES HIS NEEDS KNOWN. NO ACUTE EVENTS THIS SHIFT. AT THE BS THIS EVENING. PT REPOSITIONS SELF IN BED. CALL LIGHT WITHIN REACH, BED LOCKED AND IN THE LOWEST POSITION. WILL REPORT TO ONCOMING NURSE.
[2024-02-21 05:34] LABS: Hemoglobin 8.5 g/dL (13.5-17.5)
[2024-02-21 05:47] VITALS: BP 124/62
[2024-02-21 06:02] LABS: Albumin, Blood 2.1 g/dL (3.4-5.0); Anion Gap 11 mmol/L (3-11); Blood Urea Nitrogen 57 mg/dL (8-24); Bun/Creatinine Ratio 11.2 (12.0-20.0); CO2, Blood 37 mmol/L (21-32); Chloride, Blood 95 mmol/L (98-108); Creatinine, Blood 5.07 mg/dL (0.60-1.20); Glomerular Filtration Rate 12 (60-); Glucose, Blood 134 mg/dL (70-99); Magnesium, Blood 2.8 mg/dL (1.6-2.4); Phosphorus, Blood 4.1 mg/dL (2.5-4.9); Potassium, Blood 4.6 mmol/L (3.5-5.5); Sodium, Blood 138 mmol/L (136-145)
--- NOTE | 2024-02-21 06:05 | NUR ---
SHIFT SUMMARY. NO ACUTE CHANGES NOTED THIS SHIFT. PATIENT IS A&OX4. PATIENT IS UP INDEPENDENTLY TO THE BATHROOM WITH STEADY GAIT. PATIENT C/O PAIN AND NAUSEA THIS SHIFT-MEDICATED PER EMAR. PATIENT IS PLEASANT AND COOPERATIVE WITH CARE. PATIENT RESTED OFF AND ON T/O SHIFT WITH RESPIRATIONS EQUAL AND UNLABORED. PATIENT IS ON 3LPM VIA NASAL CANNULA SATTING >90%. BED IS LOCKED IN THE LOWEST POSITION WITH CALL LIGHT IN REACH. CARE IS ONGOING.
[2024-02-21 07:36] VITALS: BP 120/78
[2024-02-21 14:30] VITALS: BP 118/73
--- NOTE | 2024-02-21 15:47 | NUR ---
MEET AND GREET WITH PATIENT. HIS BIOPSY IS PENDING RESULTS. HE REPORTED THAT HE WAS FEELING WELL THIS SHIFT. DISCUSSED CASE WITH BEDSIDE RN WHO REPORTED THAT HE IS PLESANT AND COOPERATIVE. HIS MENTATION IS MORE CLEAR THAN IT HAD BEEN ON PREVIOUS ADMISSION.
--- NOTE | 2024-02-21 16:11 | NUR ---
NO ACUTE CHANGES, NO CHANGE IN ALERT AND ROEINTED X2-3 FORGETFUL AND CONFUSED AT TIMES, HELPFUL WITH CARE, WAITING FOR BIOPSY RESULTS, PLEASANT TO CARE, MAKES NEEDS KNOWN, DIM LUNGS SOUNDS, CALL LIGHT WITH IN REACH
[2024-02-21 19:48] VITALS: BP 136/81
[2024-02-22] VITALS (17 sets, daily range): BP systolic 103–143; BP diastolic 63–87
--- NOTE | 2024-02-22 05:47 | NUR ---
SHIFT SUMMARY. PATIENT IS A&OX3-4 AND INDEPENDENT TO THE BATHROOM. PATIENT REPORTED TO THIS RN THAT HE HAS HAD A BM THE LAST TWO MORNINGS 02/21/24 AND 02/20/24, PATIENT ALSO REPORTS THAT THEY WERE NORMAL FOR HIM. IN AT BEDSIDE X2 HOURS AT BEGINNING OF SHIFT. PATIENT C/O PAIN-MEDICATED PER EMAR. BED IS LOCKED IN THE LOWEST POSITION WITH CALL LIGHT IN REACH. CARE IS ONGOING.
[2024-02-22 06:39] LABS: Hematocrit 27.5 % (37.0-53.0); Hemoglobin 8.6 g/dL (13.5-17.5)
[2024-02-22 07:00] LABS: Anion Gap 12 mmol/L (3-11); Blood Urea Nitrogen 74 mg/dL (8-24); Bun/Creatinine Ratio 12.4 (12.0-20.0); CO2, Blood 36 mmol/L (21-32); Calcium, Blood 10.1 mg/dL (8.5-10.1); Chloride, Blood 93 mmol/L (98-108); Creatinine, Blood 5.98 mg/dL (0.60-1.20); Glomerular Filtration Rate 10 (60-); Glucose, Blood 108 mg/dL (70-99); Magnesium, Blood 3.2 mg/dL (1.6-2.4); Phosphorus, Blood 4.3 mg/dL (2.5-4.9); Potassium, Blood 4.9 mmol/L (3.5-5.5); Sodium, Blood 136 mmol/L (136-145)
--- NOTE | 2024-02-22 10:29 | NUR ---
PATIENT IN DIALYSIS THIS AM
--- NOTE | 2024-02-22 13:51 | NUR ---
PATIENT BACK FROM DIALYSIS EARLIER, 2000 ML REMOVED, SAT UP IN BED AFTER AND ATE LUNCH, RESTING IN BED NOW, MEDICATED FOR PAIN PER PATIENT REQUEST, CALL LIGHT WITH IN REACH
--- NOTE | 2024-02-22 18:41 | NUR ---
NO CHANGES, DIALYSIS TODAY 2000 ML REMVED, AT BEDSIDE, PATIENT ATE LUNCH BUT REFUSED BREAKFAST AND DINNER, MEDICATED FOR PAIN, WAITING FOR BIOPSY RESULTS, CALL LIGHT WITH IN REACH, WILL RELAY TO PM RN
[2024-02-23] VITALS (14 sets, daily range): BP systolic 102–135; BP diastolic 53–85
[2024-02-23 06:11] LABS: Hematocrit 26.9 % (37.0-53.0); Hemoglobin 8.4 g/dL (13.5-17.5)
--- NOTE | 2024-02-23 06:20 | NUR ---
SHIFT SUMMARY: Pt is admitted for hyperkalemia and is a DNR. is alert and able to make needs known. ADLs have been IND. pain has been managed with PRN pain medications. On 3lpm via nc to maintain spo2 greater than 90%.
[2024-02-23 06:41] LABS: Anion Gap 11 mmol/L (3-11); Blood Urea Nitrogen 61 mg/dL (8-24); Bun/Creatinine Ratio 11.2 (12.0-20.0); CO2, Blood 36 mmol/L (21-32); Chloride, Blood 94 mmol/L (98-108); Creatinine, Blood 5.43 mg/dL (0.60-1.20); Glomerular Filtration Rate 11 (60-); Glucose, Blood 113 mg/dL (70-99); Phosphorus, Blood 4.7 mg/dL (2.5-4.9); Potassium, Blood 4.2 mmol/L (3.5-5.5); Sodium, Blood 137 mmol/L (136-145)
[2024-02-23] MEDS ORDERED: SINEMET 25-1001 EAC1 PO (15:45)
[2024-02-23] MEDS ORDERED: ROPI1 PO (15:46)
[2024-02-23] MEDS ORDERED: CIPR250 PO (15:46)
[2024-02-23] MEDS ORDERED: PROBIOTIC1 EA14 PO (15:47)
--- NOTE | 2024-02-23 17:30 | NUR ---
DISCHARGE NOTE MR MANN WAS DISCHARGED HOME VIA WHEELCHAIR WITH HIS AT 1725HRS. PT AND HIS VERBALISED UNDERSTANDING OF WRITTEN AND VERBAL DISCHARGE INSTRUCTIONS. MR MANN RECIEVED DIALYSIS EARLIER TODAY. C/O CHRONIC VERTIGO. +NAUSEA, HELPED WITH MEDICATIONS AND PAIN CONTROLLED ON DILAUDID THAT LASTS FOR ABOUT 4-5 HOURS. NO NEW QUESTIONS OR CONCERNS AT TIME OF DISCHARGE.
== END 2024-02-23 17:28 | disposition home or self-care (01) | DRG 640 ==
LOC: ER 22:28 → MEDS 02-12 00:47 → ICUE 02-12 00:47 → PCU 02-12 18:24 → MEDS 02-14 10:55 → ENPENDDIS 02-23 11:02 → MEDS 02-23 17:28
PROVIDERS: Internal Medicine; Internal Medicine Nephrology; Student in an Organized Health Care Education/Training Program; ADMIT Student in an Organized Health Care Education/Training Program
PROC: 0F923ZX Drainage of Left Lobe Liver, Percutaneous Approach, Diagnostic (ICD-10-PCS; principal; 2024-02-12)
PROC: 0W9G3ZZ Drainage of Peritoneal Cavity, Percutaneous Approach (ICD-10-PCS; 2024-02-12)
PROC: 5A1D70Z Performance of Urinary Filtration, Intermittent, Less than 6 Hours Per Day (ICD-10-PCS; 2024-02-13)
PROC: 30233N1 Transfusion of Nonautologous Red Blood Cells into Peripheral Vein, Percutaneous Approach (ICD-10-PCS; 2024-02-13)
DX: E87.5 Hyperkalemia (principal); G93.41 Metabolic encephalopathy; N18.6 End stage renal disease; R18.8 Other ascites; I13.2 Hypertensive heart and chronic kidney disease with heart failure and with stage 5 chronic kidney disease, or end stage renal disease; I50.42 Chronic combined systolic (congestive) and diastolic (congestive) heart failure; Z66 Do not resuscitate; R78.81 Bacteremia; Z99.2 Dependence on renal dialysis; K76.89 Other specified diseases of liver; D63.1 Anemia in chronic kidney disease; M81.0 Age-related osteoporosis without current pathological fracture; I48.91 Unspecified atrial fibrillation; E87.1 Hypo-osmolality and hyponatremia; E86.9 Volume depletion, unspecified; M19.90 Unspecified osteoarthritis, unspecified site; E21.3 Hyperparathyroidism, unspecified; E83.41 Hypermagnesemia; R16.0 Hepatomegaly, not elsewhere classified; J44.9 Chronic obstructive pulmonary disease, unspecified; Z79.899 Other long term (current) drug therapy; Z88.0 Allergy status to penicillin; Z88.8 Allergy status to other drugs, medicaments and biological substances; Z90.5 Acquired absence of kidney; Z87.891 Personal history of nicotine dependence; B96.89 Other specified bacterial agents as the cause of diseases classified elsewhere
CPT/HCPCS: 36415; 36430; 47000; 49083; 74177; 77012; 80053; 80069; 82042; 82947; 83605; 83735; 84100; 84157; 85014; 85018; 85025; 85027; 85610; 85730; 86850; 86900; 86901; 86923; 87040; 87070; 87075; 87077; 87186; 87205; 89051; 93005; 93010; 93308; 93321; 94760; 94762; 96374-59; 97116; 97162; 97530; 99285-25; A9270; J0612; J0696; J0881; J1815; J2405; J2765; J7799; P9016; Q9967

== ENCOUNTER 2024-03-11 04:16 | Inpatient (IN) | payer MEDICARE, OTHER ==
[~2024-03-11] VITALS: Ht 185.4 cm; Wt 76.2 kg
[2024-03-11] VITALS (36 sets, daily range): BP systolic 114–167; BP diastolic 65–107
[~2024-03-11 04:16] MED LIST changes: +GABA100 PO; +METO25ER PO; +PROBIOTIC1 EA14 PO; +SINEMET 25-1001 EAC1 PO
[2024-03-11 05:01] LABS: BASOPHILS ABSOLUTE AUTO 0.02 K/mm3 (0.00-0.23); BASOPHILS PERCENT AUTO 0 % (0-2); EOSINOPHILS ABSOLUTE AUTO 0.06 K/mm3 (0.00-0.68); EOSINOPHILS PERCENT AUTO 1 % (0-6); Hemoglobin 8.2 g/dL (13.5-17.5); IMMATURE GRAN ABSOLUTE AUTO 0.02 K/mm3 (0.00-0.10); IMMATURE GRAN PERCENT AUTO 0 % (0-1); LYMPHOCYTES ABSOLUTE AUTO 1.06 K/mm3 (0.84-5.20); LYMPHOCYTES PERCENT AUTO 17 % (21-46); MONOCYTES ABSOLUTE AUTO 0.63 K/mm3 (0.16-1.47); MONOCYTES PERCENT AUTO 10 % (4-13); Mean Corpuscular HGB 28.1 pg (26.0-34.0); Mean Corpuscular HGB Conc 30.4 g/dL (31.5-36.5); Mean Corpuscular Volume 93 fL (80-100); Mean Platelet Volume 8.8 fL (9.1-12.4); NEUTROPHILS ABSOLUTE AUTO 4.62 K/mm3 (1.96-9.15); NEUTROPHILS PERCENT AUTO 72 % (41-73); Platelet Count 108 K/mm3 (150-400); Red Blood Cell Count 2.92 M/mm3 (4.30-5.90); White Blood Cell Count 6.41 K/mm3 (4.00-11.30)
[2024-03-11 05:40] LABS: Albumin, Blood 2.3 g/dL (3.4-5.0); Albumin/Globulin Ratio 0.5 (0.8-1.8); Bilirubin, Total 0.7 mg/dL (0.1-1.0); Bun/Creatinine Ratio 9.3 (12.0-20.0); Calcium, Blood 9.5 mg/dL (8.5-10.1); Creatinine, Blood 7.99 mg/dL (0.60-1.20); Globulin, Blood 4.4 g/dL (2.2-4.0); Potassium, Blood 6.6 mmol/L (3.5-5.5); Total Protein, Blood 6.7 g/dL (6.4-8.2)
[2024-03-11] MEDS ORDERED: LevoFLOXacin 750 MG/D5W 150ML 150 ML IV ONE ×2 (05:45→09:40)
[2024-03-11 06:13] LABS: Base Excess Venous 12.4 mmol/L; Bicarbonate Venous 34.9 mmol/L (24.0-30.0); PCO2 Venous 50.1 mmHg (38-42); pH Blood Venous 7.47 (7.34-7.37)
[2024-03-11] MEDS ORDERED: Dextrose 50% 50 ML Vial IV ONE (06:20)
[2024-03-11] MEDS ORDERED: Insulin Regular 100 Unit/ML 1ML Dose IV ONE (06:20)
[2024-03-11] MEDS ORDERED: FLU VACC TS2024-25(6MOS UP)/PF 45 MCG/0.5 ML SYRINGE IM ONE (06:25)
[2024-03-11] MEDS ORDERED: Acetaminophen 325 MG TABLET PO PRN (06:25)
[2024-03-11] MEDS ORDERED: Docusate Sodium 100 MG Cap PO PRN (06:40)
[2024-03-11] MEDS ORDERED: Polyethylene Glycol 3350 17 gm PO PRN (06:45)
[2024-03-11] MEDS ORDERED: rOPINIRole HCl 1 MG Tab PO PRN (06:45)
[2024-03-11 06:46] LABS: CORONAVIRUS COVID-19 AG Negative (NEGATIVE)
[2024-03-11] MEDS ORDERED: Magnesium Sulf 2 GM/Water 50ML 50 ML IV ONE (06:50)
[2024-03-11] MEDS ORDERED: CALCIUM GLUC IN NACL, ISO-OSM 100 ML IV ONE (06:50)
[2024-03-11] MEDS ORDERED: Sodium Zirconium Cyclosilicate 10 GM Packet PO SCH (07:00)
[2024-03-11] MEDS ORDERED: CefTRIAXone Sodium 1,000 MG in NS 100 ML IV SCH (07:06)
[2024-03-11] MEDS ORDERED: Propranolol HCL 20 MG TAB PO SCH (07:30)
[2024-03-11] MEDS ORDERED: CEFD300 PO (07:39)
[2024-03-11] MEDS ORDERED: CINA30 PO (07:41)
[2024-03-11] MEDS ORDERED: Dextrose 50% 50 ML Vial ONE (07:46)
[2024-03-11] MEDS ORDERED: Calcium Acetate 667 MG Gel Cap PO SCH (08:30)
[2024-03-11] MEDS ORDERED: Sevelamer Carbonate 800 MG Tab PO SCH (08:30)
[2024-03-11] MEDS ORDERED: Vitamin B Cmplx/Vit C/Folic Ac 1 Tab PO SCH (09:00)
[2024-03-11] MEDS ORDERED: Midodrine 5 MG Tab PO SCH (09:00)
[2024-03-11] MEDS ORDERED: Metoprolol Succinate 25 MG TABCR PO SCH (09:00)
[2024-03-11] MEDS ORDERED: Lactobacil 2-S.Thermo-Bifido 1 1 Cap PO SCH (09:00)
[2024-03-11 09:51] LABS: Base Excess Venous 11.1 mmol/L; Bicarbonate Venous 33.8 mmol/L (24.0-30.0); PCO2 Venous 53.9 mmHg (38-42); pH Blood Venous 7.43 (7.34-7.37)
[2024-03-11 09:53] LABS: International Normalized Ratio 1.08; Prothrombin Time Results 11.5 Sec (9.7-11.5)
[2024-03-11 10:07] LABS: Anion Gap 10 mmol/L (3-11); Blood Urea Nitrogen 77 mg/dL (8-24); Bun/Creatinine Ratio 9.3 (12.0-20.0); CO2, Blood 34 mmol/L (21-32); Calcium, Blood 9.3 mg/dL (8.5-10.1); Chloride, Blood 98 mmol/L (98-108); Glomerular Filtration Rate 7 (60-); Glucose, Blood 143 mg/dL (70-99); Phosphorus, Blood 3.6 mg/dL (2.5-4.9); Potassium, Blood 6.1 mmol/L (3.5-5.5); Sodium, Blood 136 mmol/L (136-145)
[2024-03-11 10:09] LABS: Creatinine, Blood 8.25 mg/dL (0.60-1.20)
[2024-03-11] MEDS ORDERED: Darbepoetin Alfa In Albumn Sol 40 MCG/0.4 ML SC SCH (16:00)
[2024-03-11] MEDS ORDERED: Omeprazole 20 MG CapCR PO SCH (16:30)
--- NOTE | 2024-03-11 18:10 | NUR ---
SHIFT SUMMARY Pt to floor from ED. Dialysis done at bedside. Paracentesis pushed to tomorrow in the AM d/t anticoagulation given. Providers aware. Per Dr. Caban, potential dialysis tomorrow depending on ammount of fluid drained and K level. Patient is more alert throughout shift, on home level of NC. is at bedside, updated on plan of care.
[2024-03-11] MEDS ORDERED: Ondansetron HCl 2 MG / ML 2ML Vial IV PRN (18:15)
[2024-03-11] MEDS ORDERED: HYDROmorphone HCl 2 MG Tab PO PRN (20:05)
[2024-03-12] VITALS (24 sets, daily range): BP systolic 111–157; BP diastolic 63–86
[2024-03-12 03:32] LABS: Hematocrit 25.1 % (37.0-53.0); Hemoglobin 7.5 g/dL (13.5-17.5)
[2024-03-12 03:59] LABS: Anion Gap 9 mmol/L (3-11); Blood Urea Nitrogen 55 mg/dL (8-24); Bun/Creatinine Ratio 8.4 (12.0-20.0); CO2, Blood 35 mmol/L (21-32); Calcium, Blood 9.7 mg/dL (8.5-10.1); Chloride, Blood 101 mmol/L (98-108); Creatinine, Blood 6.54 mg/dL (0.60-1.20); Glomerular Filtration Rate 9 (60-); Glucose, Blood 91 mg/dL (70-99); Phosphorus, Blood 3.4 mg/dL (2.5-4.9); Potassium, Blood 6.1 mmol/L (3.5-5.5); Sodium, Blood 139 mmol/L (136-145)
--- NOTE | 2024-03-12 06:30 | NUR ---
SHIFT SUMMARY PT ALERT AND ORIENTEDX4, VSS, AFEBRILE, O2 AT 4 LPM NC, NPO AT MIDNIGHT FOR PARACENTESIS SCHEDULED THIS AM, MEDICATED X2 WITH DILAUDID 2MG PO PRN FOR C/O BACK PAIN, EFFECTIVE, DIALYSIS SCHEDULED THIS AM ALSO, DR CARMONA AT BEDSIDE AT 0600, SIDE RAILS UP X2, CALL LIGHT IN REACH, ABLE TO MAKE NEEDS KNOWN, LEFT UPPER ARM AV FISTULA _BRUITT/THRILL, RIGHT AC PIV PATENT AND CLAMPED
[2024-03-12] MEDS ORDERED: Diazepam 10 MG Tab PO PRN (07:50)
[2024-03-12] MEDS ORDERED: NS 250 ML IV PRN (08:50)
--- NOTE | 2024-03-12 13:06 | NUR ---
Report called to medical. Patient transferred with all belongings. Plans for paracentesis around 1430. called and updated on patient's new location.
--- NOTE | 2024-03-12 13:45 | NUR ---
PT TRANSFERED TO RROM 341. REPORT FROM DOPE POURERWILL HOOPER. PT IS A.O X 4, SBA TO BED. PT ORIENTED TO ROOM, CALL LIGHT, FALL PRECAUTIONS. PT V/U. BED ALARM ON. PT DENIES NEEDS AT THIS TIME.
[2024-03-12 15:52] LABS: Albumin, Body Fluid 1.1 g/dL
[2024-03-12 16:01] LABS: Glucose, Body Fluid 80 mg/dL; Protein, Body Fluid 2.7 g/dL
[2024-03-12] MEDS ORDERED: Albumin (Human) 25gm/100ml 100 ML IV ONE (16:20)
[2024-03-12 16:28] LABS: Body Fluid WBC Count 240 /mm3 (0-999); RBC Count, Body Fluid 295 /mm3 (0-0)
--- NOTE | 2024-03-12 16:30 | NUR ---
SHIFT SUMMARY: PT IS A/O X4, SBA. PT TRANSFERRED FROM ICU TODAY. PT THEN WENT TO PARACENTESIS AT 1430. PT ARRIVED BACK FROM PROCEDURE. ABLE TO TRANSFER BACK TO BED SBA. PT REPORTED PAIN TO INSERTION SITE AT RLQ. SITE IS CDI WITHOUT SIGNS OF SWELLING OR REDNESS OR BLEEDING. PT GIVEN DILAUDID FOR HIS PAIN PER MAR. PT HAD NO FURTHER COMPLAINTS. GAVE ICE WATER AND PAIN MEDICATION. PT RESTING IN BED AT THIS TIME. DENIES NEEDS, AWAITING DINNER.
[2024-03-12 17:03] LABS: Total Cell Count, Body Fluid 100
[2024-03-12 17:15] LABS: Appearance, Body Fluid Clear (Clear); Color, Body Fluid Yellow (None-Yellow)
[2024-03-12 23:05] LABS: Lactate Dehydrogenase, Body Fl 61 U/L
[2024-03-13] VITALS (9 sets, daily range): BP systolic 142–158; BP diastolic 67–83
[2024-03-13] MEDS ORDERED: OxyCODONE HCL 5 MG TAB PO PRN (03:55)
--- NOTE | 2024-03-13 06:51 | NUR ---
SHIFT SUMMARY PT COMPLAINED OF PAIN MOST OF SHIFT. TEMP BEGAN CLIMBING TO 100.3. MEDICATED WITH TYLENOL. FOR TEMP AND PAIN. PT MEDICATED THROUGHOUT SHIFT FOR PAIN. CALL LIGHT WITHIN REACH. WILL RELAY TO DAY SHIFT. [facility] BATH PROVIDED.
[2024-03-13 07:53] LABS: BASOPHILS ABSOLUTE AUTO 0.01 K/mm3 (0.00-0.23); BASOPHILS PERCENT AUTO 0 % (0-2); EOSINOPHILS ABSOLUTE AUTO 0.06 K/mm3 (0.00-0.68); EOSINOPHILS PERCENT AUTO 1 % (0-6); Hematocrit 22.4 % (37.0-53.0); Hemoglobin 6.8 g/dL (13.5-17.5); IMMATURE GRAN ABSOLUTE AUTO 0.03 K/mm3 (0.00-0.10); IMMATURE GRAN PERCENT AUTO 1 % (0-1); LYMPHOCYTES ABSOLUTE AUTO 0.87 K/mm3 (0.84-5.20); LYMPHOCYTES PERCENT AUTO 16 % (21-46); MONOCYTES ABSOLUTE AUTO 0.63 K/mm3 (0.16-1.47); MONOCYTES PERCENT AUTO 12 % (4-13); Mean Corpuscular HGB 28.1 pg (26.0-34.0); Mean Corpuscular HGB Conc 30.4 g/dL (31.5-36.5); Mean Corpuscular Volume 93 fL (80-100); Mean Platelet Volume 9.4 fL (9.1-12.4); NEUTROPHILS ABSOLUTE AUTO 3.77 K/mm3 (1.96-9.15); NEUTROPHILS PERCENT AUTO 70 % (41-73); Platelet Count 112 K/mm3 (150-400); RDW Coefficient Variation 15.7 % (11.7-14.2); RDW Standard Deviation 53.1 fL (35.1-46.3); Red Blood Cell Count 2.42 M/mm3 (4.30-5.90); White Blood Cell Count 5.37 K/mm3 (4.00-11.30)
[2024-03-13 08:15] LABS: Albumin, Blood 2.2 g/dL (3.4-5.0); Albumin/Globulin Ratio 0.6 (0.8-1.8); Bilirubin, Total 0.7 mg/dL (0.1-1.0); Bun/Creatinine Ratio 8.2 (12.0-20.0); Calcium, Blood 9.4 mg/dL (8.5-10.1); Creatinine, Blood 5.27 mg/dL (0.60-1.20); Globulin, Blood 3.9 g/dL (2.2-4.0); Magnesium, Blood 2.7 mg/dL (1.6-2.4); Phosphorus, Blood 3.5 mg/dL (2.5-4.9); Potassium, Blood 4.5 mmol/L (3.5-5.5); Total Protein, Blood 6.1 g/dL (6.4-8.2)
--- NOTE | 2024-03-13 08:46 | NUR ---
voicemail left on dr. ann's cellphone regarding patient's hgb of 6.8L this morning. will call back if no response from the doctor soon.
[2024-03-13] MEDS ORDERED: HYDMOR2 PO (13:49)
--- NOTE | 2024-03-13 17:08 | NUR ---
PATIENT IS ALERT AND ORIENTED AND COOPERATIVE WITH CARE. ON 3L O2 VIA NC. C/O ABD PAIN D/T PARACENTESIS YESTERDAY. MEDICATED PER EMAR. RECEIVED 1 UNIT PRBC THIS SHIFT. IS AT THE BEDSIDE. ALLERGIES AND HOME MEDICATIONS REVIEWED WITH THE PATIENT'S THIS AFTERNOON. WILL CONTINUE TO MONITOR
[2024-03-14] VITALS (13 sets, daily range): BP systolic 128–155; BP diastolic 40–87
--- NOTE | 2024-03-14 06:57 | NUR ---
SHIFT SUMMARY AT START OF SHIFT, PT UP WALKING IN HALLS WITH . FWW ADJUSTED TO PT HEIGHT FOR BETTER MOBILITY AND BODY MECHANICS. 1956, PT MEDICATED WITH VALIUM 10MG FOR ANXIETY. PT HAD CHG BED BATH APPROX 2200. PT LYING IN BED SLEEPING SOUNDLY WITHOUT SIGNS OF DISTRESS. PT WOKE WITH COMPLAINTS OF PAIN. MEDICATED FOR PAIN APPROX 0140. PT LYING IN BED RESTING. DR CARMONA AT BEDSIDE APPROX 0600. STATED HEMODIALYSIS TO TAKE PLACE TODAY. PT SITTING UP ON SIDE OF BED. PT STATED HE TAKES GABAPENTIN AT HOME, ESPECIALLY BEFORE DIALYSIS. MED REC CHECKED, AND REVIEW NOTICE MADE TO PHARMACY TO UPDATE EMAR.
--- NOTE | 2024-03-14 09:00 | NUR ---
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
--- NOTE | 2024-03-14 17:07 | NUR ---
1655 PT DISCHARGED. TOOK IN HIS WHEELCHCAIR. AIDE PULLED IV.
== END 2024-03-14 17:00 | disposition home or self-care (01) | DRG 640 ==
LOC: ER 04:16 → ICUE 06:24 → ERHOLD 06:24 → EDBEDREQ 08:49 → ICUE 10:02 → MEDS 03-12 13:00
PROVIDERS: Emergency Medicine; Internal Medicine; Internal Medicine Nephrology; Student in an Organized Health Care Education/Training Program; ADMIT Student in an Organized Health Care Education/Training Program
PROC: 0W9G3ZX Drainage of Peritoneal Cavity, Percutaneous Approach, Diagnostic (ICD-10-PCS; principal; 2024-03-12)
PROC: 30233N1 Transfusion of Nonautologous Red Blood Cells into Peripheral Vein, Percutaneous Approach (ICD-10-PCS; 2024-03-12)
PROC: 5A1D70Z Performance of Urinary Filtration, Intermittent, Less than 6 Hours Per Day (ICD-10-PCS; 2024-03-12)
DX: E87.5 Hyperkalemia (principal); N18.6 End stage renal disease; I13.2 Hypertensive heart and chronic kidney disease with heart failure and with stage 5 chronic kidney disease, or end stage renal disease; R18.8 Other ascites; Q44.6 Cystic disease of liver; N25.81 Secondary hyperparathyroidism of renal origin; I50.22 Chronic systolic (congestive) heart failure; J44.9 Chronic obstructive pulmonary disease, unspecified; Z66 Do not resuscitate; D63.1 Anemia in chronic kidney disease; E78.1 Pure hyperglyceridemia; I48.0 Paroxysmal atrial fibrillation; K21.9 Gastro-esophageal reflux disease without esophagitis; B96.89 Other specified bacterial agents as the cause of diseases classified elsewhere; Z99.2 Dependence on renal dialysis; M19.90 Unspecified osteoarthritis, unspecified site; M81.0 Age-related osteoporosis without current pathological fracture; E21.3 Hyperparathyroidism, unspecified; Z87.19 Personal history of other diseases of the digestive system; Z90.5 Acquired absence of kidney; Z98.890 Other specified postprocedural states; Z79.899 Other long term (current) drug therapy; Z88.0 Allergy status to penicillin; Z88.5 Allergy status to narcotic agent; Z88.8 Allergy status to other drugs, medicaments and biological substances; Z91.041 Radiographic dye allergy status; Z86.19 Personal history of other infectious and parasitic diseases; Z87.891 Personal history of nicotine dependence
CPT/HCPCS: 36415; 36430; 49083; 71045; 80053; 80069; 82042; 82140; 82803; 82945; 82947; 83605; 83615; 83735; 84100; 84132; 84145; 84157; 85014; 85018; 85025; 85610; 86850; 86900; 86901; 86923; 87040; 87070; 87075; 87205; 87426-QW; 89051; 93005; 93010; 94762; 99285-25; A9270; J0612; J0696; J0881; J1815; J1956; J2405; J7050; J7799; P9016; P9047

== ENCOUNTER → 2024-04-04 | Day surgery (SDC) | payer MEDICARE, OTHER ==
[~2024-04-04] MED LIST changes: +CEFD300 PO
== END ==
LOC: US 09:26
DX: R18.8 Other ascites (principal)
CPT/HCPCS: 76705

== ENCOUNTER 2024-04-11 09:06 | Day surgery (SDC) | payer MEDICARE, OTHER | END 2024-04-11 23:00 | disposition home or self-care (01) | LOC: US 09:06 | DX: R18.8 Other ascites (principal) | CPT/HCPCS: 76705 ==

== ENCOUNTER → 2024-04-17 | Outpatient (CLI) | payer MEDICARE, OTHER ==
[2024-04-17 17:09] LABS: Hematocrit 26.9 % (37.0-53.0); Hemoglobin 8.3 g/dL (13.5-17.5); Mean Corpuscular HGB 28.9 pg (26.0-34.0); Mean Corpuscular HGB Conc 30.9 g/dL (31.5-36.5); Mean Corpuscular Volume 94 fL (80-100); Mean Platelet Volume 10.1 fL (9.1-12.4); Platelet Count 100 K/mm3 (150-400); RDW Coefficient Variation 15.7 % (11.7-14.2); RDW Standard Deviation 54.1 fL (35.1-46.3); Red Blood Cell Count 2.87 M/mm3 (4.30-5.90); White Blood Cell Count 5.58 K/mm3 (4.00-11.30)
[2024-04-17 17:24] LABS: International Normalized Ratio 1.05; Prothrombin Time Results 11.2 Sec (9.7-11.5)
== END ==
LOC: LAB SHORT 17:01 → LAB 17:01
PROVIDERS: Family Medicine
DX: N18.6 End stage renal disease (principal); R18.8 Other ascites
CPT/HCPCS: 85027; 85610; 85730

== ENCOUNTER 2024-04-18 09:13 | Day surgery (SDC) | payer MEDICARE, OTHER | END 2024-04-18 23:00 | disposition home or self-care (01) | LOC: US 09:13 | DX: R18.8 Other ascites (principal) | CPT/HCPCS: 76705 ==

== ENCOUNTER 2024-04-21 19:42 | Inpatient (IN) | payer MEDICARE ==
[~2024-04-21] VITALS: Ht 182.9 cm; Wt 77.1 kg
[2024-04-21 20:33] LABS: BASOPHILS ABSOLUTE AUTO 0.03 K/mm3 (0.00-0.23); BASOPHILS PERCENT AUTO 1 % (0-2); EOSINOPHILS ABSOLUTE AUTO 0.54 K/mm3 (0.00-0.68); EOSINOPHILS PERCENT AUTO 9 % (0-6); Hematocrit 28.3 % (37.0-53.0); Hemoglobin 8.8 g/dL (13.5-17.5); IMMATURE GRAN ABSOLUTE AUTO 0.02 K/mm3 (0.00-0.10); IMMATURE GRAN PERCENT AUTO 0 % (0-1); LYMPHOCYTES ABSOLUTE AUTO 0.95 K/mm3 (0.84-5.20); LYMPHOCYTES PERCENT AUTO 16 % (21-46); MONOCYTES ABSOLUTE AUTO 0.37 K/mm3 (0.16-1.47); MONOCYTES PERCENT AUTO 6 % (4-13); Mean Corpuscular HGB Conc 31.1 g/dL (31.5-36.5); Mean Corpuscular Volume 93 fL (80-100); Mean Platelet Volume 9.8 fL (9.1-12.4); NEUTROPHILS ABSOLUTE AUTO 3.98 K/mm3 (1.96-9.15); NEUTROPHILS PERCENT AUTO 68 % (41-73); Platelet Count 130 K/mm3 (150-400); RDW Coefficient Variation 15.9 % (11.7-14.2); RDW Standard Deviation 53.8 fL (35.1-46.3); Red Blood Cell Count 3.03 M/mm3 (4.30-5.90); White Blood Cell Count 5.89 K/mm3 (4.00-11.30)
[2024-04-21 20:44] LABS: Albumin, Blood 2.7 g/dL (3.4-5.0); Albumin/Globulin Ratio 0.6 (0.8-1.8); Bilirubin, Total 0.5 mg/dL (0.1-1.0); Bun/Creatinine Ratio 12.6 (12.0-20.0); Calcium, Blood 9.6 mg/dL (8.5-10.1); Creatinine, Blood 7.47 mg/dL (0.60-1.20); Globulin, Blood 4.2 g/dL (2.2-4.0); Potassium, Blood 4.9 mmol/L (3.5-5.5); Total Protein, Blood 6.9 g/dL (6.4-8.2)
[2024-04-21 23:15] LABS: Base Excess Venous 9.3 mmol/L; PCO2 Venous 52.8 mmHg (38-42); pH Blood Venous 7.42 (7.34-7.37)
[2024-04-21 23:50] LABS: Influenza A, PCR NEGATIVE (NEGATIVE); Influenza B, PCR NEGATIVE (NEGATIVE); Resp Syncytial Virus, PCR NEGATIVE (NEGATIVE); SARS-Cov-2 (COVID-19) PCR, MMC NEGATIVE (NEGATIVE)
[2024-04-21] MEDS ORDERED: HydrALAZINE HCl 20 MG / ML 1ML Vial IV PRN (23:50)
[2024-04-21] MEDS ORDERED: FLU VACC TS2024-25(6MOS UP)/PF 45 MCG/0.5 ML SYRINGE IM ONE (23:50)
[2024-04-21] MEDS ORDERED: Ondansetron HCl 2 MG / ML 2ML Vial IV PRN (23:50)
[2024-04-22] VITALS (16 sets, daily range): BP systolic 113–174; BP diastolic 64–100
[2024-04-22] MEDS ORDERED: Levodopa/Carbidopa 100 / 25 MG Tab PO SCH (02:50)
[2024-04-22] MEDS ORDERED: rOPINIRole HCl 1 MG Tab PO SCH (02:50)
[2024-04-22] MEDS ORDERED: HYDROmorphone HCl 2 MG Tab PO PRN (02:55)
[2024-04-22 05:01] LABS: BASOPHILS ABSOLUTE AUTO 0.02 K/mm3 (0.00-0.23); BASOPHILS PERCENT AUTO 0 % (0-2); EOSINOPHILS ABSOLUTE AUTO 0.53 K/mm3 (0.00-0.68); EOSINOPHILS PERCENT AUTO 9 % (0-6); Hematocrit 24.2 % (37.0-53.0); Hemoglobin 7.7 g/dL (13.5-17.5); IMMATURE GRAN ABSOLUTE AUTO 0.03 K/mm3 (0.00-0.10); IMMATURE GRAN PERCENT AUTO 1 % (0-1); LYMPHOCYTES ABSOLUTE AUTO 1.06 K/mm3 (0.84-5.20); LYMPHOCYTES PERCENT AUTO 18 % (21-46); MONOCYTES ABSOLUTE AUTO 0.46 K/mm3 (0.16-1.47); MONOCYTES PERCENT AUTO 8 % (4-13); Mean Corpuscular HGB 29.6 pg (26.0-34.0); Mean Corpuscular HGB Conc 31.8 g/dL (31.5-36.5); Mean Corpuscular Volume 93 fL (80-100); Mean Platelet Volume 9.7 fL (9.1-12.4); NEUTROPHILS ABSOLUTE AUTO 3.72 K/mm3 (1.96-9.15); NEUTROPHILS PERCENT AUTO 64 % (41-73); Platelet Count 107 K/mm3 (150-400); RDW Coefficient Variation 15.9 % (11.7-14.2); RDW Standard Deviation 53.1 fL (35.1-46.3); White Blood Cell Count 5.82 K/mm3 (4.00-11.30)
[2024-04-22 06:03] LABS: Albumin, Blood 2.5 g/dL (3.4-5.0); Albumin/Globulin Ratio 0.7 (0.8-1.8); Bilirubin, Total 0.6 mg/dL (0.1-1.0); Calcium, Blood 9.3 mg/dL (8.5-10.1); Creatinine, Blood 8.24 mg/dL (0.60-1.20); Globulin, Blood 3.7 g/dL (2.2-4.0); Potassium, Blood 5.4 mmol/L (3.5-5.5); Total Protein, Blood 6.2 g/dL (6.4-8.2)
[2024-04-22] MEDS ORDERED: Ipratropium/Albuterol SulF 2.5-0.5MG/3 ML Amp INH PRN (06:10)
[2024-04-22] MEDS ORDERED: Docusate Sodium 100 MG Cap PO PRN (06:10)
[2024-04-22] MEDS ORDERED: rOPINIRole HCl 1 MG Tab PO PRN (06:10)
[2024-04-22] MEDS ORDERED: Diazepam 10 MG Tab PO PRN (06:15)
[2024-04-22] MEDS ORDERED: Sevelamer Carbonate 800 MG Tab PO SCH (08:30)
[2024-04-22] MEDS ORDERED: Metoprolol Succinate 25 MG TABCR PO SCH (09:00)
[2024-04-22] MEDS ORDERED: Cinacalcet HCL 30 MG Tab PO SCH (09:00)
[2024-04-22] MEDS ORDERED: Sodium Zirconium Cyclosilicate 10 GM Packet PO SCH (09:00)
[2024-04-22] MEDS ORDERED: Gabapentin 100 MG Cap PO SCH (09:00)
[2024-04-22] MEDS ORDERED: Omeprazole 20 MG CapCR PO SCH (09:00)
[2024-04-22] MEDS ORDERED: Nitroglycerin 0.4 MG SUBL SL PRN (09:05)
[2024-04-22] MEDS ORDERED: Calcium Acetate 667 MG Gel Cap PO SCH (09:15)
--- NOTE | 2024-04-22 14:17 | NUR ---
RECEIVED REPORT FROM CHAR SOLIS OF ER.
[2024-04-22] MEDS ORDERED: Polyethylene Glycol 3350 17 gm PO SCH (17:30)
[2024-04-24] MEDS ORDERED: ENTRESTO 24 MG1 EAC3 PO (21:07)
[2024-04-24] MEDS ORDERED: GABA100 PO (21:08)
[2024-04-24] MEDS ORDERED: Cipro500 MG PO (21:09)
[2024-04-24] MEDS ORDERED: CEFD300 PO (21:10)
== END 2024-04-23 05:36 | disposition home health service (06) | DRG 640 ==
LOC: ER 19:42 → ERHOLD 19:43
PROVIDERS: Student in an Organized Health Care Education/Training Program; ADMIT Internal Medicine
DX: E87.70 Fluid overload, unspecified (principal); N18.6 End stage renal disease; I50.42 Chronic combined systolic (congestive) and diastolic (congestive) heart failure; I13.2 Hypertensive heart and chronic kidney disease with heart failure and with stage 5 chronic kidney disease, or end stage renal disease; R18.8 Other ascites; K21.9 Gastro-esophageal reflux disease without esophagitis; D63.1 Anemia in chronic kidney disease; J44.9 Chronic obstructive pulmonary disease, unspecified; M48.02 Spinal stenosis, cervical region; M48.05 Spinal stenosis, thoracolumbar region; M41.9 Scoliosis, unspecified; Z66 Do not resuscitate; Z99.2 Dependence on renal dialysis; Z87.19 Personal history of other diseases of the digestive system; M19.90 Unspecified osteoarthritis, unspecified site; M81.0 Age-related osteoporosis without current pathological fracture; Z88.0 Allergy status to penicillin; Z88.8 Allergy status to other drugs, medicaments and biological substances; Z88.5 Allergy status to narcotic agent; Z91.041 Radiographic dye allergy status; Z87.891 Personal history of nicotine dependence
CPT/HCPCS: 0241U; 71046; 76705; 80053; 82803; 83690; 84484; 85025; 93005; 93010; 94761; 99285-25; A9270; G0378

== ENCOUNTER → 2024-05-08 | Outpatient (CLI) | payer MEDICARE ==
[~2024-05-08] MED LIST changes: +ACET325 PO; +BENZ100A PO; +Calcium Carbon500 MG PO; +Cipro500 MG PO
== END ==
LOC: LAB SHORT 16:34 → LAB 16:34
DX: N18.6 End stage renal disease (principal); D64.9 Anemia, unspecified
CPT/HCPCS: 85018

== ENCOUNTER 2024-05-10 02:01 | Day surgery (SDC) | payer MEDICARE ==
[2024-05-10] MEDS ORDERED: NS 250 ML IV SCH (06:35)
[2024-05-10 07:50] VITALS: BP 147/81
[2024-05-10 08:14] VITALS: BP 146/79
[2024-05-10 09:16] VITALS: BP 148/85
[2024-05-10 09:36] VITALS: BP 159/85
== END 2024-05-10 09:40 | disposition home or self-care (01) ==
LOC: ATC 02:01
DX: D64.9 Anemia, unspecified (principal); N18.6 End stage renal disease; Z88.0 Allergy status to penicillin; Z88.8 Allergy status to other drugs, medicaments and biological substances; Z79.899 Other long term (current) drug therapy
CPT/HCPCS: 36430; 86850; 86900; 86901; 86923; J7050; P9016

== ENCOUNTER 2024-05-20 16:03 | Inpatient (IN) | payer MEDICARE ==
[~2024-05-20] VITALS: Ht 182.9 cm; Wt 77.1 kg
[2024-05-20] VITALS (9 sets, daily range): BP systolic 102–190; BP diastolic 68–116
[~2024-05-20 16:03] MED LIST changes: -ONDA4ODT PO
[2024-05-20 16:47] LABS: BASOPHILS ABSOLUTE AUTO 0.02 K/mm3 (0.00-0.23); BASOPHILS PERCENT AUTO 0 % (0-2); EOSINOPHILS ABSOLUTE AUTO 0.09 K/mm3 (0.00-0.68); EOSINOPHILS PERCENT AUTO 2 % (0-6); Hematocrit 25.2 % (37.0-53.0); IMMATURE GRAN ABSOLUTE AUTO 0.04 K/mm3 (0.00-0.10); IMMATURE GRAN PERCENT AUTO 1 % (0-1); LYMPHOCYTES ABSOLUTE AUTO 0.56 K/mm3 (0.84-5.20); LYMPHOCYTES PERCENT AUTO 10 % (21-46); MONOCYTES ABSOLUTE AUTO 0.56 K/mm3 (0.16-1.47); MONOCYTES PERCENT AUTO 10 % (4-13); Mean Corpuscular HGB 30.3 pg (26.0-34.0); Mean Corpuscular HGB Conc 31.7 g/dL (31.5-36.5); Mean Corpuscular Volume 96 fL (80-100); Mean Platelet Volume 10.6 fL (9.1-12.4); NEUTROPHILS ABSOLUTE AUTO 4.52 K/mm3 (1.96-9.15); NEUTROPHILS PERCENT AUTO 78 % (41-73); Platelet Count 101 K/mm3 (150-400); RDW Coefficient Variation 15.7 % (11.7-14.2); RDW Standard Deviation 54.4 fL (35.1-46.3); Red Blood Cell Count 2.64 M/mm3 (4.30-5.90); White Blood Cell Count 5.79 K/mm3 (4.00-11.30)
[2024-05-20] MEDS ORDERED: HYDROmorphone HCl/Pf 1MG SYR IV ONE (17:45)
[2024-05-20] MEDS ORDERED: Acetaminophen 325 MG TABLET PO ONE (17:45)
[2024-05-20 17:53] LABS: Automated BF WBC Count 0.145 K/mm3 (0-999)
[2024-05-20 18:05] LABS: Albumin, Blood 2.9 g/dL (3.4-5.0); Albumin/Globulin Ratio 0.7 (0.8-1.8); Bilirubin, Total 0.9 mg/dL (0.1-1.0); Bun/Creatinine Ratio 9.8 (12.0-20.0); Calcium, Blood 9.5 mg/dL (8.5-10.1); Creatinine, Blood 7.35 mg/dL (0.60-1.20); Globulin, Blood 3.9 g/dL (2.2-4.0); Potassium, Blood 4.9 mmol/L (3.5-5.5); Total Protein, Blood 6.8 g/dL (6.4-8.2)
[2024-05-20 18:17] LABS: Body Fluid WBC Count 145 /mm3 (0-999); RBC Count, Body Fluid 1122 /mm3 (0-0)
[2024-05-20 18:18] LABS: Appearance, Body Fluid Clear (Clear); Color, Body Fluid L Yellow (None-Yellow)
[2024-05-20 18:30] LABS: CORONAVIRUS COVID-19 AG Negative (NEGATIVE); INFLUENZA A AG Negative (NEGATIVE); INFLUENZA B AG Negative (NEGATIVE)
[2024-05-20 18:46] LABS: Total Cell Count, Body Fluid 100
[2024-05-20 19:00] LABS: Glucose, Body Fluid 106 mg/dL; Lactate Dehydrogenase, Body Fl 58 U/L; Protein, Body Fluid 2.8 g/dL
[2024-05-20] MEDS ORDERED: FLU VACC TS2024-25(6MOS UP)/PF 45 MCG/0.5 ML SYRINGE IM ONE (19:45)
[2024-05-20] MEDS ORDERED: CefTRIAXone Sodium 2,000 MG in NS 100 ML IV SCH (20:00)
[2024-05-20] MEDS ORDERED: Magnesium Hydroxide Conc 10 ML UDC PO PRN (20:05)
[2024-05-20] MEDS ORDERED: Sennosides 8.6 MG Tab PO SCH (21:00)
[2024-05-20] MEDS ORDERED: Docusate Sodium 100 MG Cap PO SCH ×2 (21:00)
[2024-05-20] MEDS ORDERED: Metoprolol Succinate 25 MG TABCR PO SCH (21:00)
[2024-05-20] MEDS ORDERED: HYDROmorphone HCl 2 MG Tab PO PRN (21:15)
[2024-05-20] MEDS ORDERED: Diazepam 5 MG Tab PO PRN (21:35)
[2024-05-20] MEDS ORDERED: rOPINIRole HCl 1 MG Tab PO PRN (21:35)
[2024-05-20] MEDS ORDERED: Benzonatate 100 MG Cap PO PRN (21:40)
[2024-05-20] MEDS ORDERED: Calcium Carbonate 500 MG Tab Chew PO PRN (21:40)
[2024-05-20] MEDS ORDERED: Acetaminophen 325 MG TABLET PO PRN (21:40)
[2024-05-20] MEDS ORDERED: HyDROXyzine HCl 25 MG Tab PO PRN (21:40)
[2024-05-20] MEDS ORDERED: Ipratropium/Albuterol SulF 2.5-0.5MG/3 ML Amp INH PRN (21:40)
[2024-05-20] MEDS ORDERED: Gabapentin 100 MG Cap PO SCH (22:00)
[2024-05-20] MEDS ORDERED: Sacubitril/Valsartan 24 MG-26 MG Tab PO SCH (22:00)
[2024-05-20] MEDS ORDERED: Darbepoetin Alfa In Albumn Sol 40 MCG/0.4 ML SC SCH (22:00)
[2024-05-20] MEDS ORDERED: Calcium Acetate 667 MG Gel Cap PO SCH (22:00)
[2024-05-20] MEDS ORDERED: Levodopa/Carbidopa 100 / 25 MG Tab PO PRN (22:05)
[2024-05-20] MEDS ORDERED: Nitroglycerin 0.4 MG SUBL SL PRN (22:10)
[2024-05-20] MEDS ORDERED: Ondansetron 4 MG SoluTab MM PRN (22:15)
[2024-05-21] VITALS (20 sets, daily range): BP systolic 110–180; BP diastolic 31–114
--- NOTE | 2024-05-21 05:18 | NUR ---
SHIFT SUMMARY PATIENT IS ALERT AND ORIENTED. PATIENT HAS HAD NO ACUTE EVENTS THIS SHIFT. VITAL SIGNS REVIEWED. PATIENT HAS HAD COMPLAINTS OF FEVER, AND PAIN, MEDICATED PER EMAR. PATIENT HAS BEEN SLEEPING SINCE ADMIT. PATIENT HAD DIALYSIS UPON ADMIT. PATIENT HAS HAD NO COMPLAINTS OF SOB, NAUSEA, OR VOMITTING THIS SHIFT. BED IN LOCKED AND LOWEST POSITION. CALL LIGHT IN PLACE.
[2024-05-21 05:56] LABS: Hemoglobin 7.1 g/dL (13.5-17.5)
[2024-05-21 06:24] LABS: Magnesium, Blood 2.7 mg/dL (1.6-2.4)
[2024-05-21 06:25] LABS: Albumin, Blood 2.5 g/dL (3.4-5.0); Anion Gap 9 mmol/L (3-11); Blood Urea Nitrogen 57 mg/dL (8-24); Bun/Creatinine Ratio 8.9 (12.0-20.0); CO2, Blood 37 mmol/L (21-32); Calcium, Blood 8.8 mg/dL (8.5-10.1); Chloride, Blood 96 mmol/L (98-108); Creatinine, Blood 6.41 mg/dL (0.60-1.20); Glomerular Filtration Rate 9 (60-); Glucose, Blood 147 mg/dL (70-99); Phosphorus, Blood 3.8 mg/dL (2.5-4.9); Potassium, Blood 4.5 mmol/L (3.5-5.5); Sodium, Blood 137 mmol/L (136-145)
[2024-05-21] MEDS ORDERED: Omeprazole 20 MG CapCR PO SCH (07:30)
[2024-05-21] MEDS ORDERED: Sevelamer Carbonate 800 MG Tab PO SCH (08:30)
[2024-05-21] MEDS ORDERED: Cinacalcet HCL 30 MG Tab PO SCH (09:00)
[2024-05-21] MEDS ORDERED: Vitamin B Cmplx/Vit C/Folic Ac 1 Tab PO SCH (09:00)
[2024-05-21] MEDS ORDERED: Sodium Zirconium Cyclosilicate 10 GM Packet PO SCH (09:00)
--- NOTE | 2024-05-21 13:23 | NUR ---
LAB CALLED 1230, REPORTED POSITIVE BLOOD CX FROM 05/20 1628- CALLED DR LIU TO NOTIFY. NO NEW ORDERS. PT IS FEELING VERY UNDER THE WEATHER AFTER DIALYSIS. NAUSEATED AND MOANING/ WANTS TO SLEEP. DECLINES LUNCH. MEDICATED WITH ZOFRAN ODT/ HELPFUL.
[2024-05-21] MEDS ORDERED: Vancomycin HCL 1,250 MG in NS 250 ML IV ONE (14:45)
--- NOTE | 2024-05-21 17:50 | NUR ---
SUMMARY- PT VERY SLEEPY THIS AM, BUT AWAKENS TO VERBAL AND ABLE TO ANSWER QUESTIONS. PT IS WITHDRAWN AND STATES HE FEELS VERY UNWELL. C/O WEAKNESS, HEACHE AND GEN BODY ACHE. MEDICATED WITH VALIUM 10MG AND DILAUDID 2 BEFORE DIALYSIS WITH GOOD EFFECT. PT HAS NO APPETITE, REFUSED BREAKFAST AND LUNCH. HAD TEMP 103 AT 1400- TYLENOL ADMIN, TEMP DOWN TO [address] FAUSTIN, OBTAINED ORDERS FOR SEPSIS PROTOCAL. AFTER FEVER BROKE, PT AWOKE ALERT AND PERKY, VERBAL AND INTERACTIVE. PT WOKE UP AND ATE [employer] FOR DINNER. WILL REPORT TO NOC RN
--- NOTE | 2024-05-21 22:47 | NUR ---
NOTE: PATIENT REPORTS PAIN TO L SIDE CAGE AND R SIDE RIB CAGE. PER PATIENT "I HAD A FALL BACK IN DECEMBER LAST YEAR AND HAD BROKEN RIBS TO MY L SIDE RIB CAGE, BUT I DON'T KNOW IF THE PAIN IS RELATED THAT EPISODE AND I HAVE THIS COUGH ALSO. SO, TODAY IS THE FIRST TIME THAT I HAVE THIS PAIN." PATIENT ALSO REPORTS HE HAS NOT HAD BM FOR 4 DAYS. PATIENT HAS HYPERACTIVE BT AND REPORTS PASSING GAS. PATIENT MEDICATED FOR PAIN AND BOWEL CARE PER EMAR. NOTIFIED DR. RIVERA REGARDING THIS CONCERNED. DR. RIVERA ROUND ON PATIENT, RECEIVED VO TO GIVE 2 PACKET 17 GM MIRALX NOW AND BROWN COW.
[2024-05-21] MEDS ORDERED: Polyethylene Glycol 3350 17 gm PO ONE (22:50)
[2024-05-21] MEDS ORDERED: NS 250 ML IV PRN (23:35)
[2024-05-22 00:16] VITALS: BP 130/75
[2024-05-22 03:57] VITALS: BP 138/66
--- NOTE | 2024-05-22 04:41 | NUR ---
SHIFT SUMMARY: PATIENT A/OX4, PLEASANT AND COOPERATIVE c CARE. PATIENT HAD A MAX TEMP 101.1 TAKEN ORALLY. PATIENT MEDICATED c TYLENOL FOR FEVER. PATIENT DENIES CP/PRESSURE, SOB, N/V AND DIZZINESS. PATIENT ON TELE, SR HR IN THE 80'S BPM. PATIENT O2 AT BASELINE 3L NC, SATTING 93-100%. PATIENT REPORTS PAIN TO L/R SIDE RIB CAGE, MEDICATED PER EMAR c GOOD EFFECT. PATIENT REPORTS NO BM FOR 4 DAYS, RECEIVED SCHEDULED BOWEL CARE, OT DOSE MIRALX AND BROWN COW PER ORDER c NO RESULT THIS SHIFT. PATIENT RECEIVED IV ABX/SCHEDULED MEDS PER EMAR. VITAL SIGNS REVIEWED. CALL LIGHT IN REACH.
[2024-05-22 06:05] LABS: BASOPHILS ABSOLUTE AUTO 0.01 K/mm3 (0.00-0.23); BASOPHILS PERCENT AUTO 0 % (0-2); EOSINOPHILS ABSOLUTE AUTO 0.06 K/mm3 (0.00-0.68); EOSINOPHILS PERCENT AUTO 1 % (0-6); Hematocrit 22.3 % (37.0-53.0); IMMATURE GRAN ABSOLUTE AUTO 0.01 K/mm3 (0.00-0.10); IMMATURE GRAN PERCENT AUTO 0 % (0-1); LYMPHOCYTES ABSOLUTE AUTO 0.52 K/mm3 (0.84-5.20); LYMPHOCYTES PERCENT AUTO 12 % (21-46); MONOCYTES PERCENT AUTO 16 % (4-13); Mean Corpuscular HGB 29.8 pg (26.0-34.0); Mean Corpuscular HGB Conc 31.4 g/dL (31.5-36.5); Mean Corpuscular Volume 95 fL (80-100); Mean Platelet Volume 10.2 fL (9.1-12.4); NEUTROPHILS ABSOLUTE AUTO 3.11 K/mm3 (1.96-9.15); NEUTROPHILS PERCENT AUTO 71 % (41-73); Platelet Count 87 K/mm3 (150-400); RDW Coefficient Variation 15.1 % (11.7-14.2); RDW Standard Deviation 52.4 fL (35.1-46.3); Red Blood Cell Count 2.35 M/mm3 (4.30-5.90); White Blood Cell Count 4.41 K/mm3 (4.00-11.30)
[2024-05-22 06:31] LABS: Albumin, Blood 2.5 g/dL (3.4-5.0); Anion Gap 10 mmol/L (3-11); Blood Urea Nitrogen 55 mg/dL (8-24); CO2, Blood 33 mmol/L (21-32); Calcium, Blood 9.2 mg/dL (8.5-10.1); Chloride, Blood 95 mmol/L (98-108); Creatinine, Blood 5.49 mg/dL (0.60-1.20); Glomerular Filtration Rate 11 (60-); Glucose, Blood 110 mg/dL (70-99); Magnesium, Blood 2.9 mg/dL (1.6-2.4); Phosphorus, Blood 3.8 mg/dL (2.5-4.9); Potassium, Blood 4.2 mmol/L (3.5-5.5); Sodium, Blood 134 mmol/L (136-145); Vancomycin, Random 17.4 ug/mL
[2024-05-22 07:45] VITALS: BP 159/84
[2024-05-22] MEDS ORDERED: Vancomycin HCL 750 MG in NS 250 ML IV ONE (08:40)
[2024-05-22] MEDS ORDERED: Lactobacil 2-S.Thermo-Bifido 1 1 Cap PO SCH (10:00)
[2024-05-22 11:14] VITALS: BP 113/54
[2024-05-22 11:41] LABS: Acinetobacter baumannii DNA Not Detected copy/mL (NOT DETECT); Adenovirus DNA Not Detected (NOT DETECT); Chlamydia pneumonia Not Detected (NOT DETECT); Enterobacter cloacae DNA Not Detected copy/mL (NOT DETECT); Escherichia coli DNA Not Detected copy/mL (NOT DETECT); Haemophilus influenzae DNA Not Detected copy/mL (NOT DETECT); Human Coronavirus RNA Not Detected (NOT DETECT); Human Metapneumovirus RNA Not Detected (NOT DETECT); Influenza virus A RNA Not Detected (NOT DETECT); Influenza virus B RNA Not Detected (NOT DETECT); Klebsiella aerogenes DNA Not Detected copy/mL (NOT DETECT); Klebsiella oxytoca DNA Not Detected copy/mL (NOT DETECT); Klebsiella pneumoniae DNA Not Detected copy/mL (NOT DETECT); Legionella pneumophila Not Detected (NOT DETECT); Moraxella catarrhalis DNA Not Detected copy/mL (NOT DETECT); Mycoplasma pneumoniae Not Detected (NOT DETECT); Parainfluenza virus RNA Not Detected (NOT DETECT); Proteus sp DNA Not Detected copy/mL (NOT DETECT); Pseudomonas aeruginosa DNA Not Detected copy/mL (NOT DETECT); Respiratory syncytial Vir RNA Not Detected (NOT DETECT); Rhinovirus+Enterovirus RNA Not Detected (NOT DETECT); Serratia marcescens DNA Not Detected copy/mL (NOT DETECT); Staphylococcus aureus DNA Not Detected copy/mL (NOT DETECT); Streptococcus agalactiae DNA Not Detected copy/mL (NOT DETECT); Streptococcus pneumoniae DNA Not Detected copy/mL (NOT DETECT); Streptococcus pyogenes DNA Not Detected copy/mL (NOT DETECT)
[2024-05-22 15:47] VITALS: BP 131/75
--- NOTE | 2024-05-22 17:29 | NUR ---
NO ACUTE CHANGES THIS SHIFT. PT FEBRILE TODAY, TREATED PER EMAR. PT IS INDEPENDENT IN THE ROOM WITH CANE, CALLS APPROPRIATELY. NEEDS HELP WITH LINES/TUBES. PT REPORTS PAIN IN THE RIGHT RIBS AND BELIEVES HE PULLED A MUSCLE. AWARE FROM TRISTEN RN. TREATED PER EMAR. SPOUSE AT BEDSIDE. PT DECLINED BREAKFAST, STATES HE DOES NOT NORMALY EAT IN THE MORNING. ALERT AND ORIENTED X4
[2024-05-22 19:31] VITALS: BP 136/72
[2024-05-23] VITALS (20 sets, daily range): BP systolic 88–179; BP diastolic 50–96
[2024-05-23 05:54] LABS: Hematocrit 22.4 % (37.0-53.0)
[2024-05-23 06:15] LABS: Albumin, Blood 2.4 g/dL (3.4-5.0); Anion Gap 12 mmol/L (3-11); Blood Urea Nitrogen 74 mg/dL (8-24); Bun/Creatinine Ratio 9.9 (12.0-20.0); CO2, Blood 35 mmol/L (21-32); Calcium, Blood 8.9 mg/dL (8.5-10.1); Chloride, Blood 91 mmol/L (98-108); Creatinine, Blood 7.49 mg/dL (0.60-1.20); Glomerular Filtration Rate 8 (60-); Glucose, Blood 115 mg/dL (70-99); Magnesium, Blood 3.1 mg/dL (1.6-2.4); Phosphorus, Blood 3.9 mg/dL (2.5-4.9); Potassium, Blood 4.7 mmol/L (3.5-5.5); Sodium, Blood 133 mmol/L (136-145); Vancomycin, Random 25.1 ug/mL
--- NOTE | 2024-05-23 18:29 | NUR ---
SHIFT SUMMARY PT A&OX4 AND ANSWERS QUESTIONS APPROPRIATELY. PT WENT DOWN AT 0900 TO DIALYSIS, NO ACUTE EVENTS. PT VSS, BP ELEVATED BUT ASYMPTOMATIC. PT COMPLAINS OF ABDOMINAL PAIN, MEDICATED PER EMAR. UNABLE TO COMTROL PAIN. NONPHARMACOLOGICAL INTERVENTIONS OFFERED BUT NOT SUCCESSFUL. PHYSICIAN NOTIFIED OF PT CONDITION. PT INDEPENDENT IN ROOM. REPOSITIONED INDEPENDENTLY. FALL PRECAUTIONS IN PLACR AND CALL LIGHT IN REACH.
[2024-05-24] VITALS (16 sets, daily range): BP systolic 113–165; BP diastolic 53–92
[2024-05-24 06:31] LABS: Hematocrit 23.3 % (37.0-53.0); Hemoglobin 7.2 g/dL (13.5-17.5)
[2024-05-24 06:56] LABS: Albumin, Blood 2.3 g/dL (3.4-5.0); Anion Gap 8 mmol/L (3-11); Blood Urea Nitrogen 50 mg/dL (8-24); Bun/Creatinine Ratio 8.3 (12.0-20.0); CO2, Blood 36 mmol/L (21-32); Calcium, Blood 9.2 mg/dL (8.5-10.1); Chloride, Blood 95 mmol/L (98-108); Creatinine, Blood 6.01 mg/dL (0.60-1.20); Glomerular Filtration Rate 10 (60-); Glucose, Blood 107 mg/dL (70-99); Magnesium, Blood 3.3 mg/dL (1.6-2.4); Phosphorus, Blood 3.4 mg/dL (2.5-4.9); Potassium, Blood 4.4 mmol/L (3.5-5.5); Sodium, Blood 135 mmol/L (136-145)
[2024-05-24] MEDS ORDERED: SEVEC800 PO (17:36)
[2024-05-24] MEDS ORDERED: Calcium Acetat667 MG PO (17:37)
--- NOTE | 2024-05-24 19:46 | NUR ---
SHIFT SUMMARY PT A&OX4. PT ADMITTED DUE TO ERSD NEEDING DIALYSIS. PT DENIES CHEST PAIN/SOB. VSS. PT ON 3L O2 AND WEARS O2 AT BASELINE. PT RECEIVED DIALYSIS THIS AM. PT INDEPENDENT IN ROOM. PT PROBABLY DOESNT EAT ADEQUATE. FISTULA IN L ARM. PLAN IS PT WILL LIKELY HAVE DIALYSIS TOMORROW AND POSSIBLY BE DISCHARGE. PT REPORTS NOT VOIDING, CONT. OF BM. PT IN BED, AT BEDSIDE, PT BED IN LOWEST POSITION, CALL LIGHT IN REACH.
[2024-05-25] VITALS (16 sets, daily range): BP systolic 99–153; BP diastolic 58–97
[2024-05-25 06:36] LABS: Hemoglobin 7.5 g/dL (13.5-17.5)
[2024-05-25 07:05] LABS: Albumin, Blood 2.3 g/dL (3.4-5.0); Anion Gap 9 mmol/L (3-11); Blood Urea Nitrogen 55 mg/dL (8-24); Bun/Creatinine Ratio 9.2 (12.0-20.0); CO2, Blood 35 mmol/L (21-32); Calcium, Blood 9.3 mg/dL (8.5-10.1); Chloride, Blood 94 mmol/L (98-108); Creatinine, Blood 6.01 mg/dL (0.60-1.20); Glomerular Filtration Rate 10 (60-); Glucose, Blood 105 mg/dL (70-99); Phosphorus, Blood 3.6 mg/dL (2.5-4.9); Potassium, Blood 4.4 mmol/L (3.5-5.5); Sodium, Blood 134 mmol/L (136-145)
--- NOTE | 2024-05-25 08:00 | NUR ---
pt sleepy this am, a/ox3-4, cooperative [facility] care, follows commands well, reports back spasms, wanted valium, this was given, lungs are clear dim in bases, resp even and unlabored, no couhg noted, on 3 liters o2 via n/c, hrr, npiv to rfa site is clear and patent, btx4, abd flat soft some tender, no voids, skin c/w/d, ann-marie king, call light in reach.
--- NOTE | 2024-05-25 08:42 | NUR ---
LEFT FOR DIALYSIS VIA BED
[2024-05-25] MEDS ORDERED: ARANESP40 MCG/0.1 SC (12:20)
[2024-05-25 13:36] LABS: HEPATITIS B SURFACE ANTIGEN Negative (Negative)
--- NOTE | 2024-05-25 17:17 | NUR ---
pt has slept all day, is awake now, and ate dinner, in room, Dr. Caban wanted him to recieve one unit of PRBC's, this was started. vs remain stable. call light in reach.
--- NOTE | 2024-05-25 18:08 | NUR ---
pt tolerating transfusion without diff, at bedside. will go home after transfusion. call light in reach.
== END 2024-05-25 20:14 | disposition home health service (06) | DRG 291 ==
LOC: ER 16:03 → MEDS 16:04 → ERHOLD 16:04 → MEDS 21:33
PROVIDERS: Family Medicine; Internal Medicine Nephrology; Student in an Organized Health Care Education/Training Program; ADMIT Internal Medicine
PROC: 5A1D70Z Performance of Urinary Filtration, Intermittent, Less than 6 Hours Per Day (ICD-10-PCS; principal; 2024-05-21)
DX: I13.2 Hypertensive heart and chronic kidney disease with heart failure and with stage 5 chronic kidney disease, or end stage renal disease (principal); I50.23 Acute on chronic systolic (congestive) heart failure; J96.21 Acute and chronic respiratory failure with hypoxia; N18.6 End stage renal disease; R65.10 Systemic inflammatory response syndrome (SIRS) of non-infectious origin without acute organ dysfunction; Q44.6 Cystic disease of liver; R18.8 Other ascites; E87.1 Hypo-osmolality and hyponatremia; K21.9 Gastro-esophageal reflux disease without esophagitis; D63.1 Anemia in chronic kidney disease; J44.9 Chronic obstructive pulmonary disease, unspecified; Z99.81 Dependence on supplemental oxygen; M19.90 Unspecified osteoarthritis, unspecified site; M81.0 Age-related osteoporosis without current pathological fracture; Z66 Do not resuscitate; I48.0 Paroxysmal atrial fibrillation; Z88.5 Allergy status to narcotic agent; Z88.0 Allergy status to penicillin; Z88.8 Allergy status to other drugs, medicaments and biological substances; Z91.041 Radiographic dye allergy status; Z79.899 Other long term (current) drug therapy; Z87.19 Personal history of other diseases of the digestive system; Z90.5 Acquired absence of kidney; Z98.890 Other specified postprocedural states; Z87.891 Personal history of nicotine dependence
CPT/HCPCS: 0528U; 36415; 36430; 49082; 71045; 71046; 74176; 80053; 80069; 80202; 82945; 83605; 83615; 83735; 83880; 84157; 84484; 85014; 85018; 85025; 86850; 86900; 86901; 86923; 87040; 87070; 87077; 87205; 87340; 87428-QW; 89051; 93005; 93010; 96374-59; 96375-59; 96376; 99285-25; A9270; G0378; J0696; J0881; J1171; J3370; J7050; P9016

== ENCOUNTER → 2024-05-28 | Outpatient (CLI) | payer MEDICARE ==
[~2024-05-28] MED LIST changes: +ARANESP40 MCG/0.1 SC
== END ==
LOC: LAB 16:38 → LAB SHORT 16:38
DX: D64.9 Anemia, unspecified (principal); N18.6 End stage renal disease
CPT/HCPCS: 85018

== ENCOUNTER 2024-06-19 18:11 | Inpatient (IN) | payer MEDICARE, OTHER ==
[~2024-06-19] VITALS: Ht 182.9 cm; Wt 78.2 kg
[2024-06-19 18:55] LABS: BASOPHILS ABSOLUTE AUTO 0.02 K/mm3 (0.00-0.23); BASOPHILS PERCENT AUTO 0 % (0-2); EOSINOPHILS ABSOLUTE AUTO 0.05 K/mm3 (0.00-0.68); EOSINOPHILS PERCENT AUTO 1 % (0-6); Hemoglobin 9.1 g/dL (13.5-17.5); IMMATURE GRAN ABSOLUTE AUTO 0.04 K/mm3 (0.00-0.10); IMMATURE GRAN PERCENT AUTO 0 % (0-1); LYMPHOCYTES ABSOLUTE AUTO 0.68 K/mm3 (0.84-5.20); LYMPHOCYTES PERCENT AUTO 7 % (21-46); MONOCYTES ABSOLUTE AUTO 0.83 K/mm3 (0.16-1.47); MONOCYTES PERCENT AUTO 8 % (4-13); Mean Corpuscular HGB 29.5 pg (26.0-34.0); Mean Corpuscular HGB Conc 31.4 g/dL (31.5-36.5); Mean Corpuscular Volume 94 fL (80-100); Mean Platelet Volume 9.9 fL (9.1-12.4); NEUTROPHILS ABSOLUTE AUTO 8.24 K/mm3 (1.96-9.15); NEUTROPHILS PERCENT AUTO 84 % (41-73); Platelet Count 114 K/mm3 (150-400); RDW Coefficient Variation 14.7 % (11.7-14.2); Red Blood Cell Count 3.08 M/mm3 (4.30-5.90); White Blood Cell Count 9.86 K/mm3 (4.00-11.30)
[2024-06-19 19:24] LABS: Albumin, Blood 2.7 g/dL (3.4-5.0); Albumin/Globulin Ratio 0.7 (0.8-1.8); Bilirubin, Total 0.6 mg/dL (0.1-1.0); Calcium, Blood 10.3 mg/dL (8.5-10.1); Creatinine, Blood 6.35 mg/dL (0.60-1.20); Globulin, Blood 3.9 g/dL (2.2-4.0); Potassium, Blood 4.5 mmol/L (3.5-5.5); Total Protein, Blood 6.6 g/dL (6.4-8.2)
[2024-06-19 20:09] LABS: CORONAVIRUS COVID-19 AG Negative (NEGATIVE); INFLUENZA A AG Negative (NEGATIVE); INFLUENZA B AG Negative (NEGATIVE)
[2024-06-19] MEDS ORDERED: Ondansetron HCl 2 MG / ML 2ML Vial IV PRN (23:55)
[2024-06-19] MEDS ORDERED: Acetaminophen 325 MG TABLET PO PRN (23:55)
[2024-06-20] VITALS (12 sets, daily range): BP systolic 87–162; BP diastolic 56–95
[2024-06-20 00:25] LABS: Adenovirus Not Detected (NOT DETECT); Bordetella pertussis Not Detected (NOT DETECT); Chlamydophila pneumoniae Not Detected (NOT DETECT); Coronavirus 229E Not Detected (NOT DETECT); Coronavirus HKU1 Not Detected (NOT DETECT); Coronavirus NL63 Not Detected (NOT DETECT); Coronavirus OC43 Not Detected (NOT DETECT); Human Metapneumovirus Not Detected (NOT DETECT); Human Rhinovirus/Enterovirus Not Detected (NOT DETECT); Influenza A/2009-H1 Not Detected (NOT DETECT); Influenza A/H1 Not Detected (NOT DETECT); Influenza A/H3 Not Detected (NOT DETECT); Influenza B Not Detected (NOT DETECT); Mycoplasma pneumoniae Not Detected (NOT DETECT); Parainfluenza Virus 1 Not Detected (NOT DETECT); Parainfluenza Virus 2 Not Detected (NOT DETECT); Parainfluenza Virus 3 Not Detected (NOT DETECT); Parainfluenza Virus 4 Not Detected (NOT DETECT); Respiratory Syncytial Virus Not Detected (NOT DETECT); SARS-Cov-2 (COVID-19), BioFire Not Detected (NOT DETECT)
[2024-06-20] MEDS ORDERED: HYDROmorphone HCl 2 MG Tab PO PRN (00:25)
[2024-06-20] MEDS ORDERED: CefTRIAXone Sodium 1,000 MG in NS 100 ML IV SCH (05:26)
[2024-06-20 09:10] LABS: BASOPHILS ABSOLUTE AUTO 0.02 K/mm3 (0.00-0.23); BASOPHILS PERCENT AUTO 0 % (0-2); EOSINOPHILS ABSOLUTE AUTO 0.04 K/mm3 (0.00-0.68); EOSINOPHILS PERCENT AUTO 0 % (0-6); Hematocrit 34.6 % (37.0-53.0); Hemoglobin 10.6 g/dL (13.5-17.5); IMMATURE GRAN ABSOLUTE AUTO 0.04 K/mm3 (0.00-0.10); IMMATURE GRAN PERCENT AUTO 0 % (0-1); LYMPHOCYTES PERCENT AUTO 10 % (21-46); MONOCYTES ABSOLUTE AUTO 0.76 K/mm3 (0.16-1.47); MONOCYTES PERCENT AUTO 7 % (4-13); Mean Corpuscular HGB 29.1 pg (26.0-34.0); Mean Corpuscular HGB Conc 30.6 g/dL (31.5-36.5); Mean Corpuscular Volume 95 fL (80-100); NEUTROPHILS ABSOLUTE AUTO 9.49 K/mm3 (1.96-9.15); NEUTROPHILS PERCENT AUTO 83 % (41-73); Platelet Count 114 K/mm3 (150-400); RDW Coefficient Variation 14.7 % (11.7-14.2); RDW Standard Deviation 51.4 fL (35.1-46.3); Red Blood Cell Count 3.64 M/mm3 (4.30-5.90); White Blood Cell Count 11.45 K/mm3 (4.00-11.30)
[2024-06-20 09:26] LABS: Albumin, Blood 2.9 g/dL (3.4-5.0); Albumin/Globulin Ratio 0.6 (0.8-1.8); Bilirubin, Total 0.8 mg/dL (0.1-1.0); Bun/Creatinine Ratio 9.8 (12.0-20.0); Calcium, Blood 10.5 mg/dL (8.5-10.1); Creatinine, Blood 7.28 mg/dL (0.60-1.20); Globulin, Blood 4.9 g/dL (2.2-4.0); Total Protein, Blood 7.8 g/dL (6.4-8.2)
[2024-06-20] MEDS ORDERED: HyDROXyzine HCl 25 MG Tab PO PRN (17:50)
[2024-06-20] MEDS ORDERED: Ipratropium/Albuterol SulF 2.5-0.5MG/3 ML Amp INH PRN (17:55)
[2024-06-20] MEDS ORDERED: Calcium Acetate 667 MG Gel Cap PO PRN (17:55)
[2024-06-20] MEDS ORDERED: Diazepam 5 MG Tab PO PRN (17:55)
[2024-06-20] MEDS ORDERED: rOPINIRole HCl 1 MG Tab PO PRN (18:00)
[2024-06-20] MEDS ORDERED: Cinacalcet HCL 30 MG Tab PO SCH (18:00)
[2024-06-20] MEDS ORDERED: Polyethylene Glycol 3350 17 gm PO PRN (18:20)
[2024-06-20] MEDS ORDERED: Sevelamer Carbonate 800 MG Tab PO ONE (18:35)
[2024-06-20] MEDS ORDERED: Sodium Zirconium Cyclosilicate 10 GM Packet PO SCH (18:35)
[2024-06-20] MEDS ORDERED: Calcium Acetate 667 MG Gel Cap PO ONE (18:35)
--- NOTE | 2024-06-20 20:10 | NUR ---
LATE ENTRY- PT ADMIT FROM ED. DIALYSIS TODAY. PT REPORTS GEBERALLY NOT FEELING WELL. TEMP 99- TREATED PER EMAR. SPOUSE AT BEDSIDE. PT WEAK AFTER DIALYSIS, SBA WITH FWW TO BATHROOM FROM BED. 3L NC WHICH IS BASELINE. TREATED BACK PAIN PER EMAR. CALLS APPROPRIATELY, PLAN FOR PARACENTESIS TOMORROW.
[2024-06-20] MEDS ORDERED: Metoprolol Succinate 25 MG TABCR PO SCH (21:00)
[2024-06-20] MEDS ORDERED: Gabapentin 100 MG Cap PO SCH (21:00)
[2024-06-20] MEDS ORDERED: Sacubitril/Valsartan 24 MG-26 MG Tab PO SCH (21:00)
[2024-06-20 21:15] LABS: International Normalized Ratio 1.28; Prothrombin Time Results 13.4 Sec (9.7-11.5)
[2024-06-20] MEDS ORDERED: Benzonatate 100 MG Cap PO PRN (22:45)
[2024-06-21 03:41] VITALS: BP 121/73
--- NOTE | 2024-06-21 05:03 | NUR ---
SHIFT SUMMARY; PATIENT SLEPT IN LONG INTERVALS. 2100 BP MEDS HELD D/T LOW BP. C/O COUGHING AND I CALLED RESIDENT DIRECTOR CHILD FOR TESSLON ORDER. PATIENT SHIVERING AND STARTED TO HAVE ELEVATED TEMP, GIVEN TYLENOL. THRILL OVER AV FISTULA. TELE SR 99. O2/3L/NC BASELINE.
[2024-06-21 05:19] LABS: BASOPHILS ABSOLUTE AUTO 0.02 K/mm3 (0.00-0.23); BASOPHILS PERCENT AUTO 0 % (0-2); EOSINOPHILS ABSOLUTE AUTO 0.02 K/mm3 (0.00-0.68); EOSINOPHILS PERCENT AUTO 0 % (0-6); Hematocrit 28.1 % (37.0-53.0); Hemoglobin 8.8 g/dL (13.5-17.5); IMMATURE GRAN ABSOLUTE AUTO 0.06 K/mm3 (0.00-0.10); IMMATURE GRAN PERCENT AUTO 1 % (0-1); LYMPHOCYTES ABSOLUTE AUTO 0.56 K/mm3 (0.84-5.20); LYMPHOCYTES PERCENT AUTO 5 % (21-46); MONOCYTES ABSOLUTE AUTO 0.81 K/mm3 (0.16-1.47); MONOCYTES PERCENT AUTO 8 % (4-13); Mean Corpuscular HGB 29.3 pg (26.0-34.0); Mean Corpuscular HGB Conc 31.3 g/dL (31.5-36.5); Mean Corpuscular Volume 94 fL (80-100); Mean Platelet Volume 10.7 fL (9.1-12.4); NEUTROPHILS ABSOLUTE AUTO 8.94 K/mm3 (1.96-9.15); NEUTROPHILS PERCENT AUTO 86 % (41-73); Platelet Count 101 K/mm3 (150-400); RDW Coefficient Variation 14.7 % (11.7-14.2); RDW Standard Deviation 50.7 fL (35.1-46.3); White Blood Cell Count 10.41 K/mm3 (4.00-11.30)
[2024-06-21 05:45] LABS: Albumin, Blood 2.4 g/dL (3.4-5.0); Albumin/Globulin Ratio 0.5 (0.8-1.8); Bilirubin, Total 0.5 mg/dL (0.1-1.0); Bun/Creatinine Ratio 10.6 (12.0-20.0); Calcium, Blood 9.9 mg/dL (8.5-10.1); Creatinine, Blood 6.14 mg/dL (0.60-1.20); Globulin, Blood 4.4 g/dL (2.2-4.0); Magnesium, Blood 2.7 mg/dL (1.6-2.4); Phosphorus, Blood 3.7 mg/dL (2.5-4.9); Potassium, Blood 4.5 mmol/L (3.5-5.5); Total Protein, Blood 6.8 g/dL (6.4-8.2)
[2024-06-21 07:28] VITALS: BP 110/65
[2024-06-21] MEDS ORDERED: Omeprazole 20 MG CapCR PO SCH (07:30)
[2024-06-21] MEDS ORDERED: Calcium Acetate 667 MG Gel Cap PO SCH (08:30)
[2024-06-21] MEDS ORDERED: Sevelamer Carbonate 800 MG Tab PO SCH (08:30)
[2024-06-21] MEDS ORDERED: Sodium Zirconium Cyclosilicate 10 GM Packet PO SCH (09:00)
[2024-06-21 11:59] VITALS: BP 129/68
[2024-06-21 12:10] LABS: Automated BF RBC Count 0.002 M/mm3 (0-0); Automated BF WBC Count 0.348 K/mm3 (0-999)
[2024-06-21 12:14] LABS: Appearance, Body Fluid Hazy (Clear); Color, Body Fluid Yellow (None-Yellow)
[2024-06-21 12:15] LABS: Body Fluid WBC Count 348 /mm3 (0-999); RBC Count, Body Fluid 2000 /mm3 (0-0)
[2024-06-21 12:42] LABS: Albumin, Body Fluid 1.6 g/dL; Glucose, Body Fluid 118 mg/dL; Lactate Dehydrogenase, Body Fl 68 U/L; Protein, Body Fluid 3.2 g/dL
[2024-06-21 12:51] LABS: Total Cell Count, Body Fluid 100
[2024-06-21] MEDS ORDERED: Albumin Human 50 ML IV ONE (12:55)
[2024-06-21] MEDS ORDERED: Albumin (Human) 25gm/100ml 100 ML IV ONE (13:50)
[2024-06-21] MEDS ORDERED: NS 250 ML IV PRN (14:50)
[2024-06-21 15:37] VITALS: BP 96/63
[2024-06-21] MEDS ORDERED: Darbepoetin Alfa In Albumn Sol 40 MCG/0.4 ML SC SCH (16:00)
--- NOTE | 2024-06-21 19:50 | NUR ---
PARACENTESIS TODAY, 3.5L REMOVED. PLAN FOR DIALYSIS IN AM. SPOUSE AT BEDSIDE. FEBRILE, TREATED PER EMAR. CALLS APPROPRIATLY
[2024-06-21 19:56] VITALS: BP 128/77
[2024-06-21] MEDS ORDERED: Lactobacil 2-S.Thermo-Bifido 1 1 Cap PO SCH (21:00)
[2024-06-21] MEDS ORDERED: Sevelamer Carbonate 800 MG Tab PO PRN (23:35)
[2024-06-22] VITALS (22 sets, daily range): BP systolic 83–131; BP diastolic 52–100
[2024-06-22 04:39] LABS: Hematocrit 27.6 % (37.0-53.0); Hemoglobin 8.6 g/dL (13.5-17.5)
[2024-06-22 05:00] LABS: Albumin, Blood 2.3 g/dL (3.4-5.0); Anion Gap 13 mmol/L (3-11); Blood Urea Nitrogen 82 mg/dL (8-24); Bun/Creatinine Ratio 10.5 (12.0-20.0); CO2, Blood 31 mmol/L (21-32); Calcium, Blood 9.3 mg/dL (8.5-10.1); Chloride, Blood 92 mmol/L (98-108); Creatinine, Blood 7.79 mg/dL (0.60-1.20); Glomerular Filtration Rate 7 (60-); Glucose, Blood 109 mg/dL (70-99); Magnesium, Blood 2.8 mg/dL (1.6-2.4); Phosphorus, Blood 4.4 mg/dL (2.5-4.9); Potassium, Blood 4.9 mmol/L (3.5-5.5); Sodium, Blood 131 mmol/L (136-145)
--- NOTE | 2024-06-22 05:45 | NUR ---
SHIFT SUMMARY; PATIENT SLEPT IN LONG INTERVALS, LOW GRADE TEMPS CONTINUE. SHIVERS AND MOANS. TYLENOL GIVEN TWICE. BP MEDS HELD AT D/T SOFT BP. TELE ST 107.
--- NOTE | 2024-06-22 16:34 | NUR ---
SHIFT SUMMARY PT AOX4, COOPERATIVE, ABLE TO MAKE NEEDS KNOWN. PT IS SBA TO BATHROOM. DID HAVE DIALYSIS TODAY INSTEAD OF YESTERDAY DUE TO PARACENTESIS. PT REPORTED DIALYSIS TOOK OFF 2.5 L OF FLUID, NOT SURE IF THAT IS ACCURATE, GLUING CREW LEADER DID NOT INFORM THIS RN. HAS REFUSED PARTS OF MEDICATIONS THIS SHIFT DUE TO DIFFERENT EATING SCHEDULE. ON 3L O2 CURRENTLY. BED IN LOWEST POSITION, CALL LIGHT WITHIN REACH.
[2024-06-23] VITALS (7 sets, daily range): BP systolic 98–152; BP diastolic 68–91
--- NOTE | 2024-06-23 05:08 | NUR ---
SHIFT SUMMARY PT IS ALERT AND ORIENTED TIMES 4. PT ADMITTED FOR POLYCYSTIC LIVER DISEASE, ESRD, ON HEMODIALYSIS MON, WED, FRI. CHRONIC HEART FAILURE WITH 35-40% EJECTION FRACTION, HYPERPARTHYROIDISM, AND PROXYSMAL A-FIB. PT IS COOPERATIVE WITH CARE. PT LOST IV AT ABOUT 1999. COULD NOT GET PERIPHERAL IV STARTED, CALLED TWO OTHER NURSES WELL . CHARGE NURSE LOCATED PCU NURSE TO PLACE IV WITH ULTRASOUND IN LEFT FOREARM WITH 20 GAUGE. PT IS ON 2L O2. PT HAS BED IN LOW POSITION, CALL LIGHT WITHIN REACH, RAILS TIMES 2.
[2024-06-23 05:57] LABS: Hematocrit 27.6 % (37.0-53.0); Hemoglobin 8.5 g/dL (13.5-17.5)
[2024-06-23 06:15] LABS: Albumin, Blood 2.5 g/dL (3.4-5.0); Anion Gap 11 mmol/L (3-11); Blood Urea Nitrogen 57 mg/dL (8-24); Bun/Creatinine Ratio 8.7 (12.0-20.0); CO2, Blood 39 mmol/L (21-32); Calcium, Blood 10.1 mg/dL (8.5-10.1); Chloride, Blood 88 mmol/L (98-108); Creatinine, Blood 6.56 mg/dL (0.60-1.20); Glomerular Filtration Rate 9 (60-); Glucose, Blood 98 mg/dL (70-99); Phosphorus, Blood 4.3 mg/dL (2.5-4.9); Potassium, Blood 4.1 mmol/L (3.5-5.5); Sodium, Blood 134 mmol/L (136-145)
[2024-06-23] MEDS ORDERED: Oxymetazoline 0.05% Nasal Relief Spray 15mL BTL PRN (14:50)
--- NOTE | 2024-06-23 19:26 | NUR ---
SHIFT SUMMARY PT AOX4, COOPERATIVE, ABLE TO MAKE NEEDS KNOWN. SLEPT MOST OF THE SHIFT, DID EAT MORE TODAY AND YESTERDAY, ADMINISTERED MORE RENAL MEDICATION THAN YESTERDAY PER PT REQUEST. SHOULD DC TOMORROW AFTER DIALYSIS TREATMENT. BED IN LOWEST POSITION, CALL LIGHT WTIHIN REACH.
[2024-06-24] VITALS (19 sets, daily range): BP systolic 77–122; BP diastolic 50–74
--- NOTE | 2024-06-24 13:18 | NUR ---
THIS RN CC MET WITH PATIENT AND IN ROOM TO SPEAK ABOUT DC PLANS AND O2. STATES THAT THEY HAVE BEEN REQUESTING PORTABLE TANKS FOR PATIENT FROM [facility] INSTEAD OF HAVING THE PORTABLE CONCENTRATOR. STATES THAT WHEN PATIENT SITTING IN CAR THAT THEY PORTABLE CONCENTRATOR "SITS RIGHT ON THE PATIENT'S LIVER AND CAUSES HIM PAIN AND DISCOMFORT" AND THAT IT "ALSO HEATS UP AND GETS HOT SITTING ON HIM". ALSO STATES THAT IT DOES NOT LAST LONG. PATIENT'S DME SUPPLIER IS [facility]. [facility] UPDATED AND STATES THEY WILL BRING HIM PORTABLE TANK FOR DC.
--- NOTE | 2024-06-24 18:00 | NUR ---
SHIFT SUMMARY AND DISCHARGE PATIENT ALERT AND INTERACTIVE. PATIENT HAD DIALYSIS TODAY. PATIENT DISCHARGED HOME WITH . DISCHARGE INSTRUCTIONS REVIEWED WITH PATIENT AND . IV REMOVED. PATIENT TAKEN OUT VIA PERSONAL WHEELCHAIR BY .
== END 2024-06-24 14:32 | disposition home or self-care (01) | DRG 371 ==
LOC: ER 18:11 → ERHOLD 18:12 → MEDS 06-20 13:17 → ERHOLD 06-20 13:17 → MEDS 06-20 14:02
PROVIDERS: Emergency Medicine; Hospitalist; Internal Medicine Nephrology; ADMIT Student in an Organized Health Care Education/Training Program
PROC: 0W9G3ZZ Drainage of Peritoneal Cavity, Percutaneous Approach (ICD-10-PCS; principal; 2024-06-20)
PROC: 5A1D70Z Performance of Urinary Filtration, Intermittent, Less than 6 Hours Per Day (ICD-10-PCS; 2024-06-22)
DX: K65.2 Spontaneous bacterial peritonitis (principal); N18.6 End stage renal disease; E87.1 Hypo-osmolality and hyponatremia; I13.2 Hypertensive heart and chronic kidney disease with heart failure and with stage 5 chronic kidney disease, or end stage renal disease; Q44.6 Cystic disease of liver; Q61.2 Polycystic kidney, adult type; R18.8 Other ascites; I50.42 Chronic combined systolic (congestive) and diastolic (congestive) heart failure; R50.9 Fever, unspecified; Z66 Do not resuscitate; Z99.2 Dependence on renal dialysis; M19.90 Unspecified osteoarthritis, unspecified site; M81.0 Age-related osteoporosis without current pathological fracture; D69.6 Thrombocytopenia, unspecified; F12.10 Cannabis abuse, uncomplicated; I48.0 Paroxysmal atrial fibrillation; D63.1 Anemia in chronic kidney disease; E83.41 Hypermagnesemia; Z86.19 Personal history of other infectious and parasitic diseases; Z98.890 Other specified postprocedural states; Z90.5 Acquired absence of kidney; Z88.0 Allergy status to penicillin; Z88.8 Allergy status to other drugs, medicaments and biological substances; Z88.5 Allergy status to narcotic agent; Z79.899 Other long term (current) drug therapy; Z79.891 Long term (current) use of opiate analgesic; Z79.51 Long term (current) use of inhaled steroids; Z87.19 Personal history of other diseases of the digestive system; Z87.731 Personal history of (corrected) tracheoesophageal fistula or atresia; Z87.891 Personal history of nicotine dependence
CPT/HCPCS: 0202U; 36415; 49083; 71046; 74176; 80053; 80069; 82042; 82140; 82330; 82945; 82947; 83605; 83615; 83735; 83880; 84100; 84157; 84484; 85014; 85018; 85025; 85610; 87040; 87070; 87075; 87205; 87428-QW; 89051; 93005; 93010; 94760; 96374; 99285-25; A9270; G0378; J0696; J0881; J2405; J7050; P9047

== ENCOUNTER 2024-07-05 08:16 | Day surgery (SDC) | payer MEDICARE, OTHER | END 2024-07-05 23:00 | disposition home or self-care (01) | LOC: US 08:16 | DX: R18.8 Other ascites (principal) | CPT/HCPCS: 49083 ==

== ENCOUNTER 2024-07-25 08:58 | Day surgery (SDC) | payer MEDICARE, MEDICAID | END 2024-07-25 23:00 | disposition home or self-care (01) | LOC: US 08:58 | DX: R18.8 Other ascites (principal) | CPT/HCPCS: 49083 ==

== ENCOUNTER 2024-07-28 15:02 | Inpatient (IN) | payer MEDICARE, MEDICAID ==
[~2024-07-28] VITALS: Ht 188 cm; Wt 172.2 kg
[~2024-07-28 15:02] MED LIST changes: +ENTRESTO 24 MG1 EACH PO; +Nitrostat0.3 MG SL; +ONDA4ODT PO
[2024-07-28 16:08] LABS: BASOPHILS ABSOLUTE AUTO 0.01 K/mm3 (0.00-0.23); BASOPHILS PERCENT AUTO 0 % (0-2); EOSINOPHILS ABSOLUTE AUTO 0.02 K/mm3 (0.00-0.68); EOSINOPHILS PERCENT AUTO 0 % (0-6); Hematocrit 28.3 % (37.0-53.0); Hemoglobin 8.8 g/dL (13.5-17.5); IMMATURE GRAN ABSOLUTE AUTO 0.02 K/mm3 (0.00-0.10); IMMATURE GRAN PERCENT AUTO 0 % (0-1); LYMPHOCYTES ABSOLUTE AUTO 0.34 K/mm3 (0.84-5.20); LYMPHOCYTES PERCENT AUTO 4 % (21-46); MONOCYTES ABSOLUTE AUTO 0.75 K/mm3 (0.16-1.47); MONOCYTES PERCENT AUTO 9 % (4-13); Mean Corpuscular HGB 28.8 pg (26.0-34.0); Mean Corpuscular HGB Conc 31.1 g/dL (31.5-36.5); Mean Corpuscular Volume 93 fL (80-100); Mean Platelet Volume 10.1 fL (9.1-12.4); NEUTROPHILS ABSOLUTE AUTO 6.92 K/mm3 (1.96-9.15); NEUTROPHILS PERCENT AUTO 86 % (41-73); Platelet Count 100 K/mm3 (150-400); RDW Coefficient Variation 15.1 % (11.7-14.2); RDW Standard Deviation 51.1 fL (35.1-46.3); Red Blood Cell Count 3.06 M/mm3 (4.30-5.90); White Blood Cell Count 8.06 K/mm3 (4.00-11.30)
[2024-07-28] MEDS ORDERED: NS 1,000 ML IV SCH (16:20)
[2024-07-28 16:29] LABS: Albumin, Blood 2.6 g/dL (3.4-5.0); Albumin/Globulin Ratio 0.6 (0.8-1.8); Bilirubin, Total 0.4 mg/dL (0.1-1.0); Bun/Creatinine Ratio 9.5 (12.0-20.0); Calcium, Blood 9.5 mg/dL (8.5-10.1); Creatinine, Blood 7.45 mg/dL (0.60-1.20); Globulin, Blood 4.1 g/dL (2.2-4.0); Potassium, Blood 5.3 mmol/L (3.5-5.5); Total Protein, Blood 6.7 g/dL (6.4-8.2)
[2024-07-28] MEDS ORDERED: Acetaminophen 500 MG Tab PO ONE (20:50)
[2024-07-28] MEDS ORDERED: CefTRIAXone Sodium 2,000 MG in NS 100 ML IV SCH (21:00)
[2024-07-28 23:48] VITALS: BP 137/88
[2024-07-29] VITALS (19 sets, daily range): BP systolic 97–154; BP diastolic 54–106
--- NOTE | 2024-07-29 04:09 | NUR ---
SHIFT SUMMARY ADMITTED TO ROOM 463 AT 2350 FROM ED. STATES CAME TO ER TODAY DUE TO FEVER OF 101.6 AT HOME. ALERT,ORIENTED X 4 & PLEASANT. TRANSFERRED WITH SBA & WAS ABLE TO STAND ON SCALE FOR WEIGHT, REPORTS FEELING WEAKER THAN USUAL, RECEIVES PARACENTESIS ROUTINELY D/T LIVER DISEASE AND LAST WAS PAST MONDAY. HEMODIALYSIS 4 X A WEEK D/T ESRD. ABEFRILE/VSS ON ADMIT TO MEDICAL FLOOR. RECEIVED IV ROCEPHIN IN ER AND CULTURES OF PARA.FLUID TAKEN PER REPORT,ABD DISTENDED ,AV FISTUALA IN RUE WITH [employer] BRUIT/THRILL. CANE FROM HOME AT BEDSIDE,WEARS GLASSES BUT DIDN'T BRING. SKIN DRY BUT INTACT. OLIGURIC TELEMETRY APPLIED AND IS NSR IN 70s. REPORTS CHRONIC NAUSEA AT TIMES WHICH TAKES MEDICATION FOR NEEDED, DENIES ANY NAUSEA NOW AND IS HUNGRY, SNACKS GIVEN. REPORTS TRIES TO FOLLOW A RENAL DIET AT HOME. NOTED SLEEPING AT INTERVALS WORE SCDs FOR A FEW HOURS,WOKE WITH CHILLS AND REQUESTED WARM BLANKET. AFEBRILE.
[2024-07-29 04:57] LABS: Hematocrit 29.2 % (37.0-53.0); Hemoglobin 8.9 g/dL (13.5-17.5)
[2024-07-29 05:27] LABS: Bun/Creatinine Ratio 10.2 (12.0-20.0); Calcium, Blood 10.1 mg/dL (8.5-10.1); Creatinine, Blood 8.1 mg/dL (0.60-1.20); Potassium, Blood 4.9 mmol/L (3.5-5.5)
[2024-07-29] MEDS ORDERED: Acetaminophen 325 MG TABLET PO PRN (05:40)
[2024-07-29] MEDS ORDERED: Ondansetron 4 MG TAB PO PRN (08:00)
[2024-07-29] MEDS ORDERED: HYDROmorphone HCl 2 MG Tab PO PRN (08:00)
[2024-07-29] MEDS ORDERED: rOPINIRole HCl 1 MG Tab PO PRN (08:05)
[2024-07-29] MEDS ORDERED: Calcium Carbonate 500 MG Tab Chew PO PRN (08:05)
[2024-07-29] MEDS ORDERED: Ipratropium/Albuterol SulF 2.5-0.5MG/3 ML Amp INH PRN (08:05)
[2024-07-29] MEDS ORDERED: HyDROXyzine HCl 25 MG Tab PO PRN (08:05)
[2024-07-29] MEDS ORDERED: Docusate Sodium 250 MG Cap PO PRN (08:10)
[2024-07-29] MEDS ORDERED: Calcium Acetate 667 MG Gel Cap PO PRN (08:25)
[2024-07-29] MEDS ORDERED: Levodopa/Carbidopa 100 / 25 MG Tab PO PRN (08:25)
[2024-07-29] MEDS ORDERED: Polyethylene Glycol 3350 17 gm PO PRN (08:25)
[2024-07-29] MEDS ORDERED: Nitroglycerin 0.4 MG SUBL SL PRN (08:25)
[2024-07-29] MEDS ORDERED: Calcium Acetate 667 MG Gel Cap PO SCH (08:30)
[2024-07-29] MEDS ORDERED: Sevelamer Carbonate 800 MG Tab PO SCH (08:30)
[2024-07-29] MEDS ORDERED: Diazepam 5 MG Tab PO PRN (09:00)
[2024-07-29] MEDS ORDERED: Gabapentin 100 MG Cap PO SCH (09:00)
[2024-07-29] MEDS ORDERED: Sodium Zirconium Cyclosilicate 10 GM Packet PO SCH (09:00)
[2024-07-29] MEDS ORDERED: Sevelamer Carbonate 800 MG Tab PO PRN (09:00)
[2024-07-29 10:22] LABS: Adenovirus Not Detected (NOT DETECT); Bordetella pertussis Not Detected (NOT DETECT); Chlamydophila pneumoniae Not Detected (NOT DETECT); Coronavirus 229E Not Detected (NOT DETECT); Coronavirus HKU1 Not Detected (NOT DETECT); Coronavirus NL63 Not Detected (NOT DETECT); Coronavirus OC43 Not Detected (NOT DETECT); Human Metapneumovirus Not Detected (NOT DETECT); Human Rhinovirus/Enterovirus Not Detected (NOT DETECT); Influenza A/2009-H1 Not Detected (NOT DETECT); Influenza A/H1 Not Detected (NOT DETECT); Influenza A/H3 Not Detected (NOT DETECT); Influenza B Not Detected (NOT DETECT); Mycoplasma pneumoniae Not Detected (NOT DETECT); Parainfluenza Virus 1 Not Detected (NOT DETECT); Parainfluenza Virus 2 Not Detected (NOT DETECT); Parainfluenza Virus 3 Not Detected (NOT DETECT); Parainfluenza Virus 4 Not Detected (NOT DETECT); Respiratory Syncytial Virus Not Detected (NOT DETECT); SARS-Cov-2 (COVID-19), BioFire Not Detected (NOT DETECT)
[2024-07-29] MEDS ORDERED: Albumin (Human) 25gm/100ml 100 ML IV SCH (14:10)
[2024-07-29] MEDS ORDERED: Darbepoetin Alfa In Albumn Sol 40 MCG/0.4 ML SC SCH (16:00)
[2024-07-29] MEDS ORDERED: Omeprazole 20 MG CapCR PO SCH (16:30)
--- NOTE | 2024-07-29 17:49 | NUR ---
PT HAD DIALYSIS TODAY WITH LOW GRADE FEVERS. TREATED WITH TYLENOL PRN WITH EFFECT. PT HAD 125 SUSTAINED HR IN THE AFTERNOON. AWARE AND ORDERED ABUMN WITH EFFECT. PT AND AT BEDSIDE HAVE NO QUETIONS OR CONCERNS.
[2024-07-29] MEDS ORDERED: Cinacalcet HCL 30 MG Tab PO SCH (18:00)
[2024-07-29] MEDS ORDERED: Misc. Capsule PO SCH (19:00)
[2024-07-29] MEDS ORDERED: Metoprolol Succinate 25 MG TABCR PO SCH (21:00)
[2024-07-30] VITALS (16 sets, daily range): BP systolic 99–131; BP diastolic 51–85
[2024-07-30] MEDS ORDERED: Saline Nasal Spray 45 ML PRN (03:45)
--- NOTE | 2024-07-30 05:57 | NUR ---
SUMMARY: PT A/OX4, CALLS APPROPRIATELY TO SPECIFY NEEDS AND IS PLEASANT AND COOPERATIVE W/CARE. HE'S UP W/4 POINT CANE AND SBA FOR WEAKNESS AND MANAGMENT OF LINES. L.ARM FISTULA IS INTACT W/THRILLS AND BRUITS WNL. PT TO HAVE DIALYSIS TODAY AND POSSIBLE PARACENTESIS. ABDO IS FIRM AND DISTENDED W/SLIGHT PAIN TO PRIOR PARACENTESIS SITE ON 07/25/24. INSTRUCTED TO CONTINUE MONITORING AND ALERT MD IF PAIN WORSENS FOR POSS.NEED TO REPEAT CT. PRN TYLENOL WAS RECEIVED FOR RELIEF OF ROY W/LOW GRADE FEVER AND DILAUDID WAS GIVEN PER FOR CHRONIC BLE NEUROPATHY. NEW ORDER WAS ALSO OBTAINED FOR OCEANSPRAY W/MED PROVIDED FOR C/O CONGESTION. HE'S NSR ON TELE AT 80'S BPM. NO ACUTE CHANGES, VSS/AFEBRILE. WILL REPORT TO DAY RN.
[2024-07-30 08:30] LABS: Hematocrit 24.1 % (37.0-53.0); Hemoglobin 7.5 g/dL (13.5-17.5)
[2024-07-30 08:54] LABS: Albumin, Blood 2.6 g/dL (3.4-5.0); Anion Gap 10 mmol/L (3-11); Blood Urea Nitrogen 67 mg/dL (8-24); Bun/Creatinine Ratio 9.7 (12.0-20.0); CO2, Blood 34 mmol/L (21-32); Calcium, Blood 9.2 mg/dL (8.5-10.1); Chloride, Blood 93 mmol/L (98-108); Creatinine, Blood 6.88 mg/dL (0.60-1.20); Glomerular Filtration Rate 8 (60-); Glucose, Blood 119 mg/dL (70-99); Magnesium, Blood 2.5 mg/dL (1.6-2.4); Phosphorus, Blood 4.3 mg/dL (2.5-4.9); Potassium, Blood 5.1 mmol/L (3.5-5.5); Sodium, Blood 132 mmol/L (136-145)
[2024-07-30] MEDS ORDERED: Methylprednisolone 4 MG Tab PO SCH (09:00)
--- NOTE | 2024-07-30 16:44 | NUR ---
NO CHANGES IN PT STATUS
[2024-07-30] MEDS ORDERED: Calcium Acetat667 MG PO (17:32)
[2024-07-30] MEDS ORDERED: SEVEC800 PO (17:33)
[2024-07-30] MEDS ORDERED: ENTRESTO 24 MG1 EACH PO (17:34)
[2024-07-30] MEDS ORDERED: LINZESS145 MCG PO (17:35)
[2024-07-30] MEDS ORDERED: METPRE4DP PO (17:35)
[2024-07-30] MEDS ORDERED: Rena-Vite Tabl0.8 MG PO (17:35)
[2024-07-30] MEDS ORDERED: NS 250 ML IV PRN (20:35)
[2024-07-31] VITALS (15 sets, daily range): BP systolic 115–144; BP diastolic 65–89
--- NOTE | 2024-07-31 04:39 | NUR ---
SHIFT SUMMARY: PT AOX4 WITH SOME CONFUSION, BUT EASILY REORIENTED. VERY PLEASANT AND COOPERATIVE IN CARE. CALLS APPROPRIATELY AND IS ABLE TO MAKE NEEDS KNOWN. PT VERY ANXIOUS ABOUT CARE AND ASKS A LOT OF QUESTIONS. TEMPS HAVE BEEN STABLE AND ONLY SMALL EPISODE OF PAIN MEDICATED PER EMR. TOLERATING MEDICATIONS WELL. NO ACUTE OVERNIGHT EVENTS. PT IN BED RESTING, BED IN LOWEST POSITION, CALL LIGHT IN REACH. CONTINUING CARE.
[2024-07-31 05:41] LABS: Hematocrit 22.1 % (37.0-53.0)
[2024-07-31 06:08] LABS: Albumin, Blood 2.5 g/dL (3.4-5.0); Anion Gap 13 mmol/L (3-11); Blood Urea Nitrogen 66 mg/dL (8-24); Bun/Creatinine Ratio 10.4 (12.0-20.0); CO2, Blood 32 mmol/L (21-32); Calcium, Blood 9.3 mg/dL (8.5-10.1); Chloride, Blood 93 mmol/L (98-108); Creatinine, Blood 6.32 mg/dL (0.60-1.20); Glomerular Filtration Rate 9 (60-); Glucose, Blood 129 mg/dL (70-99); Magnesium, Blood 2.6 mg/dL (1.6-2.4); Phosphorus, Blood 4.2 mg/dL (2.5-4.9); Sodium, Blood 133 mmol/L (136-145)
[2024-07-31 07:20] LABS: HEPATITIS B SURFACE ANTIBODY 81.67 IU/L
[2024-07-31 07:52] LABS: HBV CORE ANTIBODIES,TOTAL Negative (Negative)
[2024-07-31 08:32] LABS: HEPATITIS B SURFACE ANTIGEN Negative (Negative)
[2024-07-31] MEDS ORDERED: Methylprednisolone 4 MG Tab PO SCH (09:00)
[2024-07-31] MEDS ORDERED: CIPR500 PO (15:32)
[2024-07-31] MEDS ORDERED: Docusate Sodiu250 MG PO (15:32)
--- NOTE | 2024-07-31 16:49 | NUR ---
DISCHARGE NOTE PT D/C HOME AT 1640. PT PROVIDED W/ VERBAL AND WRITTEN INSTRUCTIONS BY BREAK WILL MIXON. PT A&OX4, VSS, AMB W/ ASSIST, TOLERATING PO, VOIDING BM'S, AND DENIED PAIN. BELONGINGS WERE RETURNED AND PT ESCOURTED OUT VIA W/C BY PT'S .
[2024-08-01] MEDS ORDERED: Methylprednisolone 4 MG Tab PO SCH (09:00)
== END 2024-07-31 16:45 | disposition home health service (06) | DRG 864 ==
LOC: ER 15:02 → MEDS 18:15 → ERHOLD 18:15 → MEDS 23:45
PROVIDERS: Internal Medicine Nephrology; Physician Assistant; ADMIT Internal Medicine
PROC: 5A1D70Z Performance of Urinary Filtration, Intermittent, Less than 6 Hours Per Day (ICD-10-PCS; principal; 2024-07-29)
DX: R50.9 Fever, unspecified (principal); N18.6 End stage renal disease; I50.42 Chronic combined systolic (congestive) and diastolic (congestive) heart failure; I13.2 Hypertensive heart and chronic kidney disease with heart failure and with stage 5 chronic kidney disease, or end stage renal disease; Q44.6 Cystic disease of liver; E87.1 Hypo-osmolality and hyponatremia; D63.1 Anemia in chronic kidney disease; I48.0 Paroxysmal atrial fibrillation; Z66 Do not resuscitate; E86.9 Volume depletion, unspecified; E87.5 Hyperkalemia; Z99.2 Dependence on renal dialysis; Z88.8 Allergy status to other drugs, medicaments and biological substances; Z88.5 Allergy status to narcotic agent; Z91.041 Radiographic dye allergy status; Z88.0 Allergy status to penicillin; Z88.1 Allergy status to other antibiotic agents; Z90.5 Acquired absence of kidney; Z86.16 Personal history of COVID-19; Z87.891 Personal history of nicotine dependence
CPT/HCPCS: 0202U; 36415; 71045; 71250; 74176; 76705; 80048; 80053; 80069; 83605; 83615; 83735; 85014; 85018; 85025; 85651; 86141; 86704; 87040; 87340; 93005; 93010; 93306; 94760; 96360; 99284-25; A9270; J0696; J0881; J7030; J7050; J7509; P9047

== ENCOUNTER 2024-08-16 11:01 | Day surgery (SDC) | payer MEDICARE, OTHER ==
[~2024-08-16 11:01] MED LIST changes: +Docusate Sodiu250 MG PO; +LINZESS145 MCG PO; +METPRE4DP PO
== END 2024-08-16 23:00 | disposition home or self-care (01) ==
LOC: US 11:01
DX: R18.8 Other ascites (principal)
CPT/HCPCS: 76705

== ENCOUNTER 2024-09-13 15:39 | Emergency (ER) | payer MEDICARE, OTHER ==
[~2024-09-13] VITALS: Ht 182.9 cm; Wt 76.2 kg
[2024-09-13 18:04] LABS: BASOPHILS ABSOLUTE AUTO 0.02 K/mm3 (0.00-0.23); BASOPHILS PERCENT AUTO 0 % (0-2); EOSINOPHILS ABSOLUTE AUTO 0.12 K/mm3 (0.00-0.68); EOSINOPHILS PERCENT AUTO 2 % (0-6); Hematocrit 31.1 % (37.0-53.0); Hemoglobin 9.5 g/dL (13.5-17.5); IMMATURE GRAN ABSOLUTE AUTO 0.02 K/mm3 (0.00-0.10); IMMATURE GRAN PERCENT AUTO 0 % (0-1); LYMPHOCYTES ABSOLUTE AUTO 0.80 K/mm3 (0.84-5.20); LYMPHOCYTES PERCENT AUTO 13 % (21-46); MONOCYTES ABSOLUTE AUTO 0.52 K/mm3 (0.16-1.47); MONOCYTES PERCENT AUTO 8 % (4-13); Mean Corpuscular HGB Conc 30.5 g/dL (31.5-36.5); Mean Corpuscular Volume 93 fL (80-100); NEUTROPHILS ABSOLUTE AUTO 4.81 K/mm3 (1.96-9.15); NEUTROPHILS PERCENT AUTO 77 % (41-73); NRBC ABSOLUTE 0.00 K/mm3 (0.00-0.02); NRBC Auto 0.0 /100 WBC (0.0-0.2); Platelet Count 112 K/mm3 (150-400); RDW Coefficient Variation 15.3 % (11.7-14.2); RDW Standard Deviation 52.6 fL (35.1-46.3)
[2024-09-13 18:25] LABS: Alanine Aminotransfer (ALT/SGP 16.0 U/L (12-78); Albumin, Blood 3.2 g/dL (3.4-5.0); Albumin/Globulin Ratio 0.8 (0.8-1.8); Anion Gap 10.0 mmol/L (3-11); Aspartate Aminotrans (AST/SGOT 12.0 U/L (12-37); Bilirubin, Total 0.4 mg/dL (0.1-1.0); Blood Urea Nitrogen 65.0 mg/dL (8-24); CO2, Blood 36.0 mmol/L (21-32); Calcium, Blood 10.2 mg/dL (8.5-10.1); Chloride, Blood 97.0 mmol/L (98-108); Creatinine, Blood 6.5 mg/dL (0.60-1.20); Globulin, Blood 4.2 g/dL (2.2-4.0); Glucose, Blood 104.0 mg/dL (70-99); Potassium, Blood 4.1 mmol/L (3.5-5.5); Sodium, Blood 139.0 mmol/L (136-145); Total Protein, Blood 7.4 g/dL (6.4-8.2)
[2024-09-13] MEDS ORDERED: ACET500 PO (18:46)
[2024-09-13 19:26] VITALS: BP 132/79
== END 2024-09-13 19:28 | disposition home or self-care (01) ==
LOC: ER 15:39
PROVIDERS: Student in an Organized Health Care Education/Training Program
DX: M79.605 Pain in left leg (principal); I13.2 Hypertensive heart and chronic kidney disease with heart failure and with stage 5 chronic kidney disease, or end stage renal disease; N18.6 End stage renal disease; I50.20 Unspecified systolic (congestive) heart failure; M19.90 Unspecified osteoarthritis, unspecified site; Z87.891 Personal history of nicotine dependence; Z91.041 Radiographic dye allergy status; Z88.8 Allergy status to other drugs, medicaments and biological substances; Z88.5 Allergy status to narcotic agent; Z99.2 Dependence on renal dialysis
CPT/HCPCS: 71046; 80053; 85025; 93005; 93010; 93971; 99284-25

== ENCOUNTER 2024-11-12 15:52 | Emergency (ER) | payer MEDICARE ==
[~2024-11-12] VITALS: Ht 182.9 cm; Wt 70.3 kg
[2024-11-12 17:08] LABS: BASOPHILS ABSOLUTE AUTO 0.01 K/mm3 (0.00-0.23); BASOPHILS PERCENT AUTO 0 % (0-2); EOSINOPHILS ABSOLUTE AUTO 0.10 K/mm3 (0.00-0.68); EOSINOPHILS PERCENT AUTO 2 % (0-6); Hematocrit 27.7 % (37.0-53.0); Hemoglobin 9.0 g/dL (13.5-17.5); IMMATURE GRAN ABSOLUTE AUTO 0.01 K/mm3 (0.00-0.10); IMMATURE GRAN PERCENT AUTO 0 % (0-1); LYMPHOCYTES ABSOLUTE AUTO 0.55 K/mm3 (0.84-5.20); LYMPHOCYTES PERCENT AUTO 12 % (21-46); MONOCYTES ABSOLUTE AUTO 0.34 K/mm3 (0.16-1.47); MONOCYTES PERCENT AUTO 8 % (4-13); Mean Corpuscular HGB Conc 32.5 g/dL (31.5-36.5); Mean Corpuscular Volume 87 fL (80-100); NEUTROPHILS ABSOLUTE AUTO 3.49 K/mm3 (1.96-9.15); NEUTROPHILS PERCENT AUTO 78 % (41-73); NRBC ABSOLUTE 0.00 K/mm3 (0.00-0.02); NRBC Auto 0.0 /100 WBC (0.0-0.2); Platelet Count 83 K/mm3 (150-400); RDW Coefficient Variation 15.5 % (11.7-14.2); RDW Standard Deviation 49.1 fL (35.1-46.3)
[2024-11-12 17:24] LABS: Magnesium, Blood 3.3 mg/dL (1.6-2.4)
[2024-11-12 17:35] LABS: Alanine Aminotransfer (ALT/SGP 20.0 U/L (12-78); Albumin, Blood 3.5 g/dL (3.4-5.0); Albumin/Globulin Ratio 1.0 (0.8-1.8); Anion Gap 15.0 mmol/L (3-11); Aspartate Aminotrans (AST/SGOT 26.0 U/L (12-37); Bilirubin, Total 0.6 mg/dL (0.1-1.0); Blood Urea Nitrogen 119.0 mg/dL (8-24); CO2, Blood 30.0 mmol/L (21-32); Calcium, Blood 9.7 mg/dL (8.5-10.1); Chloride, Blood 93.0 mmol/L (98-108); Creatinine, Blood 11.5 mg/dL (0.60-1.20); Globulin, Blood 3.6 g/dL (2.2-4.0); Glucose, Blood 111.0 mg/dL (70-99); Phosphorus, Blood 6.2 mg/dL (2.5-4.9); Potassium, Blood 4.9 mmol/L (3.5-5.5); Sodium, Blood 133.0 mmol/L (136-145); Total Protein, Blood 7.1 g/dL (6.4-8.2)
[2024-11-12] MEDS ORDERED: Levodopa/Carbidopa 100 / 25 MG Tab PO PRN (18:55)
[2024-11-12] MEDS ORDERED: Albuterol 2.5 MG/3 ML VIAL INH PRN (18:55)
[2024-11-12] MEDS ORDERED: Darbepoetin (Pharmacy Consult) SC SCH (19:35)
[2024-11-12 20:15] VITALS: BP 168/86
== END 2024-11-12 20:35 | disposition home or self-care (01) ==
LOC: ER 15:52 → MEDS 18:46 → EDBEDREQTM 20:26 → ER 20:35
PROVIDERS: Student in an Organized Health Care Education/Training Program
DX: N19 Unspecified kidney failure (principal); Z87.891 Personal history of nicotine dependence; I10 Essential (primary) hypertension; Z79.899 Other long term (current) drug therapy; Z91.041 Radiographic dye allergy status; Z88.5 Allergy status to narcotic agent; Z88.0 Allergy status to penicillin; Z88.8 Allergy status to other drugs, medicaments and biological substances
CPT/HCPCS: 71045; 80053; 83735; 83880; 84100; 85025; 93005; 93010; 99284-25

== ENCOUNTER 2024-12-15 17:37 | Inpatient (IN) | payer MEDICARE ==
[~2024-12-15] VITALS: Ht 182.9 cm; Wt 83.8 kg
[2024-12-15 18:01] LABS: BASOPHILS ABSOLUTE AUTO 0.01 K/mm3 (0.00-0.23); BASOPHILS PERCENT AUTO 0 % (0-2); EOSINOPHILS ABSOLUTE AUTO 0.07 K/mm3 (0.00-0.68); EOSINOPHILS PERCENT AUTO 1 % (0-6); Hematocrit 26.6 % (37.0-53.0); Hemoglobin 8.3 g/dL (13.5-17.5); IMMATURE GRAN ABSOLUTE AUTO 0.03 K/mm3 (0.00-0.10); IMMATURE GRAN PERCENT AUTO 0 % (0-1); LYMPHOCYTES ABSOLUTE AUTO 0.62 K/mm3 (0.84-5.20); LYMPHOCYTES PERCENT AUTO 9 % (21-46); MONOCYTES ABSOLUTE AUTO 0.59 K/mm3 (0.16-1.47); MONOCYTES PERCENT AUTO 8 % (4-13); Mean Corpuscular HGB Conc 31.2 g/dL (31.5-36.5); Mean Corpuscular Volume 91 fL (80-100); NEUTROPHILS ABSOLUTE AUTO 5.99 K/mm3 (1.96-9.15); NEUTROPHILS PERCENT AUTO 82 % (41-73); NRBC ABSOLUTE 0.00 K/mm3 (0.00-0.02); NRBC Auto 0.0 /100 WBC (0.0-0.2); Platelet Count 94 K/mm3 (150-400); RDW Coefficient Variation 15.2 % (11.7-14.2); RDW Standard Deviation 50.7 fL (35.1-46.3)
[2024-12-15 18:20] LABS: Alanine Aminotransfer (ALT/SGP 11.0 U/L (12-78); Albumin, Blood 3.2 g/dL (3.4-5.0); Albumin/Globulin Ratio 0.8 (0.8-1.8); Anion Gap 10.0 mmol/L (3-11); Aspartate Aminotrans (AST/SGOT 15.0 U/L (12-37); Bilirubin, Total 1.0 mg/dL (0.1-1.0); Blood Urea Nitrogen 59.0 mg/dL (8-24); CO2, Blood 34.0 mmol/L (21-32); Calcium, Blood 9.7 mg/dL (8.5-10.1); Chloride, Blood 97.0 mmol/L (98-108); Creatinine, Blood 7.28 mg/dL (0.60-1.20); Globulin, Blood 3.8 g/dL (2.2-4.0); Glucose, Blood 108.0 mg/dL (70-99); Potassium, Blood 4.2 mmol/L (3.5-5.5); Sodium, Blood 137.0 mmol/L (136-145); Total Protein, Blood 7.0 g/dL (6.4-8.2)
[2024-12-15] MEDS ORDERED: HYDROmorphone HCl/Pf 1MG SYR IV ONE (18:50)
[2024-12-15] MEDS ORDERED: CefTRIAXone Sodium 1,000 MG in NS 100 ML IV ONE (18:50)
[2024-12-15 19:12] LABS: Influenza A, PCR NEGATIVE (NEGATIVE); Influenza B, PCR NEGATIVE (NEGATIVE); Resp Syncytial Virus, PCR NEGATIVE (NEGATIVE); SARS-Cov-2 (COVID-19) PCR, MMC NEGATIVE (NEGATIVE)
[2024-12-15] MEDS ORDERED: FLU VACC TS2025-26(6MOS UP)/PF 45 MCG/0.5 ML SYRINGE IM SCH (22:35)
[2024-12-16] VITALS (16 sets, daily range): BP systolic 127–156; BP diastolic 65–86
[2024-12-16] MEDS ORDERED: RIZATRIPTAN10 M3 PO (00:29)
[2024-12-16] MEDS ORDERED: CIPR500 PO (00:30)
--- NOTE | 2024-12-16 00:59 | NUR ---
ADMIT NOTE: PT ARRIVED AT 2358 VIA GURNEY WITH PIE FILLER. PTS AT BEDSIDE WITH PT. PT ORIENTED TO ROOM. PT GIVEN A SNACK REQUESTED AND WATER.
--- NOTE | 2024-12-16 04:50 | NUR ---
SHIFT SUMMARY: PT IS AOX3-4. WAS AT BEDSIDE DURING THE FIRST OF THE PT BEING ADMITTED. MEDICATED PER EMAR. PT SLEEPING MOST OF THE SHIFT. NO CHANGES
--- NOTE | 2024-12-16 05:38 | NUR ---
call placed to md: call placed to md regarding pain meds requested by pt. md to review chart and place orders.
[2024-12-16] MEDS ORDERED: Darbepoetin (Pharmacy Consult) SC SCH (06:30)
[2024-12-16] MEDS ORDERED: Calcium Acetate 667 MG Gel Cap PO SCH (08:30)
[2024-12-16] MEDS ORDERED: Lactobacil 2-S.Thermo-Bifido 1 1 Cap PO SCH (09:00)
[2024-12-16] MEDS ORDERED: Vitamin B Cmplx/Vit C/Folic Ac 1 Tab PO SCH (09:00)
[2024-12-16 10:10] LABS: BASOPHILS ABSOLUTE AUTO 0.01 K/mm3 (0.00-0.23); BASOPHILS PERCENT AUTO 0 % (0-2); EOSINOPHILS ABSOLUTE AUTO 0.12 K/mm3 (0.00-0.68); EOSINOPHILS PERCENT AUTO 3 % (0-6); Hematocrit 21.8 % (37.0-53.0); Hemoglobin 7.0 g/dL (13.5-17.5); IMMATURE GRAN ABSOLUTE AUTO 0.01 K/mm3 (0.00-0.10); IMMATURE GRAN PERCENT AUTO 0 % (0-1); LYMPHOCYTES ABSOLUTE AUTO 0.67 K/mm3 (0.84-5.20); LYMPHOCYTES PERCENT AUTO 17 % (21-46); MONOCYTES ABSOLUTE AUTO 0.28 K/mm3 (0.16-1.47); MONOCYTES PERCENT AUTO 7 % (4-13); Mean Corpuscular HGB Conc 32.1 g/dL (31.5-36.5); Mean Corpuscular Volume 91 fL (80-100); NEUTROPHILS ABSOLUTE AUTO 2.87 K/mm3 (1.96-9.15); NEUTROPHILS PERCENT AUTO 72 % (41-73); NRBC ABSOLUTE 0.00 K/mm3 (0.00-0.02); NRBC Auto 0.0 /100 WBC (0.0-0.2); Platelet Count 79 K/mm3 (150-400); RDW Coefficient Variation 15.2 % (11.7-14.2); RDW Standard Deviation 51.5 fL (35.1-46.3)
[2024-12-16 10:27] LABS: Alanine Aminotransfer (ALT/SGP 9.0 U/L (12-78); Albumin, Blood 2.7 g/dL (3.4-5.0); Albumin/Globulin Ratio 0.8 (0.8-1.8); Anion Gap 11.0 mmol/L (3-11); Aspartate Aminotrans (AST/SGOT 10.0 U/L (12-37); Bilirubin, Total 0.7 mg/dL (0.1-1.0); Blood Urea Nitrogen 63.0 mg/dL (8-24); CO2, Blood 34.0 mmol/L (21-32); Calcium, Blood 9.5 mg/dL (8.5-10.1); Chloride, Blood 97.0 mmol/L (98-108); Creatinine, Blood 7.55 mg/dL (0.60-1.20); Globulin, Blood 3.4 g/dL (2.2-4.0); Glucose, Blood 135.0 mg/dL (70-99); Magnesium, Blood 2.5 mg/dL (1.6-2.4); Phosphorus, Blood 4.4 mg/dL (2.5-4.9); Potassium, Blood 4.5 mmol/L (3.5-5.5); Sodium, Blood 137.0 mmol/L (136-145); Total Protein, Blood 6.1 g/dL (6.4-8.2)
[2024-12-16] MEDS ORDERED: Saline Nasal Spray 45 ML PRN (13:05)
[2024-12-16 14:21] LABS: Influenza A/2009-H1 Not Detected (NOT DETECT); SARS-Cov-2 (COVID-19), BioFire Not Detected (NOT DETECT)
[2024-12-16] MEDS ORDERED: Darbepoetin Alfa In Albumn Sol 40 MCG/0.4 ML SC SCH (16:00)
[2024-12-16] MEDS ORDERED: NS 250 ML IV PRN (17:35)
--- NOTE | 2024-12-16 17:38 | NUR ---
SHIFT SUMMARY PT AOX4, COOPERATIVE, ABLE TO MAKE NEEDS KNONW. PT IS AMBULATORY IN ROOM, ON 3L O2, NO TELE. PT HAD DIALYSIS THIS AM, 2.5L OFF. PT DOES OPT TO TAKE PARTIAL DOSES OF RENAL MEDICATION DUE TO NOT EATING MUCH. BED IN LOWEST POSITION, CALL LIGHT WITHIN REACH.
[2024-12-16] MEDS ORDERED: CefTRIAXone Sodium 1,000 MG in NS 100 ML IV SCH (18:00)
[2024-12-17] VITALS (18 sets, daily range): BP systolic 130–161; BP diastolic 52–89
[2024-12-17 06:05] LABS: Hematocrit 22.6 % (37.0-53.0); Hemoglobin 6.9 g/dL (13.5-17.5)
--- NOTE | 2024-12-17 06:17 | NUR ---
SHIFT SUMMARY: Pt is admitted for SIRS and is a full code. Is alert and able to make needs known. ADLs have been SBA. pain has been managed with PRN medications. Iv to right forearm is patent with dressing that is CDI. on 3lpm of O2 via NC this is baseline.
[2024-12-17 06:30] LABS: Albumin, Blood 2.6 g/dL (3.4-5.0); Anion Gap 7 mmol/L (3-11); Blood Urea Nitrogen 59 mg/dL (8-24); CO2, Blood 38 mmol/L (21-32); Calcium, Blood 9.7 mg/dL (8.5-10.1); Chloride, Blood 95 mmol/L (98-108); Creatinine, Blood 7.19 mg/dL (0.60-1.20); Glucose, Blood 115 mg/dL (70-99); Magnesium, Blood 2.7 mg/dL (1.6-2.4); Phosphorus, Blood 5.1 mg/dL (2.5-4.9); Potassium, Blood 4.1 mmol/L (3.5-5.5); Sodium, Blood 136 mmol/L (136-145)
[2024-12-17] MEDS ORDERED: NS 500 ML IV SCH (09:20)
[2024-12-17] MEDS ORDERED: Rizatriptan Benzoate 10 MG / TAB SoluTab SL PRN (10:25)
[2024-12-17] MEDS ORDERED: Ipratropium/Albuterol SulF 2.5-0.5MG/3 ML Amp INH PRN (10:25)
[2024-12-17] MEDS ORDERED: Levodopa/Carbidopa 100 / 25 MG Tab PO PRN (10:45)
--- NOTE | 2024-12-17 15:58 | NUR ---
SHIFT SUMMARY PT AOX4, COOPERATIVE, ABLE TO MAKE NEEDS KOWN. PT IS IND IN ROOM. UTILIZING 3L O2 CURRENTLY. PT HAS 2 UNITS PRBC INFUSED WHILE IN DIALYSIS. TOLERATING MEDICATIONS. BED IN LOWEST POSITION, CALL LIGHT WITHIN REACH.
[2024-12-17] MEDS ORDERED: Ondansetron HCl 2 MG / ML 2ML Vial IV PRN (22:15)
[2024-12-18 04:59] VITALS: BP 142/81
--- NOTE | 2024-12-18 05:13 | NUR ---
SHIFT SUMMARY A&OX4. ABLE TO MAKE NEEDS KNOWN. REPORTS HAVING HOT AND COLD FLASHES THAT APPEAR TO BE CONSISTENT WITH WHEN PT WAS ADMITTED AND THE INFECTION. RECOMMENDED HE DISCUSS WITH PROVIDER. VSS. PT DOES REPORT AZITHROMYCIN MOR[place] WHEN INFUSED AND CAUSES UPSET STOMACH FOR THE LAST 2 INFUSIONS. ATTEMPTED LARGER IV TO POSSIBLY HELP WITH THE BURNING BUT UNABLE TO OBTAIN. PT REQUESTED TO WAIT ON NEW IV. WILL REPORT TO DAYSHIFT NURSE TO DISCUSS WITH PROVIDER. ENCOURAGED PT TO DISCUSS WITH PROVIDER WELL. PT WAS ABLE TO TOLERATE INFUSION BUT STATED HE DIDN'T WANT TO DO IT AGAIN. PT WAS ABLE TO REST THROUGHOUT THE NIGHT. CURRENTLY RESTING IN BED AT LOWEST POSITION WITH CALL LIGHT WITHIN REACH.
[2024-12-18 05:18] LABS: Hematocrit 27.2 % (37.0-53.0); Hemoglobin 8.5 g/dL (13.5-17.5)
[2024-12-18] MEDS ORDERED: Vitamin B Cmplx/Vit C/Folic Ac 1 Tab PO SCH (06:00)
[2024-12-18 06:03] LABS: Albumin, Blood 2.7 g/dL (3.4-5.0); Anion Gap 6 mmol/L (3-11); Blood Urea Nitrogen 47 mg/dL (8-24); CO2, Blood 38 mmol/L (21-32); Calcium, Blood 9.7 mg/dL (8.5-10.1); Chloride, Blood 97 mmol/L (98-108); Creatinine, Blood 5.73 mg/dL (0.60-1.20); Glucose, Blood 102 mg/dL (70-99); Magnesium, Blood 2.6 mg/dL (1.6-2.4); Phosphorus, Blood 4.9 mg/dL (2.5-4.9); Potassium, Blood 4.1 mmol/L (3.5-5.5); Sodium, Blood 137 mmol/L (136-145)
[2024-12-18 08:12] VITALS: BP 145/85
[2024-12-18] MEDS ORDERED: Polyethylene Glycol 3350 17 gm PO SCH (09:00)
[2024-12-18] MEDS ORDERED: HYDMOR2 PO (14:45)
[2024-12-18] MEDS ORDERED: ONDA4 PO (14:46)
[2024-12-18] MEDS ORDERED: HYDHCL25 PO (14:48)
[2024-12-18] MEDS ORDERED: CALCIUM ACETAT667 M1 PO (14:55)
[2024-12-18] MEDS ORDERED: SEVEC800 PO (14:56)
--- NOTE | 2024-12-18 18:33 | NUR ---
1645-DC PT LEFT IN STABLE CONDITION WITH RIDE. PT BROUGHT OUT FOR DC IN . PT LEFT WITH ALL BELONGINGS.
== END 2024-12-18 16:53 | disposition home or self-care (01) | DRG 864 ==
LOC: ER 17:37 → MEDS 17:38
PROVIDERS: Emergency Medicine; Internal Medicine; Internal Medicine Nephrology; ADMIT Student in an Organized Health Care Education/Training Program
PROC: 5A1D70Z Performance of Urinary Filtration, Intermittent, Less than 6 Hours Per Day (ICD-10-PCS; principal; 2024-12-15)
PROC: 3E03329 Introduction of Other Anti-infective into Peripheral Vein, Percutaneous Approach (ICD-10-PCS; 2024-12-15)
PROC: 30233N1 Transfusion of Nonautologous Red Blood Cells into Peripheral Vein, Percutaneous Approach (ICD-10-PCS; 2024-12-17)
DX: R65.10 Systemic inflammatory response syndrome (SIRS) of non-infectious origin without acute organ dysfunction (principal); N18.6 End stage renal disease; I50.22 Chronic systolic (congestive) heart failure; J96.11 Chronic respiratory failure with hypoxia; Z99.2 Dependence on renal dialysis; J44.9 Chronic obstructive pulmonary disease, unspecified; Z90.5 Acquired absence of kidney; M19.90 Unspecified osteoarthritis, unspecified site; I48.0 Paroxysmal atrial fibrillation; E88.09 Other disorders of plasma-protein metabolism, not elsewhere classified; D63.8 Anemia in other chronic diseases classified elsewhere; Z88.5 Allergy status to narcotic agent; Z88.0 Allergy status to penicillin; Z88.8 Allergy status to other drugs, medicaments and biological substances; Z91.018 Allergy to other foods; Z91.048 Other nonmedicinal substance allergy status; Z87.19 Personal history of other diseases of the digestive system; Z79.899 Other long term (current) drug therapy; Z87.891 Personal history of nicotine dependence
CPT/HCPCS: 0202U; 36415; 36430; 71045; 71250; 74176; 80053; 80069; 83605; 83735; 83880; 84100; 84484; 85014; 85018; 85025; 86850; 86900; 86901; 86923; 87637; 93005; 93010; 94760; 94762; 96365-59; 96367; 96372; 96375-59; 96376; 99285-25; A9270; G0378; J0456; J0696; J0881; J1171; J2405; J7050; P9016

== ENCOUNTER 2024-12-30 07:32 | Emergency (ER) | payer MEDICARE ==
[~2024-12-30] VITALS: Ht 182.9 cm; Wt 81.7 kg
[~2024-12-30 07:32] MED LIST changes: +CALCIUM ACETAT667 M1 PO; +RIZATRIPTAN10 M3 PO
[2024-12-30] MEDS ORDERED: Ipratropium/Albuterol SulF 2.5-0.5MG/3 ML Amp INH ONE (08:15)
[2024-12-30 08:43] LABS: BASOPHILS ABSOLUTE AUTO 0.02 K/mm3 (0.00-0.23); BASOPHILS PERCENT AUTO 0 % (0-2); EOSINOPHILS ABSOLUTE AUTO 0.17 K/mm3 (0.00-0.68); EOSINOPHILS PERCENT AUTO 3 % (0-6); Hematocrit 24.8 % (37.0-53.0); Hemoglobin 7.5 g/dL (13.5-17.5); IMMATURE GRAN ABSOLUTE AUTO 0.01 K/mm3 (0.00-0.10); IMMATURE GRAN PERCENT AUTO 0 % (0-1); LYMPHOCYTES ABSOLUTE AUTO 0.61 K/mm3 (0.84-5.20); LYMPHOCYTES PERCENT AUTO 12 % (21-46); MONOCYTES ABSOLUTE AUTO 0.29 K/mm3 (0.16-1.47); MONOCYTES PERCENT AUTO 6 % (4-13); Mean Corpuscular HGB Conc 30.2 g/dL (31.5-36.5); Mean Corpuscular Volume 93 fL (80-100); NEUTROPHILS ABSOLUTE AUTO 4.08 K/mm3 (1.96-9.15); NEUTROPHILS PERCENT AUTO 79 % (41-73); NRBC ABSOLUTE 0.00 K/mm3 (0.00-0.02); NRBC Auto 0.0 /100 WBC (0.0-0.2); Platelet Count 91 K/mm3 (150-400); RDW Coefficient Variation 16.5 % (11.7-14.2); RDW Standard Deviation 55.4 fL (35.1-46.3)
[2024-12-30 09:10] LABS: Alanine Aminotransfer (ALT/SGP 14.0 U/L (12-78); Albumin, Blood 3.2 g/dL (3.4-5.0); Albumin/Globulin Ratio 0.9 (0.8-1.8); Anion Gap 10.0 mmol/L (3-11); Aspartate Aminotrans (AST/SGOT 14.0 U/L (12-37); Bilirubin, Total 0.9 mg/dL (0.1-1.0); Blood Urea Nitrogen 81.0 mg/dL (8-24); CO2, Blood 33.0 mmol/L (21-32); Calcium, Blood 9.9 mg/dL (8.5-10.1); Chloride, Blood 99.0 mmol/L (98-108); Creatinine, Blood 8.68 mg/dL (0.60-1.20); Globulin, Blood 3.5 g/dL (2.2-4.0); Glucose, Blood 116.0 mg/dL (70-99); Potassium, Blood 4.3 mmol/L (3.5-5.5); Sodium, Blood 138.0 mmol/L (136-145); Total Protein, Blood 6.7 g/dL (6.4-8.2)
[2024-12-30 09:49] LABS: Influenza A, PCR NEGATIVE (NEGATIVE); Influenza B, PCR NEGATIVE (NEGATIVE); Resp Syncytial Virus, PCR NEGATIVE (NEGATIVE); SARS-Cov-2 (COVID-19) PCR, MMC NEGATIVE (NEGATIVE)
[2024-12-30] MEDS ORDERED: ALBU90OI INH (11:45)
[2024-12-30] MEDS ORDERED: PRED20 PO (11:45)
[2024-12-30 12:17] VITALS: BP 161/60
== END 2024-12-30 12:15 | disposition home or self-care (01) ==
LOC: ER 07:32
PROVIDERS: Physician Assistant
DX: I13.2 Hypertensive heart and chronic kidney disease with heart failure and with stage 5 chronic kidney disease, or end stage renal disease (principal); I50.9 Heart failure, unspecified; N18.6 End stage renal disease; D63.1 Anemia in chronic kidney disease; M81.0 Age-related osteoporosis without current pathological fracture; Z99.2 Dependence on renal dialysis; Z99.81 Dependence on supplemental oxygen; Z90.5 Acquired absence of kidney; Z87.891 Personal history of nicotine dependence; Z91.041 Radiographic dye allergy status; Z88.8 Allergy status to other drugs, medicaments and biological substances; Z88.5 Allergy status to narcotic agent; Z88.0 Allergy status to penicillin; Z88.3 Allergy status to other anti-infective agents; Z79.899 Other long term (current) drug therapy
CPT/HCPCS: 71046; 80053; 83880; 84484; 85025; 86850; 86900; 86901; 87637; 93005; 93010; 99285-25

== ENCOUNTER 2025-01-03 00:56 | Day surgery (SDC) | payer MEDICARE, OTHER ==
[2025-01-02 16:57] LABS: Albumin, Blood 3.3 g/dL (3.4-5.0); Anion Gap 10 mmol/L (3-11); Blood Urea Nitrogen 83 mg/dL (8-24); CO2, Blood 35 mmol/L (21-32); Calcium, Blood 10.0 mg/dL (8.5-10.1); Chloride, Blood 99 mmol/L (98-108); Creatinine, Blood 7.77 mg/dL (0.60-1.20); Glucose, Blood 112 mg/dL (70-99); Phosphorus, Blood 4.2 mg/dL (2.5-4.9); Potassium, Blood 3.9 mmol/L (3.5-5.5); Sodium, Blood 140 mmol/L (136-145)
[~2025-01-03 00:56] MED LIST changes: +ALBU90OI INH; +PRED20 PO
[2025-01-03] MEDS ORDERED: NS 250 ML IV PRN (06:00)
[2025-01-03 13:28] VITALS: BP 140/71
[2025-01-03 13:48] VITALS: BP 140/72
[2025-01-03 14:51] VITALS: BP 149/79
[2025-01-03 15:26] VITALS: BP 146/76
== END 2025-01-03 15:29 | disposition home or self-care (01) ==
LOC: ATC 00:56
PROVIDERS: Internal Medicine Nephrology
DX: I13.2 Hypertensive heart and chronic kidney disease with heart failure and with stage 5 chronic kidney disease, or end stage renal disease (principal); N18.6 End stage renal disease; I50.22 Chronic systolic (congestive) heart failure; D63.1 Anemia in chronic kidney disease; M19.90 Unspecified osteoarthritis, unspecified site; M81.0 Age-related osteoporosis without current pathological fracture; I48.0 Paroxysmal atrial fibrillation; J96.11 Chronic respiratory failure with hypoxia; Z87.891 Personal history of nicotine dependence; Z79.899 Other long term (current) drug therapy; Z88.5 Allergy status to narcotic agent; Z88.8 Allergy status to other drugs, medicaments and biological substances; Z91.041 Radiographic dye allergy status; Z90.5 Acquired absence of kidney; Z90.89 Acquired absence of other organs; Z99.2 Dependence on renal dialysis
CPT/HCPCS: 36415; 36430; 80069; 85018; 86850; 86900; 86901; 86923; J7050; P9016

== ENCOUNTER 2025-01-16 23:05 | Observation (INO) | payer MEDICARE ==
[~2025-01-16] VITALS: Ht 182.9 cm; Wt 80.0 kg
[2025-01-16 23:41] LABS: BASOPHILS ABSOLUTE AUTO 0.01 K/mm3 (0.00-0.23); BASOPHILS PERCENT AUTO 0 % (0-2); EOSINOPHILS ABSOLUTE AUTO 0.13 K/mm3 (0.00-0.68); EOSINOPHILS PERCENT AUTO 3 % (0-6); Hematocrit 26.6 % (37.0-53.0); Hemoglobin 8.0 g/dL (13.5-17.5); IMMATURE GRAN ABSOLUTE AUTO 0.01 K/mm3 (0.00-0.10); IMMATURE GRAN PERCENT AUTO 0 % (0-1); LYMPHOCYTES ABSOLUTE AUTO 0.69 K/mm3 (0.84-5.20); LYMPHOCYTES PERCENT AUTO 15 % (21-46); MONOCYTES ABSOLUTE AUTO 0.30 K/mm3 (0.16-1.47); MONOCYTES PERCENT AUTO 7 % (4-13); Mean Corpuscular HGB Conc 30.1 g/dL (31.5-36.5); Mean Corpuscular Volume 97 fL (80-100); NEUTROPHILS ABSOLUTE AUTO 3.40 K/mm3 (1.96-9.15); NEUTROPHILS PERCENT AUTO 75 % (41-73); NRBC ABSOLUTE 0.00 K/mm3 (0.00-0.02); NRBC Auto 0.0 /100 WBC (0.0-0.2); Platelet Count 65 K/mm3 (150-400); RDW Coefficient Variation 17.5 % (11.7-14.2); RDW Standard Deviation 62.4 fL (35.1-46.3)
[2025-01-16 23:59] LABS: Alanine Aminotransfer (ALT/SGP 17.0 U/L (12-78); Albumin, Blood 3.5 g/dL (3.4-5.0); Albumin/Globulin Ratio 1.1 (0.8-1.8); Anion Gap 11.0 mmol/L (3-11); Aspartate Aminotrans (AST/SGOT 14.0 U/L (12-37); Bilirubin, Total 0.9 mg/dL (0.1-1.0); Blood Urea Nitrogen 61.0 mg/dL (8-24); CO2, Blood 34.0 mmol/L (21-32); Calcium, Blood 10.3 mg/dL (8.5-10.1); Chloride, Blood 99.0 mmol/L (98-108); Creatinine, Blood 5.63 mg/dL (0.60-1.20); Globulin, Blood 3.2 g/dL (2.2-4.0); Glucose, Blood 104.0 mg/dL (70-99); Potassium, Blood 4.4 mmol/L (3.5-5.5); Sodium, Blood 140.0 mmol/L (136-145); Total Protein, Blood 6.7 g/dL (6.4-8.2)
[2025-01-17] VITALS (15 sets, daily range): BP systolic 133–169; BP diastolic 66–94
[2025-01-17] MEDS ORDERED: Ondansetron HCl 2 MG / ML 2ML Vial IV PRN (03:00)
[2025-01-17] MEDS ORDERED: FLU VACC TS2025-26(6MOS UP)/PF 45 MCG/0.5 ML SYRINGE IM SCH (03:00)
[2025-01-17 05:16] LABS: BASOPHILS ABSOLUTE AUTO 0.01 K/mm3 (0.00-0.23); BASOPHILS PERCENT AUTO 0 % (0-2); EOSINOPHILS ABSOLUTE AUTO 0.13 K/mm3 (0.00-0.68); EOSINOPHILS PERCENT AUTO 3 % (0-6); Hematocrit 25.4 % (37.0-53.0); Hemoglobin 7.6 g/dL (13.5-17.5); IMMATURE GRAN ABSOLUTE AUTO 0.01 K/mm3 (0.00-0.10); IMMATURE GRAN PERCENT AUTO 0 % (0-1); LYMPHOCYTES ABSOLUTE AUTO 0.67 K/mm3 (0.84-5.20); LYMPHOCYTES PERCENT AUTO 16 % (21-46); MONOCYTES ABSOLUTE AUTO 0.34 K/mm3 (0.16-1.47); MONOCYTES PERCENT AUTO 8 % (4-13); Mean Corpuscular HGB Conc 29.9 g/dL (31.5-36.5); Mean Corpuscular Volume 97 fL (80-100); NEUTROPHILS ABSOLUTE AUTO 3.10 K/mm3 (1.96-9.15); NEUTROPHILS PERCENT AUTO 73 % (41-73); NRBC ABSOLUTE 0.00 K/mm3 (0.00-0.02); NRBC Auto 0.0 /100 WBC (0.0-0.2); Platelet Count 65 K/mm3 (150-400); RDW Coefficient Variation 17.5 % (11.7-14.2); RDW Standard Deviation 62.4 fL (35.1-46.3)
[2025-01-17 05:48] LABS: Alanine Aminotransfer (ALT/SGP 17.0 U/L (12-78); Albumin, Blood 3.5 g/dL (3.4-5.0); Albumin/Globulin Ratio 1.2 (0.8-1.8); Anion Gap 11.0 mmol/L (3-11); Aspartate Aminotrans (AST/SGOT 11.0 U/L (12-37); Bilirubin, Total 0.9 mg/dL (0.1-1.0); Blood Urea Nitrogen 68.0 mg/dL (8-24); CO2, Blood 35.0 mmol/L (21-32); Calcium, Blood 10.4 mg/dL (8.5-10.1); Chloride, Blood 99.0 mmol/L (98-108); Creatinine, Blood 6.0 mg/dL (0.60-1.20); Globulin, Blood 2.8 g/dL (2.2-4.0); Glucose, Blood 102.0 mg/dL (70-99); Magnesium, Blood 2.7 mg/dL (1.6-2.4); Phosphorus, Blood 4.1 mg/dL (2.5-4.9); Potassium, Blood 4.7 mmol/L (3.5-5.5); Sodium, Blood 140.0 mmol/L (136-145); Total Protein, Blood 6.3 g/dL (6.4-8.2)
[2025-01-17] MEDS ORDERED: Darbepoetin (Pharmacy Consult) SC SCH (06:35)
[2025-01-17] MEDS ORDERED: Calcium Acetate 667 MG Gel Cap PO SCH (08:30)
[2025-01-17] MEDS ORDERED: Vitamin B Cmplx/Vit C/Folic Ac 1 Tab PO SCH (09:00)
[2025-01-17] MEDS ORDERED: Levodopa/Carbidopa 100 / 25 MG Tab PO PRN (11:15)
[2025-01-17] MEDS ORDERED: Albuterol HFA200 ACT/6.7 GM INH INH PRN (11:15)
[2025-01-17] MEDS ORDERED: Rizatriptan Benzoate 10 MG / TAB SoluTab PO PRN (12:25)
[2025-01-17] MEDS ORDERED: AMOCLA500 PO (16:17)
--- NOTE | 2025-01-17 18:09 | NUR ---
DISCHARGE NOTE PATIENT DISCHARGE TO HOME, TRANSPORTED OUT OF THE ROOM VIA WHEELCHAIR BY WILL BARRIENTOS. D/C D TELE AND IV. PRINTED AND REVIEWED DISCHARGE INSTRUCTIONS WITH PATIENT AND , VERBALIZED UNDERSTANDING. FAXED MEDICATION LIST TO SELECTED PHARMACY. BELONGINGS RETURN TO PATIENT. TOLERATING PO AND VOIDING.
[2025-01-17] MEDS ORDERED: Lactobacil 2-S.Thermo-Bifido 1 1 Cap PO SCH (21:00)
== END 2025-01-17 17:56 | disposition home or self-care (01) ==
LOC: ER 23:05 → ERHOLD 23:06 → MEDS 23:06 → ENPENDDIS 01-17 15:32 → MEDS 01-17 17:56
PROVIDERS: Emergency Medicine; ADMIT Student in an Organized Health Care Education/Training Program
DX: R07.9 Chest pain, unspecified (principal); R06.09 Other forms of dyspnea; E87.70 Fluid overload, unspecified; J18.9 Pneumonia, unspecified organism; J96.11 Chronic respiratory failure with hypoxia; D69.6 Thrombocytopenia, unspecified; D63.8 Anemia in other chronic diseases classified elsewhere; J90 Pleural effusion, not elsewhere classified; I13.2 Hypertensive heart and chronic kidney disease with heart failure and with stage 5 chronic kidney disease, or end stage renal disease; I50.23 Acute on chronic systolic (congestive) heart failure; N18.6 End stage renal disease; I48.0 Paroxysmal atrial fibrillation; E83.52 Hypercalcemia; Z99.2 Dependence on renal dialysis; Z66 Do not resuscitate; Z79.82 Long term (current) use of aspirin; Z79.899 Other long term (current) drug therapy; Z88.8 Allergy status to other drugs, medicaments and biological substances; Z88.0 Allergy status to penicillin; Z88.5 Allergy status to narcotic agent; Z91.041 Radiographic dye allergy status; Z99.81 Dependence on supplemental oxygen; Z87.891 Personal history of nicotine dependence
CPT/HCPCS: 36415; 71046; 71250; 80053; 83690; 83735; 84100; 84484; 85025; 90471; 93005; 93010; 94762; 96374; 96376; 99285-25; A9270; G0257; G0378; J2405

== ENCOUNTER 2025-01-31 01:35 | Day surgery (SDC) | payer MEDICARE ==
[~2025-01-31 01:35] MED LIST changes: +AMOCLA500 PO; +ENTRESTO 49 MG1 EACH PO
[2025-01-31] MEDS ORDERED: NS 250 ML IV SCH (06:00)
[2025-01-31 07:45] VITALS: BP 148/74
[2025-01-31 08:07] VITALS: BP 143/82
[2025-01-31 09:06] VITALS: BP 150/75
[2025-01-31 09:35] VITALS: BP 144/92
[2025-02-27] MEDS ORDERED: RIZATRIPTAN10 MG SL ×2 (00:29)
[2025-02-27] MEDS ORDERED: Dilaudid 2 mg Ta2 MG PO ×2 (00:31)
[2025-02-27] MEDS ORDERED: MIRALAX17 GM PO ×2 (00:32)
[2025-03-09] MEDS ORDERED: Acetaminophen650 M1 PO ×2 (14:35)
[2025-03-09] MEDS ORDERED: SULTRIDS PO ×2 (14:45)
== END 2025-01-31 09:38 | disposition home or self-care (01) ==
LOC: ATC 01:35
DX: I13.2 Hypertensive heart and chronic kidney disease with heart failure and with stage 5 chronic kidney disease, or end stage renal disease (principal); N18.6 End stage renal disease; D63.1 Anemia in chronic kidney disease; I50.22 Chronic systolic (congestive) heart failure; Z87.891 Personal history of nicotine dependence; Z88.8 Allergy status to other drugs, medicaments and biological substances; Z88.5 Allergy status to narcotic agent; Z88.0 Allergy status to penicillin
CPT/HCPCS: 36415; 36430; 86850; 86900; 86901; 86923; 99211; J7050; P9016

== ENCOUNTER 2025-02-26 18:13 | Observation (INO) | payer MEDICARE ==
[~2025-02-26] VITALS: Ht 182.9 cm; Wt 77.4 kg
[2025-02-26 19:18] LABS: Influenza A, PCR NEGATIVE (NEGATIVE); Influenza B, PCR NEGATIVE (NEGATIVE); Resp Syncytial Virus, PCR NEGATIVE (NEGATIVE); SARS-Cov-2 (COVID-19) PCR, MMC NEGATIVE (NEGATIVE)
[2025-02-26 19:30] LABS: BASOPHILS ABSOLUTE AUTO 0.01 K/mm3 (0.00-0.23); BASOPHILS PERCENT AUTO 0 % (0-2); EOSINOPHILS ABSOLUTE AUTO 0.03 K/mm3 (0.00-0.68); EOSINOPHILS PERCENT AUTO 1 % (0-6); Hematocrit 27.6 % (37.0-53.0); Hemoglobin 8.8 g/dL (13.5-17.5); IMMATURE GRAN ABSOLUTE AUTO 0.04 K/mm3 (0.00-0.10); IMMATURE GRAN PERCENT AUTO 1 % (0-1); LYMPHOCYTES ABSOLUTE AUTO 0.29 K/mm3 (0.84-5.20); LYMPHOCYTES PERCENT AUTO 9 % (21-46); MONOCYTES ABSOLUTE AUTO 0.28 K/mm3 (0.16-1.47); MONOCYTES PERCENT AUTO 8 % (4-13); Mean Corpuscular HGB Conc 31.9 g/dL (31.5-36.5); Mean Corpuscular Volume 95 fL (80-100); NEUTROPHILS ABSOLUTE AUTO 2.69 K/mm3 (1.96-9.15); NEUTROPHILS PERCENT AUTO 81 % (41-73); NRBC ABSOLUTE 0.00 K/mm3 (0.00-0.02); NRBC Auto 0.0 /100 WBC (0.0-0.2); RDW Coefficient Variation 14.6 % (11.7-14.2); RDW Standard Deviation 51.5 fL (35.1-46.3)
[2025-02-26 19:37] LABS: Platelet Count 44 K/mm3 (150-400)
[2025-02-26 19:49] LABS: Alanine Aminotransfer (ALT/SGP 26.0 U/L (12-78); Albumin, Blood 3.3 g/dL (3.4-5.0); Albumin/Globulin Ratio 1.1 (0.8-1.8); Anion Gap 12.0 mmol/L (3-11); Aspartate Aminotrans (AST/SGOT 25.0 U/L (12-37); Bilirubin, Total 0.6 mg/dL (0.1-1.0); Blood Urea Nitrogen 58.0 mg/dL (8-24); CO2, Blood 35.0 mmol/L (21-32); Calcium, Blood 9.1 mg/dL (8.5-10.1); Chloride, Blood 96.0 mmol/L (98-108); Creatinine, Blood 7.72 mg/dL (0.60-1.20); Globulin, Blood 3.0 g/dL (2.2-4.0); Glucose, Blood 98.0 mg/dL (70-99); Potassium, Blood 4.8 mmol/L (3.5-5.5); Sodium, Blood 138.0 mmol/L (136-145); Total Protein, Blood 6.3 g/dL (6.4-8.2)
[2025-02-26] MEDS ORDERED: Ondansetron HCl 2 MG / ML 2ML Vial IV ONE (20:40)
[2025-02-26] MEDS ORDERED: HYDROmorphone HCl/Pf 1MG SYR IV ONE (20:40)
[2025-02-26 22:29] LABS: Influenza A/2009-H1 Not Detected (NOT DETECT); SARS-Cov-2 (COVID-19), BioFire Not Detected (NOT DETECT)
[2025-02-26] MEDS ORDERED: Ondansetron HCl 2 MG / ML 2ML Vial IV PRN (22:50)
[2025-02-26] MEDS ORDERED: FLU VACC TS2025-26(6MOS UP)/PF 45 MCG/0.5 ML SYRINGE IM SCH (22:50)
[2025-02-26] MEDS ORDERED: NS 250 ML IV PRN (23:55)
--- NOTE | 2025-02-26 23:59 | NUR ---
TOOK REPORT FROM ED WILL DE LA TORRE @ 0000.
[2025-02-27] VITALS (19 sets, daily range): BP systolic 93–166; BP diastolic 55–80
[2025-02-27] MEDS ORDERED: RIZATRIPTAN10 MG SL (00:29)
[2025-02-27] MEDS ORDERED: Dilaudid 2 mg Ta2 MG PO (00:31)
[2025-02-27] MEDS ORDERED: MIRALAX17 GM PO (00:32)
[2025-02-27] MEDS ORDERED: HYDHCL25 PO (00:34)
[2025-02-27] MEDS ORDERED: CIPR100 PO (00:35)
[2025-02-27] MEDS ORDERED: CefTRIAXone Sodium 1,000 MG in NS 100 ML IV SCH (04:34)
[2025-02-27 05:34] LABS: BASOPHILS ABSOLUTE AUTO 0.00 K/mm3 (0.00-0.23); BASOPHILS PERCENT AUTO 0 % (0-2); EOSINOPHILS ABSOLUTE AUTO 0.02 K/mm3 (0.00-0.68); EOSINOPHILS PERCENT AUTO 1 % (0-6); Hematocrit 23.3 % (37.0-53.0); Hemoglobin 7.3 g/dL (13.5-17.5); IMMATURE GRAN ABSOLUTE AUTO 0.01 K/mm3 (0.00-0.10); IMMATURE GRAN PERCENT AUTO 1 % (0-1); LYMPHOCYTES ABSOLUTE AUTO 0.35 K/mm3 (0.84-5.20); LYMPHOCYTES PERCENT AUTO 16 % (21-46); MONOCYTES ABSOLUTE AUTO 0.24 K/mm3 (0.16-1.47); MONOCYTES PERCENT AUTO 11 % (4-13); Mean Corpuscular HGB Conc 31.3 g/dL (31.5-36.5); Mean Corpuscular Volume 97 fL (80-100); NEUTROPHILS ABSOLUTE AUTO 1.53 K/mm3 (1.96-9.15); NEUTROPHILS PERCENT AUTO 71 % (41-73); NRBC ABSOLUTE 0.00 K/mm3 (0.00-0.02); NRBC Auto 0.0 /100 WBC (0.0-0.2); RDW Coefficient Variation 14.7 % (11.7-14.2); RDW Standard Deviation 52.7 fL (35.1-46.3)
[2025-02-27 05:43] LABS: Platelet Count 40 K/mm3 (150-400)
[2025-02-27] MEDS ORDERED: Darbepoetin (Pharmacy Consult) SC SCH (06:00)
[2025-02-27] MEDS ORDERED: NS 500 ML IV SCH (06:10)
--- NOTE | 2025-02-27 06:14 | NUR ---
SHIFT SUMMARY NOC PT A/O X 4. PLEASANT AND COOPERATIVE WITH CARE. VSS. ADMIT FOR PNA. HD PT WITH LEFT AV FISTULA IN PLACE AND RECEIVES DIALYSIS MONDAY, MONDAY, MONDAY, AND MONDAY'S WITH LAST DIALYSIS ON 02/25/25. PT REPORTS THAT THEY WILL HAVE A FISTULA REVISION THE DAY AFTER LANIE. PT MEDICATIONS HAVE BEEN RECONCILED. PT ON 3L/NC WHICH IS BASELINE, SPO2 >92% ON BIOX. PT HAS NEPHROLOGY CONSULT VERABLIZED WITH DR CARMONA, WHO IS PT'S TOP LIFT COMPRESSOR. PT HGB 7.[address] CARMONA ORDERED CROSS TYPE AND MATCH FOR 1 UNIT PRBC TRANSFUSION DURING DIALYSIS THIS MORNING. PT RERPORTS TORN R BICEP, WHICH HAS LARGE BRUISE. PT CURRENTLY RESTING WITH BED IN LOWEST POSITION, AND CALL LIGHT WITHIN REACH.
[2025-02-27 06:22] LABS: Alanine Aminotransfer (ALT/SGP 21.0 U/L (12-78); Albumin, Blood 2.6 g/dL (3.4-5.0); Albumin/Globulin Ratio 1.0 (0.8-1.8); Anion Gap 11.0 mmol/L (3-11); Aspartate Aminotrans (AST/SGOT 14.0 U/L (12-37); Bilirubin, Total 0.5 mg/dL (0.1-1.0); Blood Urea Nitrogen 63.0 mg/dL (8-24); CO2, Blood 35.0 mmol/L (21-32); Calcium, Blood 8.8 mg/dL (8.5-10.1); Chloride, Blood 97.0 mmol/L (98-108); Creatinine, Blood 8.56 mg/dL (0.60-1.20); Globulin, Blood 2.6 g/dL (2.2-4.0); Glucose, Blood 135.0 mg/dL (70-99); Potassium, Blood 4.4 mmol/L (3.5-5.5); Sodium, Blood 139.0 mmol/L (136-145); Total Protein, Blood 5.2 g/dL (6.4-8.2)
[2025-02-27] MEDS ORDERED: Polyethylene Glycol 3350 17 gm PO PRN (06:40)
[2025-02-27] MEDS ORDERED: Rizatriptan Benzoate 10 MG / TAB SoluTab SL PRN (06:40)
[2025-02-27] MEDS ORDERED: Calcium Acetate 667 MG Gel Cap PO PRN (06:40)
[2025-02-27] MEDS ORDERED: Albuterol HFA200 ACT/6.7 GM INH INH PRN (07:10)
[2025-02-27] MEDS ORDERED: Calcium Acetate 667 MG Gel Cap PO SCH (08:30)
[2025-02-27] MEDS ORDERED: Levodopa/Carbidopa 100 / 25 MG Tab PO PRN (08:35)
[2025-02-27] MEDS ORDERED: Vitamin B Cmplx/Vit C/Folic Ac 1 Tab PO SCH (09:00)
[2025-02-27] MEDS ORDERED: Lactobacil 2-S.Thermo-Bifido 1 1 Cap PO SCH (09:00)
[2025-02-27] MEDS ORDERED: Sacubitril/Valsartan 49 MG/51 MG Tab PO SCH (09:00)
[2025-02-27] MEDS ORDERED: DOXY100 PO (15:51)
[2025-02-27] MEDS ORDERED: Epoetin Alfa-EPBX 4,000 UNIT/ML 1ML Vial SC SCH (17:00)
--- NOTE | 2025-02-27 17:34 | NUR ---
SHIFT SUMMARY AND DISCHARGE PATIENT ALERT AND INTERACTIVE. PATIENT HAD DIALYSIS TODAY AND VERBALIZING THAT HE WANTED TO GO BACK HOME. DISCHARGE ORDERS OBTAINED. PATIENT DISCHARGED TO HOME. DISCHARGE INSTRUCTIONS REVIEWED WITH PATIENT AND . PATIENT TAKEN OUT VIA PERSONAL WHEELCHAIR BY . IV DC'D PRIOR TO DISCHARGE AND BELONGINGS RETURNED TO PATIENT. ROOM CHECK DONE PRIOR TO DISCHARGE WITH PATIENT AND .
== END 2025-02-27 17:11 | disposition home or self-care (01) ==
LOC: ER 18:13 → MEDS 18:14 → ERHOLD 18:14 → MEDS 02-27 00:09
PROVIDERS: Nurse Practitioner Acute Care; Physician Assistant; ADMIT Internal Medicine
DX: J18.9 Pneumonia, unspecified organism (principal); J96.11 Chronic respiratory failure with hypoxia; I13.2 Hypertensive heart and chronic kidney disease with heart failure and with stage 5 chronic kidney disease, or end stage renal disease; N18.6 End stage renal disease; I50.42 Chronic combined systolic (congestive) and diastolic (congestive) heart failure; N25.81 Secondary hyperparathyroidism of renal origin; M81.0 Age-related osteoporosis without current pathological fracture; I48.0 Paroxysmal atrial fibrillation; D69.6 Thrombocytopenia, unspecified; E88.09 Other disorders of plasma-protein metabolism, not elsewhere classified; E83.39 Other disorders of phosphorus metabolism; Z66 Do not resuscitate; Z99.2 Dependence on renal dialysis; Z79.899 Other long term (current) drug therapy; Z88.0 Allergy status to penicillin; Z88.5 Allergy status to narcotic agent; Z88.8 Allergy status to other drugs, medicaments and biological substances; Z91.041 Radiographic dye allergy status; Z87.891 Personal history of nicotine dependence
CPT/HCPCS: 0202U; 36415; 36430; 71046; 80053; 83880; 84484; 85025; 86850; 86900; 86901; 86923; 87040; 87637; 93005; 93010; 96365; 96366; 96374; 96375; 96376; 99284-25; A9270; G0257; G0378; J0456; J0696; J1171; J2405; J7050; P9016

== ENCOUNTER 2025-03-08 12:14 | Observation (INO) | payer MEDICARE ==
[~2025-03-08] VITALS: Ht 182.9 cm; Wt 81.0 kg
[~2025-03-08 12:14] MED LIST changes: +CIPR100 PO; +RIZATRIPTAN10 MG SL
[2025-03-08 13:41] LABS: BASOPHILS ABSOLUTE AUTO 0.01 K/mm3 (0.00-0.23); BASOPHILS PERCENT AUTO 0 % (0-2); EOSINOPHILS ABSOLUTE AUTO 0.09 K/mm3 (0.00-0.68); EOSINOPHILS PERCENT AUTO 2 % (0-6); Hematocrit 21.7 % (37.0-53.0); Hemoglobin 6.7 g/dL (13.5-17.5); IMMATURE GRAN ABSOLUTE AUTO 0.01 K/mm3 (0.00-0.10); IMMATURE GRAN PERCENT AUTO 0 % (0-1); LYMPHOCYTES ABSOLUTE AUTO 0.72 K/mm3 (0.84-5.20); LYMPHOCYTES PERCENT AUTO 19 % (21-46); MONOCYTES ABSOLUTE AUTO 0.26 K/mm3 (0.16-1.47); MONOCYTES PERCENT AUTO 7 % (4-13); Mean Corpuscular HGB Conc 30.9 g/dL (31.5-36.5); Mean Corpuscular Volume 95 fL (80-100); NEUTROPHILS ABSOLUTE AUTO 2.64 K/mm3 (1.96-9.15); NEUTROPHILS PERCENT AUTO 71 % (41-73); NRBC ABSOLUTE 0.00 K/mm3 (0.00-0.02); NRBC Auto 0.0 /100 WBC (0.0-0.2); Platelet Count 78 K/mm3 (150-400); RDW Coefficient Variation 15.2 % (11.7-14.2); RDW Standard Deviation 52.3 fL (35.1-46.3)
[2025-03-08 14:22] LABS: Alanine Aminotransfer (ALT/SGP 20.0 U/L (12-78); Albumin, Blood 2.9 g/dL (3.4-5.0); Albumin/Globulin Ratio 0.9 (0.8-1.8); Anion Gap 9.0 mmol/L (3-11); Aspartate Aminotrans (AST/SGOT 18.0 U/L (12-37); Bilirubin, Total 0.5 mg/dL (0.1-1.0); Blood Urea Nitrogen 103.0 mg/dL (8-24); CO2, Blood 36.0 mmol/L (21-32); Calcium, Blood 9.6 mg/dL (8.5-10.1); Chloride, Blood 96.0 mmol/L (98-108); Creatinine, Blood 9.68 mg/dL (0.60-1.20); Globulin, Blood 3.2 g/dL (2.2-4.0); Glucose, Blood 156.0 mg/dL (70-99); Potassium, Blood 4.9 mmol/L (3.5-5.5); Sodium, Blood 136.0 mmol/L (136-145); Total Protein, Blood 6.1 g/dL (6.4-8.2)
[2025-03-08] MEDS ORDERED: FLU VACC TS2025-26(6MOS UP)/PF 45 MCG/0.5 ML SYRINGE IM SCH (18:00)
[2025-03-08] MEDS ORDERED: Rizatriptan Benzoate 10 MG / TAB SoluTab SL PRN (18:10)
[2025-03-08] MEDS ORDERED: Ondansetron 4 MG SoluTab MM PRN (19:00)
[2025-03-08] MEDS ORDERED: Polyethylene Glycol 3350 17 gm PO PRN (19:00)
[2025-03-08] MEDS ORDERED: Darbepoetin (Pharmacy Consult) SC SCH (19:55)
[2025-03-08 20:25] VITALS: BP 174/90
[2025-03-08] MEDS ORDERED: Calcium Acetate 667 MG Gel Cap PO PRN (20:25)
[2025-03-08] MEDS ORDERED: Sacubitril/Valsartan 49 MG/51 MG Tab PO SCH (21:00)
[2025-03-08] MEDS ORDERED: Trimethoprim/Sulfamethoxazole DS Tab PO ONE (21:00)
[2025-03-08] MEDS ORDERED: Lactobacil 2-S.Thermo-Bifido 1 1 Cap PO SCH (21:00)
[2025-03-08] MEDS ORDERED: NS 500 ML IV SCH (21:40)
[2025-03-08 22:44] VITALS: BP 170/84
[2025-03-09] VITALS (18 sets, daily range): BP systolic 124–166; BP diastolic 56–117
[2025-03-09] MEDS ORDERED: Prochlorperazine Edisylate 10 mg Vial IV PRN (01:55)
[2025-03-09] MEDS ORDERED: Darbepoetin (Pharmacy Consult) SC SCH (04:30)
[2025-03-09 05:49] LABS: BASOPHILS ABSOLUTE AUTO 0.00 K/mm3 (0.00-0.23); BASOPHILS PERCENT AUTO 0 % (0-2); EOSINOPHILS ABSOLUTE AUTO 0.11 K/mm3 (0.00-0.68); EOSINOPHILS PERCENT AUTO 3 % (0-6); Hematocrit 20.5 % (37.0-53.0); Hemoglobin 6.4 g/dL (13.5-17.5); IMMATURE GRAN ABSOLUTE AUTO 0.02 K/mm3 (0.00-0.10); IMMATURE GRAN PERCENT AUTO 1 % (0-1); LYMPHOCYTES ABSOLUTE AUTO 0.57 K/mm3 (0.84-5.20); LYMPHOCYTES PERCENT AUTO 13 % (21-46); MONOCYTES ABSOLUTE AUTO 0.19 K/mm3 (0.16-1.47); MONOCYTES PERCENT AUTO 4 % (4-13); Mean Corpuscular HGB Conc 31.2 g/dL (31.5-36.5); Mean Corpuscular Volume 94 fL (80-100); NEUTROPHILS ABSOLUTE AUTO 3.52 K/mm3 (1.96-9.15); NEUTROPHILS PERCENT AUTO 80 % (41-73); NRBC ABSOLUTE 0.00 K/mm3 (0.00-0.02); NRBC Auto 0.0 /100 WBC (0.0-0.2); Platelet Count 73 K/mm3 (150-400); RDW Coefficient Variation 15.6 % (11.7-14.2); RDW Standard Deviation 53.4 fL (35.1-46.3)
[2025-03-09 06:16] LABS: Magnesium, Blood 2.7 mg/dL (1.6-2.4)
[2025-03-09 06:46] LABS: Albumin, Blood 2.9 g/dL (3.4-5.0); Anion Gap 12 mmol/L (3-11); Blood Urea Nitrogen 113 mg/dL (8-24); CO2, Blood 33 mmol/L (21-32); Calcium, Blood 9.6 mg/dL (8.5-10.1); Chloride, Blood 94 mmol/L (98-108); Creatinine, Blood 10.40 mg/dL (0.60-1.20); Glucose, Blood 102 mg/dL (70-99); Phosphorus, Blood 6.6 mg/dL (2.5-4.9); Potassium, Blood 6.4 mmol/L (3.5-5.5); Sodium, Blood 133 mmol/L (136-145)
--- NOTE | 2025-03-09 06:52 | NUR ---
SHIFT SUMMARY: PT IS AOX4, PLEASANT AND COOPERATIVE. MAKES HIS NEEDS KNOWN AND USES CALL LIGHT APPROPRIATELY. HE AMBULATES INDEPENDENTLY AND IS CONTINENT. PT ? SOME NAUSEA, PAIN, AND RESTLESS LEGS THIS SHIFT. TREATED THESE PER THE EMAR, PT VERBALIZED RELIEF AFTER MEDS GIVEN. NO ACUTE EVENTS THIS SHIFT. PT IS ASLEEP IN BED WITH HIS LEFT ARM ELEVATED. BED IN LOWEST POSITION, CALL LIGHT WITHIN REACH.
--- NOTE | 2025-03-09 06:55 | NUR ---
0655 - PT HAS CRITICAL LAB VALUES (CREATININE 10.4 AND POTASSIUM 6.4). THIS RN NOTIFIED DR. CARMONA VIA PHONE.
--- NOTE | 2025-03-09 07:00 | NUR ---
DR CARMONA NOTIFIED OF CREATNINE 10.40 AND POTASSIUM 6.4 WHILE ROUNDING ON UNIT AND GAVE ORDERS TO PASS TO DAY RN TO CALL ELECTRICIAN THIRD FOR TREATMENT TODAY.
[2025-03-09] MEDS ORDERED: Calcium Acetate 667 MG Gel Cap PO SCH (08:30)
[2025-03-09] MEDS ORDERED: Trimethoprim/Sulfamethoxazole SS Tab PO SCH (09:00)
[2025-03-09] MEDS ORDERED: Acetaminophen650 M1 PO (14:35)
[2025-03-09] MEDS ORDERED: VISBIOME 112.51 EACH PO (14:45)
[2025-03-09] MEDS ORDERED: SULTRIDS PO (14:45)
--- NOTE | 2025-03-09 15:25 | NUR ---
DISCHARGE NOTE PATIENT AND FAMILY IN ROOM WHEN DISCHARGE WAS DISCUSSED AND PLAN FOR FOLLOW UP VISITS. MEDICATIONS DISCUSSED, NO NEW MEDICATIONS, LIST AND INSTRUCTIONS GIVEN. FOLLOW UP APPOINTMENTS DISCUSSED, NO QUESTIONS OR CONCERNS FROM THE FAMILY OR PATIENT. IV WAS REMOVED, PATIENT WAS DRESSED BY FAMILY. PATIENT WHEELED OUT BY MEDICAL STAFF TO PERSONAL VEHICLE.
[2025-03-09] MEDS ORDERED: Darbepoetin Alfa In Albumn Sol 40 MCG/0.4 ML SC SCH (16:00)
== END 2025-03-09 15:37 | disposition home or self-care (01) ==
LOC: ER 12:14 → ERHOLD 12:15 → MEDS 12:15
PROVIDERS: Emergency Medicine; ADMIT Internal Medicine
DX: I13.2 Hypertensive heart and chronic kidney disease with heart failure and with stage 5 chronic kidney disease, or end stage renal disease (principal); N18.6 End stage renal disease; I50.42 Chronic combined systolic (congestive) and diastolic (congestive) heart failure; D63.1 Anemia in chronic kidney disease; G89.29 Other chronic pain; K59.09 Other constipation; G25.81 Restless legs syndrome; E87.70 Fluid overload, unspecified; M19.90 Unspecified osteoarthritis, unspecified site; M81.0 Age-related osteoporosis without current pathological fracture; I48.0 Paroxysmal atrial fibrillation; N25.81 Secondary hyperparathyroidism of renal origin; E87.1 Hypo-osmolality and hyponatremia; E87.5 Hyperkalemia; Z22.322 Carrier or suspected carrier of Methicillin resistant Staphylococcus aureus; Z87.891 Personal history of nicotine dependence; Z79.899 Other long term (current) drug therapy; Z88.0 Allergy status to penicillin; Z88.5 Allergy status to narcotic agent; Z88.8 Allergy status to other drugs, medicaments and biological substances; Z91.041 Radiographic dye allergy status; Z90.5 Acquired absence of kidney; Z90.89 Acquired absence of other organs; Z99.2 Dependence on renal dialysis
CPT/HCPCS: 36415; 36430; 80053; 80069; 83735; 85025; 86850; 86900; 86901; 86923; 94760; 96374; 99284; A9270; G0378; J0780; P9016